=== PATIENT | male | born 1970 | race Caucasian/White ===

== ENCOUNTER 2017-05-07 03:15 | Emergency (ER) | payer MEDICARE, MEDICAID ==
[~2017-05-07] VITALS: Ht 177.8 cm; Wt 133.2 kg
[~2017-05-07 03:15] MED LIST: CLON0.1T20 PO; DILT240C90 PO; GABA-338 PO; HYDR-3972 PO; IBUP-1986 PO; LAMO200T2 PO; PALI234D IM; RIVA15TA PO; RIVA20TA PO; SIMV20TA5 PO
[2017-05-07 03:28] LABS: BASOPHILS % (AUTO) 0.5 % (0-1); EOSINOPHILS # (AUTO) 0.1 X10'3 (0-0.9); EOSINOPHILS % (AUTO) 1.5 % (0-6); HEMATOCRIT 41.7 % (42.0-52.0); HEMOGLOBIN 14.4 g/dl (14.0-17.9); LYMPHOCYTES # (AUTO) 2.9 X10'3 (1.1-4.8); LYMPHOCYTES % (AUTO) 30.2 % (21-51); MEAN CORPUSCULAR HEMOGLOBIN 30.9 PG (27.0-31.0); MEAN CORPUSCULAR HGB CONC 34.6 % (33.0-36.5); MEAN CORPUSCULAR VOLUME 89.5 FL (78-98); MEAN PLATELET VOLUME 8.1 FL (7.4-10.4); MONOCYTES # (AUTO) 0.7 X10'3 (0-0.9); MONOCYTES % (AUTO) 7.4 % (2-12); NEUTROPHILS # (AUTO) 5.7 X10'3 (1.8-7.7); NEUTROPHILS % (AUTO) 60.4 % (42-75); PLATELET COUNT 243 X10'3 (140-440); RED BLOOD COUNT 4.66 X10'6 (4.70-6.10); RED CELL DISTRIBUTION WIDTH 14.8 % (11.5-14.5); WHITE BLOOD COUNT 9.5 X10'3 (4.5-11.0)
[2017-05-07] MEDS ORDERED: albuterol 2.5 MG/3 ML nebule NEB ONE (03:35)
[2017-05-07] MEDS ORDERED: normal saline 1000ML IV soln IVB ONE (03:35)
[2017-05-07 03:44] LABS: ALANINE AMINOTRANSFERASE 35 U/L (12-78); ALBUMIN 3.7 G/DL (3.4-5.0); ALKALINE PHOSPHATASE 50 IU/L (46-116); ANION GAP 12 (8-16); ASPARTATE AMINO TRANSFERASE 15 U/L (10-37); BILIRUBIN,TOTAL 0.3 MG/DL (0.1-1.0); BLOOD UREA NITROGEN 19 MG/DL (7-18); BUN/CREATININE RATIO 16.7 (5.4-32.0); CHLORIDE 104 MMOL/L (99-107); CREATININE 1.14 MG/DL (0.60-1.10); GLUCOSE 154 MG/DL (70-104); POTASSIUM 4.1 MMOL/L (3.5-5.1); SODIUM 140 MMOL/L (135-145); TOTAL CARBON DIOXIDE 23.6 MMOL/L (24-32); TOTAL PROTEIN 7.3 G/DL (6.4-8.2); eGFR 69 ML/MIN
[2017-05-07 03:49] LABS: D-DIMER < 0.19 MG/L FEU (0-0.50); PARTIAL THROMBOPLASTIN TIME 28 SECONDS (22-32); PROTHROMBIN TIME 10.7 SECONDS (9.0-12.0)
[2017-05-07 04:19] LABS: MAGNESIUM 1.9 MG/DL (1.5-2.4); PHOSPHORUS 4.2 MG/DL (2.3-4.5)
[2017-05-07] MEDS ORDERED: iohexol 350MG/ML 100ml bottle IV ONE (04:24)
[2017-05-07 04:39] LABS: CLARITY,URINE CLEAR (Clear); COLOR,URINE YELLOW (Yellow); GLUCOSE, URINE NEGATIVE (Neg); KETONES,URINE NEGATIVE (Neg); LEUKOCYTE ESTERASE ,URINE NEGATIVE (Neg); NITRITES, URINE NEGATIVE (Neg); OCCULT BLOOD,URINE NEGATIVE (Neg); PROTEIN,URINE NEGATIVE (Neg); UROBILINOGEN,URINE 0.2 E.U/dL (0.2-1.0)
[2017-05-07 04:43] LABS: UA COLLECTION TYPE STRAIGHT CATH
[2017-05-07 04:45] LABS: URINE AMPHETAMINE SCREEN NEGATIVE (Neg); URINE BARBITUATE SCREEN NEGATIVE (Neg); URINE BENZODIAZEPINES SCREEN NEGATIVE (Neg); URINE CANNABINOID SCREEN NEGATIVE (Neg); URINE COCAINE SCREEN NEGATIVE (Neg); URINE METHADONE SCREEN NEGATIVE (Neg); URINE OPIATE SCREEN NEGATIVE (Neg); URINE PHENCYCLIDINE SCREEN NEGATIVE (Neg)
[2017-05-07 07:47] VITALS: BP 137/69
== END 2017-05-07 07:48 | disposition home or self-care (01) ==
LOC: ER 03:15
DX: R06.00 Dyspnea, unspecified (principal); I25.10 Atherosclerotic heart disease of native coronary artery without angina pectoris; E78.00 Pure hypercholesterolemia, unspecified; I10 Essential (primary) hypertension; I25.2 Old myocardial infarction; K21.9 Gastro-esophageal reflux disease without esophagitis; E11.9 Type 2 diabetes mellitus without complications; F17.200 Nicotine dependence, unspecified, uncomplicated; G89.29 Other chronic pain; Z86.718 Personal history of other venous thrombosis and embolism; Z90.49 Acquired absence of other specified parts of digestive tract; Z95.1 Presence of aortocoronary bypass graft; Z56.0 Unemployment, unspecified; Z88.8 Allergy status to other drugs, medicaments and biological substances; Z79.899 Other long term (current) drug therapy
CPT/HCPCS: 36415; 71045; 71250; 80053; 80305; 81003; 83735; 83880; 84100; 84484; 85025; 85379; 85610; 85730; 93005; 94640; 94760; 96360; 99285; J7030; Q9967

== ENCOUNTER 2017-05-24 08:09 | Inpatient (IN) | payer MEDICARE, MEDICAID ==
[2017-05-18 15:36] LABS: BASOPHILS # (AUTO) 0.1 X10'3 (0-0.2); BASOPHILS % (AUTO) 0.6 % (0-1); EOSINOPHILS # (AUTO) 0.2 X10'3 (0-0.9); EOSINOPHILS % (AUTO) 2.5 % (0-6); LYMPHOCYTES # (AUTO) 3.6 X10'3 (1.1-4.8); LYMPHOCYTES % (AUTO) 36.6 % (21-51); MEAN CORPUSCULAR HEMOGLOBIN 30.9 PG (27.0-31.0); MEAN CORPUSCULAR HGB CONC 34.7 % (33.0-36.5); MEAN CORPUSCULAR VOLUME 88.9 FL (78-98); MEAN PLATELET VOLUME 8.4 FL (7.4-10.4); MONOCYTES # (AUTO) 0.9 X10'3 (0-0.9); MONOCYTES % (AUTO) 9.2 % (2-12); NEUTROPHILS # (AUTO) 5.1 X10'3 (1.8-7.7); NEUTROPHILS % (AUTO) 51.1 % (42-75); PRE OP HEMATOCRIT 39.7 % (42.0-52.0); PRE OP HEMOGLOBIN 13.8 g/dL (14.0-17.9); PRE OP PLATELET COUNT 240 X10'3 (140-440); RED BLOOD COUNT 4.46 X10'6 (4.70-6.10); RED CELL DISTRIBUTION WIDTH 14.7 % (11.5-14.5)
[2017-05-18 15:54] LABS: ALBUMIN 3.6 G/DL (3.4-5.0); ALBUMIN/GLOBULIN RATIO 0.9 (1.1-1.5); ALKALINE PHOSPHATASE 58 IU/L (46-116); BLOOD UREA NITROGEN 16 MG/DL (7-18); BUN/CREATININE RATIO 13.6 (5.4-32.0); CHLORIDE 103 MMOL/L (99-107); CREATININE 1.18 MG/DL (0.60-1.10); PRE OP ALT 32 U/L (30-65); PRE OP ANION GAP 9 (8-16); PRE OP AST 18 U/L (10-37); PRE OP BILIRUB, TOTAL 0.3 MG/DL (0.0-1.0); PRE OP GLUCOSE 124 MG/DL (70-104); PRE OP POTASSIUM 3.7 MMOL/L (3.4-5.1); PRE OP SODIUM 139 MMOL/L (135-145); TOTAL CARBON DIOXIDE 27.1 MMOL/L (24-32); TOTAL PROTEIN 7.4 G/DL (6.4-8.2); eGFR 67 ML/MIN
[~2017-05-24] VITALS: Ht 177.8 cm; Wt 136.1 kg
[2017-05-24] VITALS (18 sets, daily range): BP systolic 112–136; BP diastolic 64–87
[~2017-05-24 08:09] MED LIST changes: +BUPR-84 PO; -GABA-338 PO; +GABA600T2 PO; +HALO2TAB PO; +IBUP-1984 PO; -IBUP-1986 PO; +LISI-600 PO; +PANT-47 PO; +PRAV40TA3 PO; -RIVA15TA PO; -SIMV20TA5 PO; +TRAZ-146 PO; +ZOLP10TA5 PO; +ceFAZolin inj. 3,000 MG in normal saline 100ml IV soln 100 ML IV ONE; +famotidine 20mg tablet PO ONE; +ringers solution, lacted 1,000 ML IV SCH; +vancomycin inj 1,500 MG in normal saline 300ml IV soln IV ONE
[2017-05-24] MEDS ORDERED: albuterol 2.5 MG/3 ML nebule NEB ONE (09:55)
[2017-05-24] MEDS ORDERED: ketorolac trometh. 30mg/ml inj. ONE (10:10)
[2017-05-24] MEDS ORDERED: LIDOcaine 1% 30ml preserv. free vial ONE (10:16)
[2017-05-24] MEDS ORDERED: BUPIVAcaine 0.5% inj/PF 30 ml vial ONE ×2 (10:16→10:18)
[2017-05-24] MEDS ORDERED: MIDAZolam 5mg/5ml vial ONE (10:21)
[2017-05-24] MEDS ORDERED: fentaNYL /PF 50mcg/ml 5ml ampule ONE (10:21)
[2017-05-24] MEDS ORDERED: rocuronium 10mg/ml inj IV ONE (10:23)
[2017-05-24] MEDS ORDERED: propofol inj 20 ML IV ONE (10:23)
[2017-05-24] MEDS ORDERED: neostigmine methylsulfate 1 MG/ML 10ml vial ONE (11:15)
[2017-05-24] MEDS ORDERED: glycopyrrolate 0.2mg/ml inj ONE (11:15)
[2017-05-24] MEDS ORDERED: sevoflurane 250ml liquid IH ONE (11:15)
[2017-05-24] MEDS ORDERED: labetalol 20mg/4ml (5mg/ml) syringe IV PRN (11:55)
[2017-05-24] MEDS ORDERED: meperidine/PF 50mg/ml syringe IV ONE (11:55)
[2017-05-24] MEDS ORDERED: hydrALAZINE 20mg/ml inj. IV PRN (11:55)
[2017-05-24] MEDS ORDERED: ringers solution, lacted 1,000 ML IV ONE (11:55)
[2017-05-24] MEDS ORDERED: meperidine/PF 50mg/ml syringe IV PRN ×2 (11:55)
[2017-05-24] MEDS ORDERED: morphine 4 MG/ML inj SYRINge IV PRN ×2 (11:55)
[2017-05-24] MEDS ORDERED: ondansetron/PF 4mg/2ml inj IV PRN ×2 (11:55→13:20)
[2017-05-24] MEDS ORDERED: vancomycin 1,000mg inj ONE (12:10)
[2017-05-24] MEDS ORDERED: dexamethasone sod phosphate 4mg/ml inj. ONE (12:28)
[2017-05-24] MEDS ORDERED: ondansetron/PF 4mg/2ml inj ONE (12:28)
[2017-05-24] MEDS ORDERED: bisacodyl 10mg suppository rectal RC PRN (13:20)
[2017-05-24] MEDS ORDERED: oxyCODONE IR 5mg (immed. release) tablet PO PRN ×2 (13:20)
[2017-05-24] MEDS ORDERED: magnesium hydroxide 30ml (MOM) UD suspension PO PRN (13:20)
[2017-05-24] MEDS ORDERED: HYDROmorphone inj. 0.5 MG/0.5 ML DISP.SYRIN IV PRN ×2 (13:20)
[2017-05-24] MEDS ORDERED: diphenhydrAMINE 25mg capsule PO PRN ×2 (13:20)
[2017-05-24] MEDS ORDERED: acetaminophen 325mg tablet PO PRN (13:20)
[2017-05-24] MEDS ORDERED: morphine 2 MG/ML inj. syringe IV PRN (14:30)
[2017-05-24] MEDS ORDERED: HYDROcodone/acetaminophen 10/325mg tab PO PRN ×2 (14:35)
[2017-05-24] MEDS ORDERED: tranexamic acid inj. 1,350 MG in normal saline 100ml IV soln 100 ML IV ONE (16:20)
[2017-05-24] MEDS: potassium cl 20mEq in 1/2 NS 1,000 ML IV SCH ×2 (16:33→21:18)
[2017-05-24] MEDS: acetaminophen 325mg tablet PO SCH ×2 (16:35→20:05)
[2017-05-24] MEDS: cefazolin 1gm/NS 100mL 100 ML IV SCH ×2 (16:36→23:57)
[2017-05-24] MEDS: ketorolac tromethamine 15mg/ml inj. IV SCH ×2 (16:38→20:05)
[2017-05-24] MEDS ORDERED: vancomycin/NS 1 GM ADD-VANTAGE 250 ML IV SCH (20:00)
[2017-05-24] MEDS: cloNIDine 0.1 mg tablet PO SCH (20:04)
[2017-05-24] MEDS: lamoTRIgine 100mg tablet PO SCH (20:04)
[2017-05-24] MEDS: gabapentin 400mg capsule PO SCH (20:04)
[2017-05-24] MEDS: buPROPion SR 150mg tablet PO SCH (20:04)
[2017-05-24] MEDS ORDERED: pravastatin 40mg tablet PO SCH (21:00)
[2017-05-24] MEDS ORDERED: zolpidem 5mg tablet PO SCH (21:00)
[2017-05-24] MEDS ORDERED: sennosides 8.6mg tablet PO SCH (21:00)
[2017-05-24] MEDS ORDERED: traZODone 50mg tablet PO SCH (21:00)
[2017-05-24] MEDS ORDERED: gabapentin 300mg capsule PO SCH (21:00)
[2017-05-24] MEDS ORDERED: haloperidol 1mg tablet PO SCH (21:00)
[2017-05-25] MEDS: ketorolac tromethamine 15mg/ml inj. IV SCH ×2 (01:54→09:22)
[2017-05-25 01:57] VITALS: BP 121/76
[2017-05-25] MEDS: acetaminophen 325mg tablet PO SCH (01:57)
[2017-05-25] MEDS: potassium cl 20mEq in 1/2 NS 1,000 ML IV SCH (05:18)
[2017-05-25 06:23] LABS: BASOPHILS % (AUTO) 0.1 % (0-1); EOSINOPHILS # (AUTO) 0.3 X10'3 (0-0.9); EOSINOPHILS % (AUTO) 1.9 % (0-6); HEMATOCRIT 35.1 % (42.0-52.0); HEMOGLOBIN 12.4 g/dl (14.0-17.9); LYMPHOCYTES # (AUTO) 1.4 X10'3 (1.1-4.8); LYMPHOCYTES % (AUTO) 8.5 % (21-51); MEAN CORPUSCULAR HGB CONC 35.4 % (33.0-36.5); MEAN CORPUSCULAR VOLUME 87.5 FL (78-98); MEAN PLATELET VOLUME 8.1 FL (7.4-10.4); MONOCYTES # (AUTO) 1.1 X10'3 (0-0.9); MONOCYTES % (AUTO) 6.7 % (2-12); NEUTROPHILS # (AUTO) 13.6 X10'3 (1.8-7.7); NEUTROPHILS % (AUTO) 82.8 % (42-75); PLATELET COUNT 234 X10'3 (140-440); RED BLOOD COUNT 4.02 X10'6 (4.70-6.10); RED CELL DISTRIBUTION WIDTH 14.2 % (11.5-14.5); WHITE BLOOD COUNT 16.4 X10'3 (4.5-11.0)
[2017-05-25 06:38] LABS: ANION GAP 8 (8-16); CHLORIDE 105 MMOL/L (99-107); POTASSIUM 4.7 MMOL/L (3.5-5.1); SODIUM 140 MMOL/L (135-145); TOTAL CARBON DIOXIDE 27.1 MMOL/L (24-32)
[2017-05-25] MEDS ORDERED: rivaroxaban 20mg tablet PO SCH (07:30)
[2017-05-25] MEDS ORDERED: pantoprazole 40mg Tablet.DR PO SCH (07:30)
[2017-05-25] MEDS ORDERED: diltiazem CD 120mg capsule (once-daily) PO SCH (08:00)
[2017-05-25] MEDS ORDERED: lisinopril 20mg tablet PO SCH (08:00)
[2017-05-25 08:14] VITALS: BP 122/89
[2017-05-25] MEDS ORDERED: aspirin 325mg tablet PO SCH (08:30)
[2017-05-25] MEDS: cloNIDine 0.1 mg tablet PO SCH (09:26)
[2017-05-25] MEDS: gabapentin 400mg capsule PO SCH (09:26)
[2017-05-25] MEDS: lamoTRIgine 100mg tablet PO SCH (09:26)
[2017-05-25] MEDS: buPROPion SR 150mg tablet PO SCH (09:26)
[2017-05-26] MEDS ORDERED: celeCOXIB 100mg capsule PO SCH (08:00)
[2017-05-26] MEDS ORDERED: acetaminophen 325mg tablet PO PRN (13:20)
== END 2017-05-25 09:45 | disposition home or self-care (01) | DRG 483 ==
LOC: PAS IN 08:09 → EDSTATUS 11:15 → ORTHO 4S 14:53
PROVIDERS: ADMIT Orthopaedic Surgery; ATTEND Orthopaedic Surgery
PROC: 0LS30ZZ Reposition Right Upper Arm Tendon, Open Approach (ICD-10-PCS; 2017-05-24)
PROC: 3E0T3BZ Introduction of Anesthetic Agent into Peripheral Nerves and Plexi, Percutaneous Approach (ICD-10-PCS; 2017-05-24)
PROC: 0RRJ00Z Replacement of Right Shoulder Joint with Reverse Ball and Socket Synthetic Substitute, Open Approach (ICD-10-PCS; principal; 2017-05-24 11:10)
DX: M19.111 Post-traumatic osteoarthritis, right shoulder (principal); F20.9 Schizophrenia, unspecified; I82.509 Chronic embolism and thrombosis of unspecified deep veins of unspecified lower extremity; Z68.41 Body mass index [BMI] 40.0-44.9, adult; D50.0 Iron deficiency anemia secondary to blood loss (chronic); E78.5 Hyperlipidemia, unspecified; K21.9 Gastro-esophageal reflux disease without esophagitis; I10 Essential (primary) hypertension; G47.30 Sleep apnea, unspecified; M75.21 Bicipital tendinitis, right shoulder; M75.41 Impingement syndrome of right shoulder; E66.9 Obesity, unspecified; I25.10 Atherosclerotic heart disease of native coronary artery without angina pectoris; M65.811 Other synovitis and tenosynovitis, right shoulder; F32.9 Major depressive disorder, single episode, unspecified; G89.29 Other chronic pain; M54.9 Dorsalgia, unspecified; M75.121 Complete rotator cuff tear or rupture of right shoulder, not specified as traumatic; F17.210 Nicotine dependence, cigarettes, uncomplicated; Z88.8 Allergy status to other drugs, medicaments and biological substances; Z79.899 Other long term (current) drug therapy; Z79.01 Long term (current) use of anticoagulants; Z86.73 Personal history of transient ischemic attack (TIA), and cerebral infarction without residual deficits
CPT/HCPCS: 36415; 80051; 80053; 85025; 87070; 94640; 94760; 97161; 97530; A4353; A4565; A6255; A7000; J0690; J1100; J1885; J2250; J2270; J2405; J2704; J2710; J3010; J3370; J3490; J7030; J7120

== ENCOUNTER 2017-09-04 15:49 | Emergency (ER) | payer MEDICARE, MEDICAID ==
[~2017-09-04] VITALS: Ht 177.8 cm; Wt 134.1 kg
[~2017-09-04 15:49] MED LIST changes: -ceFAZolin inj. 3,000 MG in normal saline 100ml IV soln 100 ML IV ONE; -famotidine 20mg tablet PO ONE; -ringers solution, lacted 1,000 ML IV SCH; -vancomycin inj 1,500 MG in normal saline 300ml IV soln IV ONE
[2017-09-04 16:03] VITALS: BP 116/48
== END 2017-09-04 17:38 | disposition home or self-care (01) ==
LOC: ER 15:49
DX: S93.402A Sprain of unspecified ligament of left ankle, initial encounter (principal); I25.10 Atherosclerotic heart disease of native coronary artery without angina pectoris; E78.00 Pure hypercholesterolemia, unspecified; I10 Essential (primary) hypertension; I25.2 Old myocardial infarction; K21.9 Gastro-esophageal reflux disease without esophagitis; E11.9 Type 2 diabetes mellitus without complications; G89.29 Other chronic pain; Z87.442 Personal history of urinary calculi; Z86.718 Personal history of other venous thrombosis and embolism; Z90.49 Acquired absence of other specified parts of digestive tract; Z98.890 Other specified postprocedural states; Z56.0 Unemployment, unspecified; Z91.040 Latex allergy status; Z79.899 Other long term (current) drug therapy
CPT/HCPCS: 73610; 99284

== ENCOUNTER 2017-10-31 14:04 | Emergency (ER) | payer MEDICARE, MEDICAID ==
[~2017-10-31] VITALS: Ht 604 cm; Wt 132.0 kg
[~2017-10-31 14:04] MED LIST changes: -TRAZ-146 PO; +TRAZ-219 PO
[2017-10-31 14:24] LABS: BASOPHILS # (AUTO) 0.1 X10'3 (0-0.2); BASOPHILS % (AUTO) 0.9 % (0-1); EOSINOPHILS # (AUTO) 0.1 X10'3 (0-0.9); EOSINOPHILS % (AUTO) 1.3 % (0-6); HEMATOCRIT 37.9 % (42.0-52.0); HEMOGLOBIN 13.2 g/dl (14.0-17.9); LYMPHOCYTES # (AUTO) 3.1 X10'3 (1.1-4.8); LYMPHOCYTES % (AUTO) 29.5 % (21-51); MEAN CORPUSCULAR HEMOGLOBIN 30.7 PG (27.0-31.0); MEAN CORPUSCULAR HGB CONC 34.9 % (33.0-36.5); MEAN CORPUSCULAR VOLUME 88.1 FL (78-98); MEAN PLATELET VOLUME 7.7 FL (7.4-10.4); MONOCYTES # (AUTO) 0.9 X10'3 (0-0.9); MONOCYTES % (AUTO) 8.5 % (2-12); NEUTROPHILS # (AUTO) 6.3 X10'3 (1.8-7.7); NEUTROPHILS % (AUTO) 59.8 % (42-75); PLATELET COUNT 257 X10'3 (140-440); RED CELL DISTRIBUTION WIDTH 14.9 % (11.5-14.5); WHITE BLOOD COUNT 10.6 X10'3 (4.5-11.0)
[2017-10-31 14:33] LABS: INR 1.1 INR; PARTIAL THROMBOPLASTIN TIME 32 SECONDS (22-32); PROTHROMBIN TIME 11.8 SECONDS (9.0-12.0)
[2017-10-31 14:38] LABS: ALANINE AMINOTRANSFERASE 27 U/L (12-78); ALBUMIN 3.5 G/DL (3.4-5.0); ALKALINE PHOSPHATASE 52 IU/L (46-116); ANION GAP 7 (8-16); ASPARTATE AMINO TRANSFERASE 14 U/L (10-37); BILIRUBIN,TOTAL 0.2 MG/DL (0.1-1.0); BLOOD UREA NITROGEN 13 MG/DL (7-18); BUN/CREATININE RATIO 11.3 (5.4-32.0); CALCIUM 9.1 MG/DL (8.5-10.1); CHLORIDE 103 MMOL/L (99-107); CREATININE 1.15 MG/DL (0.60-1.10); GLUCOSE 107 MG/DL (70-104); POTASSIUM 3.9 MMOL/L (3.5-5.1); SODIUM 137 MMOL/L (135-145); TOTAL PROTEIN 6.9 G/DL (6.4-8.2); eGFR 68 ML/MIN
[2017-10-31 15:49] VITALS: BP 114/66
== END 2017-10-31 15:50 | disposition home or self-care (01) ==
LOC: ER 14:04
DX: R07.1 Chest pain on breathing (principal); I25.10 Atherosclerotic heart disease of native coronary artery without angina pectoris; E78.00 Pure hypercholesterolemia, unspecified; I25.2 Old myocardial infarction; I10 Essential (primary) hypertension; K21.9 Gastro-esophageal reflux disease without esophagitis; E11.9 Type 2 diabetes mellitus without complications; G89.29 Other chronic pain; Z86.718 Personal history of other venous thrombosis and embolism; Z87.442 Personal history of urinary calculi; Z90.49 Acquired absence of other specified parts of digestive tract; Z98.890 Other specified postprocedural states; Z95.1 Presence of aortocoronary bypass graft; Z56.0 Unemployment, unspecified; Z91.040 Latex allergy status; Z88.6 Allergy status to analgesic agent; Z79.899 Other long term (current) drug therapy
CPT/HCPCS: 36415; 71045; 80053; 84484; 85025; 85610; 85730; 93005; 99285

== ENCOUNTER 2017-11-10 13:03 | Emergency (ER) | payer MEDICARE, MEDICAID ==
[~2017-11-10] VITALS: Ht 175.3 cm; Wt 131.0 kg
[2017-11-10 13:13] VITALS: BP 112/71
== END 2017-11-10 15:43 | disposition left against medical advice (07) ==
LOC: ER 13:04
DX: S40.869A Insect bite (nonvenomous) of unspecified upper arm, initial encounter (principal); Z53.21 Procedure and treatment not carried out due to patient leaving prior to being seen by health care provider; W57.XXXA Bitten or stung by nonvenomous insect and other nonvenomous arthropods, initial encounter; Y93.89 Activity, other specified; Y92.89 Other specified places as the place of occurrence of the external cause; Y99.9 Unspecified external cause status

== ENCOUNTER 2018-01-28 13:37 | Emergency (ER) | payer MEDICARE, MEDICAID ==
[~2018-01-28] VITALS: Ht 177.8 cm; Wt 129.2 kg
[2018-01-28 14:13] LABS: BASOPHILS # (AUTO) 0.1 X10'3 (0-0.2); BASOPHILS % (AUTO) 0.8 % (0-1); EOSINOPHILS # (AUTO) 0.2 X10'3 (0-0.9); EOSINOPHILS % (AUTO) 2.1 % (0-6); HEMATOCRIT 43.7 % (42.0-52.0); HEMOGLOBIN 14.6 g/dl (14.0-17.9); LYMPHOCYTES # (AUTO) 3.3 X10'3 (1.1-4.8); LYMPHOCYTES % (AUTO) 30.7 % (21-51); MEAN CORPUSCULAR HEMOGLOBIN 29.7 PG (27.0-31.0); MEAN CORPUSCULAR HGB CONC 33.4 % (33.0-36.5); MEAN CORPUSCULAR VOLUME 88.9 FL (78-98); MEAN PLATELET VOLUME 8.1 FL (7.4-10.4); MONOCYTES % (AUTO) 9.3 % (2-12); NEUTROPHILS # (AUTO) 6.1 X10'3 (1.8-7.7); NEUTROPHILS % (AUTO) 57.1 % (42-75); PLATELET COUNT 301 X10'3 (140-440); RED BLOOD COUNT 4.92 X10'6 (4.70-6.10); RED CELL DISTRIBUTION WIDTH 14.5 % (11.5-14.5); WHITE BLOOD COUNT 10.6 X10'3 (4.5-11.0)
[2018-01-28 14:25] LABS: CLARITY,URINE CLEAR (Clear); COLOR,URINE YELLOW (Yellow); GLUCOSE, URINE NEGATIVE (Neg); KETONES,URINE NEGATIVE (Neg); LEUKOCYTE ESTERASE ,URINE NEGATIVE (Neg); NITRITES, URINE NEGATIVE (Neg); OCCULT BLOOD,URINE NEGATIVE (Neg); PH,URINE 6.5 (4.8-8.0); PROTEIN,URINE NEGATIVE (Neg); UROBILINOGEN,URINE 0.2 E.U/dL (0.2-1.0)
[2018-01-28 14:28] LABS: UA COLLECTION TYPE CLN CATCH MIDSTREAM
[2018-01-28] MEDS ORDERED: normal saline 1000ML IV soln IVB ONE (14:30)
[2018-01-28] MEDS ORDERED: HYDROmorphone 1 mg/ml syringe IV ONE (14:30)
[2018-01-28] MEDS ORDERED: ondansetron/PF 4mg/2ml inj IV ONE (14:30)
[2018-01-28 14:33] LABS: ALANINE AMINOTRANSFERASE 29 U/L (12-78); ALBUMIN 3.6 G/DL (3.4-5.0); ALBUMIN/GLOBULIN RATIO 0.9 (1.1-1.5); ALKALINE PHOSPHATASE 64 IU/L (46-116); AMYLASE 62 U/L (25-115); ANION GAP 8 (8-16); ASPARTATE AMINO TRANSFERASE 17 U/L (10-37); BILIRUBIN,TOTAL 0.3 MG/DL (0.1-1.0); BLOOD UREA NITROGEN 12 MG/DL (7-18); CALCIUM 9.6 MG/DL (8.5-10.1); CHLORIDE 101 MMOL/L (99-107); CREATININE 1.09 MG/DL (0.60-1.10); GLUCOSE 121 MG/DL (70-104); LIPASE 193 U/L (73-393); POTASSIUM 3.9 MMOL/L (3.5-5.1); SODIUM 138 MMOL/L (135-145); TOTAL CARBON DIOXIDE 28.7 MMOL/L (24-32); TOTAL PROTEIN 7.7 G/DL (6.4-8.2); eGFR 73 ML/MIN
[2018-01-28 14:43] LABS: PROTHROMBIN TIME 10.5 SECONDS (9.0-12.0)
[2018-01-28] MEDS ORDERED: pantoprazole 40 MG vial IV ONE (14:50)
[2018-01-28 16:19] VITALS: BP 137/90
== END 2018-01-28 16:21 | disposition home or self-care (01) ==
LOC: ER 13:38
DX: R10.84 Generalized abdominal pain (principal); I25.10 Atherosclerotic heart disease of native coronary artery without angina pectoris; E78.00 Pure hypercholesterolemia, unspecified; I10 Essential (primary) hypertension; I25.2 Old myocardial infarction; K21.9 Gastro-esophageal reflux disease without esophagitis; E11.9 Type 2 diabetes mellitus without complications; G89.29 Other chronic pain; F17.200 Nicotine dependence, unspecified, uncomplicated; Z56.0 Unemployment, unspecified; Z86.718 Personal history of other venous thrombosis and embolism; Z90.49 Acquired absence of other specified parts of digestive tract; Z98.890 Other specified postprocedural states; Z91.040 Latex allergy status; Z88.5 Allergy status to narcotic agent; Z79.899 Other long term (current) drug therapy
CPT/HCPCS: 36415; 74176; 80053; 81003; 82150; 83690; 85025; 85610; 96374; 96375; 99285; C9113; J1170; J2405; J7030; 96361

== ENCOUNTER 2018-03-14 15:45 | Emergency (ER) | payer MEDICARE, MEDICAID ==
[~2018-03-14] VITALS: Ht 177.8 cm; Wt 129.2 kg
--- NOTE | 2018-03-14 18:24 | NUR ---
VIOLETA LESLIE REQUESTING ME TO GT THE DOPPLAR AND CHECK PT'S NETTIE PULSES SHE IS UNABLE TO FEEL ANY PULSES.
[2018-03-14] MEDS ORDERED: ketorolac tromethamine 15mg/ml inj. IM ONE (18:35)
--- NOTE | 2018-03-14 18:43 | NUR ---
HANDHELD DOPPLAR USED BY MYSELF AND + PULSES TO LEFT AND RIGHT PT AND DP IDENDIFIED, STRONG AND REGULAR. VIOLETA LESLIE NOTIFIED. PT TO RECEIVE IM TORADOL. AT BEDSIDE. PT WITH STABLE VS.
--- NOTE | 2018-03-14 18:57 | NUR ---
PT AWAITING ARTERIAL US.
--- NOTE | 2018-03-14 19:30 | NUR ---
PT LESLIE TALKING WITH PT ABOUT HER REASONING FOR THE ARTERIAL US TO BLE PT REPORTED HE DID NOT UNDERSTAND WHY HE NEEDED ANOTHER ONE HE HAS ONE 2 WEEKS AGO.
--- NOTE | 2018-03-14 19:36 | NUR ---
VASCULAR TO BE HERE IN 30 MIN FOR ble ARTERIAL US. .
--- NOTE | 2018-03-14 20:08 | NUR ---
vascular calling and will be here in 10 minutes.
[2018-03-14 20:14] VITALS: BP 122/70
--- NOTE | 2018-03-14 20:22 | NUR ---
VASCULAR AT BEDSIDE NOW. REMAINS AT BEDSIDE PTWITH STABLE VS. PAIN NOW 3.5 OUT OF 10 TO BACK OF HIS LEFT CALF.
== END 2018-03-14 21:09 | disposition home or self-care (01) ==
LOC: ER 15:46
DX: I74.5 Embolism and thrombosis of iliac artery (principal); I25.10 Atherosclerotic heart disease of native coronary artery without angina pectoris; E78.00 Pure hypercholesterolemia, unspecified; I10 Essential (primary) hypertension; I25.2 Old myocardial infarction; K21.9 Gastro-esophageal reflux disease without esophagitis; E11.9 Type 2 diabetes mellitus without complications; G89.29 Other chronic pain; Z86.718 Personal history of other venous thrombosis and embolism; Z90.49 Acquired absence of other specified parts of digestive tract; Z98.890 Other specified postprocedural states; Z56.0 Unemployment, unspecified; Z91.040 Latex allergy status; Z88.5 Allergy status to narcotic agent; Z79.899 Other long term (current) drug therapy
CPT/HCPCS: 93922; 93926; 96372; 99284; J1885

== ENCOUNTER 2018-04-04 11:45 | Emergency (ER) | payer MEDICARE, MEDICAID ==
[~2018-04-04] VITALS: Ht 177.8 cm; Wt 129.6 kg
[~2018-04-04 11:45] MED LIST changes: +GABA600T13 PO; -GABA600T2 PO
[2018-04-04 11:51] VITALS: BP 121/92
--- NOTE | 2018-04-04 12:07 | NUR ---
PT SEEN IN TRIAGE BY PROVIDER, NO TRAUMA ALERT NEEDED. WILL BE SEEN IN RAP.
[2018-04-04] MEDS ORDERED: HYDROcodone/acetaminophen 10/325mg tab PO ONE (12:10)
== END 2018-04-04 12:29 | disposition home or self-care (01) ==
LOC: ER 11:45
DX: S20.211A Contusion of right front wall of thorax, initial encounter (principal); I25.10 Atherosclerotic heart disease of native coronary artery without angina pectoris; E78.00 Pure hypercholesterolemia, unspecified; I10 Essential (primary) hypertension; I25.2 Old myocardial infarction; K21.9 Gastro-esophageal reflux disease without esophagitis; E11.9 Type 2 diabetes mellitus without complications; G89.29 Other chronic pain; Z86.718 Personal history of other venous thrombosis and embolism; Z56.0 Unemployment, unspecified; Z90.49 Acquired absence of other specified parts of digestive tract; Z98.890 Other specified postprocedural states; Z91.040 Latex allergy status; Z88.5 Allergy status to narcotic agent; Z79.899 Other long term (current) drug therapy; W18.49XA Other slipping, tripping and stumbling without falling, initial encounter; Y93.89 Activity, other specified; Y92.098 Other place in other non-institutional residence as the place of occurrence of the external cause; Y99.9 Unspecified external cause status
CPT/HCPCS: 99284

== ENCOUNTER 2018-04-13 06:35 | Emergency (ER) | payer MEDICARE, MEDICAID ==
[~2018-04-13] VITALS: Ht 177.8 cm; Wt 127.2 kg
[2018-04-13 07:02] VITALS: BP 124/69
[2018-04-13] MEDS ORDERED: HYDROcodone/acetaminophen 10/325mg tab PO ONE (08:30)
== END 2018-04-13 08:54 | disposition home or self-care (01) ==
LOC: ER 06:35
DX: R07.89 Other chest pain (principal); I25.10 Atherosclerotic heart disease of native coronary artery without angina pectoris; E78.00 Pure hypercholesterolemia, unspecified; I10 Essential (primary) hypertension; I25.2 Old myocardial infarction; K21.9 Gastro-esophageal reflux disease without esophagitis; E11.9 Type 2 diabetes mellitus without complications; G89.29 Other chronic pain; E66.9 Obesity, unspecified; Z86.718 Personal history of other venous thrombosis and embolism; Z98.890 Other specified postprocedural states; Z90.49 Acquired absence of other specified parts of digestive tract; Z56.0 Unemployment, unspecified; Z91.040 Latex allergy status; Z88.5 Allergy status to narcotic agent; Z79.899 Other long term (current) drug therapy
CPT/HCPCS: 71045; 99283; 99284

== ENCOUNTER 2018-05-14 16:01 | Emergency (ER) | payer MEDICARE, MEDICAID ==
[~2018-05-14] VITALS: Ht 177.8 cm; Wt 124.7 kg
[2018-05-14 18:11] VITALS: BP 130/79
== END 2018-05-15 | disposition home or self-care (01) ==
LOC: ER 05-15 02:34
DX: S20.219A Contusion of unspecified front wall of thorax, initial encounter (principal); I10 Essential (primary) hypertension; E78.00 Pure hypercholesterolemia, unspecified; I25.10 Atherosclerotic heart disease of native coronary artery without angina pectoris; K21.9 Gastro-esophageal reflux disease without esophagitis; E11.9 Type 2 diabetes mellitus without complications; G47.30 Sleep apnea, unspecified; G89.29 Other chronic pain; F41.9 Anxiety disorder, unspecified; F17.200 Nicotine dependence, unspecified, uncomplicated; F32.9 Major depressive disorder, single episode, unspecified; F20.9 Schizophrenia, unspecified; Z90.49 Acquired absence of other specified parts of digestive tract; Z56.0 Unemployment, unspecified; Z87.442 Personal history of urinary calculi; Z86.718 Personal history of other venous thrombosis and embolism; Z79.899 Other long term (current) drug therapy; Z88.5 Allergy status to narcotic agent; Z91.040 Latex allergy status; W01.0XXA Fall on same level from slipping, tripping and stumbling without subsequent striking against object, initial encounter; Y93.89 Activity, other specified; Y92.89 Other specified places as the place of occurrence of the external cause; Y99.8 Other external cause status
CPT/HCPCS: 99281

== ENCOUNTER 2018-07-28 04:44 | Emergency (ER) | payer MEDICARE, MEDICAID ==
[~2018-07-28] VITALS: Ht 177.8 cm; Wt 102.3 kg
[2018-07-28] MEDS ORDERED: aspirin 325mg tablet PO ONE (05:25)
[2018-07-28] MEDS ORDERED: predniSONE 20 mg tablet PO ONE (05:25)
[2018-07-28] MEDS ORDERED: ipratropium/albuterol 3ml nebule NEB ONE (05:25)
[2018-07-28 05:47] LABS: BASOPHILS % (AUTO) 0.7 % (0-1); EOSINOPHILS # (AUTO) 0.3 X10'3 (0-0.9); EOSINOPHILS % (AUTO) 3.7 % (0-6); HEMATOCRIT 40.8 % (42.0-52.0); HEMOGLOBIN 13.6 g/dl (14.0-17.9); LYMPHOCYTES # (AUTO) 2.6 X10'3 (1.1-4.8); LYMPHOCYTES % (AUTO) 36.4 % (21-51); MEAN CORPUSCULAR HEMOGLOBIN 29.8 PG (27.0-31.0); MEAN CORPUSCULAR HGB CONC 33.4 g/dL (33.0-36.5); MEAN CORPUSCULAR VOLUME 89.1 FL (78-98); MEAN PLATELET VOLUME 8.7 FL (7.4-10.4); MONOCYTES # (AUTO) 0.7 X10'3 (0-0.9); MONOCYTES % (AUTO) 9.3 % (2-12); NEUTROPHILS # (AUTO) 3.5 X10'3 (1.8-7.7); NEUTROPHILS % (AUTO) 49.9 % (42-75); PARTIAL THROMBOPLASTIN TIME 31 SECONDS (22-32); PLATELET COUNT 246 X10'3 (140-440); RED BLOOD COUNT 4.58 X10'6 (4.70-6.10); RED CELL DISTRIBUTION WIDTH 15.1 % (11.5-14.5)
[2018-07-28 05:51] LABS: ALANINE AMINOTRANSFERASE 13 U/L (12-78); ALBUMIN 3.2 G/DL (3.4-5.0); ALBUMIN/GLOBULIN RATIO 0.9 (1.1-1.5); ALKALINE PHOSPHATASE 63 IU/L (46-116); ANION GAP 8 (8-16); ASPARTATE AMINO TRANSFERASE 6 U/L (10-37); BILIRUBIN,TOTAL 0.3 MG/DL (0.1-1.0); BLOOD UREA NITROGEN 14 MG/DL (7-18); BUN/CREATININE RATIO 16.7 (5.4-32.0); CHLORIDE 108 MMOL/L (99-107); CREATININE 0.84 MG/DL (0.60-1.10); GLUCOSE 136 MG/DL (70-104); SODIUM 142 MMOL/L (135-145); TOTAL CARBON DIOXIDE 25.7 MMOL/L (24-32); TOTAL PROTEIN 6.9 G/DL (6.4-8.2); eGFR > 90 ML/MIN
[2018-07-28 06:00] VITALS: BP 107/64
== END 2018-07-28 06:21 | disposition home or self-care (01) ==
LOC: ER 04:44
DX: R07.9 Chest pain, unspecified (principal); I25.10 Atherosclerotic heart disease of native coronary artery without angina pectoris; E78.00 Pure hypercholesterolemia, unspecified; I10 Essential (primary) hypertension; I25.2 Old myocardial infarction; K21.9 Gastro-esophageal reflux disease without esophagitis; E11.9 Type 2 diabetes mellitus without complications; G89.29 Other chronic pain; Z91.040 Latex allergy status; Z79.899 Other long term (current) drug therapy; Z87.442 Personal history of urinary calculi; Z88.6 Allergy status to analgesic agent; Z86.718 Personal history of other venous thrombosis and embolism; Z90.49 Acquired absence of other specified parts of digestive tract; Z98.890 Other specified postprocedural states; Z56.0 Unemployment, unspecified
CPT/HCPCS: 36415; 71045; 80053; 83880; 84484; 85025; 85610; 85730; 93005; 94640; 94760; 99284; J7512

== ENCOUNTER 2018-08-06 15:42 | Emergency (ER) | payer MEDICARE, MEDICAID ==
[~2018-08-06] VITALS: Ht 177.8 cm; Wt 117.0 kg
[2018-08-06 15:57] VITALS: BP 110/69
[2018-08-06] MEDS ORDERED: ipratropium/albuterol 3ml nebule NEB ONE (16:35)
[2018-08-06] MEDS ORDERED: AMOX-422 PO (17:13)
[2018-08-06] MEDS ORDERED: BENZ-16 PO (17:13)
== END 2018-08-06 17:26 | disposition home or self-care (01) ==
LOC: ER 15:42
DX: J32.1 Chronic frontal sinusitis (principal); I10 Essential (primary) hypertension; I25.10 Atherosclerotic heart disease of native coronary artery without angina pectoris; E78.00 Pure hypercholesterolemia, unspecified; I25.2 Old myocardial infarction; K21.9 Gastro-esophageal reflux disease without esophagitis; E11.9 Type 2 diabetes mellitus without complications; G89.29 Other chronic pain; F17.210 Nicotine dependence, cigarettes, uncomplicated; M54.9 Dorsalgia, unspecified; Z86.718 Personal history of other venous thrombosis and embolism; Z90.49 Acquired absence of other specified parts of digestive tract; Z56.0 Unemployment, unspecified; Z88.8 Allergy status to other drugs, medicaments and biological substances; Z91.040 Latex allergy status
CPT/HCPCS: 71045; 93005; 94640; 94760; 99283

== ENCOUNTER 2018-08-16 09:27 | Emergency (ER) | payer MEDICARE, MEDICAID ==
[~2018-08-16] VITALS: Ht 177.8 cm; Wt 116.0 kg
[~2018-08-16 09:27] MED LIST changes: +BENZ-16 PO
--- NOTE | 2018-08-16 10:06 | NUR ---
attempted iv access x 1 unsucessful, at bedside and verbal to d/c iv access
[2018-08-16 10:11] LABS: BASOPHILS # (AUTO) 0.1 X10'3 (0-0.2); EOSINOPHILS # (AUTO) 0.1 X10'3 (0-0.9); EOSINOPHILS % (AUTO) 1.4 % (0-6); LYMPHOCYTES # (AUTO) 2.3 X10'3 (1.1-4.8)
[2018-08-16 10:12] LABS: BASOPHILS % (AUTO) 0.7 % (0-1); HEMATOCRIT 40.7 % (42.0-52.0); HEMOGLOBIN 13.8 g/dl (14.0-17.9); LYMPHOCYTES % (AUTO) 27.3 % (21-51); MEAN CORPUSCULAR HEMOGLOBIN 30.1 PG (27.0-31.0); MEAN CORPUSCULAR HGB CONC 33.9 g/dL (33.0-36.5); MEAN CORPUSCULAR VOLUME 88.7 FL (78-98); MEAN PLATELET VOLUME 8.1 FL (7.4-10.4); MONOCYTES # (AUTO) 0.9 X10'3 (0-0.9); MONOCYTES % (AUTO) 10.5 % (2-12); NEUTROPHILS % (AUTO) 60.1 % (42-75); PLATELET COUNT 261 X10'3 (140-440); RED BLOOD COUNT 4.59 X10'6 (4.70-6.10); RED CELL DISTRIBUTION WIDTH 15.4 % (11.5-14.5); WHITE BLOOD COUNT 8.4 X10'3 (4.5-11.0)
[2018-08-16] MEDS ORDERED: ketorolac trometh. 30mg/ml inj. IM ONE (10:15)
[2018-08-16] MEDS ORDERED: LIDOcaine Viscous 15ml cup PO ONE (10:30)
[2018-08-16] MEDS ORDERED: mag hydrox/Alum hydrox/simeth 30ml oral suspension PO ONE (10:30)
[2018-08-16 10:34] LABS: ALANINE AMINOTRANSFERASE 23 U/L (12-78); ALBUMIN 3.6 G/DL (3.4-5.0); ALBUMIN/GLOBULIN RATIO 0.9 (1.1-1.5); ALKALINE PHOSPHATASE 63 IU/L (46-116); ANION GAP 7 (8-16); ASPARTATE AMINO TRANSFERASE 13 U/L (10-37); BILIRUBIN,TOTAL 0.4 MG/DL (0.1-1.0); BLOOD UREA NITROGEN 12 MG/DL (7-18); BUN/CREATININE RATIO 12.6 (5.4-32.0); CALCIUM 9.6 MG/DL (8.5-10.1); CHLORIDE 104 MMOL/L (99-107); CREATININE 0.95 MG/DL (0.60-1.10); GLUCOSE 110 MG/DL (70-104); POTASSIUM 3.8 MMOL/L (3.5-5.1); SODIUM 138 MMOL/L (135-145); TOTAL CARBON DIOXIDE 26.7 MMOL/L (24-32); TOTAL PROTEIN 7.5 G/DL (6.4-8.2); eGFR 85 ML/MIN
[2018-08-16 10:42] LABS: MAGNESIUM 1.9 MG/DL (1.5-2.4)
[2018-08-16 11:22] VITALS: BP 123/63
== END 2018-08-16 11:25 | disposition home or self-care (01) ==
LOC: ER 09:27
DX: R07.89 Other chest pain (principal); I25.10 Atherosclerotic heart disease of native coronary artery without angina pectoris; E78.00 Pure hypercholesterolemia, unspecified; I10 Essential (primary) hypertension; I25.2 Old myocardial infarction; K21.9 Gastro-esophageal reflux disease without esophagitis; E11.9 Type 2 diabetes mellitus without complications; G89.29 Other chronic pain; F17.210 Nicotine dependence, cigarettes, uncomplicated; Z98.890 Other specified postprocedural states; Z56.0 Unemployment, unspecified; Z86.718 Personal history of other venous thrombosis and embolism; Z91.040 Latex allergy status; Z88.8 Allergy status to other drugs, medicaments and biological substances; Z79.899 Other long term (current) drug therapy
CPT/HCPCS: 36415; 71045; 80053; 83735; 83880; 84484; 85025; 93005; 96372; 99284; J1885

== ENCOUNTER 2018-08-21 16:36 | Emergency (ER) | payer MEDICARE, MEDICAID ==
[~2018-08-21] VITALS: Ht 177.8 cm; Wt 120.5 kg
[2018-08-21 16:45] VITALS: BP 105/63
[2018-08-21 17:18] LABS: BASOPHILS # (AUTO) 0.1 X10'3 (0-0.2); BASOPHILS % (AUTO) 0.7 % (0-1); EOSINOPHILS # (AUTO) 0.2 X10'3 (0-0.9); EOSINOPHILS % (AUTO) 1.7 % (0-6); HEMATOCRIT 37.7 % (42.0-52.0); HEMOGLOBIN 12.8 g/dl (14.0-17.9); LYMPHOCYTES # (AUTO) 3.2 X10'3 (1.1-4.8); LYMPHOCYTES % (AUTO) 27.8 % (21-51); MEAN CORPUSCULAR HEMOGLOBIN 29.9 PG (27.0-31.0); MEAN CORPUSCULAR HGB CONC 33.9 g/dL (33.0-36.5); MEAN CORPUSCULAR VOLUME 88.1 FL (78-98); MEAN PLATELET VOLUME 8.2 FL (7.4-10.4); MONOCYTES % (AUTO) 8.6 % (2-12); NEUTROPHILS # (AUTO) 7.1 X10'3 (1.8-7.7); NEUTROPHILS % (AUTO) 61.2 % (42-75); PLATELET COUNT 249 X10'3 (140-440); RED BLOOD COUNT 4.28 X10'6 (4.70-6.10); RED CELL DISTRIBUTION WIDTH 15.4 % (11.5-14.5); WHITE BLOOD COUNT 11.6 X10'3 (4.5-11.0)
[2018-08-21 17:34] LABS: ALANINE AMINOTRANSFERASE 28 U/L (12-78); ALBUMIN 3.5 G/DL (3.4-5.0); ALKALINE PHOSPHATASE 62 IU/L (46-116); ANION GAP 2 (8-16); ASPARTATE AMINO TRANSFERASE 15 U/L (10-37); BILIRUBIN,TOTAL 0.2 MG/DL (0.1-1.0); BLOOD UREA NITROGEN 14 MG/DL (7-18); BUN/CREATININE RATIO 13.2 (5.4-32.0); CHLORIDE 106 MMOL/L (99-107); CREATININE 1.06 MG/DL (0.60-1.10); GLUCOSE 127 MG/DL (70-104); POTASSIUM 3.7 MMOL/L (3.5-5.1); SODIUM 136 MMOL/L (135-145); TOTAL CARBON DIOXIDE 28.5 MMOL/L (24-32); TOTAL PROTEIN 7.1 G/DL (6.4-8.2); eGFR 75 ML/MIN
[2018-08-21 17:36] LABS: PARTIAL THROMBOPLASTIN TIME 32 SECONDS (22-32)
--- NOTE | 2018-08-21 23:10 | NUR ---
Called for pt in WR 3 times with no answer. Chart given to CN for further action.
== END 2018-08-21 23:31 | disposition left against medical advice (07) ==
LOC: ER 16:36
DX: R42 Dizziness and giddiness (principal); Z53.21 Procedure and treatment not carried out due to patient leaving prior to being seen by health care provider
CPT/HCPCS: 36415; 71045; 80053; 84484; 85025; 85610; 85730; 93005

== ENCOUNTER 2018-09-25 12:59 | Emergency (ER) | payer MEDICARE, MEDICAID, OTHER ==
[~2018-09-25] VITALS: Ht 177.8 cm; Wt 121.4 kg
[~2018-09-25 12:59] MED LIST changes: -BENZ-16 PO
[2018-09-25 13:42] VITALS: BP 120/75
[2018-09-25] MEDS ORDERED: CYCL-1 PO (15:46)
== END 2018-09-25 16:00 | disposition home or self-care (01) ==
LOC: ER 13:00
DX: M54.2 Cervicalgia (principal); M54.5 Low back pain; G89.29 Other chronic pain; I25.10 Atherosclerotic heart disease of native coronary artery without angina pectoris; E78.00 Pure hypercholesterolemia, unspecified; I10 Essential (primary) hypertension; I25.2 Old myocardial infarction; G47.30 Sleep apnea, unspecified; K21.9 Gastro-esophageal reflux disease without esophagitis; E11.9 Type 2 diabetes mellitus without complications; F41.9 Anxiety disorder, unspecified; F32.9 Major depressive disorder, single episode, unspecified; F20.9 Schizophrenia, unspecified; Z87.442 Personal history of urinary calculi; Z86.718 Personal history of other venous thrombosis and embolism; Z90.49 Acquired absence of other specified parts of digestive tract; Z98.890 Other specified postprocedural states; Z95.1 Presence of aortocoronary bypass graft; Z56.0 Unemployment, unspecified; Z91.040 Latex allergy status; Z88.6 Allergy status to analgesic agent; Z79.899 Other long term (current) drug therapy; V49.49XA Driver injured in collision with other motor vehicles in traffic accident, initial encounter; Y93.89 Activity, other specified; Y92.242 Post office as the place of occurrence of the external cause; Y99.8 Other external cause status
CPT/HCPCS: 99284

== ENCOUNTER 2018-11-30 13:24 | Emergency (ER) | payer MEDICARE, MEDICAID ==
[~2018-11-30] VITALS: Ht 180.3 cm; Wt 118.0 kg
[~2018-11-30 13:24] MED LIST changes: +CYCL-1 PO
[2018-11-30 13:35] VITALS: BP 127/90
[2018-11-30] MEDS ORDERED: ketorolac tromethamine 15mg/ml inj. IM ONE (14:10)
--- NOTE | 2018-11-30 14:23 | NUR ---
called pharmacy to verify the torodol.
== END 2018-11-30 14:58 | disposition home or self-care (01) ==
LOC: ER 13:25
DX: M54.5 Low back pain (principal); M25.552 Pain in left hip; E66.9 Obesity, unspecified; I25.10 Atherosclerotic heart disease of native coronary artery without angina pectoris; E78.00 Pure hypercholesterolemia, unspecified; I10 Essential (primary) hypertension; I25.2 Old myocardial infarction; K21.9 Gastro-esophageal reflux disease without esophagitis; E11.9 Type 2 diabetes mellitus without complications; G89.29 Other chronic pain; Z86.718 Personal history of other venous thrombosis and embolism; Z56.0 Unemployment, unspecified; Z90.49 Acquired absence of other specified parts of digestive tract; Z98.890 Other specified postprocedural states; Z91.040 Latex allergy status; Z88.5 Allergy status to narcotic agent; Z79.899 Other long term (current) drug therapy
CPT/HCPCS: 73502; 96372; 99283; J1885

== ENCOUNTER 2019-01-01 04:59 | Emergency (ER) | payer MEDICARE, MEDICAID ==
[~2019-01-01] VITALS: Ht 177.8 cm; Wt 120.4 kg
[2019-01-01 05:27] LABS: BASOPHILS # (AUTO) 0.1 X10'3 (0-0.2); BASOPHILS % (AUTO) 1.1 % (0-1); EOSINOPHILS # (AUTO) 0.2 X10'3 (0-0.9); EOSINOPHILS % (AUTO) 1.9 % (0-6); HEMATOCRIT 39.9 % (42.0-52.0); HEMOGLOBIN 13.6 g/dl (14.0-17.9); LYMPHOCYTES # (AUTO) 3.3 X10'3 (1.1-4.8); LYMPHOCYTES % (AUTO) 36.5 % (21-51); MEAN CORPUSCULAR HEMOGLOBIN 30.6 PG (27.0-31.0); MEAN CORPUSCULAR HGB CONC 34.1 g/dL (33.0-36.5); MEAN CORPUSCULAR VOLUME 89.5 FL (78-98); MEAN PLATELET VOLUME 8.2 FL (7.4-10.4); MONOCYTES # (AUTO) 0.9 X10'3 (0-0.9); NEUTROPHILS # (AUTO) 4.6 X10'3 (1.8-7.7); NEUTROPHILS % (AUTO) 50.5 % (42-75); PLATELET COUNT 241 X10'3 (140-440); RED BLOOD COUNT 4.45 X10'6 (4.70-6.10); RED CELL DISTRIBUTION WIDTH 14.3 % (11.5-14.5); WHITE BLOOD COUNT 9.1 X10'3 (4.5-11.0)
[2019-01-01 05:48] LABS: PARTIAL THROMBOPLASTIN TIME 27 SECONDS (22-32)
[2019-01-01 06:10] LABS: ALANINE AMINOTRANSFERASE 34 U/L (12-78); ALBUMIN 3.2 G/DL (3.4-5.0); ALBUMIN/GLOBULIN RATIO 0.9 (1.1-1.5); ALKALINE PHOSPHATASE 54 IU/L (46-116); ANION GAP 10 (8-16); ASPARTATE AMINO TRANSFERASE 27 U/L (10-37); BILIRUBIN,TOTAL 0.1 MG/DL (0.1-1.0); BLOOD UREA NITROGEN 10 MG/DL (7-18); BUN/CREATININE RATIO 10.9 (5.4-32.0); CALCIUM 8.9 MG/DL (8.5-10.1); CHLORIDE 107 MMOL/L (99-107); CREATININE 0.92 MG/DL (0.60-1.10); GLUCOSE 140 MG/DL (70-104); POTASSIUM 3.9 MMOL/L (3.5-5.1); SODIUM 141 MMOL/L (135-145); TOTAL CARBON DIOXIDE 24.5 MMOL/L (24-32); TOTAL PROTEIN 6.9 G/DL (6.4-8.2); eGFR 88 ML/MIN
--- NOTE | 2019-01-01 06:25 | NUR ---
Pt. in gurney, high galeano position and in room air. He is resting. No needs at this time.
[2019-01-01 07:01] VITALS: BP 110/66
== END 2019-01-01 07:03 | disposition home or self-care (01) ==
LOC: ER 04:59
DX: R07.89 Other chest pain (principal); I25.10 Atherosclerotic heart disease of native coronary artery without angina pectoris; E78.00 Pure hypercholesterolemia, unspecified; I10 Essential (primary) hypertension; I25.2 Old myocardial infarction; K21.9 Gastro-esophageal reflux disease without esophagitis; E11.9 Type 2 diabetes mellitus without complications; G89.29 Other chronic pain; F41.9 Anxiety disorder, unspecified; F31.9 Bipolar disorder, unspecified; F20.9 Schizophrenia, unspecified; Z87.442 Personal history of urinary calculi; Z90.49 Acquired absence of other specified parts of digestive tract; Z98.890 Other specified postprocedural states; Z86.718 Personal history of other venous thrombosis and embolism; Z95.1 Presence of aortocoronary bypass graft; Z56.0 Unemployment, unspecified; Z91.040 Latex allergy status; Z79.899 Other long term (current) drug therapy
CPT/HCPCS: 36415; 71045; 80053; 84484; 85025; 85610; 85730; 93005; 99284

== ENCOUNTER 2019-01-16 10:50 | Emergency (ER) | payer MEDICARE, MEDICAID ==
[~2019-01-16] VITALS: Ht 177.8 cm; Wt 118.2 kg
[~2019-01-16 10:50] MED LIST changes: +CLON0.1T2 PO; -CLON0.1T20 PO
[2019-01-16 11:24] LABS: BASOPHILS # (AUTO) 0.1 X10'3 (0-0.2); BASOPHILS % (AUTO) 0.6 % (0-1); EOSINOPHILS # (AUTO) 0.1 X10'3 (0-0.9); EOSINOPHILS % (AUTO) 1.3 % (0-6); HEMOGLOBIN 14.3 g/dl (14.0-17.9); LYMPHOCYTES # (AUTO) 3.2 X10'3 (1.1-4.8); LYMPHOCYTES % (AUTO) 35.7 % (21-51); MEAN CORPUSCULAR HEMOGLOBIN 30.5 PG (27.0-31.0); MEAN CORPUSCULAR HGB CONC 34.1 g/dL (33.0-36.5); MEAN CORPUSCULAR VOLUME 89.6 FL (78-98); MEAN PLATELET VOLUME 8.2 FL (7.4-10.4); MONOCYTES # (AUTO) 0.7 X10'3 (0-0.9); MONOCYTES % (AUTO) 7.6 % (2-12); NEUTROPHILS # (AUTO) 4.9 X10'3 (1.8-7.7); NEUTROPHILS % (AUTO) 54.8 % (42-75); PLATELET COUNT 228 X10'3 (140-440); RED BLOOD COUNT 4.69 X10'6 (4.70-6.10); RED CELL DISTRIBUTION WIDTH 14.5 % (11.5-14.5); WHITE BLOOD COUNT 8.9 X10'3 (4.5-11.0)
[2019-01-16 11:38] LABS: PARTIAL THROMBOPLASTIN TIME 34 SECONDS (22-32)
[2019-01-16 11:40] LABS: ALANINE AMINOTRANSFERASE 25 U/L (12-78); ALBUMIN 3.8 G/DL (3.4-5.0); ALBUMIN/GLOBULIN RATIO 0.9 (1.1-1.5); ALKALINE PHOSPHATASE 60 IU/L (46-116); ANION GAP 11 (8-16); ASPARTATE AMINO TRANSFERASE 14 U/L (10-37); BILIRUBIN,TOTAL 0.3 MG/DL (0.1-1.0); BLOOD UREA NITROGEN 15 MG/DL (7-18); BUN/CREATININE RATIO 12.8 (5.4-32.0); CALCIUM 9.1 MG/DL (8.5-10.1); CHLORIDE 105 MMOL/L (99-107); CREATININE 1.17 MG/DL (0.60-1.10); GLUCOSE 111 MG/DL (70-104); POTASSIUM 3.7 MMOL/L (3.5-5.1); SODIUM 140 MMOL/L (135-145); TOTAL PROTEIN 7.9 G/DL (6.4-8.2); eGFR 67 ML/MIN
[2019-01-16 13:14] VITALS: BP 123/69
== END 2019-01-16 13:16 | disposition home or self-care (01) ==
LOC: ER 10:50
DX: R07.9 Chest pain, unspecified (principal); M79.89 Other specified soft tissue disorders; M79.662 Pain in left lower leg; M79.661 Pain in right lower leg; I25.10 Atherosclerotic heart disease of native coronary artery without angina pectoris; E78.00 Pure hypercholesterolemia, unspecified; I10 Essential (primary) hypertension; I25.2 Old myocardial infarction; K21.9 Gastro-esophageal reflux disease without esophagitis; E11.9 Type 2 diabetes mellitus without complications; G89.29 Other chronic pain; G47.30 Sleep apnea, unspecified; F41.9 Anxiety disorder, unspecified; F31.9 Bipolar disorder, unspecified; F20.9 Schizophrenia, unspecified; F17.200 Nicotine dependence, unspecified, uncomplicated; Z91.040 Latex allergy status; Z88.6 Allergy status to analgesic agent; Z79.899 Other long term (current) drug therapy; Z87.442 Personal history of urinary calculi; Z86.718 Personal history of other venous thrombosis and embolism; Z90.49 Acquired absence of other specified parts of digestive tract; Z98.890 Other specified postprocedural states; Z56.0 Unemployment, unspecified; Z95.1 Presence of aortocoronary bypass graft
CPT/HCPCS: 36415; 71045; 80053; 84484; 85025; 85610; 85730; 93005; 99284

== ENCOUNTER 2019-02-14 14:37 | Emergency (ER) | payer MEDICARE, MEDICAID ==
[~2019-02-14] VITALS: Ht 177.8 cm; Wt 115.9 kg
--- NOTE | 2019-02-14 16:13 | NUR ---
DAVID MCDANIEL INFORMED OF PT RECENT STATUS FROM DR GEORGES, ORDERS TO FOLLOW FOR VL ARTERIAL AND ALAN DRISCOLL TO REQUEST RECORDS FROM DR GUZMAN OFFICE OF RECENT STUDIES FINDING COLLAPSED STENTS
--- NOTE | 2019-02-14 17:23 | NUR ---
VASCULAR AT BEDSIDE PER ORDERS NOW
[2019-02-14] MEDS ORDERED: HYDROcodone/acetaminophen 10/325mg tab PO ONE (18:30)
[2019-02-14] MEDS ORDERED: HYDR-3965 PO (18:34)
[2019-02-14 18:52] VITALS: BP 115/75
== END 2019-02-14 18:58 | disposition home or self-care (01) ==
LOC: ER 14:38
DX: I73.9 Peripheral vascular disease, unspecified (principal); I25.10 Atherosclerotic heart disease of native coronary artery without angina pectoris; E78.00 Pure hypercholesterolemia, unspecified; I10 Essential (primary) hypertension; I25.2 Old myocardial infarction; G47.30 Sleep apnea, unspecified; K21.9 Gastro-esophageal reflux disease without esophagitis; E11.9 Type 2 diabetes mellitus without complications; G89.29 Other chronic pain; F41.9 Anxiety disorder, unspecified; F31.9 Bipolar disorder, unspecified; F20.9 Schizophrenia, unspecified; F17.200 Nicotine dependence, unspecified, uncomplicated; F10.99 Alcohol use, unspecified with unspecified alcohol-induced disorder; Z87.442 Personal history of urinary calculi; Z90.49 Acquired absence of other specified parts of digestive tract; Z98.890 Other specified postprocedural states; Z86.718 Personal history of other venous thrombosis and embolism; Z56.0 Unemployment, unspecified; Z91.040 Latex allergy status; Z88.5 Allergy status to narcotic agent; Z79.899 Other long term (current) drug therapy; Y90.9 Presence of alcohol in blood, level not specified
CPT/HCPCS: 93922; 93925; 99284

== ENCOUNTER 2019-02-22 09:06 | Emergency (ER) | payer MEDICARE, MEDICAID ==
[~2019-02-22] VITALS: Ht 177.8 cm; Wt 115.5 kg
[~2019-02-22 09:06] MED LIST changes: +HYDR-3965 PO
--- NOTE | 2019-02-22 10:19 | NUR ---
+1 Right Posterior Tibial Pulse by Doplar, +1 Right Dorsalis Pedis Pulse by Doplar, +2 Left Posterior Tibial Pulse by Doplar, +2 Dorsalis Pedis Pulse by Doplar. Skin color equal bilateral feet, skin warm and equal bilateral feet, capilary refill less than 3 sec. bilateral feet.
[2019-02-22] MEDS ORDERED: diphenhydrAMINE 25mg capsule PO ONE (10:30)
--- NOTE | 2019-02-22 10:30 | NUR ---
PATIENT AMBULATED WELL WITH FFW 150 FEET. PATIENT HAS FFW THAT HE USES AT HOME.
--- NOTE | 2019-02-22 10:37 | NUR ---
patient given benadryl as premedication for his previously scheduled CT scan at [facility]
[2019-02-22 10:38] VITALS: BP 114/87
== END 2019-02-22 10:43 | disposition home or self-care (01) ==
LOC: ER 09:07
DX: R20.2 Paresthesia of skin (principal); M79.605 Pain in left leg; M79.604 Pain in right leg; R53.1 Weakness; R20.0 Anesthesia of skin; I25.10 Atherosclerotic heart disease of native coronary artery without angina pectoris; E78.00 Pure hypercholesterolemia, unspecified; I10 Essential (primary) hypertension; I25.2 Old myocardial infarction; G47.30 Sleep apnea, unspecified; K21.9 Gastro-esophageal reflux disease without esophagitis; E11.9 Type 2 diabetes mellitus without complications; F41.9 Anxiety disorder, unspecified; F31.9 Bipolar disorder, unspecified; F20.9 Schizophrenia, unspecified; Z86.718 Personal history of other venous thrombosis and embolism; Z90.49 Acquired absence of other specified parts of digestive tract; Z98.890 Other specified postprocedural states; Z56.0 Unemployment, unspecified; Z91.040 Latex allergy status; Z88.5 Allergy status to narcotic agent; Z79.890 Hormone replacement therapy
CPT/HCPCS: 99283; Q0163

== ENCOUNTER 2019-02-25 17:47 | Emergency (ER) | payer MEDICARE, MEDICAID ==
[~2019-02-25] VITALS: Ht 177.8 cm; Wt 115.0 kg
[2019-02-25 17:54] VITALS: BP 124/80
[2019-02-25] MEDS ORDERED: traMADol 50MG tablet PO ONE (19:05)
[2019-02-25] MEDS ORDERED: TRAM50TA2 PO (19:07)
== END 2019-02-25 19:21 | disposition home or self-care (01) ==
LOC: ER 17:48
DX: M79.604 Pain in right leg (principal); F17.210 Nicotine dependence, cigarettes, uncomplicated; I25.10 Atherosclerotic heart disease of native coronary artery without angina pectoris; E78.00 Pure hypercholesterolemia, unspecified; I10 Essential (primary) hypertension; I25.2 Old myocardial infarction; G47.30 Sleep apnea, unspecified; K21.9 Gastro-esophageal reflux disease without esophagitis; E11.9 Type 2 diabetes mellitus without complications; G89.29 Other chronic pain; F41.9 Anxiety disorder, unspecified; F31.9 Bipolar disorder, unspecified; F20.9 Schizophrenia, unspecified; F10.99 Alcohol use, unspecified with unspecified alcohol-induced disorder; Z87.442 Personal history of urinary calculi; Z86.718 Personal history of other venous thrombosis and embolism; Z95.1 Presence of aortocoronary bypass graft; Z56.0 Unemployment, unspecified; Z98.890 Other specified postprocedural states; Z91.040 Latex allergy status; Z79.899 Other long term (current) drug therapy; Y90.9 Presence of alcohol in blood, level not specified
CPT/HCPCS: 99283

== ENCOUNTER 2019-03-21 13:47 | Emergency (ER) | payer MEDICARE, MEDICAID ==
[~2019-03-21] VITALS: Ht 177.8 cm; Wt 118.2 kg
[~2019-03-21 13:47] MED LIST changes: -HYDR-3965 PO
[2019-03-21] MEDS ORDERED: iohexol 350MG/ML 100ml bottle IV ONE (14:21)
[2019-03-21] MEDS ORDERED: iohexol 350 MG/ML 50ML vial IV ONE (14:21)
[2019-03-21 14:32] LABS: BASOPHILS # (AUTO) 0.1 X10'3 (0-0.2); BASOPHILS % (AUTO) 0.6 % (0-1); EOSINOPHILS # (AUTO) 0.2 X10'3 (0-0.9); EOSINOPHILS % (AUTO) 1.5 % (0-6); HEMATOCRIT 37.8 % (42.0-52.0); HEMOGLOBIN 13.2 g/dl (14.0-17.9); LYMPHOCYTES % (AUTO) 28.2 % (21-51); MEAN CORPUSCULAR HEMOGLOBIN 30.8 PG (27.0-31.0); MEAN CORPUSCULAR VOLUME 88.1 FL (78-98); MEAN PLATELET VOLUME 7.5 FL (7.4-10.4); MONOCYTES # (AUTO) 1.1 X10'3 (0-0.9); MONOCYTES % (AUTO) 10.1 % (2-12); NEUTROPHILS # (AUTO) 6.4 X10'3 (1.8-7.7); NEUTROPHILS % (AUTO) 59.6 % (42-75); PLATELET COUNT 280 X10'3 (140-440); RED BLOOD COUNT 4.29 X10'6 (4.70-6.10); RED CELL DISTRIBUTION WIDTH 14.6 % (11.5-14.5); WHITE BLOOD COUNT 10.7 X10'3 (4.5-11.0)
[2019-03-21] MEDS ORDERED: morphine 4 MG/ML inj SYRINge IV PRN (14:35)
[2019-03-21] MEDS ORDERED: normal saline 1000ML IV soln IVB ONE (14:35)
[2019-03-21] MEDS ORDERED: dexamethasone sod phosphate 10mg/ml inj IV STA (14:38)
[2019-03-21] MEDS ORDERED: diphenhydrAMINE 50 mg/ml inj IV ONE (14:40)
[2019-03-21 14:51] LABS: PARTIAL THROMBOPLASTIN TIME 35 SECONDS (22-32)
[2019-03-21 14:54] LABS: ALANINE AMINOTRANSFERASE 24 U/L (12-78); ALBUMIN 3.4 G/DL (3.4-5.0); ALBUMIN/GLOBULIN RATIO 0.8 (1.1-1.5); ALKALINE PHOSPHATASE 56 IU/L (46-116); ANION GAP 11 (8-16); ASPARTATE AMINO TRANSFERASE 14 U/L (10-37); BILIRUBIN,TOTAL 0.4 MG/DL (0.1-1.0); BLOOD UREA NITROGEN 12 MG/DL (7-18); CALCIUM 9.1 MG/DL (8.5-10.1); CHLORIDE 101 MMOL/L (99-107); GLUCOSE 103 MG/DL (70-104); POTASSIUM 3.9 MMOL/L (3.5-5.1); SODIUM 136 MMOL/L (135-145); TOTAL CARBON DIOXIDE 24.3 MMOL/L (24-32); TOTAL PROTEIN 7.6 G/DL (6.4-8.2); eGFR 65 ML/MIN
[2019-03-21 15:10] VITALS: BP 104/62
== END 2019-03-21 17:15 | disposition home or self-care (01) ==
LOC: ER 13:48
DX: M79.604 Pain in right leg (principal); R20.0 Anesthesia of skin; I25.10 Atherosclerotic heart disease of native coronary artery without angina pectoris; E78.00 Pure hypercholesterolemia, unspecified; I10 Essential (primary) hypertension; I25.2 Old myocardial infarction; K21.9 Gastro-esophageal reflux disease without esophagitis; G47.30 Sleep apnea, unspecified; E11.9 Type 2 diabetes mellitus without complications; G89.29 Other chronic pain; F31.9 Bipolar disorder, unspecified; F41.9 Anxiety disorder, unspecified; F20.9 Schizophrenia, unspecified; Z90.49 Acquired absence of other specified parts of digestive tract; Z87.442 Personal history of urinary calculi; Z86.718 Personal history of other venous thrombosis and embolism; Z98.890 Other specified postprocedural states; Z56.0 Unemployment, unspecified; Z88.5 Allergy status to narcotic agent; Z91.040 Latex allergy status; Z79.899 Other long term (current) drug therapy
CPT/HCPCS: 36415; 71045; 75635; 80053; 83735; 84484; 85025; 85610; 85730; 93005; 96374; 96375; 99284; J1100; J1200; J2270; J7030; Q9967

== ENCOUNTER 2019-03-24 13:59 | Emergency (ER) | payer MEDICARE, MEDICAID ==
[~2019-03-24] VITALS: Ht 177.8 cm; Wt 114.0 kg
[~2019-03-24 13:59] MED LIST changes: +BUPR-72 PO; -BUPR-84 PO; -TRAZ-219 PO; +TRAZ-256 PO
[2019-03-24 15:10] VITALS: BP 93/74
[2019-03-24] MEDS ORDERED: ondansetron 4mg rapidly disintigrating tab PO ONE (15:25)
[2019-03-24] MEDS ORDERED: morphine 4 MG/ML inj SYRINge IM ONE (15:25)
[2019-03-24] MEDS ORDERED: ONDA4TAB6 PO (16:00)
[2019-03-24] MEDS ORDERED: HYDR-4353 PO (16:00)
[2019-03-28] MEDS ORDERED: LURA40TA3 PO (14:01)
[2019-03-28] MEDS ORDERED: CLOP75TA35 PO (14:05)
[2019-03-28] MEDS ORDERED: ROSU20TA31 PO (14:06)
[2019-03-28] MEDS ORDERED: LOSA100T57 PO (14:07)
[2019-03-28] MEDS ORDERED: BUPR150T27 PO (14:08)
[2019-03-28] MEDS ORDERED: TRAM50TA2 PO (14:14)
[2019-03-28] MEDS ORDERED: LAMO100T PO (14:30)
== END 2019-03-24 16:17 | disposition home or self-care (01) ==
LOC: ER 13:59
DX: M79.604 Pain in right leg (principal); M79.651 Pain in right thigh; I25.10 Atherosclerotic heart disease of native coronary artery without angina pectoris; E78.00 Pure hypercholesterolemia, unspecified; I25.2 Old myocardial infarction; K21.9 Gastro-esophageal reflux disease without esophagitis; E11.9 Type 2 diabetes mellitus without complications; G89.29 Other chronic pain; F17.200 Nicotine dependence, unspecified, uncomplicated; I10 Essential (primary) hypertension; Z56.0 Unemployment, unspecified; Z90.49 Acquired absence of other specified parts of digestive tract; Z98.890 Other specified postprocedural states; Z91.040 Latex allergy status; Z79.899 Other long term (current) drug therapy
CPT/HCPCS: 96372; 99283; J2270

== ENCOUNTER 2019-06-01 14:39 | Emergency (ER) | payer MEDICARE, MEDICAID ==
[~2019-06-01] VITALS: Ht 180.3 cm; Wt 102.0 kg
[~2019-06-01 14:39] MED LIST changes: -BUPR-72 PO; +BUPR150T27 PO; +CLOP75TA35 PO; -CYCL-1 PO; -HALO2TAB PO; -HYDR-3972 PO; -IBUP-1984 PO; +LACT1CAP26 PO; +LAMO100T PO; -LAMO200T2 PO; -LISI-600 PO; +LOSA100T57 PO; +LURA40TA3 PO; +MULT-1179 PO; +NITR0.4T51 SL; +NYSPWD TP; -PANT-47 PO; +POTA10TA36 PO; -PRAV40TA3 PO; +ROSU20TA31 PO; +TRAM50TA2 PO; +folic acid tablet PO; +thiamine tablet PO
[2019-06-01 15:53] VITALS: BP 126/76
--- NOTE | 2019-06-01 16:15 | NUR ---
US AT BEDSIDE
== END 2019-06-01 17:02 | disposition home or self-care (01) ==
LOC: ER 14:39
DX: M79.604 Pain in right leg (principal); I10 Essential (primary) hypertension; E78.00 Pure hypercholesterolemia, unspecified; I25.10 Atherosclerotic heart disease of native coronary artery without angina pectoris; K21.9 Gastro-esophageal reflux disease without esophagitis; E11.9 Type 2 diabetes mellitus without complications; G47.30 Sleep apnea, unspecified; G89.29 Other chronic pain; F41.9 Anxiety disorder, unspecified; F32.9 Major depressive disorder, single episode, unspecified; F20.9 Schizophrenia, unspecified; I25.2 Old myocardial infarction; Z90.49 Acquired absence of other specified parts of digestive tract; Z86.718 Personal history of other venous thrombosis and embolism; Z87.442 Personal history of urinary calculi; Z95.1 Presence of aortocoronary bypass graft
CPT/HCPCS: 93971; 99284

== ENCOUNTER 2019-07-01 12:29 | Inpatient (IN) | payer MEDICARE, MEDICAID ==
[~2019-07-01] VITALS: Ht 177.8 cm; Wt 116.8 kg
[~2019-07-01 12:29] MED LIST changes: -BUPR150T27 PO; -LACT1CAP26 PO; -MULT-1179 PO; -NYSPWD TP; -POTA10TA36 PO; -TRAM50TA2 PO; -folic acid tablet PO; -thiamine tablet PO
[2019-07-01 14:43] LABS: BASOPHILS # (AUTO) 0.1 X10'3 (0-0.2); BASOPHILS % (AUTO) 0.9 % (0-1); EOSINOPHILS # (AUTO) 0.3 X10'3 (0-0.9); EOSINOPHILS % (AUTO) 2.2 % (0-6); HEMATOCRIT 34.5 % (42.0-52.0); HEMOGLOBIN 11.4 g/dl (14.0-17.9); LYMPHOCYTES # (AUTO) 2.4 X10'3 (1.1-4.8); MEAN CORPUSCULAR HEMOGLOBIN 28.2 PG (27.0-31.0); MEAN CORPUSCULAR HGB CONC 32.9 g/dL (33.0-36.5); MEAN CORPUSCULAR VOLUME 85.7 FL (78-98); MEAN PLATELET VOLUME 7.6 FL (7.4-10.4); MONOCYTES # (AUTO) 1.4 X10'3 (0-0.9); MONOCYTES % (AUTO) 10.2 % (2-12); NEUTROPHILS # (AUTO) 9.9 X10'3 (1.8-7.7); NEUTROPHILS % (AUTO) 69.7 % (42-75); PLATELET COUNT 305 X10'3 (140-440); RED BLOOD COUNT 4.02 X10'6 (4.70-6.10); RED CELL DISTRIBUTION WIDTH 16.5 % (11.5-14.5); WHITE BLOOD COUNT 14.1 X10'3 (4.5-11.0)
[2019-07-01 14:57] LABS: ALANINE AMINOTRANSFERASE 44 U/L (12-78); ALBUMIN 2.7 G/DL (3.4-5.0); ALBUMIN/GLOBULIN RATIO 0.6 (1.1-1.5); ALKALINE PHOSPHATASE 58 IU/L (46-116); ANION GAP 8 (8-16); ASPARTATE AMINO TRANSFERASE 26 U/L (10-37); BILIRUBIN,TOTAL 0.3 MG/DL (0.1-1.0); BLOOD UREA NITROGEN 10 MG/DL (7-18); BUN/CREATININE RATIO 10.8 (5.4-32.0); CALCIUM 9.1 MG/DL (8.5-10.1); CHLORIDE 103 MMOL/L (99-107); CREATININE 0.93 MG/DL (0.60-1.10); GLUCOSE 99 MG/DL (70-104); POTASSIUM 3.6 MMOL/L (3.5-5.1); SODIUM 139 MMOL/L (135-145); TOTAL CARBON DIOXIDE 27.6 MMOL/L (24-32); TOTAL PROTEIN 7.2 G/DL (6.4-8.2); eGFR 87 ML/MIN
[2019-07-01] MEDS ORDERED: acetaminophen 325mg tablet PO PRN ×2 (15:15→15:25)
[2019-07-01] MEDS ORDERED: ondansetron/PF 4mg/2ml inj IV PRN ×2 (15:15→15:25)
[2019-07-01] MEDS ORDERED: magnesium Cl slow-release 64mg tablet PO PRN ×2 (15:15→15:25)
[2019-07-01] MEDS ORDERED: temazepam 15mg capsule PO PRN (15:15)
[2019-07-01] MEDS ORDERED: magnesium 2GM in 50ml NS 50 ML IV PRN ×2 (15:20→15:25)
[2019-07-01] MEDS ORDERED: nitroGLYCERIN 0.4mg SUBLingual tab SL PRN (15:20)
[2019-07-01] MEDS ORDERED: prednisone 10mg tablet PO PRN (15:20)
[2019-07-01] MEDS ORDERED: potassium Cl 20 mEq SR tablet PO PRN ×4 (15:20→15:25)
[2019-07-01] MEDS ORDERED: potassium CL 10mEq/100ml bag 100 ML IV PRN ×3 (15:20→15:25)
[2019-07-01] MEDS ORDERED: magnesium 4gm in 100ml NS 100 ML IV PRN ×2 (15:20→15:25)
[2019-07-01] MEDS ORDERED: HYDROcodone/acetaminophen 5mg/325mg tablet PO PRN (15:20)
[2019-07-01] MEDS ORDERED: prednisone 10mg tablet PO ONE ×4 (15:20→21:00)
[2019-07-01] MEDS ORDERED: ipratropium/albuterol 3ml nebule NEB PRN (15:20)
[2019-07-01] MEDS: normal saline 1000ml 1,000 ML IV SCH (15:21)
[2019-07-01] MEDS: buPROPion SR 150mg tablet PO SCH (15:24)
[2019-07-01] MEDS ORDERED: diphenhydrAMINE 50 mg/ml inj IV PRN (15:25)
[2019-07-01] MEDS ORDERED: bisacodyl 10mg suppository rectal RC PRN (15:25)
[2019-07-01] MEDS ORDERED: mag hydrox/Alum hydrox/simeth 30ml oral suspension PO PRN (15:25)
[2019-07-01] MEDS ORDERED: glucagon, human recombinant 1mg kit SUBCUT PRN (15:25)
[2019-07-01] MEDS ORDERED: acetaminophen 650mg rectal suppository RC PRN (15:25)
[2019-07-01] MEDS ORDERED: dextrose ORAL solution 15 GM/59 ML bottle PO PRN ×2 (15:25)
[2019-07-01] MEDS ORDERED: MESSAGE TO PHARMACY PO ONE (15:25)
[2019-07-01] MEDS ORDERED: diphenhydrAMINE 25mg capsule PO PRN (15:25)
[2019-07-01] MEDS ORDERED: magnesium hydroxide 30ml (MOM) UD suspension PO PRN (15:25)
[2019-07-01] MEDS ORDERED: dextrose 50%-water 50ml dispensing syringe IV PRN ×2 (15:25)
[2019-07-01] MEDS ORDERED: iohexol 350MG/ML 100ml bottle IV ONE (15:31)
[2019-07-01] MEDS ORDERED: iohexol 350 MG/ML 50ML vial IV ONE (15:32)
[2019-07-01] MEDS: diltiazem CD 120mg capsule (once-daily) PO SCH (15:54)
[2019-07-01] MEDS: losartan 50mg tablet PO SCH (15:54)
[2019-07-01] MEDS: atorvastatin 20mg tablet PO SCH (15:55)
[2019-07-01] MEDS: rivaroxaban 20mg tablet PO SCH (15:55)
[2019-07-01 15:58] LABS: HEMOGLOBIN A1C 5.5 % (4.5-6.2)
--- NOTE | 2019-07-01 16:30 | NUR ---
Patient in room DOT 350. I have received report from JENISE Muñoz and had the opportunity to ask questions and assume patient care.
[2019-07-01] MEDS: penicillin G potassium inj 3,000,000 UNIT in normal saline 100ml IV soln 100 ML IV SCH ×2 (17:52→20:19)
--- NOTE | 2019-07-01 18:00 | NUR ---
Problems reprioritized. Patient report given, questions answered & plan of care reviewed with JENISE zazueta.
[2019-07-01] MEDS: HYDROcodone/acetaminophen 10/325mg tab PO PRN (19:40)
[2019-07-01 20:00] VITALS: BP 126/75
[2019-07-01] MEDS ORDERED: K and/or MAG REPLACEMENT MC SCH (20:00)
[2019-07-01] MEDS: K and/or MAG REPLACEMENT MC SCH (20:00)
[2019-07-01] MEDS: cloNIDine 0.1 mg tablet PO SCH (20:19)
[2019-07-01] MEDS: gabapentin 300mg capsule PO SCH (20:20)
[2019-07-01] MEDS: lamoTRIgine 100mg tablet PO SCH (20:20)
[2019-07-01] MEDS: lactobacillus rhamnosus 10,000 MMU CELLS/CAPSULE PO SCH (20:20)
[2019-07-01] MEDS: insulin glargine (Lantus) pen - multi-dose SQ SCH (21:00)
[2019-07-01] MEDS: zolpidem 5mg tablet PO SCH (21:00)
[2019-07-01] MEDS: traZODone 50mg tablet PO SCH (21:10)
[2019-07-01] MEDS: nicotine 21mg patch - 24 hr TD SCH (21:10)
[2019-07-01] MEDS: clopidogrel 75mg tablet PO SCH (21:10)
[2019-07-01] MEDS: lurasidone 20mg tablet PO SCH (21:17)
[2019-07-01 23:54] VITALS: BP 138/82
[2019-07-02] MEDS: penicillin G potassium inj 3,000,000 UNIT in normal saline 100ml IV soln 100 ML IV SCH ×6 (00:13→20:12)
[2019-07-02] MEDS: normal saline 1000ml 1,000 ML IV SCH ×3 (01:22→16:05)
[2019-07-02] MEDS ORDERED: prednisone 10mg tablet PO ONE ×2 (03:00→09:00)
[2019-07-02 05:25] LABS: BASOPHILS % (AUTO) 0.3 % (0-1); EOSINOPHILS % (AUTO) 0.1 % (0-6); HEMATOCRIT 36.9 % (42.0-52.0); HEMOGLOBIN 11.9 g/dl (14.0-17.9); LYMPHOCYTES # (AUTO) 1.6 X10'3 (1.1-4.8); LYMPHOCYTES % (AUTO) 12.3 % (21-51); MEAN CORPUSCULAR HEMOGLOBIN 28.1 PG (27.0-31.0); MEAN CORPUSCULAR HGB CONC 32.3 g/dL (33.0-36.5); MEAN CORPUSCULAR VOLUME 86.9 FL (78-98); MEAN PLATELET VOLUME 7.8 FL (7.4-10.4); MONOCYTES # (AUTO) 0.8 X10'3 (0-0.9); MONOCYTES % (AUTO) 6.2 % (2-12); NEUTROPHILS # (AUTO) 10.3 X10'3 (1.8-7.7); NEUTROPHILS % (AUTO) 81.1 % (42-75); PLATELET COUNT 362 X10'3 (140-440); RED BLOOD COUNT 4.25 X10'6 (4.70-6.10); RED CELL DISTRIBUTION WIDTH 17.2 % (11.5-14.5); WHITE BLOOD COUNT 12.7 X10'3 (4.5-11.0)
[2019-07-02 05:54] LABS: ALANINE AMINOTRANSFERASE 45 U/L (12-78); ALBUMIN 2.6 G/DL (3.4-5.0); ALBUMIN/GLOBULIN RATIO 0.6 (1.1-1.5); ALKALINE PHOSPHATASE 63 IU/L (46-116); ANION GAP 8 (8-16); ASPARTATE AMINO TRANSFERASE 25 U/L (10-37); BILIRUBIN,TOTAL 0.2 MG/DL (0.1-1.0); BLOOD UREA NITROGEN 12 MG/DL (7-18); BUN/CREATININE RATIO 11.5 (5.4-32.0); CALCIUM 9.3 MG/DL (8.5-10.1); CHLORIDE 106 MMOL/L (99-107); CREATININE 1.04 MG/DL (0.60-1.10); GLUCOSE 167 MG/DL (70-104); MAGNESIUM 2.2 MG/DL (1.5-2.4); PHOSPHORUS 4.2 MG/DL (2.3-4.5); SODIUM 141 MMOL/L (135-145); TOTAL CARBON DIOXIDE 26.8 MMOL/L (24-32); TOTAL PROTEIN 7.3 G/DL (6.4-8.2); eGFR 76 ML/MIN
--- NOTE | 2019-07-02 06:37 | NUR ---
Problems reprioritized. Patient report given, questions answered & plan of care reviewed with ELENA. Addendum: 07/02/19 at 0638 by Mk Chambers RN Amended: Links added.
--- NOTE | 2019-07-02 06:40 | NUR ---
Patient in room DOT 350. I have received report from JENISE Hudson and had the opportunity to ask questions and assume patient care.
[2019-07-02 07:00] VITALS: BP 125/76
[2019-07-02] MEDS: K and/or MAG REPLACEMENT MC SCH ×2 (08:00→20:00)
[2019-07-02] MEDS ORDERED: diphenhydrAMINE 25mg capsule PO ONE (09:00)
[2019-07-02] MEDS: cloNIDine 0.1 mg tablet PO SCH ×2 (09:17→21:12)
[2019-07-02] MEDS: lactobacillus rhamnosus 10,000 MMU CELLS/CAPSULE PO SCH ×2 (09:17→19:14)
[2019-07-02] MEDS: losartan 50mg tablet PO SCH (09:17)
[2019-07-02] MEDS: diltiazem CD 120mg capsule (once-daily) PO SCH (09:17)
[2019-07-02] MEDS: buPROPion SR 150mg tablet PO SCH (09:18)
[2019-07-02] MEDS: lamoTRIgine 100mg tablet PO SCH ×2 (09:18→19:16)
[2019-07-02] MEDS: atorvastatin 20mg tablet PO SCH (09:18)
[2019-07-02] MEDS: gabapentin 300mg capsule PO SCH ×2 (09:18→19:14)
[2019-07-02] MEDS: nicotine 21mg patch - 24 hr TD SCH (09:19)
[2019-07-02] MEDS: HYDROcodone/acetaminophen 10/325mg tab PO PRN ×2 (09:21→19:14)
[2019-07-02] MEDS ORDERED: iohexol 350MG/ML 100ml bottle IV ONE (11:04)
[2019-07-02] MEDS ORDERED: iohexol 350 MG/ML 50ML vial IV ONE (11:05)
--- NOTE | 2019-07-02 11:21 | NUR ---
Initial: Patient admitted with sepsis per MD note, source unknown, probable COPD, bilateral LE weakness, groin pain. Great appetite, eating 75-100% of carb controlled diet and ate 75-100% last admission from 06/26-06/29 prior to leaving [facility], was able to meet needs. Currently is NPO. Recommend: 1. resume carb controlled diet as medically indicated 2. bowel care as needed 3. weight per rx Addendum: 07/02/19 at [address] Amended: Links added.
[2019-07-02] MEDS: rivaroxaban 20mg tablet PO SCH (12:15)
--- NOTE | 2019-07-02 18:25 | NUR ---
Problems reprioritized. Patient report given, questions answered & plan of care reviewed with Sadaf Talavera RN.
--- NOTE | 2019-07-02 18:30 | NUR ---
Patient in room DOT 350. I have received report from ELENA BURDEN and had the opportunity to ask questions and assume patient care.
[2019-07-02] MEDS: insulin Lispro (HumaLOG) vial - multi-dose SQ SCH (18:47)
[2019-07-02 20:00] VITALS: BP 108/66
[2019-07-02] MEDS: insulin glargine (Lantus) pen - multi-dose SQ SCH (21:00)
[2019-07-02] MEDS: clopidogrel 75mg tablet PO SCH (21:11)
[2019-07-02] MEDS: traZODone 50mg tablet PO SCH (21:11)
[2019-07-02] MEDS: lurasidone 20mg tablet PO SCH (21:12)
[2019-07-02] MEDS: zolpidem 5mg tablet PO SCH (21:13)
[2019-07-03] MEDS: penicillin G potassium inj 3,000,000 UNIT in normal saline 100ml IV soln 100 ML IV SCH ×5 (00:01→16:00)
[2019-07-03 00:15] VITALS: BP 109/67
[2019-07-03] MEDS: normal saline 1000ml 1,000 ML IV SCH (04:04)
[2019-07-03 05:35] LABS: BASOPHILS # (AUTO) 0.1 X10'3 (0-0.2); BASOPHILS % (AUTO) 0.3 % (0-1); EOSINOPHILS % (AUTO) 0.3 % (0-6); HEMATOCRIT 33.6 % (42.0-52.0); HEMOGLOBIN 11.1 g/dl (14.0-17.9); LYMPHOCYTES # (AUTO) 3.4 X10'3 (1.1-4.8); LYMPHOCYTES % (AUTO) 19.1 % (21-51); MEAN CORPUSCULAR HEMOGLOBIN 28.2 PG (27.0-31.0); MEAN CORPUSCULAR HGB CONC 32.9 g/dL (33.0-36.5); MEAN CORPUSCULAR VOLUME 85.8 FL (78-98); MEAN PLATELET VOLUME 7.7 FL (7.4-10.4); MONOCYTES # (AUTO) 1.4 X10'3 (0-0.9); MONOCYTES % (AUTO) 7.7 % (2-12); NEUTROPHILS # (AUTO) 12.9 X10'3 (1.8-7.7); NEUTROPHILS % (AUTO) 72.6 % (42-75); PLATELET COUNT 395 X10'3 (140-440); RED BLOOD COUNT 3.92 X10'6 (4.70-6.10); RED CELL DISTRIBUTION WIDTH 17.1 % (11.5-14.5); WHITE BLOOD COUNT 17.8 X10'3 (4.5-11.0)
[2019-07-03 05:55] LABS: ALANINE AMINOTRANSFERASE 43 U/L (12-78); ALBUMIN 2.3 G/DL (3.4-5.0); ALBUMIN/GLOBULIN RATIO 0.5 (1.1-1.5); ALKALINE PHOSPHATASE 53 IU/L (46-116); ANION GAP 7 (8-16); ASPARTATE AMINO TRANSFERASE 20 U/L (10-37); BILIRUBIN,TOTAL 0.1 MG/DL (0.1-1.0); BLOOD UREA NITROGEN 18 MG/DL (7-18); CHLORIDE 109 MMOL/L (99-107); GLUCOSE 129 MG/DL (70-104); MAGNESIUM 2.2 MG/DL (1.5-2.4); PHOSPHORUS 3.3 MG/DL (2.3-4.5); POTASSIUM 3.9 MMOL/L (3.5-5.1); SODIUM 142 MMOL/L (135-145); TOTAL CARBON DIOXIDE 25.7 MMOL/L (24-32); TOTAL PROTEIN 6.7 G/DL (6.4-8.2); eGFR 90 ML/MIN
--- NOTE | 2019-07-03 06:13 | NUR ---
Problems reprioritized. Patient report given, questions answered & plan of care reviewed with ELENA BURDEN.
--- NOTE | 2019-07-03 06:15 | NUR ---
Patient in room DOT 350. I have received report from Sadaf Talavera RN and had the opportunity to ask questions and assume patient care.
[2019-07-03] MEDS: K and/or MAG REPLACEMENT MC SCH (06:56)
[2019-07-03] MEDS: nicotine 21mg patch - 24 hr TD SCH (07:29)
[2019-07-03] MEDS: buPROPion SR 150mg tablet PO SCH (07:30)
[2019-07-03] MEDS: lactobacillus rhamnosus 10,000 MMU CELLS/CAPSULE PO SCH (07:30)
[2019-07-03] MEDS: cloNIDine 0.1 mg tablet PO SCH (07:30)
[2019-07-03] MEDS: lamoTRIgine 100mg tablet PO SCH (07:30)
[2019-07-03] MEDS: gabapentin 300mg capsule PO SCH (07:30)
[2019-07-03] MEDS: diltiazem CD 120mg capsule (once-daily) PO SCH (07:30)
[2019-07-03] MEDS: atorvastatin 20mg tablet PO SCH (07:30)
[2019-07-03] MEDS: losartan 50mg tablet PO SCH (07:30)
[2019-07-03] MEDS: rivaroxaban 20mg tablet PO SCH (07:30)
[2019-07-03] MEDS: HYDROcodone/acetaminophen 10/325mg tab PO PRN ×2 (07:31→13:32)
[2019-07-03 07:48] VITALS: BP 118/76
--- NOTE | 2019-07-03 09:30 | NUR ---
Patient refused insulin stating that he isn't diabetic and he wants to discuss this with the doctor prior to accepting anymore insulin. Patient education regarding diabetes provided however, patient still refused.
[2019-07-03] MEDS: insulin Lispro (HumaLOG) vial - multi-dose SQ SCH (10:20)
[2019-07-03 11:42] VITALS: BP 106/71
[2019-07-03] MEDS ORDERED: LACT1CAP26 PO (14:44)
--- NOTE | 2019-07-03 16:43 | NUR ---
Patient discharged home via and taken from unit via wheelchair with x1 staff. Patient alert, oriented and in no apparent distress at time of discharge. PIV removed with cannula intact and bleeding well controlled. Midline that was placed today by JENISE Knapp left intact for home IV abx therapy. No bleeding from midline insertion site. Patient was discharged in time to go to [facility] home IV infusion items from [facility], patient stated that his was was going to take him there before going home so that they could both be educated on how to administer the medications. Patient was given discharge instructions and time for questions and answers. Patient stated an understanding of this. Patient was also given a prescription for a probiotic and this was sent to the patient's preferred pharmacy. Patient stated he would follow up as needed and that he would make an appointment with Dr. Tran and said he already had her office number.
--- NOTE | 2019-07-05 09:37 | NUR ---
Case management DC follow up: spoke to pt via telephone: reports feeling "good". awaiting [facility] nurse for assessment/will inquire about when PT will be scheduled. Denies s/s infection to midline insertion site. Denies acute/continuous cp, emergent general pain, SOB, resp distress, NV, dizziness, abd pain, OLSON, blurry vision, syncope episodes, abnormal bruising/bleeding. Verbalizes understanding of s/s that would warrant 9-11/ER visit for evaluation. acknowledges need to follow up w/PCP Marta ARZOLA, but pt states "she would not okay me stopping xarelto so he is hoping to get into [facility]. Pt not interested in education about risk/benefit, following Dr freitas/advice.specialist: Dr Tran/pt will call to schedule. Wraparound Facilitator/Naga "fired" pt per pt/stating received letter, but it did not state why. advised pt to secure a PCP so that he can get referral for perfect binder setter. Verbalizes understanding of new/continued meds & why prescribed; taking Rx as ordered, no ase noted r/t polypharmacy. needs met, questions answered at DC, no further questions at this time.
== END 2019-07-03 16:25 | disposition home health service (06) | DRG 872 ==
LOC: ER 12:29 → ED HOLD 15:21 → EDBEDREQ 16:11 → SUR 3N 16:45
PROVIDERS: ADMIT Family Medicine; ATTEND Family Medicine
PROC: B4201ZZ Computerized Tomography (CT Scan) of Abdominal Aorta using Low Osmolar Contrast (ICD-10-PCS; principal; 2019-07-02)
PROC: B42H1ZZ Computerized Tomography (CT Scan) of Bilateral Lower Extremity Arteries using Low Osmolar Contrast (ICD-10-PCS; 2019-07-02)
DX: A40.9 Streptococcal sepsis, unspecified (principal); E11.51 Type 2 diabetes mellitus with diabetic peripheral angiopathy without gangrene; E66.01 Morbid (severe) obesity due to excess calories; E78.00 Pure hypercholesterolemia, unspecified; E78.5 Hyperlipidemia, unspecified; J44.9 Chronic obstructive pulmonary disease, unspecified; F20.9 Schizophrenia, unspecified; M48.061 Spinal stenosis, lumbar region without neurogenic claudication; I48.0 Paroxysmal atrial fibrillation; F31.9 Bipolar disorder, unspecified; F41.8 Other specified anxiety disorders; F12.90 Cannabis use, unspecified, uncomplicated; G47.30 Sleep apnea, unspecified; K21.9 Gastro-esophageal reflux disease without esophagitis; M54.9 Dorsalgia, unspecified; G89.29 Other chronic pain; I10 Essential (primary) hypertension; F17.200 Nicotine dependence, unspecified, uncomplicated; Z20.828 Contact with and (suspected) exposure to other viral communicable diseases; I25.10 Atherosclerotic heart disease of native coronary artery without angina pectoris; I25.2 Old myocardial infarction; Z68.36 Body mass index [BMI] 36.0-36.9, adult; Z79.01 Long term (current) use of anticoagulants; Z81.8 Family history of other mental and behavioral disorders; Z87.442 Personal history of urinary calculi; Z91.19 Patient's noncompliance with other medical treatment and regimen; Z88.8 Allergy status to other drugs, medicaments and biological substances; Z91.040 Latex allergy status; Z86.718 Personal history of other venous thrombosis and embolism; Z90.49 Acquired absence of other specified parts of digestive tract; Z79.899 Other long term (current) drug therapy; Z71.6 Tobacco abuse counseling
CPT/HCPCS: 36415; 75635; 76937; 80053; 82948; 83036; 83735; 84100; 85025; 87081; 94760; 97116; 97161; 97530; 99285; G0378; J1815; J2540; J7030; J7512; Q0163; Q9967

== ENCOUNTER 2019-07-09 19:41 | Emergency (ER) | payer MEDICARE, MEDICAID ==
[~2019-07-09] VITALS: Ht 177.8 cm; Wt 113.6 kg
[~2019-07-09 19:41] MED LIST changes: +LACT1CAP26 PO
[2019-07-09 19:54] VITALS: BP 149/84
== END 2019-07-09 21:33 | disposition home or self-care (01) ==
LOC: ER 19:42
DX: R22.31 Localized swelling, mass and lump, right upper limb (principal); I25.10 Atherosclerotic heart disease of native coronary artery without angina pectoris; E78.00 Pure hypercholesterolemia, unspecified; I10 Essential (primary) hypertension; I25.2 Old myocardial infarction; K21.9 Gastro-esophageal reflux disease without esophagitis; E11.9 Type 2 diabetes mellitus without complications; G89.29 Other chronic pain; F12.90 Cannabis use, unspecified, uncomplicated; Z56.0 Unemployment, unspecified; Z90.49 Acquired absence of other specified parts of digestive tract; Z98.890 Other specified postprocedural states; Z86.718 Personal history of other venous thrombosis and embolism; Z79.899 Other long term (current) drug therapy; Z91.040 Latex allergy status; Z88.5 Allergy status to narcotic agent; Z91.041 Radiographic dye allergy status
CPT/HCPCS: 99281

== ENCOUNTER 2019-07-11 08:13 | Emergency (ER) | payer MEDICARE, MEDICAID ==
[~2019-07-11] VITALS: Ht 177.8 cm; Wt 113.6 kg
[2019-07-11 08:15] VITALS: BP 133/78
--- NOTE | 2019-07-11 09:18 | NUR ---
picc nurse at bs.
[2019-07-11 09:45] LABS: BASOPHILS # (AUTO) 0.1 X10'3 (0-0.2); BASOPHILS % (AUTO) 1.2 % (0-1); EOSINOPHILS # (AUTO) 0.2 X10'3 (0-0.9); EOSINOPHILS % (AUTO) 1.6 % (0-6); HEMATOCRIT 33.7 % (42.0-52.0); HEMOGLOBIN 11.3 g/dl (14.0-17.9); LYMPHOCYTES # (AUTO) 2.4 X10'3 (1.1-4.8); LYMPHOCYTES % (AUTO) 21.9 % (21-51); MEAN CORPUSCULAR HEMOGLOBIN 28.9 PG (27.0-31.0); MEAN CORPUSCULAR HGB CONC 33.6 g/dL (33.0-36.5); MEAN CORPUSCULAR VOLUME 86.1 FL (78-98); MEAN PLATELET VOLUME 7.5 FL (7.4-10.4); MONOCYTES % (AUTO) 9.4 % (2-12); NEUTROPHILS # (AUTO) 7.1 X10'3 (1.8-7.7); NEUTROPHILS % (AUTO) 65.9 % (42-75); PLATELET COUNT 363 X10'3 (140-440); RED BLOOD COUNT 3.91 X10'6 (4.70-6.10); RED CELL DISTRIBUTION WIDTH 16.8 % (11.5-14.5); WHITE BLOOD COUNT 10.8 X10'3 (4.5-11.0)
--- NOTE | 2019-07-11 09:48 | NUR ---
4F SINGLE LUMEN MIDLINE PLACED TO LEFT BASILIC VEIN X'S 1 ATTEMPT USING ULTRASOUND GUIDANCE WITH TIP ENDING MID AXILLARY. SPOKE WITH DR MARCUM, CBC AND CMP ORDERED AND DRAWN BY Shukri CAMERON PICC RN.
[2019-07-11 09:56] LABS: ALANINE AMINOTRANSFERASE 21 U/L (12-78); ALBUMIN 2.6 G/DL (3.4-5.0); ALBUMIN/GLOBULIN RATIO 0.5 (1.1-1.5); ALKALINE PHOSPHATASE 49 IU/L (46-116); ANION GAP 6 (8-16); ASPARTATE AMINO TRANSFERASE 14 U/L (10-37); BILIRUBIN,TOTAL 0.1 MG/DL (0.1-1.0); BLOOD UREA NITROGEN 14 MG/DL (7-18); CALCIUM 8.9 MG/DL (8.5-10.1); CHLORIDE 109 MMOL/L (99-107); CREATININE 1.08 MG/DL (0.60-1.10); GLUCOSE 108 MG/DL (70-104); SODIUM 142 MMOL/L (135-145); TOTAL CARBON DIOXIDE 27.5 MMOL/L (24-32); TOTAL PROTEIN 7.4 G/DL (6.4-8.2); eGFR 73 ML/MIN
== END 2019-07-11 10:07 | disposition home or self-care (01) ==
LOC: ER 08:14
DX: T82.898A Other specified complication of vascular prosthetic devices, implants and grafts, initial encounter (principal); I25.10 Atherosclerotic heart disease of native coronary artery without angina pectoris; E78.00 Pure hypercholesterolemia, unspecified; I10 Essential (primary) hypertension; I25.2 Old myocardial infarction; G47.30 Sleep apnea, unspecified; K21.9 Gastro-esophageal reflux disease without esophagitis; E11.9 Type 2 diabetes mellitus without complications; G89.29 Other chronic pain; F41.9 Anxiety disorder, unspecified; F31.9 Bipolar disorder, unspecified; F20.9 Schizophrenia, unspecified; F12.90 Cannabis use, unspecified, uncomplicated; Z90.49 Acquired absence of other specified parts of digestive tract; Z98.890 Other specified postprocedural states; Z86.718 Personal history of other venous thrombosis and embolism; Z91.040 Latex allergy status; Z88.5 Allergy status to narcotic agent; Z79.899 Other long term (current) drug therapy; Y84.9 Medical procedure, unspecified as the cause of abnormal reaction of the patient, or of later complication, without mention of misadventure at the time of the procedure; Y92.89 Other specified places as the place of occurrence of the external cause
CPT/HCPCS: 36415; 76937; 80053; 85025; 99285

== ENCOUNTER 2019-09-27 10:11 | Emergency (ER) | payer BC, MEDICAID ==
[~2019-09-27] VITALS: Ht 177.8 cm; Wt 119.5 kg
[2019-09-27] MEDS ORDERED: AMOX-117 PO (12:05)
[2019-09-27 12:24] VITALS: BP 130/88
== END 2019-09-27 12:26 | disposition home or self-care (01) ==
LOC: ER 10:11
DX: H61.21 Impacted cerumen, right ear (principal); J32.1 Chronic frontal sinusitis; I25.10 Atherosclerotic heart disease of native coronary artery without angina pectoris; E78.00 Pure hypercholesterolemia, unspecified; I10 Essential (primary) hypertension; I25.2 Old myocardial infarction; K21.9 Gastro-esophageal reflux disease without esophagitis; E11.9 Type 2 diabetes mellitus without complications; G89.29 Other chronic pain; F12.90 Cannabis use, unspecified, uncomplicated; Z56.0 Unemployment, unspecified; Z90.49 Acquired absence of other specified parts of digestive tract; Z98.890 Other specified postprocedural states; Z86.718 Personal history of other venous thrombosis and embolism; Z91.040 Latex allergy status; Z88.5 Allergy status to narcotic agent; Z79.899 Other long term (current) drug therapy
CPT/HCPCS: 99283

== ENCOUNTER 2019-10-11 12:05 | Emergency (ER) | payer BC, MEDICAID ==
[~2019-10-11] VITALS: Ht 177.8 cm; Wt 123.0 kg
[2019-10-11 12:22] VITALS: BP 134/77
[2019-10-11] MEDS ORDERED: cyclobenzaprine 10mg tablet PO ONE (13:10)
[2019-10-11] MEDS ORDERED: CYCL-1 PO (13:37)
[2019-10-11] MEDS ORDERED: PENI500T2 PO (13:37)
[2019-10-11] MEDS ORDERED: CHLO473M3 PO (13:37)
== END 2019-10-11 13:45 | disposition home or self-care (01) ==
LOC: ER 12:05
DX: R68.84 Jaw pain (principal); R51 Headache; I25.10 Atherosclerotic heart disease of native coronary artery without angina pectoris; E78.00 Pure hypercholesterolemia, unspecified; I10 Essential (primary) hypertension; I25.2 Old myocardial infarction; G47.30 Sleep apnea, unspecified; K21.9 Gastro-esophageal reflux disease without esophagitis; E11.9 Type 2 diabetes mellitus without complications; G89.29 Other chronic pain; F41.9 Anxiety disorder, unspecified; F31.9 Bipolar disorder, unspecified; F20.9 Schizophrenia, unspecified; F12.90 Cannabis use, unspecified, uncomplicated; F17.200 Nicotine dependence, unspecified, uncomplicated; Z86.718 Personal history of other venous thrombosis and embolism; Z90.49 Acquired absence of other specified parts of digestive tract; Z98.890 Other specified postprocedural states; Z72.89 Other problems related to lifestyle; Z56.0 Unemployment, unspecified; Z91.040 Latex allergy status; Z79.01 Long term (current) use of anticoagulants; Z79.899 Other long term (current) drug therapy
CPT/HCPCS: 99283

== ENCOUNTER 2019-11-01 22:23 | Emergency (ER) | payer BC, MEDICAID ==
[~2019-11-01] VITALS: Ht 177.8 cm; Wt 125.0 kg
[~2019-11-01 22:23] MED LIST changes: +CHLO473M3 PO; +CYCL-1 PO
[2019-11-01] MEDS ORDERED: LIDOcaine 5% patch TP STA (23:49)
[2019-11-02 00:13] VITALS: BP 118/75
== END 2019-11-02 00:14 | disposition home or self-care (01) ==
LOC: ER 22:24
DX: M25.561 Pain in right knee (principal); I25.10 Atherosclerotic heart disease of native coronary artery without angina pectoris; E78.00 Pure hypercholesterolemia, unspecified; I10 Essential (primary) hypertension; I25.2 Old myocardial infarction; G47.30 Sleep apnea, unspecified; K21.9 Gastro-esophageal reflux disease without esophagitis; E11.9 Type 2 diabetes mellitus without complications; G89.29 Other chronic pain; F41.9 Anxiety disorder, unspecified; F31.9 Bipolar disorder, unspecified; F20.9 Schizophrenia, unspecified; F12.90 Cannabis use, unspecified, uncomplicated; Z86.718 Personal history of other venous thrombosis and embolism; Z90.49 Acquired absence of other specified parts of digestive tract; Z98.890 Other specified postprocedural states; Z72.89 Other problems related to lifestyle; Z56.0 Unemployment, unspecified; Z88.8 Allergy status to other drugs, medicaments and biological substances; Z79.899 Other long term (current) drug therapy
CPT/HCPCS: 99282; 99283

== ENCOUNTER 2019-11-09 08:00 | Emergency (ER) | payer BC, MEDICAID ==
[~2019-11-09] VITALS: Ht 177.8 cm; Wt 122.7 kg
[2019-11-09] MEDS ORDERED: HYDROcodone/acetaminophen 5mg/325mg tablet PO ONE (09:35)
[2019-11-09 09:49] VITALS: BP 141/92
== END 2019-11-09 09:50 | disposition home or self-care (01) ==
LOC: ER 08:01
DX: M25.561 Pain in right knee (principal); I25.10 Atherosclerotic heart disease of native coronary artery without angina pectoris; E78.00 Pure hypercholesterolemia, unspecified; I10 Essential (primary) hypertension; I25.2 Old myocardial infarction; G47.30 Sleep apnea, unspecified; K21.9 Gastro-esophageal reflux disease without esophagitis; E11.9 Type 2 diabetes mellitus without complications; G89.29 Other chronic pain; F41.9 Anxiety disorder, unspecified; F31.9 Bipolar disorder, unspecified; F20.9 Schizophrenia, unspecified; F12.90 Cannabis use, unspecified, uncomplicated; Z86.718 Personal history of other venous thrombosis and embolism; Z90.49 Acquired absence of other specified parts of digestive tract; Z98.890 Other specified postprocedural states; Z56.0 Unemployment, unspecified; Z72.89 Other problems related to lifestyle; Z91.040 Latex allergy status; Z88.8 Allergy status to other drugs, medicaments and biological substances; Z79.899 Other long term (current) drug therapy; Z79.01 Long term (current) use of anticoagulants
CPT/HCPCS: 73564; 99284

== ENCOUNTER 2019-11-21 09:11 | Emergency (ER) | payer BC, MEDICAID ==
[~2019-11-21] VITALS: Ht 177.8 cm; Wt 125.0 kg
[2019-11-21 10:43] VITALS: BP 139/99
== END 2019-11-21 10:46 | disposition home or self-care (01) ==
LOC: ER 09:12
DX: M79.661 Pain in right lower leg (principal); I25.10 Atherosclerotic heart disease of native coronary artery without angina pectoris; E78.00 Pure hypercholesterolemia, unspecified; I10 Essential (primary) hypertension; I25.2 Old myocardial infarction; K21.9 Gastro-esophageal reflux disease without esophagitis; E11.9 Type 2 diabetes mellitus without complications; G89.29 Other chronic pain; F41.9 Anxiety disorder, unspecified; F31.9 Bipolar disorder, unspecified; F20.9 Schizophrenia, unspecified; F12.90 Cannabis use, unspecified, uncomplicated; Z87.442 Personal history of urinary calculi; Z86.718 Personal history of other venous thrombosis and embolism; Z90.49 Acquired absence of other specified parts of digestive tract; Z98.890 Other specified postprocedural states; Z72.89 Other problems related to lifestyle; Z59.0 Homelessness; Z91.040 Latex allergy status; Z88.8 Allergy status to other drugs, medicaments and biological substances; Z79.899 Other long term (current) drug therapy
CPT/HCPCS: 93971; 99284

== ENCOUNTER → 2020-01-31 | Emergency (ER) | payer BC, MEDICAID ==
[~2020-01-31] VITALS: Ht 175.3 cm; Wt 125.0 kg
[~2020-01-31] MED LIST changes: +CARI1.5C PO; +CARV-50 PO; -CHLO473M3 PO; +CLON0.1T PO; -CLON0.1T2 PO; +CLOP75TA33 PO; -CLOP75TA35 PO; -CYCL-1 PO; -DILT240C90 PO; -LACT1CAP26 PO; -LAMO100T PO; +LAMO200T10 PO; -LOSA100T57 PO; +NITR0.4T48 SL; -NITR0.4T51 SL; -ROSU20TA31 PO; +ZOLP10TA PO; -ZOLP10TA5 PO; +diphenhydrAMINE 50 mg/ml inj IV ONE; +iohexol 350 MG/ML 50ML vial IV ONE; +iohexol 350MG/ML 100ml bottle IV ONE
--- NOTE | 2020-01-31 20:54 | NUR ---
Dr. oLwe walking past, informed him of the pt in the room
[2020-01-31 21:10] LABS: BASOPHILS # (AUTO) 0.1 X10'3 (0-0.2); BASOPHILS % (AUTO) 1.3 % (0-1); EOSINOPHILS # (AUTO) 0.5 X10'3 (0-0.9); EOSINOPHILS % (AUTO) 4.6 % (0-6); HEMATOCRIT 39.1 % (42.0-52.0); HEMOGLOBIN 13.6 g/dl (14.0-17.9); LYMPHOCYTES % (AUTO) 28.2 % (21-51); MEAN CORPUSCULAR HEMOGLOBIN 31.8 PG (27.0-31.0); MEAN CORPUSCULAR HGB CONC 34.8 g/dL (33.0-36.5); MEAN CORPUSCULAR VOLUME 91.3 FL (78-98); MEAN PLATELET VOLUME 7.8 FL (7.4-10.4); MONOCYTES # (AUTO) 1.1 X10'3 (0-0.9); MONOCYTES % (AUTO) 10.5 % (2-12); NEUTROPHILS % (AUTO) 55.4 % (42-75); PLATELET COUNT 372 X10'3 (140-440); RED BLOOD COUNT 4.28 X10'6 (4.70-6.10); RED CELL DISTRIBUTION WIDTH 13.3 % (11.5-14.5); WHITE BLOOD COUNT 10.8 X10'3 (4.5-11.0)
[2020-01-31 21:27] LABS: ALANINE AMINOTRANSFERASE 27 U/L (12-78); ALBUMIN 3.4 G/DL (3.4-5.0); ALBUMIN/GLOBULIN RATIO 0.8 (1.1-1.5); ALKALINE PHOSPHATASE 62 IU/L (46-116); ANION GAP 8 (8-16); ASPARTATE AMINO TRANSFERASE 16 U/L (10-37); BILIRUBIN,TOTAL 0.3 MG/DL (0.1-1.0); BLOOD UREA NITROGEN 13 MG/DL (7-18); BUN/CREATININE RATIO 10.9 (5.4-32.0); CALCIUM 9.3 MG/DL (8.5-10.1); CHLORIDE 104 MMOL/L (99-107); CREATININE 1.19 MG/DL (0.60-1.10); GLUCOSE 123 MG/DL (70-104); SODIUM 143 MMOL/L (135-145); TOTAL CARBON DIOXIDE 30.9 MMOL/L (24-32); TOTAL PROTEIN 7.9 G/DL (6.4-8.2); eGFR 65 ML/MIN
[2020-01-31 21:43] VITALS: BP 127/91
== END | disposition home or self-care (01) ==
LOC: ER 20:33
DX: M96.843 Postprocedural seroma of a musculoskeletal structure following other procedure (principal); M79.605 Pain in left leg; M79.604 Pain in right leg; M79.89 Other specified soft tissue disorders; I25.10 Atherosclerotic heart disease of native coronary artery without angina pectoris; E78.00 Pure hypercholesterolemia, unspecified; I10 Essential (primary) hypertension; I25.2 Old myocardial infarction; K21.9 Gastro-esophageal reflux disease without esophagitis; E11.9 Type 2 diabetes mellitus without complications; G89.29 Other chronic pain; F41.9 Anxiety disorder, unspecified; F31.9 Bipolar disorder, unspecified; F20.9 Schizophrenia, unspecified; F12.90 Cannabis use, unspecified, uncomplicated; Z87.442 Personal history of urinary calculi; Z86.718 Personal history of other venous thrombosis and embolism; Z20.9 Contact with and (suspected) exposure to unspecified communicable disease; Z90.49 Acquired absence of other specified parts of digestive tract; Z98.890 Other specified postprocedural states; Z72.89 Other problems related to lifestyle; Z56.0 Unemployment, unspecified; Z88.5 Allergy status to narcotic agent; Z88.8 Allergy status to other drugs, medicaments and biological substances; Z79.899 Other long term (current) drug therapy
CPT/HCPCS: 36415; 73706; 74175; 80053; 83605; 84145; 85025; 87040; 96374; 99285; J1200; Q9967

== ENCOUNTER 2020-02-04 12:05 | Outpatient (CLI) | payer BC, MEDICAID ==
[~2020-02-04 12:05] MED LIST changes: -diphenhydrAMINE 50 mg/ml inj IV ONE; -iohexol 350 MG/ML 50ML vial IV ONE; -iohexol 350MG/ML 100ml bottle IV ONE
== END 2020-02-04 23:59 | disposition home or self-care (01) ==
LOC: WOUND CARE 12:05
PROVIDERS: ATTEND Nurse Practitioner Family
DX: T81.89XA Other complications of procedures, not elsewhere classified, initial encounter (principal); E11.51 Type 2 diabetes mellitus with diabetic peripheral angiopathy without gangrene; I10 Essential (primary) hypertension; E78.5 Hyperlipidemia, unspecified; I73.9 Peripheral vascular disease, unspecified; G47.30 Sleep apnea, unspecified; I25.10 Atherosclerotic heart disease of native coronary artery without angina pectoris; F12.90 Cannabis use, unspecified, uncomplicated; K21.9 Gastro-esophageal reflux disease without esophagitis; I25.2 Old myocardial infarction; G89.29 Other chronic pain; M79.89 Other specified soft tissue disorders; E78.00 Pure hypercholesterolemia, unspecified; F41.9 Anxiety disorder, unspecified; F20.9 Schizophrenia, unspecified; F17.200 Nicotine dependence, unspecified, uncomplicated; Z95.1 Presence of aortocoronary bypass graft; Z98.890 Other specified postprocedural states; Z86.718 Personal history of other venous thrombosis and embolism; Z87.442 Personal history of urinary calculi; Z90.49 Acquired absence of other specified parts of digestive tract; Z79.899 Other long term (current) drug therapy; Y83.8 Other surgical procedures as the cause of abnormal reaction of the patient, or of later complication, without mention of misadventure at the time of the procedure; Y92.234 Operating room of hospital as the place of occurrence of the external cause
CPT/HCPCS: G0463

== ENCOUNTER 2020-02-06 08:09 | Outpatient (CLI) | payer BC, MEDICAID | END 2020-02-06 23:59 | disposition home or self-care (01) | LOC: WOUND CARE 08:09 | PROVIDERS: ATTEND Nurse Practitioner | DX: T81.89XD Other complications of procedures, not elsewhere classified, subsequent encounter (principal); E11.622 Type 2 diabetes mellitus with other skin ulcer; L98.491 Non-pressure chronic ulcer of skin of other sites limited to breakdown of skin; E11.51 Type 2 diabetes mellitus with diabetic peripheral angiopathy without gangrene; E78.5 Hyperlipidemia, unspecified; I10 Essential (primary) hypertension; I73.9 Peripheral vascular disease, unspecified; G47.30 Sleep apnea, unspecified; I25.10 Atherosclerotic heart disease of native coronary artery without angina pectoris; F12.90 Cannabis use, unspecified, uncomplicated; K21.9 Gastro-esophageal reflux disease without esophagitis; I25.2 Old myocardial infarction; G89.29 Other chronic pain; M79.89 Other specified soft tissue disorders; E78.00 Pure hypercholesterolemia, unspecified; F41.9 Anxiety disorder, unspecified; F20.9 Schizophrenia, unspecified; F17.200 Nicotine dependence, unspecified, uncomplicated; Z95.1 Presence of aortocoronary bypass graft; Z98.890 Other specified postprocedural states; Z86.718 Personal history of other venous thrombosis and embolism; Z87.442 Personal history of urinary calculi; Z90.49 Acquired absence of other specified parts of digestive tract; Z79.899 Other long term (current) drug therapy; Y83.8 Other surgical procedures as the cause of abnormal reaction of the patient, or of later complication, without mention of misadventure at the time of the procedure | CPT/HCPCS: 97605 ==

== ENCOUNTER 2020-02-17 18:13 | Emergency (ER) | payer BC, MEDICAID ==
[~2020-02-17] VITALS: Ht 175.3 cm; Wt 56.8 kg
[~2020-02-17 18:13] MED LIST changes: +HYDR-4353 PO
--- NOTE | 2020-02-17 18:35 | NUR ---
Pt resting in bed, vitals taken
[2020-02-17 19:44] VITALS: BP 128/77
== END 2020-02-17 19:50 | disposition home or self-care (01) ==
LOC: ER 18:18
DX: I97.89 Other postprocedural complications and disorders of the circulatory system, not elsewhere classified (principal); I25.10 Atherosclerotic heart disease of native coronary artery without angina pectoris; I10 Essential (primary) hypertension; E78.00 Pure hypercholesterolemia, unspecified; K21.9 Gastro-esophageal reflux disease without esophagitis; E11.9 Type 2 diabetes mellitus without complications; G89.29 Other chronic pain; Z86.718 Personal history of other venous thrombosis and embolism; Z91.041 Radiographic dye allergy status; Z91.040 Latex allergy status; Z88.6 Allergy status to analgesic agent; Z88.8 Allergy status to other drugs, medicaments and biological substances; Z79.899 Other long term (current) drug therapy; Y83.8 Other surgical procedures as the cause of abnormal reaction of the patient, or of later complication, without mention of misadventure at the time of the procedure; Y82.8 Other medical devices associated with adverse incidents
CPT/HCPCS: 99283

== ENCOUNTER 2020-02-18 11:28 | Outpatient (CLI) | payer BC, MEDICAID ==
[2020-02-18] MEDS ORDERED: LIDOcaine 2% 5ml jelly ONE (12:22)
[2020-02-18 13:00] LABS: BASOPHILS # (AUTO) 0.1 X10'3 (0-0.2); BASOPHILS % (AUTO) 0.8 % (0-1); EOSINOPHILS # (AUTO) 1.1 X10'3 (0-0.9); EOSINOPHILS % (AUTO) 9.7 % (0-6); HEMATOCRIT 27.4 % (42.0-52.0); HEMOGLOBIN 9.4 g/dl (14.0-17.9); LYMPHOCYTES # (AUTO) 2.6 X10'3 (1.1-4.8); LYMPHOCYTES % (AUTO) 23.2 % (21-51); MEAN CORPUSCULAR HEMOGLOBIN 31.5 PG (27.0-31.0); MEAN CORPUSCULAR HGB CONC 34.4 g/dL (33.0-36.5); MEAN CORPUSCULAR VOLUME 91.6 FL (78-98); MEAN PLATELET VOLUME 7.5 FL (7.4-10.4); MONOCYTES # (AUTO) 1.1 X10'3 (0-0.9); MONOCYTES % (AUTO) 9.6 % (2-12); NEUTROPHILS # (AUTO) 6.4 X10'3 (1.8-7.7); NEUTROPHILS % (AUTO) 56.7 % (42-75); PLATELET COUNT 411 X10'3 (140-440); RED BLOOD COUNT 2.99 X10'6 (4.70-6.10); RED CELL DISTRIBUTION WIDTH 14.1 % (11.5-14.5); WHITE BLOOD COUNT 11.2 X10'3 (4.5-11.0)
[2020-02-18 13:15] LABS: ALANINE AMINOTRANSFERASE 26 U/L (12-78); ALBUMIN 3.2 G/DL (3.4-5.0); ALBUMIN/GLOBULIN RATIO 0.8 (1.1-1.5); ALKALINE PHOSPHATASE 68 IU/L (46-116); ANION GAP 10 (8-16); ASPARTATE AMINO TRANSFERASE 17 U/L (10-37); BILIRUBIN,TOTAL 0.3 MG/DL (0.1-1.0); BLOOD UREA NITROGEN 20 MG/DL (7-18); BUN/CREATININE RATIO 9.6 (5.4-32.0); CALCIUM 8.8 MG/DL (8.5-10.1); CHLORIDE 105 MMOL/L (99-107); CREATININE 2.08 MG/DL (0.60-1.10); GLUCOSE 111 MG/DL (70-104); POTASSIUM 4.3 MMOL/L (3.5-5.1); SODIUM 139 MMOL/L (135-145); TOTAL CARBON DIOXIDE 24.5 MMOL/L (24-32); TOTAL PROTEIN 7.4 G/DL (6.4-8.2); VANCOMYCIN,RANDOM 31.6 UG/ML; eGFR 34 ML/MIN
== END 2020-02-18 23:59 | disposition home or self-care (01) ==
LOC: WOUND CARE 11:28
PROVIDERS: ATTEND Nurse Practitioner Family
DX: T81.89XD Other complications of procedures, not elsewhere classified, subsequent encounter (principal); E11.622 Type 2 diabetes mellitus with other skin ulcer; L98.491 Non-pressure chronic ulcer of skin of other sites limited to breakdown of skin; E11.51 Type 2 diabetes mellitus with diabetic peripheral angiopathy without gangrene; E78.5 Hyperlipidemia, unspecified; I10 Essential (primary) hypertension; I73.9 Peripheral vascular disease, unspecified; G47.30 Sleep apnea, unspecified; I25.10 Atherosclerotic heart disease of native coronary artery without angina pectoris; F12.90 Cannabis use, unspecified, uncomplicated; K21.9 Gastro-esophageal reflux disease without esophagitis; I25.2 Old myocardial infarction; G89.29 Other chronic pain; M79.89 Other specified soft tissue disorders; E78.00 Pure hypercholesterolemia, unspecified; F41.9 Anxiety disorder, unspecified; F20.9 Schizophrenia, unspecified; F17.200 Nicotine dependence, unspecified, uncomplicated; Z95.1 Presence of aortocoronary bypass graft; Z98.890 Other specified postprocedural states; Z86.718 Personal history of other venous thrombosis and embolism; Z87.442 Personal history of urinary calculi; Z90.49 Acquired absence of other specified parts of digestive tract; Z79.899 Other long term (current) drug therapy; Y83.8 Other surgical procedures as the cause of abnormal reaction of the patient, or of later complication, without mention of misadventure at the time of the procedure
CPT/HCPCS: 36415; 80053; 80202; 85025; 97597; 97598

== ENCOUNTER 2020-02-19 13:02 | Outpatient (CLI) | payer BC, MEDICAID | END 2020-02-19 23:59 | disposition home or self-care (01) | LOC: WOUND CARE 13:02 | PROVIDERS: ATTEND Nurse Practitioner | DX: T81.89XD Other complications of procedures, not elsewhere classified, subsequent encounter (principal); E11.622 Type 2 diabetes mellitus with other skin ulcer; L98.491 Non-pressure chronic ulcer of skin of other sites limited to breakdown of skin; E11.51 Type 2 diabetes mellitus with diabetic peripheral angiopathy without gangrene; E11.42 Type 2 diabetes mellitus with diabetic polyneuropathy; E78.5 Hyperlipidemia, unspecified; G47.30 Sleep apnea, unspecified; I10 Essential (primary) hypertension; I25.10 Atherosclerotic heart disease of native coronary artery without angina pectoris; K21.9 Gastro-esophageal reflux disease without esophagitis; I25.2 Old myocardial infarction; G89.29 Other chronic pain; M79.89 Other specified soft tissue disorders; E78.00 Pure hypercholesterolemia, unspecified; F12.90 Cannabis use, unspecified, uncomplicated; F20.9 Schizophrenia, unspecified; F41.9 Anxiety disorder, unspecified; F17.210 Nicotine dependence, cigarettes, uncomplicated; Z95.1 Presence of aortocoronary bypass graft; Z98.890 Other specified postprocedural states; Z86.718 Personal history of other venous thrombosis and embolism; Z87.442 Personal history of urinary calculi; Z90.49 Acquired absence of other specified parts of digestive tract; Z79.899 Other long term (current) drug therapy; Z79.02 Long term (current) use of antithrombotics/antiplatelets; Y83.8 Other surgical procedures as the cause of abnormal reaction of the patient, or of later complication, without mention of misadventure at the time of the procedure | CPT/HCPCS: G0463 ==

== ENCOUNTER 2020-02-22 09:55 | Outpatient (CLI) | payer BC, MEDICAID ==
[2020-02-22] MEDS ORDERED: LIDOcaine 2% 5ml jelly ONE (10:43)
== END 2020-02-22 23:59 | disposition home or self-care (01) ==
LOC: WOUND CARE 09:55
PROVIDERS: ATTEND Nurse Practitioner
DX: T81.89XD Other complications of procedures, not elsewhere classified, subsequent encounter (principal); E11.622 Type 2 diabetes mellitus with other skin ulcer; L98.491 Non-pressure chronic ulcer of skin of other sites limited to breakdown of skin; E11.51 Type 2 diabetes mellitus with diabetic peripheral angiopathy without gangrene; E11.42 Type 2 diabetes mellitus with diabetic polyneuropathy; E78.5 Hyperlipidemia, unspecified; G47.30 Sleep apnea, unspecified; I10 Essential (primary) hypertension; I25.10 Atherosclerotic heart disease of native coronary artery without angina pectoris; K21.9 Gastro-esophageal reflux disease without esophagitis; I25.2 Old myocardial infarction; G89.29 Other chronic pain; M79.89 Other specified soft tissue disorders; E78.00 Pure hypercholesterolemia, unspecified; F12.90 Cannabis use, unspecified, uncomplicated; F20.9 Schizophrenia, unspecified; F41.9 Anxiety disorder, unspecified; F17.210 Nicotine dependence, cigarettes, uncomplicated; Z95.1 Presence of aortocoronary bypass graft; Z98.890 Other specified postprocedural states; Z86.718 Personal history of other venous thrombosis and embolism; Z87.442 Personal history of urinary calculi; Z90.49 Acquired absence of other specified parts of digestive tract; Z79.899 Other long term (current) drug therapy; Z79.02 Long term (current) use of antithrombotics/antiplatelets; Y83.8 Other surgical procedures as the cause of abnormal reaction of the patient, or of later complication, without mention of misadventure at the time of the procedure
CPT/HCPCS: 97606

== ENCOUNTER 2020-02-25 08:49 | Outpatient (CLI) | payer BC, MEDICAID ==
[2020-02-25] MEDS ORDERED: LIDOcaine 2% 5ml jelly ONE (09:34)
== END 2020-02-25 23:59 | disposition home or self-care (01) ==
LOC: WOUND CARE 08:49
PROVIDERS: ATTEND Nurse Practitioner Family
DX: T81.89XD Other complications of procedures, not elsewhere classified, subsequent encounter (principal); E11.622 Type 2 diabetes mellitus with other skin ulcer; L98.495 Non-pressure chronic ulcer of skin of other sites with muscle involvement without evidence of necrosis; E11.51 Type 2 diabetes mellitus with diabetic peripheral angiopathy without gangrene; E11.42 Type 2 diabetes mellitus with diabetic polyneuropathy; E78.5 Hyperlipidemia, unspecified; G47.30 Sleep apnea, unspecified; I10 Essential (primary) hypertension; I25.10 Atherosclerotic heart disease of native coronary artery without angina pectoris; K21.9 Gastro-esophageal reflux disease without esophagitis; I25.2 Old myocardial infarction; G89.29 Other chronic pain; M79.89 Other specified soft tissue disorders; E78.00 Pure hypercholesterolemia, unspecified; F12.90 Cannabis use, unspecified, uncomplicated; F20.9 Schizophrenia, unspecified; F41.9 Anxiety disorder, unspecified; F17.210 Nicotine dependence, cigarettes, uncomplicated; Z95.1 Presence of aortocoronary bypass graft; Z98.890 Other specified postprocedural states; Z86.718 Personal history of other venous thrombosis and embolism; Z87.442 Personal history of urinary calculi; Z90.49 Acquired absence of other specified parts of digestive tract; Z79.899 Other long term (current) drug therapy; Z79.02 Long term (current) use of antithrombotics/antiplatelets; Y83.8 Other surgical procedures as the cause of abnormal reaction of the patient, or of later complication, without mention of misadventure at the time of the procedure
CPT/HCPCS: 97597; 97598

== ENCOUNTER 2020-02-27 10:32 | Outpatient (CLI) | payer BC, MEDICAID ==
[2020-02-27] MEDS ORDERED: LIDOcaine 2% 5ml jelly ONE (10:53)
== END 2020-02-27 23:59 | disposition home or self-care (01) ==
LOC: WOUND CARE 10:32 → EDSTATUS 11:40 → WOUND CARE 23:59
PROVIDERS: ATTEND Nurse Practitioner
DX: T81.89XD Other complications of procedures, not elsewhere classified, subsequent encounter (principal); E11.622 Type 2 diabetes mellitus with other skin ulcer; L98.495 Non-pressure chronic ulcer of skin of other sites with muscle involvement without evidence of necrosis; E11.51 Type 2 diabetes mellitus with diabetic peripheral angiopathy without gangrene; E11.42 Type 2 diabetes mellitus with diabetic polyneuropathy; E78.5 Hyperlipidemia, unspecified; G47.30 Sleep apnea, unspecified; I10 Essential (primary) hypertension; I25.10 Atherosclerotic heart disease of native coronary artery without angina pectoris; K21.9 Gastro-esophageal reflux disease without esophagitis; I25.2 Old myocardial infarction; G89.29 Other chronic pain; M79.89 Other specified soft tissue disorders; E78.00 Pure hypercholesterolemia, unspecified; F12.90 Cannabis use, unspecified, uncomplicated; F20.9 Schizophrenia, unspecified; F41.9 Anxiety disorder, unspecified; F32.9 Major depressive disorder, single episode, unspecified; F17.210 Nicotine dependence, cigarettes, uncomplicated; Z95.1 Presence of aortocoronary bypass graft; Z98.890 Other specified postprocedural states; Z86.718 Personal history of other venous thrombosis and embolism; Z87.442 Personal history of urinary calculi; Z90.49 Acquired absence of other specified parts of digestive tract; Z79.899 Other long term (current) drug therapy; Z79.02 Long term (current) use of antithrombotics/antiplatelets; Y83.8 Other surgical procedures as the cause of abnormal reaction of the patient, or of later complication, without mention of misadventure at the time of the procedure
CPT/HCPCS: 97606

== ENCOUNTER 2020-02-29 08:44 | Outpatient (CLI) | payer BC, MEDICAID ==
[2020-02-29] MEDS ORDERED: LIDOcaine 2% 5ml jelly ONE (08:58)
== END 2020-02-29 23:59 | disposition home or self-care (01) ==
LOC: WOUND CARE 08:44
PROVIDERS: ATTEND Nurse Practitioner
DX: T81.89XD Other complications of procedures, not elsewhere classified, subsequent encounter (principal); E11.622 Type 2 diabetes mellitus with other skin ulcer; L98.495 Non-pressure chronic ulcer of skin of other sites with muscle involvement without evidence of necrosis; E11.51 Type 2 diabetes mellitus with diabetic peripheral angiopathy without gangrene; E11.42 Type 2 diabetes mellitus with diabetic polyneuropathy; E78.5 Hyperlipidemia, unspecified; G47.30 Sleep apnea, unspecified; I10 Essential (primary) hypertension; I25.10 Atherosclerotic heart disease of native coronary artery without angina pectoris; K21.9 Gastro-esophageal reflux disease without esophagitis; I25.2 Old myocardial infarction; G89.29 Other chronic pain; M79.89 Other specified soft tissue disorders; E78.00 Pure hypercholesterolemia, unspecified; F12.90 Cannabis use, unspecified, uncomplicated; F20.9 Schizophrenia, unspecified; F41.9 Anxiety disorder, unspecified; F32.9 Major depressive disorder, single episode, unspecified; F17.290 Nicotine dependence, other tobacco product, uncomplicated; Z95.1 Presence of aortocoronary bypass graft; Z86.718 Personal history of other venous thrombosis and embolism; Z98.890 Other specified postprocedural states; Z87.442 Personal history of urinary calculi; Z90.49 Acquired absence of other specified parts of digestive tract; Z79.899 Other long term (current) drug therapy; Z79.02 Long term (current) use of antithrombotics/antiplatelets; Y83.8 Other surgical procedures as the cause of abnormal reaction of the patient, or of later complication, without mention of misadventure at the time of the procedure
CPT/HCPCS: 97606

== ENCOUNTER → 2020-03-03 | Outpatient (CLI) | payer BC, MEDICAID | END | disposition home or self-care (01) | LOC: WOUND CARE 10:36 | PROVIDERS: ATTEND Nurse Practitioner | DX: T81.89XD Other complications of procedures, not elsewhere classified, subsequent encounter (principal); E11.622 Type 2 diabetes mellitus with other skin ulcer; L98.495 Non-pressure chronic ulcer of skin of other sites with muscle involvement without evidence of necrosis; E11.51 Type 2 diabetes mellitus with diabetic peripheral angiopathy without gangrene; E11.42 Type 2 diabetes mellitus with diabetic polyneuropathy; E78.5 Hyperlipidemia, unspecified; G47.30 Sleep apnea, unspecified; I10 Essential (primary) hypertension; I25.10 Atherosclerotic heart disease of native coronary artery without angina pectoris; K21.9 Gastro-esophageal reflux disease without esophagitis; I25.2 Old myocardial infarction; G89.29 Other chronic pain; E78.00 Pure hypercholesterolemia, unspecified; F12.90 Cannabis use, unspecified, uncomplicated; F20.9 Schizophrenia, unspecified; F41.9 Anxiety disorder, unspecified; F32.9 Major depressive disorder, single episode, unspecified; F17.290 Nicotine dependence, other tobacco product, uncomplicated; Z95.1 Presence of aortocoronary bypass graft; Z86.718 Personal history of other venous thrombosis and embolism; Z98.890 Other specified postprocedural states; Z87.442 Personal history of urinary calculi; Z90.49 Acquired absence of other specified parts of digestive tract; Z79.899 Other long term (current) drug therapy; Z79.02 Long term (current) use of antithrombotics/antiplatelets; Y83.8 Other surgical procedures as the cause of abnormal reaction of the patient, or of later complication, without mention of misadventure at the time of the procedure | CPT/HCPCS: 97605; 97606 ==

== ENCOUNTER 2020-03-05 09:35 | Outpatient (CLI) | payer BC, MEDICAID ==
[2020-03-05 10:24] LABS: ALANINE AMINOTRANSFERASE 19 U/L (12-78); ALBUMIN 2.8 G/DL (3.4-5.0); ALBUMIN/GLOBULIN RATIO 0.7 (1.1-1.5); ALKALINE PHOSPHATASE 49 IU/L (46-116); ANION GAP 9 (8-16); ASPARTATE AMINO TRANSFERASE 17 U/L (10-37); BILIRUBIN,TOTAL 0.2 MG/DL (0.1-1.0); BLOOD UREA NITROGEN 13 MG/DL (7-18); BUN/CREATININE RATIO 9.4 (5.4-32.0); CALCIUM 8.7 MG/DL (8.5-10.1); CHLORIDE 107 MMOL/L (99-107); CREATININE 1.38 MG/DL (0.60-1.10); GLUCOSE 95 MG/DL (70-104); SODIUM 142 MMOL/L (135-145); TOTAL CARBON DIOXIDE 25.7 MMOL/L (24-32); TOTAL PROTEIN 7.1 G/DL (6.4-8.2); VANCOMYCIN,RANDOM 2.2 UG/ML; eGFR 55 ML/MIN
[2020-03-05 10:25] LABS: BASOPHILS # (AUTO) 0.1 X10'3 (0-0.2); EOSINOPHILS # (AUTO) 0.6 X10'3 (0-0.9); EOSINOPHILS % (AUTO) 7.7 % (0-6); HEMATOCRIT 29.2 % (42.0-52.0); HEMOGLOBIN 9.9 g/dl (14.0-17.9); LYMPHOCYTES # (AUTO) 1.6 X10'3 (1.1-4.8); LYMPHOCYTES % (AUTO) 19.8 % (21-51); MEAN CORPUSCULAR HEMOGLOBIN 30.2 PG (27.0-31.0); MEAN CORPUSCULAR HGB CONC 33.7 g/dL (33.0-36.5); MEAN CORPUSCULAR VOLUME 89.6 FL (78-98); MEAN PLATELET VOLUME 7.2 FL (7.4-10.4); MONOCYTES % (AUTO) 12.1 % (2-12); NEUTROPHILS # (AUTO) 4.7 X10'3 (1.8-7.7); NEUTROPHILS % (AUTO) 59.4 % (42-75); PLATELET COUNT 414 X10'3 (140-440); RED BLOOD COUNT 3.26 X10'6 (4.70-6.10); RED CELL DISTRIBUTION WIDTH 14.4 % (11.5-14.5); WHITE BLOOD COUNT 7.9 X10'3 (4.5-11.0)
[2020-03-05 10:27] LABS: POTASSIUM 3.9 MMOL/L (3.5-5.1)
== END 2020-03-05 23:59 | disposition home or self-care (01) ==
LOC: WOUND CARE 09:35
PROVIDERS: ATTEND Nurse Practitioner
DX: T81.89XD Other complications of procedures, not elsewhere classified, subsequent encounter (principal); E11.622 Type 2 diabetes mellitus with other skin ulcer; L98.495 Non-pressure chronic ulcer of skin of other sites with muscle involvement without evidence of necrosis; E11.51 Type 2 diabetes mellitus with diabetic peripheral angiopathy without gangrene; E11.42 Type 2 diabetes mellitus with diabetic polyneuropathy; E78.5 Hyperlipidemia, unspecified; G47.30 Sleep apnea, unspecified; I10 Essential (primary) hypertension; I25.10 Atherosclerotic heart disease of native coronary artery without angina pectoris; K21.9 Gastro-esophageal reflux disease without esophagitis; I25.2 Old myocardial infarction; G89.29 Other chronic pain; E78.00 Pure hypercholesterolemia, unspecified; F12.90 Cannabis use, unspecified, uncomplicated; F20.9 Schizophrenia, unspecified; F41.9 Anxiety disorder, unspecified; F32.9 Major depressive disorder, single episode, unspecified; F17.290 Nicotine dependence, other tobacco product, uncomplicated; Z95.1 Presence of aortocoronary bypass graft; Z86.718 Personal history of other venous thrombosis and embolism; Z98.890 Other specified postprocedural states; Z87.442 Personal history of urinary calculi; Z90.49 Acquired absence of other specified parts of digestive tract; Z79.899 Other long term (current) drug therapy; Z79.02 Long term (current) use of antithrombotics/antiplatelets; Y83.8 Other surgical procedures as the cause of abnormal reaction of the patient, or of later complication, without mention of misadventure at the time of the procedure
CPT/HCPCS: 36415; 80053; 80202; 85025; 97605

== ENCOUNTER 2020-03-10 09:07 | Outpatient (CLI) | payer BC, MEDICAID ==
[2020-03-10] MEDS ORDERED: LIDOcaine 2% 5ml jelly ONE (09:49)
== END 2020-03-10 23:59 | disposition home or self-care (01) ==
LOC: WOUND CARE 09:07
PROVIDERS: ATTEND Nurse Practitioner Family
DX: T81.89XD Other complications of procedures, not elsewhere classified, subsequent encounter (principal); E11.622 Type 2 diabetes mellitus with other skin ulcer; L98.495 Non-pressure chronic ulcer of skin of other sites with muscle involvement without evidence of necrosis; L98.492 Non-pressure chronic ulcer of skin of other sites with fat layer exposed; E11.51 Type 2 diabetes mellitus with diabetic peripheral angiopathy without gangrene; E11.42 Type 2 diabetes mellitus with diabetic polyneuropathy; E78.5 Hyperlipidemia, unspecified; G47.30 Sleep apnea, unspecified; I10 Essential (primary) hypertension; I25.10 Atherosclerotic heart disease of native coronary artery without angina pectoris; K21.9 Gastro-esophageal reflux disease without esophagitis; I25.2 Old myocardial infarction; G89.29 Other chronic pain; E78.00 Pure hypercholesterolemia, unspecified; F12.90 Cannabis use, unspecified, uncomplicated; F20.9 Schizophrenia, unspecified; F41.9 Anxiety disorder, unspecified; F32.9 Major depressive disorder, single episode, unspecified; F17.290 Nicotine dependence, other tobacco product, uncomplicated; Z95.1 Presence of aortocoronary bypass graft; Z86.718 Personal history of other venous thrombosis and embolism; Z98.890 Other specified postprocedural states; Z87.442 Personal history of urinary calculi; Z90.49 Acquired absence of other specified parts of digestive tract; Z79.899 Other long term (current) drug therapy; Z79.02 Long term (current) use of antithrombotics/antiplatelets; Y83.8 Other surgical procedures as the cause of abnormal reaction of the patient, or of later complication, without mention of misadventure at the time of the procedure
CPT/HCPCS: 97597; 97598

== ENCOUNTER → 2020-03-12 | Outpatient (CLI) | payer BC, MEDICAID ==
[~2020-03-12] MED LIST changes: +CIPR250T4 PO; +DOXY-224 PO; +LACT1CAP26 PO
== END | disposition home or self-care (01) ==
LOC: WOUND CARE 09:56
PROVIDERS: ATTEND Nurse Practitioner Family
DX: T81.89XD Other complications of procedures, not elsewhere classified, subsequent encounter (principal); E11.622 Type 2 diabetes mellitus with other skin ulcer; L98.492 Non-pressure chronic ulcer of skin of other sites with fat layer exposed; L98.495 Non-pressure chronic ulcer of skin of other sites with muscle involvement without evidence of necrosis; E11.51 Type 2 diabetes mellitus with diabetic peripheral angiopathy without gangrene; E11.42 Type 2 diabetes mellitus with diabetic polyneuropathy; E78.5 Hyperlipidemia, unspecified; G47.30 Sleep apnea, unspecified; E11.22 Type 2 diabetes mellitus with diabetic chronic kidney disease; I12.9 Hypertensive chronic kidney disease with stage 1 through stage 4 chronic kidney disease, or unspecified chronic kidney disease; N18.9 Chronic kidney disease, unspecified; I25.10 Atherosclerotic heart disease of native coronary artery without angina pectoris; K21.9 Gastro-esophageal reflux disease without esophagitis; I25.2 Old myocardial infarction; G89.29 Other chronic pain; E78.00 Pure hypercholesterolemia, unspecified; F12.90 Cannabis use, unspecified, uncomplicated; F20.9 Schizophrenia, unspecified; F41.9 Anxiety disorder, unspecified; F32.9 Major depressive disorder, single episode, unspecified; F17.210 Nicotine dependence, cigarettes, uncomplicated; Z95.1 Presence of aortocoronary bypass graft; Z86.718 Personal history of other venous thrombosis and embolism; Z98.890 Other specified postprocedural states; Z87.442 Personal history of urinary calculi; Z90.49 Acquired absence of other specified parts of digestive tract; Z79.899 Other long term (current) drug therapy; Z79.02 Long term (current) use of antithrombotics/antiplatelets; Z68.39 Body mass index [BMI] 39.0-39.9, adult; Y83.8 Other surgical procedures as the cause of abnormal reaction of the patient, or of later complication, without mention of misadventure at the time of the procedure
CPT/HCPCS: 97606

== ENCOUNTER 2020-03-17 11:51 | Outpatient (CLI) | payer BC, MEDICAID ==
[~2020-03-17 11:51] MED LIST changes: -CIPR250T4 PO; -DOXY-224 PO; -LACT1CAP26 PO
[2020-03-26] MEDS ORDERED: CIPR250T4 PO (11:12)
[2020-03-26] MEDS ORDERED: DOXY-224 PO (11:12)
[2020-03-26] MEDS ORDERED: LACT1CAP26 PO (11:12)
== END 2020-03-17 23:59 | disposition home or self-care (01) ==
LOC: WOUND CARE 11:51
PROVIDERS: ATTEND Nurse Practitioner Family
DX: T81.89XD Other complications of procedures, not elsewhere classified, subsequent encounter (principal); E11.622 Type 2 diabetes mellitus with other skin ulcer; L98.495 Non-pressure chronic ulcer of skin of other sites with muscle involvement without evidence of necrosis; L98.492 Non-pressure chronic ulcer of skin of other sites with fat layer exposed; E11.51 Type 2 diabetes mellitus with diabetic peripheral angiopathy without gangrene; E11.42 Type 2 diabetes mellitus with diabetic polyneuropathy; E78.5 Hyperlipidemia, unspecified; G47.30 Sleep apnea, unspecified; E11.22 Type 2 diabetes mellitus with diabetic chronic kidney disease; I12.9 Hypertensive chronic kidney disease with stage 1 through stage 4 chronic kidney disease, or unspecified chronic kidney disease; N18.9 Chronic kidney disease, unspecified; I25.10 Atherosclerotic heart disease of native coronary artery without angina pectoris; K21.9 Gastro-esophageal reflux disease without esophagitis; I25.2 Old myocardial infarction; G89.29 Other chronic pain; E78.00 Pure hypercholesterolemia, unspecified; F12.90 Cannabis use, unspecified, uncomplicated; F20.9 Schizophrenia, unspecified; F41.9 Anxiety disorder, unspecified; F32.9 Major depressive disorder, single episode, unspecified; F17.210 Nicotine dependence, cigarettes, uncomplicated; Z95.1 Presence of aortocoronary bypass graft; Z86.718 Personal history of other venous thrombosis and embolism; Z98.890 Other specified postprocedural states; Z87.442 Personal history of urinary calculi; Z90.49 Acquired absence of other specified parts of digestive tract; Z79.899 Other long term (current) drug therapy; Z79.02 Long term (current) use of antithrombotics/antiplatelets; Z68.39 Body mass index [BMI] 39.0-39.9, adult; Y83.8 Other surgical procedures as the cause of abnormal reaction of the patient, or of later complication, without mention of misadventure at the time of the procedure
CPT/HCPCS: 97605; 97606

== ENCOUNTER 2020-03-20 09:24 | Outpatient (CLI) | payer BC, MEDICAID ==
[~2020-03-20 09:24] MED LIST changes: -HYDR-4353 PO
[2020-03-20] MEDS ORDERED: LIDOcaine 2% 5ml jelly ONE (09:51)
[2020-03-26] MEDS ORDERED: DOXY-224 PO (11:12)
[2020-03-26] MEDS ORDERED: CIPR250T4 PO (11:12)
[2020-03-26] MEDS ORDERED: LACT1CAP26 PO (11:12)
== END 2020-03-20 23:59 | disposition home or self-care (01) ==
LOC: WOUND CARE 09:24
PROVIDERS: ATTEND Nurse Practitioner
DX: T81.89XD Other complications of procedures, not elsewhere classified, subsequent encounter (principal); E11.622 Type 2 diabetes mellitus with other skin ulcer; L98.495 Non-pressure chronic ulcer of skin of other sites with muscle involvement without evidence of necrosis; L98.492 Non-pressure chronic ulcer of skin of other sites with fat layer exposed; E11.51 Type 2 diabetes mellitus with diabetic peripheral angiopathy without gangrene; E11.42 Type 2 diabetes mellitus with diabetic polyneuropathy; E78.5 Hyperlipidemia, unspecified; I10 Essential (primary) hypertension; I25.10 Atherosclerotic heart disease of native coronary artery without angina pectoris; K21.9 Gastro-esophageal reflux disease without esophagitis; I25.2 Old myocardial infarction; G89.29 Other chronic pain; E78.00 Pure hypercholesterolemia, unspecified; G47.30 Sleep apnea, unspecified; F12.90 Cannabis use, unspecified, uncomplicated; F20.9 Schizophrenia, unspecified; F41.9 Anxiety disorder, unspecified; F32.9 Major depressive disorder, single episode, unspecified; F17.290 Nicotine dependence, other tobacco product, uncomplicated; Z95.1 Presence of aortocoronary bypass graft; Z86.718 Personal history of other venous thrombosis and embolism; Z98.890 Other specified postprocedural states; Z87.442 Personal history of urinary calculi; Z90.49 Acquired absence of other specified parts of digestive tract; Z79.899 Other long term (current) drug therapy; Z79.02 Long term (current) use of antithrombotics/antiplatelets; Y83.8 Other surgical procedures as the cause of abnormal reaction of the patient, or of later complication, without mention of misadventure at the time of the procedure
CPT/HCPCS: 11042; 97597

== ENCOUNTER 2020-05-10 16:54 | Emergency (ER) | payer BC, MEDICAID ==
[~2020-05-10] VITALS: Ht 175.3 cm; Wt 117.8 kg
[~2020-05-10 16:54] MED LIST changes: -CLON0.1T PO; -CLOP75TA33 PO; +DOXY-243 PO; +LINE600T11 PO; -LURA40TA3 PO; -TRAZ-256 PO; -ZOLP10TA PO
--- NOTE | 2020-05-10 19:00 | NUR ---
PATIENT HAD WOUND VAC CHANGED TODAY AT 1500 BY HOME HEALTH NURSE. PATIENT REPORTS THAT LEAK STARTED HALF HOUR LATER WITH BLEEDING. BLOOD CLEANED UP WITH CHLORHEXIDINE WIPES.
--- NOTE | 2020-05-10 19:22 | NUR ---
RIGHT GROIN WOUND VAC IS ALARMING LEAK AND SUCTION IS ONLY 5MMHG ON CONTINUOUS SUCTION. THE PATIENT STATES THAT IT IS SUPPOSED TO BE AT 125 MMHG. PATIENT REPORTS THAT HE ORIGINALLY HAD VASCULAR SURGERY BY DR BURRELL IN JANUARY OF 2020. PATIENT REPORTS THAT DR BENAVIDEZ DID A REVISION SURGERY 2 WEEKS AGO. DISCUSSED PLAN OF CARE WITH BOTH VIOLETA FRANCISCO AND DR PAYAN. PLAN TO ATTEMPT TO REPLACE WOUND VAC DRESSING AND IF UNABLE, TO DO A WET TO DRY DRESSING.
--- NOTE | 2020-05-10 19:29 | NUR ---
PATIENT HAD SOME WOUND VAC SUPPLIES AND I WAS ABLE TO PROVIDE A WOUND VAC CANNISTER. PATIENT HAS ABOUT A 6 CM OPEN AREA HORIZONTAL INCISION THAT IS OPEN AND HAS STOPPED BLEEDING. SURROUNDING INTACT SKIN CLEANED WITH CHLORHEXIDENE AND SLIGHT PRESSURE HELD WITH GAUZE. FOAM, SUCTION PORTION, AND DRAPE APPLIED TO NEW WOUND VAC CANNISTER. SUCTION AT 125 MMHG CONTINUOUS SUCTION. FOAM TAPE APPLIED AT EDGES THAT HAD ROLLED UP FROM THE SKIN FOLDS. AREA OF LOCALIZED SWELLING TO RIGHT INNER THIGH ALONG SCAR: ALMOST POCKETING.
--- NOTE | 2020-05-10 19:36 | NUR ---
VIOLETA FRANCISCO VIEWED GROIN AND WOUND VAC AFTER APPLICATION
[2020-05-10 19:54] VITALS: BP 138/78
== END 2020-05-10 19:51 | disposition home or self-care (01) ==
LOC: ER 16:55
DX: S31.103A Unspecified open wound of abdominal wall, right lower quadrant without penetration into peritoneal cavity, initial encounter (principal); I25.10 Atherosclerotic heart disease of native coronary artery without angina pectoris; E78.00 Pure hypercholesterolemia, unspecified; I10 Essential (primary) hypertension; I25.2 Old myocardial infarction; K21.9 Gastro-esophageal reflux disease without esophagitis; E11.9 Type 2 diabetes mellitus without complications; G89.29 Other chronic pain; F41.9 Anxiety disorder, unspecified; F31.9 Bipolar disorder, unspecified; F20.9 Schizophrenia, unspecified; F12.90 Cannabis use, unspecified, uncomplicated; Z87.442 Personal history of urinary calculi; Z86.718 Personal history of other venous thrombosis and embolism; Z90.49 Acquired absence of other specified parts of digestive tract; Z98.890 Other specified postprocedural states; Z72.89 Other problems related to lifestyle; Z56.0 Unemployment, unspecified; Z88.5 Allergy status to narcotic agent; Z88.8 Allergy status to other drugs, medicaments and biological substances; Z79.2 Long term (current) use of antibiotics; Z79.899 Other long term (current) drug therapy; X58.XXXA Exposure to other specified factors, initial encounter; Y93.89 Activity, other specified; Y92.89 Other specified places as the place of occurrence of the external cause; Y99.8 Other external cause status
CPT/HCPCS: 99284

== ENCOUNTER → 2020-05-12 | Outpatient (CLI) | payer BC, MEDICAID ==
[~2020-05-12] MED LIST changes: +HYDROcodone/acetaminophen 10/325mg tab PO PRN; +LIDOcaine 2% (20mg/ml) 5ml vial ONE; +LIDOcaine 2% 5ml jelly ONE; -LINE600T11 PO; +POTA20TA19 PO; +acetaminophen 325mg tablet PO PRN; +albumin (Human) 5% 250ml 250 ML IV ONE; +diphenhydrAMINE 50 mg/ml inj IV ONE; +docusate sod 100mg capsule PO SCH; +fentaNYL/PF 50MCG/1 ML 2ML syringe ONE; +glycopyrrolate 0.2mg/ml inj ONE; +iohexol 350 MG/ML 50ML vial IV ONE; +iohexol 350MG/ML 100ml bottle IV ONE; +magnesium hydroxide 30ml (MOM) UD suspension PO PRN; +methylPREDNISolone sod succ 125mg/2ml vial IV ONE; +midazolam 1 mg/ML 2ml injection ONE; +morphine 2 MG/ML inj. syringe IV PRN; +normal saline 1000ml 1,000 ML IV SCH; +ondansetron/PF 4mg/2ml inj IV PRN; +ondansetron/PF 4mg/2ml inj ONE; +potassium Cl 20 mEq SR tablet PO PRN; +potassium Cl 40MEQ/1/2NS 520ml 520 ML IV PRN; +potassium Cl 40MEQ/250ML bag 270 ML IV PRN; +propofol inj 20 ML IV ONE; +rocuronium 10mg/ml inj IV ONE; +vancomycin 1,000mg inj ONE
[2020-05-12 10:29] LABS: BASOPHILS # (AUTO) 0.1 X10'3 (0-0.2); BASOPHILS % (AUTO) 0.3 % (0-1); EOSINOPHILS # (AUTO) 0.1 X10'3 (0-0.9); EOSINOPHILS % (AUTO) 0.6 % (0-6); HEMATOCRIT 28.5 % (42.0-52.0); HEMOGLOBIN 9.4 g/dl (14.0-17.9); LYMPHOCYTES # (AUTO) 1.2 X10'3 (1.1-4.8); LYMPHOCYTES % (AUTO) 8.1 % (21-51); MEAN CORPUSCULAR HEMOGLOBIN 26.4 PG (27.0-31.0); MEAN CORPUSCULAR HGB CONC 33.1 g/dL (33.0-36.5); MEAN CORPUSCULAR VOLUME 79.9 FL (78-98); MEAN PLATELET VOLUME 7.4 FL (7.4-10.4); MONOCYTES % (AUTO) 6.5 % (2-12); NEUTROPHILS # (AUTO) 12.9 X10'3 (1.8-7.7); NEUTROPHILS % (AUTO) 84.5 % (42-75); PLATELET COUNT 207 X10'3 (140-440); RED BLOOD COUNT 3.57 X10'6 (4.70-6.10); RED CELL DISTRIBUTION WIDTH 17.8 % (11.5-14.5); WHITE BLOOD COUNT 15.3 X10'3 (4.5-11.0)
[2020-05-12 10:44] LABS: PARTIAL THROMBOPLASTIN TIME 28 SECONDS (22-32)
[2020-05-12 11:03] LABS: ALANINE AMINOTRANSFERASE 18 U/L (12-78); ALBUMIN 2.8 G/DL (3.4-5.0); ALBUMIN/GLOBULIN RATIO 0.7 (1.1-1.5); ALKALINE PHOSPHATASE 49 IU/L (46-116); ANION GAP 11 (8-16); ASPARTATE AMINO TRANSFERASE 11 U/L (10-37); BILIRUBIN,TOTAL 0.2 MG/DL (0.1-1.0); BLOOD UREA NITROGEN 17 MG/DL (7-18); BUN/CREATININE RATIO 15.6 (5.4-32.0); C-REACTIVE PROTEIN 14.61 MG/DL (0.0-0.5); CALCIUM 8.6 MG/DL (8.5-10.1); CHLORIDE 105 MMOL/L (99-107); CREATININE 1.09 MG/DL (0.60-1.10); GLUCOSE 141 MG/DL (70-104); MAGNESIUM 1.9 MG/DL (1.5-2.4); POTASSIUM 4.1 MMOL/L (3.5-5.1); SODIUM 138 MMOL/L (135-145); TOTAL CARBON DIOXIDE 22.4 MMOL/L (24-32); TOTAL PROTEIN 6.9 G/DL (6.4-8.2); eGFR 72 ML/MIN
== END | disposition home or self-care (01) ==
LOC: WOUND CARE 08:06
PROVIDERS: ATTEND Nurse Practitioner
DX: T81.89XD Other complications of procedures, not elsewhere classified, subsequent encounter (principal); E11.622 Type 2 diabetes mellitus with other skin ulcer; L98.491 Non-pressure chronic ulcer of skin of other sites limited to breakdown of skin; E11.51 Type 2 diabetes mellitus with diabetic peripheral angiopathy without gangrene; E11.42 Type 2 diabetes mellitus with diabetic polyneuropathy; E78.5 Hyperlipidemia, unspecified; I10 Essential (primary) hypertension; I25.10 Atherosclerotic heart disease of native coronary artery without angina pectoris; K21.9 Gastro-esophageal reflux disease without esophagitis; I25.2 Old myocardial infarction; G89.29 Other chronic pain; G47.30 Sleep apnea, unspecified; E78.00 Pure hypercholesterolemia, unspecified; E66.9 Obesity, unspecified; R79.1 Abnormal coagulation profile; F12.90 Cannabis use, unspecified, uncomplicated; F20.9 Schizophrenia, unspecified; F41.9 Anxiety disorder, unspecified; F32.9 Major depressive disorder, single episode, unspecified; F17.210 Nicotine dependence, cigarettes, uncomplicated; Z95.1 Presence of aortocoronary bypass graft; Z86.718 Personal history of other venous thrombosis and embolism; Z87.442 Personal history of urinary calculi; Z79.899 Other long term (current) drug therapy; Z68.39 Body mass index [BMI] 39.0-39.9, adult; Z98.890 Other specified postprocedural states; Z79.02 Long term (current) use of antithrombotics/antiplatelets; Z79.2 Long term (current) use of antibiotics
CPT/HCPCS: 36415; 71045; 80053; 83735; 85025; 85610; 85651; 85730; 86140; G0463; J2001; J2250; J2405; J2704; J3010; J3370; J7030; P9045; Q9967; J3490

== ENCOUNTER 2020-05-31 11:15 | Emergency (ER) | payer BC, MEDICAID ==
[~2020-05-31] VITALS: Ht 177.8 cm; Wt 122.7 kg
[~2020-05-31 11:15] MED LIST changes: +CLOP75TA34 PO; -DOXY-243 PO; -HYDROcodone/acetaminophen 10/325mg tab PO PRN; -LIDOcaine 2% (20mg/ml) 5ml vial ONE; -LIDOcaine 2% 5ml jelly ONE; +NICO-687 TD; -POTA20TA19 PO; -acetaminophen 325mg tablet PO PRN; -albumin (Human) 5% 250ml 250 ML IV ONE; -diphenhydrAMINE 50 mg/ml inj IV ONE; -docusate sod 100mg capsule PO SCH; -fentaNYL/PF 50MCG/1 ML 2ML syringe ONE; -glycopyrrolate 0.2mg/ml inj ONE; -iohexol 350 MG/ML 50ML vial IV ONE; -iohexol 350MG/ML 100ml bottle IV ONE; -magnesium hydroxide 30ml (MOM) UD suspension PO PRN; -methylPREDNISolone sod succ 125mg/2ml vial IV ONE; -midazolam 1 mg/ML 2ml injection ONE; -morphine 2 MG/ML inj. syringe IV PRN; -normal saline 1000ml 1,000 ML IV SCH; -ondansetron/PF 4mg/2ml inj IV PRN; -ondansetron/PF 4mg/2ml inj ONE; -potassium Cl 20 mEq SR tablet PO PRN; -potassium Cl 40MEQ/1/2NS 520ml 520 ML IV PRN; -potassium Cl 40MEQ/250ML bag 270 ML IV PRN; -propofol inj 20 ML IV ONE; -rocuronium 10mg/ml inj IV ONE; -vancomycin 1,000mg inj ONE
[2020-05-31] MEDS ORDERED: HYDROmorphone 1 mg/ml syringe IV ONE (12:10)
[2020-05-31] MEDS ORDERED: HYDROmorphone 1 mg/ml syringe IM ONE ×2 (12:45)
--- NOTE | 2020-05-31 15:14 | NUR ---
wet to dry packing completed
[2020-05-31] MEDS ORDERED: OXYC-145 PO (16:21)
[2020-05-31 16:32] VITALS: BP 160/98
--- NOTE | 2020-06-02 08:00 | NUR ---
PICC LINE DRESSING CHANGED USING STERILE TECHNIQUE. SITE IS CLEAN AND DRY, NO REDNESS OR INDURATION OBSERVED. Shukri CAMERON PICC RN
== END 2020-05-31 16:35 | disposition home or self-care (01) ==
LOC: ER 11:18
DX: I70.90 Unspecified atherosclerosis (principal); I73.9 Peripheral vascular disease, unspecified; I25.10 Atherosclerotic heart disease of native coronary artery without angina pectoris; T82.7XXS Infection and inflammatory reaction due to other cardiac and vascular devices, implants and grafts, sequela; E78.00 Pure hypercholesterolemia, unspecified; I10 Essential (primary) hypertension; I25.2 Old myocardial infarction; G47.39 Other sleep apnea; G89.29 Other chronic pain; E11.9 Type 2 diabetes mellitus without complications; K21.9 Gastro-esophageal reflux disease without esophagitis; F12.90 Cannabis use, unspecified, uncomplicated; Z87.442 Personal history of urinary calculi; Z90.49 Acquired absence of other specified parts of digestive tract; Z98.890 Other specified postprocedural states; Z98.61 Coronary angioplasty status; Z56.0 Unemployment, unspecified; Z72.89 Other problems related to lifestyle; Z79.899 Other long term (current) drug therapy; Z91.040 Latex allergy status; Z91.041 Radiographic dye allergy status
CPT/HCPCS: 93922; 93926; 96372; 99285; J1170

== ENCOUNTER 2020-07-22 13:09 | Emergency (ER) | payer BC, MEDICAID ==
[~2020-07-22] VITALS: Ht 177.8 cm; Wt 115.9 kg
[~2020-07-22 13:09] MED LIST changes: +CLOP75TA15 PO; -CLOP75TA34 PO; -NICO-687 TD
[2020-07-22 13:56] LABS: BASOPHILS # (AUTO) 0.1 X10'3 (0-0.2); BASOPHILS % (AUTO) 0.8 % (0-1); EOSINOPHILS # (AUTO) 0.2 X10'3 (0-0.9); EOSINOPHILS % (AUTO) 3.5 % (0-6); HEMATOCRIT 35.7 % (42.0-52.0); HEMOGLOBIN 11.5 g/dl (14.0-17.9); LYMPHOCYTES # (AUTO) 1.8 X10'3 (1.1-4.8); LYMPHOCYTES % (AUTO) 27.6 % (21-51); MEAN CORPUSCULAR HEMOGLOBIN 26.6 PG (27.0-31.0); MEAN CORPUSCULAR HGB CONC 32.1 g/dL (33.0-36.5); MEAN PLATELET VOLUME 7.9 FL (7.4-10.4); MONOCYTES # (AUTO) 0.7 X10'3 (0-0.9); MONOCYTES % (AUTO) 10.5 % (2-12); NEUTROPHILS # (AUTO) 3.8 X10'3 (1.8-7.7); NEUTROPHILS % (AUTO) 57.6 % (42-75); PLATELET COUNT 359 X10'3 (140-440); RED CELL DISTRIBUTION WIDTH 17.5 % (11.5-14.5); WHITE BLOOD COUNT 6.6 X10'3 (4.5-11.0)
[2020-07-22 14:14] LABS: ALANINE AMINOTRANSFERASE 36 U/L (12-78); ALBUMIN 3.3 G/DL (3.4-5.0); ALBUMIN/GLOBULIN RATIO 0.7 (1.1-1.5); ALKALINE PHOSPHATASE 77 IU/L (46-116); ANION GAP 7 (8-16); ASPARTATE AMINO TRANSFERASE 31 U/L (10-37); BILIRUBIN,TOTAL 0.2 MG/DL (0.1-1.0); BLOOD UREA NITROGEN 12 MG/DL (7-18); BUN/CREATININE RATIO 11.5 (5.4-32.0); CALCIUM 9.5 MG/DL (8.5-10.1); CHLORIDE 107 MMOL/L (99-107); CREATININE 1.04 MG/DL (0.60-1.10); GLUCOSE 128 MG/DL (70-104); POTASSIUM 3.6 MMOL/L (3.5-5.1); SODIUM 140 MMOL/L (135-145); TOTAL CARBON DIOXIDE 25.9 MMOL/L (24-32); TOTAL PROTEIN 7.9 G/DL (6.4-8.2); eGFR 76 ML/MIN
--- NOTE | 2020-07-22 15:05 | NUR ---
report given from Eileen BURDEN, assumed care. pt sitting up in bed stating "I'm worried about my head"
[2020-07-22 16:58] VITALS: BP 121/82
== END 2020-07-22 16:59 | disposition home or self-care (01) ==
LOC: ER 13:10
DX: G31.84 Mild cognitive impairment of uncertain or unknown etiology (principal); I10 Essential (primary) hypertension; I25.10 Atherosclerotic heart disease of native coronary artery without angina pectoris; E78.00 Pure hypercholesterolemia, unspecified; I25.2 Old myocardial infarction; G47.30 Sleep apnea, unspecified; K21.9 Gastro-esophageal reflux disease without esophagitis; E11.9 Type 2 diabetes mellitus without complications; F41.9 Anxiety disorder, unspecified; F31.9 Bipolar disorder, unspecified; F20.9 Schizophrenia, unspecified; F12.90 Cannabis use, unspecified, uncomplicated; Z87.442 Personal history of urinary calculi; Z86.718 Personal history of other venous thrombosis and embolism; Z90.49 Acquired absence of other specified parts of digestive tract; Z72.89 Other problems related to lifestyle; Z98.890 Other specified postprocedural states; Z56.0 Unemployment, unspecified; Z91.040 Latex allergy status; Z91.041 Radiographic dye allergy status; Z88.5 Allergy status to narcotic agent; Z79.899 Other long term (current) drug therapy
CPT/HCPCS: 36415; 70450; 71045; 80053; 83880; 84484; 85025; 93005; 99285

== ENCOUNTER 2020-08-01 13:06 | Emergency (ER) | payer BC, MEDICAID ==
[~2020-08-01] VITALS: Ht 175.3 cm; Wt 115.0 kg
[2020-08-01 14:32] LABS: BASOPHILS # (AUTO) 0.1 X10'3 (0-0.2); BASOPHILS % (AUTO) 0.7 % (0-1); EOSINOPHILS # (AUTO) 0.2 X10'3 (0-0.9); EOSINOPHILS % (AUTO) 2.2 % (0-6); HEMATOCRIT 38.2 % (42.0-52.0); HEMOGLOBIN 12.6 g/dl (14.0-17.9); LYMPHOCYTES # (AUTO) 1.9 X10'3 (1.1-4.8); LYMPHOCYTES % (AUTO) 25.3 % (21-51); MEAN CORPUSCULAR HEMOGLOBIN 26.8 PG (27.0-31.0); MEAN CORPUSCULAR HGB CONC 32.8 g/dL (33.0-36.5); MEAN CORPUSCULAR VOLUME 81.6 FL (78-98); MEAN PLATELET VOLUME 8.2 FL (7.4-10.4); MONOCYTES # (AUTO) 0.7 X10'3 (0-0.9); MONOCYTES % (AUTO) 9.2 % (2-12); NEUTROPHILS # (AUTO) 4.6 X10'3 (1.8-7.7); NEUTROPHILS % (AUTO) 62.6 % (42-75); PLATELET COUNT 338 X10'3 (140-440); RED BLOOD COUNT 4.69 X10'6 (4.70-6.10); RED CELL DISTRIBUTION WIDTH 17.6 % (11.5-14.5); WHITE BLOOD COUNT 7.4 X10'3 (4.5-11.0)
[2020-08-01 14:46] LABS: ALANINE AMINOTRANSFERASE 43 U/L (12-78); ALBUMIN 3.6 G/DL (3.4-5.0); ALBUMIN/GLOBULIN RATIO 0.8 (1.1-1.5); ALKALINE PHOSPHATASE 89 IU/L (46-116); ANION GAP 13 (8-16); ASPARTATE AMINO TRANSFERASE 39 U/L (10-37); BILIRUBIN,TOTAL 0.2 MG/DL (0.1-1.0); BLOOD UREA NITROGEN 12 MG/DL (7-18); BUN/CREATININE RATIO 12.2 (5.4-32.0); CALCIUM 9.4 MG/DL (8.5-10.1); CHLORIDE 105 MMOL/L (99-107); CREATININE 0.98 MG/DL (0.60-1.10); GLUCOSE 106 MG/DL (70-104); POTASSIUM 3.8 MMOL/L (3.5-5.1); SODIUM 142 MMOL/L (135-145); TOTAL CARBON DIOXIDE 24.1 MMOL/L (24-32); TOTAL PROTEIN 8.1 G/DL (6.4-8.2); eGFR 81 ML/MIN
[2020-08-01 14:50] LABS: TROPONIN I < 0.04 NG/ML (0.0-0.05)
[2020-08-01] MEDS ORDERED: LIDOcaine 5% patch TP STA (15:52)
[2020-08-01] MEDS ORDERED: CYCL-1 PO (16:15)
[2020-08-01 16:29] VITALS: BP 137/95
== END 2020-08-01 16:30 | disposition home or self-care (01) ==
LOC: ER 13:07
DX: M54.81 Occipital neuralgia (principal); M62.830 Muscle spasm of back; I25.10 Atherosclerotic heart disease of native coronary artery without angina pectoris; E78.00 Pure hypercholesterolemia, unspecified; I10 Essential (primary) hypertension; I25.2 Old myocardial infarction; K21.9 Gastro-esophageal reflux disease without esophagitis; E11.9 Type 2 diabetes mellitus without complications; G89.29 Other chronic pain; F41.9 Anxiety disorder, unspecified; F31.9 Bipolar disorder, unspecified; F20.9 Schizophrenia, unspecified; F12.90 Cannabis use, unspecified, uncomplicated; Z87.442 Personal history of urinary calculi; Z86.718 Personal history of other venous thrombosis and embolism; Z72.89 Other problems related to lifestyle; Z90.49 Acquired absence of other specified parts of digestive tract; Z98.890 Other specified postprocedural states; Z56.0 Unemployment, unspecified; Z88.5 Allergy status to narcotic agent; Z88.8 Allergy status to other drugs, medicaments and biological substances; Z79.899 Other long term (current) drug therapy
CPT/HCPCS: 36415; 80053; 84484; 85025; 93005; 99284

== ENCOUNTER 2020-08-15 01:25 | Emergency (ER) | payer BC, MEDICAID ==
[~2020-08-15] VITALS: Ht 175.3 cm; Wt 115.9 kg
[~2020-08-15 01:25] MED LIST changes: +CYCL-1 PO
[2020-08-15 03:02] VITALS: BP 134/87
== END 2020-08-15 03:03 | disposition home or self-care (01) ==
LOC: ER 01:26
DX: S62.307A Unspecified fracture of fifth metacarpal bone, left hand, initial encounter for closed fracture (principal); I25.10 Atherosclerotic heart disease of native coronary artery without angina pectoris; E78.00 Pure hypercholesterolemia, unspecified; I10 Essential (primary) hypertension; I25.2 Old myocardial infarction; K21.9 Gastro-esophageal reflux disease without esophagitis; E11.9 Type 2 diabetes mellitus without complications; G89.29 Other chronic pain; F41.9 Anxiety disorder, unspecified; F31.9 Bipolar disorder, unspecified; F20.9 Schizophrenia, unspecified; F12.90 Cannabis use, unspecified, uncomplicated; Z87.442 Personal history of urinary calculi; Z86.718 Personal history of other venous thrombosis and embolism; Z90.49 Acquired absence of other specified parts of digestive tract; Z98.890 Other specified postprocedural states; Z72.89 Other problems related to lifestyle; Z56.0 Unemployment, unspecified; Z88.5 Allergy status to narcotic agent; Z88.8 Allergy status to other drugs, medicaments and biological substances; Z79.899 Other long term (current) drug therapy
CPT/HCPCS: 29125; 73130; 99283

== ENCOUNTER 2020-09-22 12:32 | Outpatient (CLI) | payer BC, MEDICAID | END 2020-09-22 23:59 | disposition home or self-care (01) | LOC: RAD 12:32 | PROVIDERS: ATTEND Surgery | DX: R10.2 Pelvic and perineal pain (principal) | CPT/HCPCS: 76881 ==

== ENCOUNTER 2020-10-26 17:46 | Emergency (ER) | payer BC, MEDICAID ==
[~2020-10-26] VITALS: Ht 175.3 cm; Wt 104.5 kg
[~2020-10-26 17:46] MED LIST changes: -CARI1.5C PO; +CARI3CAP PO; +CIPR250T4 PO; -CYCL-1 PO; +LAMO100T65 PO; -LAMO200T10 PO; +TRAZ-256 PO; +ZOLP10TA PO
[2020-10-26] MEDS ORDERED: normal saline 1000ml 1,000 ML IV ONE (18:55)
[2020-10-26 18:57] LABS: CLARITY,URINE CLEAR (Clear); COLOR,URINE YELLOW (Yellow); GLUCOSE, URINE NEGATIVE (Neg); KETONES,URINE NEGATIVE (Neg); LEUKOCYTE ESTERASE ,URINE NEGATIVE (Neg); NITRITES, URINE NEGATIVE (Neg); OCCULT BLOOD,URINE NEGATIVE (Neg); PROTEIN,URINE NEGATIVE (Neg); UROBILINOGEN,URINE 0.2 E.U/dL (0.2-1.0)
[2020-10-26 18:59] LABS: EOSINOPHILS # (AUTO) 0.1 X10'3 (0-0.9); EOSINOPHILS % (AUTO) 0.5 % (0-6); HEMOGLOBIN 7.3 g/dl (14.0-17.9); MONOCYTES # (AUTO) 0.5 X10'3 (0-0.9); MONOCYTES % (AUTO) 4.2 % (2-12); RED CELL DISTRIBUTION WIDTH 17.1 % (11.5-14.5)
[2020-10-26 19:01] LABS: BASOPHILS % (AUTO) 0.1 % (0-1); HEMATOCRIT 22.7 % (42.0-52.0); LYMPHOCYTES # (AUTO) 1.1 X10'3 (1.1-4.8); LYMPHOCYTES % (AUTO) 8.5 % (21-51); MEAN CORPUSCULAR HEMOGLOBIN 28.6 PG (27.0-31.0); MEAN CORPUSCULAR VOLUME 89.4 FL (78-98); MEAN PLATELET VOLUME 7.4 FL (7.4-10.4); NEUTROPHILS # (AUTO) 10.8 X10'3 (1.8-7.7); NEUTROPHILS % (AUTO) 86.7 % (42-75); PLATELET COUNT 322 X10'3 (140-440); RED BLOOD COUNT 2.54 X10'6 (4.70-6.10); WHITE BLOOD COUNT 12.5 X10'3 (4.5-11.0)
[2020-10-26 19:02] LABS: UA COLLECTION TYPE URINAL
[2020-10-26 19:06] LABS: PARTIAL THROMBOPLASTIN TIME 21 SECONDS (22-32)
[2020-10-26 19:09] LABS: ALANINE AMINOTRANSFERASE 46 U/L (12-78); ALBUMIN 2.7 G/DL (3.4-5.0); ALBUMIN/GLOBULIN RATIO 0.9 (1.1-1.5); ALKALINE PHOSPHATASE 55 IU/L (46-116); ANION GAP 11 (8-16); ASPARTATE AMINO TRANSFERASE 17 U/L (10-37); BILIRUBIN,TOTAL 0.2 MG/DL (0.1-1.0); BLOOD UREA NITROGEN 30 MG/DL (7-18); BUN/CREATININE RATIO 27.3 (5.4-32.0); CALCIUM 8.1 MG/DL (8.5-10.1); CHLORIDE 105 MMOL/L (99-107); GLUCOSE 205 MG/DL (70-104); MAGNESIUM 1.9 MG/DL (1.5-2.4); POTASSIUM 4.2 MMOL/L (3.5-5.1); SODIUM 139 MMOL/L (135-145); TOTAL PROTEIN 5.7 G/DL (6.4-8.2); eGFR 71 ML/MIN
[2020-10-26 22:07] LABS: BASOPHILS % (AUTO) 0.1 % (0-1); EOSINOPHILS % (AUTO) 0.3 % (0-6); LYMPHOCYTES # (AUTO) 1.5 X10'3 (1.1-4.8)
[2020-10-26 22:09] LABS: LYMPHOCYTES % (AUTO) 11.9 % (21-51); MEAN CORPUSCULAR HEMOGLOBIN 28.2 PG (27.0-31.0); MEAN CORPUSCULAR HGB CONC 31.7 g/dL (33.0-36.5); MEAN PLATELET VOLUME 7.4 FL (7.4-10.4); MONOCYTES # (AUTO) 0.9 X10'3 (0-0.9); MONOCYTES % (AUTO) 7.6 % (2-12); NEUTROPHILS # (AUTO) 9.9 X10'3 (1.8-7.7); NEUTROPHILS % (AUTO) 80.1 % (42-75); PLATELET COUNT 321 X10'3 (140-440); RED BLOOD COUNT 2.46 X10'6 (4.70-6.10); RED CELL DISTRIBUTION WIDTH 17.6 % (11.5-14.5); WHITE BLOOD COUNT 12.4 X10'3 (4.5-11.0)
[2020-10-26 22:12] LABS: HEMATOCRIT 21.8 % (42.0-52.0); HEMOGLOBIN 6.9 g/dl (14.0-17.9)
[2020-10-26 22:34] VITALS: BP 123/70
== END 2020-10-26 22:39 | disposition home or self-care (01) ==
LOC: ER 17:46
DX: R53.1 Weakness (principal); R42 Dizziness and giddiness; R10.31 Right lower quadrant pain; I25.10 Atherosclerotic heart disease of native coronary artery without angina pectoris; E78.00 Pure hypercholesterolemia, unspecified; I10 Essential (primary) hypertension; I25.2 Old myocardial infarction; K21.9 Gastro-esophageal reflux disease without esophagitis; E11.9 Type 2 diabetes mellitus without complications; Z87.440 Personal history of urinary (tract) infections; G89.29 Other chronic pain; Z86.718 Personal history of other venous thrombosis and embolism; Z90.49 Acquired absence of other specified parts of digestive tract; Z56.0 Unemployment, unspecified; Z91.041 Radiographic dye allergy status; Z88.5 Allergy status to narcotic agent; Z88.8 Allergy status to other drugs, medicaments and biological substances; Z91.048 Other nonmedicinal substance allergy status
CPT/HCPCS: 36415; 71045; 80053; 81003; 83605; 83735; 84145; 85025; 85610; 85730; 87040; 93005; 96360; 99285; J7030

== ENCOUNTER 2020-11-19 13:32 | Emergency (ER) | payer BC, MEDICAID ==
[~2020-11-19] VITALS: Ht 175.3 cm; Wt 122.7 kg
[~2020-11-19 13:32] MED LIST changes: -ZOLP10TA PO
[2020-11-19 13:44] VITALS: BP 121/74
[2020-11-19 14:29] LABS: BASOPHILS # (AUTO) 0.1 X10'3 (0-0.2); HEMATOCRIT 29.8 % (42.0-52.0); HEMOGLOBIN 9.4 g/dl (14.0-17.9); LYMPHOCYTES # (AUTO) 1.7 X10'3 (1.1-4.8); NEUTROPHILS # (AUTO) 6.3 X10'3 (1.8-7.7); RED BLOOD COUNT 3.56 X10'6 (4.70-6.10); WHITE BLOOD COUNT 9.5 X10'3 (4.5-11.0)
[2020-11-19 14:30] LABS: BASOPHILS % (AUTO) 0.7 % (0-1); EOSINOPHILS # (AUTO) 0.3 X10'3 (0-0.9); EOSINOPHILS % (AUTO) 3.5 % (0-6); LYMPHOCYTES % (AUTO) 17.8 % (21-51); MEAN CORPUSCULAR HEMOGLOBIN 26.3 PG (27.0-31.0); MEAN CORPUSCULAR HGB CONC 31.4 g/dL (33.0-36.5); MEAN CORPUSCULAR VOLUME 83.7 FL (78-98); MEAN PLATELET VOLUME 6.7 FL (7.4-10.4); MONOCYTES # (AUTO) 1.1 X10'3 (0-0.9); MONOCYTES % (AUTO) 11.3 % (2-12); NEUTROPHILS % (AUTO) 66.7 % (42-75); PLATELET COUNT 626 X10'3 (140-440); RED CELL DISTRIBUTION WIDTH 17.7 % (11.5-14.5)
[2020-11-19 14:43] LABS: ALANINE AMINOTRANSFERASE 15 U/L (12-78); ALBUMIN 2.8 G/DL (3.4-5.0); ALBUMIN/GLOBULIN RATIO 0.7 (1.1-1.5); ALKALINE PHOSPHATASE 73 IU/L (46-116); ANION GAP 10 (8-16); ASPARTATE AMINO TRANSFERASE 10 U/L (10-37); BILIRUBIN,TOTAL 0.2 MG/DL (0.1-1.0); BLOOD UREA NITROGEN 9 MG/DL (7-18); BUN/CREATININE RATIO 8.9 (5.4-32.0); CALCIUM 8.6 MG/DL (8.5-10.1); CHLORIDE 110 MMOL/L (99-107); CREATININE 1.01 MG/DL (0.60-1.10); GLUCOSE 89 MG/DL (70-104); POTASSIUM 3.9 MMOL/L (3.5-5.1); SODIUM 143 MMOL/L (135-145); TOTAL CARBON DIOXIDE 23.5 MMOL/L (24-32); TOTAL PROTEIN 7.1 G/DL (6.4-8.2); eGFR 79 ML/MIN
[2020-11-20] MEDS ORDERED: LIDOcaine 2% 5ml jelly ONE (08:43)
== END 2020-11-19 15:02 | disposition home or self-care (01) ==
LOC: ER 13:33
DX: R22.41 Localized swelling, mass and lump, right lower limb (principal); I25.10 Atherosclerotic heart disease of native coronary artery without angina pectoris; E78.00 Pure hypercholesterolemia, unspecified; I10 Essential (primary) hypertension; I25.2 Old myocardial infarction; K21.9 Gastro-esophageal reflux disease without esophagitis; E11.9 Type 2 diabetes mellitus without complications; G89.29 Other chronic pain; F12.90 Cannabis use, unspecified, uncomplicated; Z87.442 Personal history of urinary calculi; Z90.49 Acquired absence of other specified parts of digestive tract; Z72.89 Other problems related to lifestyle; Z56.0 Unemployment, unspecified; Z88.5 Allergy status to narcotic agent; Z91.041 Radiographic dye allergy status; Z88.8 Allergy status to other drugs, medicaments and biological substances; Z91.048 Other nonmedicinal substance allergy status; Z79.2 Long term (current) use of antibiotics; Z79.899 Other long term (current) drug therapy
CPT/HCPCS: 36415; 80053; 85025; 93971; 99284

== ENCOUNTER 2021-01-09 07:37 | Inpatient (IN) | payer BC, MEDICAID ==
[~2021-01-09] VITALS: Ht 177.8 cm; Wt 122.7 kg
[2021-01-09 10:00] LABS: BASOPHILS % (AUTO) 0.3 % (0-1); EOSINOPHILS # (AUTO) 0.1 X10'3 (0-0.9); EOSINOPHILS % (AUTO) 0.4 % (0-6); HEMATOCRIT 34.6 % (42.0-52.0); HEMOGLOBIN 11.4 g/dl (14.0-17.9); LYMPHOCYTES # (AUTO) 1.5 X10'3 (1.1-4.8); LYMPHOCYTES % (AUTO) 10.1 % (21-51); MEAN CORPUSCULAR HEMOGLOBIN 25.5 PG (27.0-31.0); MEAN CORPUSCULAR VOLUME 77.1 FL (78-98); MEAN PLATELET VOLUME 8.1 FL (7.4-10.4); MONOCYTES # (AUTO) 1.5 X10'3 (0-0.9); MONOCYTES % (AUTO) 9.8 % (2-12); NEUTROPHILS # (AUTO) 11.9 X10'3 (1.8-7.7); NEUTROPHILS % (AUTO) 79.4 % (42-75); PLATELET COUNT 282 X10'3 (140-440); RED BLOOD COUNT 4.48 X10'6 (4.70-6.10); RED CELL DISTRIBUTION WIDTH 17.9 % (11.5-14.5); WHITE BLOOD COUNT 14.9 X10'3 (4.5-11.0)
[2021-01-09 10:12] LABS: ALANINE AMINOTRANSFERASE 23 U/L (12-78); ALBUMIN/GLOBULIN RATIO 0.7 (1.1-1.5); ALKALINE PHOSPHATASE 54 IU/L (46-116); ANION GAP 8 (8-16); ASPARTATE AMINO TRANSFERASE 13 U/L (10-37); BILIRUBIN,TOTAL 0.4 MG/DL (0.1-1.0); BLOOD UREA NITROGEN 13 MG/DL (7-18); BUN/CREATININE RATIO 12.4 (5.4-32.0); CALCIUM 8.7 MG/DL (8.5-10.1); CHLORIDE 108 MMOL/L (99-107); CREATININE 1.05 MG/DL (0.60-1.10); GLUCOSE 118 MG/DL (70-104); SODIUM 140 MMOL/L (135-145); TOTAL CARBON DIOXIDE 24.1 MMOL/L (24-32); TOTAL PROTEIN 7.3 G/DL (6.4-8.2); eGFR 75 ML/MIN
[2021-01-09] MEDS ORDERED: piperacillin/tazo 3.375gm/50ml 50 ML IV ONE (10:45)
[2021-01-09] MEDS ORDERED: vancomycin/NS 1 GM ADD-VANTAGE 250 ML IV ONE (10:45)
[2021-01-09] MEDS ORDERED: potassium Cl 40MEQ/1/2NS 520ml 520 ML IV PRN ×2 (12:35)
[2021-01-09] MEDS ORDERED: ondansetron/PF 4mg/2ml inj IV PRN (12:35)
[2021-01-09] MEDS ORDERED: potassium Cl 20 mEq SR tablet PO PRN ×2 (12:35)
[2021-01-09] MEDS ORDERED: acetaminophen 325mg tablet PO PRN (12:35)
--- NOTE | 2021-01-09 12:35 | NUR ---
Blood cultures drawn by lab.
[2021-01-09] MEDS: normal saline 1000ml 1,000 ML IV SCH ×2 (12:43→23:25)
[2021-01-09] MEDS ORDERED: CLON0.1T2 PO (12:49)
--- NOTE | 2021-01-09 13:31 | NUR ---
Pt at 90% of lunch.
[2021-01-09] MEDS: K and/or MAG REPLACEMENT MC SCH (14:02)
[2021-01-09] MEDS: VANCOmycin 1250MG/NS 250ml Bag 250 ML IV SCH (14:33)
--- NOTE | 2021-01-09 16:11 | NUR ---
PAGER ID: [phone] MESSAGE: [phone] [id number] RE: [facility] BED 15 WANTS TO TALK TO YOU ABOUT LEAVING THE HOSPITAL.
--- NOTE | 2021-01-09 17:38 | NUR ---
Report received from Lori BURDEN. Patient transfer from the ER, arrived to the unit in a stable condition with a wheelchair at 1738. Patient alert and oriented. Patient was oriented to room, call light within reach, bed in low position, personal item within reach.
--- NOTE | 2021-01-09 18:24 | NUR ---
Problems reprioritized. Patient report given, questions answered & plan of care reviewed with Ayse BURDEN.
[2021-01-09 20:00] VITALS: BP 126/75
[2021-01-09] MEDS ORDERED: vancomycin/NS 1 GM ADD-VANTAGE 250 ML IV SCH (20:00)
[2021-01-10] VITALS (16 sets, daily range): BP systolic 109–160; BP diastolic 55–88
[2021-01-10] MEDS: VANCOmycin 1250MG/NS 250ml Bag 250 ML IV SCH (01:46)
[2021-01-10] MEDS ORDERED: human prothrombin complex-PCC 100 ML IV ONE (06:10)
--- NOTE | 2021-01-10 06:43 | NUR ---
pt started bleeding left groin pressure drsg in place. and chanrged . applied pressure . charge nida glasgow aware . myah spoke to md. and to continue to hiold pressure
[2021-01-10 06:46] LABS: BASOPHILS % (AUTO) 0.3 % (0-1); EOSINOPHILS # (AUTO) 0.1 X10'3 (0-0.9); HEMATOCRIT 32.5 % (42.0-52.0); HEMOGLOBIN 10.5 g/dl (14.0-17.9); LYMPHOCYTES # (AUTO) 1.2 X10'3 (1.1-4.8); LYMPHOCYTES % (AUTO) 10.2 % (21-51); MEAN CORPUSCULAR HEMOGLOBIN 25.2 PG (27.0-31.0); MEAN CORPUSCULAR HGB CONC 32.4 g/dL (33.0-36.5); MEAN PLATELET VOLUME 8.5 FL (7.4-10.4); MONOCYTES # (AUTO) 1.2 X10'3 (0-0.9); NEUTROPHILS # (AUTO) 9.3 X10'3 (1.8-7.7); NEUTROPHILS % (AUTO) 78.5 % (42-75); PLATELET COUNT 256 X10'3 (140-440); RED BLOOD COUNT 4.17 X10'6 (4.70-6.10); RED CELL DISTRIBUTION WIDTH 17.8 % (11.5-14.5); WHITE BLOOD COUNT 11.8 X10'3 (4.5-11.0)
[2021-01-10 07:08] LABS: BLOOD UREA NITROGEN 13 MG/DL (7-18); BUN/CREATININE RATIO 14.9 (5.4-32.0); CHLORIDE 106 MMOL/L (99-107); CHOLESTEROL 186 MG/DL (0-200); CREATININE 0.87 MG/DL (0.60-1.10); GLUCOSE 111 MG/DL (70-104); POTASSIUM 3.7 MMOL/L (3.5-5.1); SODIUM 139 MMOL/L (135-145); eGFR > 90 ML/MIN
[2021-01-10] MEDS ORDERED: HYDROmorphone/PF 0.2 MG/ML SYRINGE IV PRN ×2 (07:10)
[2021-01-10] MEDS ORDERED: hydrALAZINE 20mg/ml inj. IV PRN (07:10)
[2021-01-10] MEDS ORDERED: ondansetron/PF 4mg/2ml inj IV PRN (07:10)
[2021-01-10] MEDS ORDERED: fentaNYL/PF 50MCG/1 ML 2ML syringe IV PRN ×2 (07:10)
[2021-01-10] MEDS ORDERED: ringers solution, lacted 1,000 ML IV SCH (07:10)
[2021-01-10] MEDS ORDERED: labetalol 20mg/4ml (5mg/ml) syringe IV PRN (07:10)
[2021-01-10 07:12] LABS: ALBUMIN 2.6 G/DL (3.4-5.0); ANION GAP 12 (8-16); CALCIUM 8.3 MG/DL (8.5-10.1); CHOL/HDL RATIO 4.9 (0.00-4.99); HDL CHOLESTEROL 38 MG/DL (35-60); LDL CHOLESTEROL 128 MG/DL (50-100); TOTAL CARBON DIOXIDE 20.9 MMOL/L (24-32); TRIGLYCERIDES 66 MG/DL (20-135)
[2021-01-10] MEDS ORDERED: heparin 10,000 units/1 ML INJ ONE (07:31)
[2021-01-10] MEDS: K and/or MAG REPLACEMENT MC SCH ×2 (08:00→20:00)
--- NOTE | 2021-01-10 08:37 | NUR ---
attempted to call recovery for report and there was no answer. Will wait for them to contact me for report.
[2021-01-10] MEDS ORDERED: fentaNYL /PF 50mcg/ml 5ml ampule ONE (08:38)
[2021-01-10] MEDS ORDERED: propofol inj 20 ML IV ONE (08:38)
[2021-01-10] MEDS ORDERED: MIDAZolam 1 MG/ML 5ML VIAL ONE (08:38)
[2021-01-10] MEDS ORDERED: LIDOcaine 2% (20mg/ml) 5ml vial ONE (08:38)
[2021-01-10] MEDS ORDERED: sevoflurane 250ml liquid IH ONE (08:45)
[2021-01-10] MEDS: normal saline 1000ml 1,000 ML IV SCH ×2 (08:45→18:35)
[2021-01-10] MEDS ORDERED: piperacillin/tazobactam inj. 3.375 GM in NS 50ml IV ONE (10:05)
[2021-01-10] MEDS ORDERED: labetalol 20mg/4ml (5mg/ml) syringe IV ONE (10:07)
[2021-01-10] MEDS ORDERED: rocuronium 10mg/ml inj IV ONE ×4 (10:07→13:36)
[2021-01-10] MEDS: vancomycin/NS 1 GM ADD-VANTAGE 250 ML IV SCH ×2 (10:23→16:37)
--- NOTE | 2021-01-10 11:09 | NUR ---
called recovery to give report on pt, called earlier no response.
[2021-01-10] MEDS ORDERED: heparin 1,000unit/ml 10ml vial 10 ML ONE (11:13)
[2021-01-10] MEDS ORDERED: fentaNYL/PF 50MCG/1 ML 2ML syringe ONE ×2 (12:04→12:50)
--- NOTE | 2021-01-10 12:15 | NUR ---
called recover and OR charge to let them know Vanco bags for pt are available to give to pt. Medication was take to ICU 2039 and left on side table. ICU nurse aware of it. Surgical charge Lauren aware.
[2021-01-10] MEDS ORDERED: ondansetron/PF 4mg/2ml inj ONE (12:35)
[2021-01-10] MEDS ORDERED: dexamethasone sod phosphate 4mg/ml inj. ONE (12:35)
[2021-01-10 13:40] LABS: PARTIAL THROMBOPLASTIN TIME 34 SECONDS (22-32)
--- NOTE | 2021-01-10 14:29 | NUR ---
Received from OR via , accompanied by Anesthesiologist DR JACQUES and report given by Anesthesiolgist. AWAKENS TO VOICE. VITALS STABLE. DRESSINGS DI. MARISSA PAIN. WOUND VAC TO LT GROIN SET AT 125. HAILE WITH CLEAR URINE.
--- NOTE | 2021-01-10 15:09 | NUR ---
Report called to receiving nurse. Transferred via BED Belongings . Special Issues communicated to receiving nurse. AWAKE AND ORIENTED. VITALS STABLE. DRESSINGS DI. MARISSA PAIN. TO ICU RM 2039 AT THIS TIME.
[2021-01-10] MEDS ORDERED: traZODone 50mg tablet PO PRN (16:50)
[2021-01-10] MEDS ORDERED: nitroGLYCERIN 0.4mg SUBLingual tab SL PRN (16:50)
[2021-01-10] MEDS: HYDROcodone/acetaminophen 10/325mg tab PO PRN ×2 (16:58→20:19)
[2021-01-10] MEDS: HYDROmorphone inj. 0.5 MG/0.5 ML DISP.SYRIN IV PRN (16:59)
--- NOTE | 2021-01-10 19:09 | NUR ---
Received pt in bed [id number] watching TV, Vital signs stable on the monitor. Wound vac in placed on continuous suction working well. B Left thigh and groin dressing noted. Gregory lower extremities with good pedal pulse.
[2021-01-10] MEDS: gabapentin 300mg capsule PO SCH (20:20)
[2021-01-10] MEDS: cloNIDine 0.1 mg tablet PO SCH (20:21)
[2021-01-10] MEDS: lamoTRIgine 100mg tablet PO SCH (20:26)
[2021-01-10] MEDS: carVEDilol 12.5mg tablet PO SCH (20:26)
[2021-01-11] VITALS (24 sets, daily range): BP systolic 11–128; BP diastolic 51–79
[2021-01-11] MEDS: HYDROcodone/acetaminophen 10/325mg tab PO PRN ×5 (00:04→19:53)
[2021-01-11] MEDS ORDERED: VANCOMYCIN LEVEL IV ONE (01:30)
[2021-01-11 02:58] LABS: BASOPHILS % (AUTO) 0.2 % (0-1); EOSINOPHILS % (AUTO) 0 % (0-6); HEMOGLOBIN 8.7 g/dl (14.0-17.9); LYMPHOCYTES # (AUTO) 0.8 X10'3 (1.1-4.8); LYMPHOCYTES % (AUTO) 5.4 % (21-51); MEAN CORPUSCULAR HEMOGLOBIN 25.3 PG (27.0-31.0); MEAN CORPUSCULAR HGB CONC 32.3 g/dL (33.0-36.5); MEAN CORPUSCULAR VOLUME 78.3 FL (78-98); MEAN PLATELET VOLUME 8.2 FL (7.4-10.4); MONOCYTES # (AUTO) 1.3 X10'3 (0-0.9); MONOCYTES % (AUTO) 9.2 % (2-12); NEUTROPHILS # (AUTO) 12.2 X10'3 (1.8-7.7); NEUTROPHILS % (AUTO) 85.2 % (42-75); PLATELET COUNT 233 X10'3 (140-440); RED BLOOD COUNT 3.45 X10'6 (4.70-6.10); RED CELL DISTRIBUTION WIDTH 17.5 % (11.5-14.5); WHITE BLOOD COUNT 14.3 X10'3 (4.5-11.0)
[2021-01-11 03:08] LABS: ALBUMIN 2.4 G/DL (3.4-5.0); ANION GAP 9 (8-16); BLOOD UREA NITROGEN 9 MG/DL (7-18); BUN/CREATININE RATIO 11.1 (5.4-32.0); CALCIUM 8.1 MG/DL (8.5-10.1); CHLORIDE 105 MMOL/L (99-107); CREATININE 0.81 MG/DL (0.60-1.10); GLUCOSE 130 MG/DL (70-104); POTASSIUM 4.1 MMOL/L (3.5-5.1); SODIUM 139 MMOL/L (135-145); TOTAL CARBON DIOXIDE 24.8 MMOL/L (24-32); VANCOMYCIN,TROUGH 9.1 UG/ML (6.0-14.0); eGFR > 90 ML/MIN
[2021-01-11] MEDS: vancomycin/NS 1 GM ADD-VANTAGE 250 ML IV SCH (03:31)
[2021-01-11] MEDS: normal saline 1000ml 1,000 ML IV SCH ×2 (04:35→10:46)
--- NOTE | 2021-01-11 06:00 | NUR ---
Pt asleep , no signs of discomfort noted. IV fluid infusing well via right IJ CVP line. Abdominal and left thigh surgical wounds dressing with dried drainage. Wound vac to left groin working well, dressing intact; small amount of serosanguineous fluid noted
[2021-01-11] MEDS: K and/or MAG REPLACEMENT MC SCH ×2 (08:00→19:07)
[2021-01-11] MEDS: carVEDilol 12.5mg tablet PO SCH ×2 (08:23→19:52)
[2021-01-11] MEDS: lamoTRIgine 100mg tablet PO SCH ×2 (08:23→19:54)
[2021-01-11] MEDS: cloNIDine 0.1 mg tablet PO SCH ×2 (08:23→19:52)
[2021-01-11] MEDS: CARIPRAZINE 1.5 MG CAPSULE PO SCH (08:24)
[2021-01-11] MEDS: rivaroxaban 20mg tablet PO SCH (08:24)
[2021-01-11] MEDS: gabapentin 300mg capsule PO SCH ×2 (08:24→19:52)
[2021-01-11] MEDS: HYDROmorphone inj. 0.5 MG/0.5 ML DISP.SYRIN IV PRN ×3 (08:27→17:48)
[2021-01-11] MEDS: VANCOmycin 1250MG/NS 250ml Bag 250 ML IV SCH ×2 (12:03→19:50)
[2021-01-11] MEDS: ciprofloxacin 250mg tablet PO SCH (20:54)
[2021-01-11] MEDS: clopidogrel 75mg tablet PO SCH (20:54)
[2021-01-12] VITALS (12 sets, daily range): BP systolic 95–119; BP diastolic 52–81
[2021-01-12] MEDS: HYDROmorphone inj. 0.5 MG/0.5 ML DISP.SYRIN IV PRN ×4 (02:42→21:20)
[2021-01-12] MEDS: VANCOmycin 1250MG/NS 250ml Bag 250 ML IV SCH ×3 (02:50→23:25)
[2021-01-12 03:19] LABS: BASOPHILS # (AUTO) 0.1 X10'3 (0-0.2); BASOPHILS % (AUTO) 0.6 % (0-1); EOSINOPHILS # (AUTO) 0.2 X10'3 (0-0.9); EOSINOPHILS % (AUTO) 2.4 % (0-6); HEMATOCRIT 23.4 % (42.0-52.0); HEMOGLOBIN 7.6 g/dl (14.0-17.9); LYMPHOCYTES # (AUTO) 1.3 X10'3 (1.1-4.8); LYMPHOCYTES % (AUTO) 14.2 % (21-51); MEAN CORPUSCULAR HEMOGLOBIN 25.5 PG (27.0-31.0); MEAN CORPUSCULAR HGB CONC 32.7 g/dL (33.0-36.5); MONOCYTES # (AUTO) 1.2 X10'3 (0-0.9); MONOCYTES % (AUTO) 12.7 % (2-12); NEUTROPHILS # (AUTO) 6.6 X10'3 (1.8-7.7); NEUTROPHILS % (AUTO) 70.1 % (42-75); PLATELET COUNT 230 X10'3 (140-440); RED CELL DISTRIBUTION WIDTH 17.3 % (11.5-14.5); WHITE BLOOD COUNT 9.4 X10'3 (4.5-11.0)
[2021-01-12 03:34] LABS: ALBUMIN 2.1 G/DL (3.4-5.0); ANION GAP 7 (8-16); BLOOD UREA NITROGEN 10 MG/DL (7-18); BUN/CREATININE RATIO 10.9 (5.4-32.0); CALCIUM 7.8 MG/DL (8.5-10.1); CHLORIDE 104 MMOL/L (99-107); CREATININE 0.92 MG/DL (0.60-1.10); GLUCOSE 109 MG/DL (70-104); POTASSIUM 3.7 MMOL/L (3.5-5.1); SODIUM 139 MMOL/L (135-145); TOTAL CARBON DIOXIDE 27.6 MMOL/L (24-32); eGFR 87 ML/MIN
[2021-01-12] MEDS: HYDROcodone/acetaminophen 10/325mg tab PO PRN ×3 (05:34→17:59)
[2021-01-12] MEDS: normal saline 1000ml 1,000 ML IV SCH (06:36)
[2021-01-12] MEDS: lamoTRIgine 100mg tablet PO SCH ×2 (07:58→20:29)
[2021-01-12] MEDS: gabapentin 300mg capsule PO SCH ×2 (07:58→20:29)
[2021-01-12] MEDS: carVEDilol 12.5mg tablet PO SCH ×2 (07:58→20:00)
[2021-01-12] MEDS: cloNIDine 0.1 mg tablet PO SCH ×2 (07:59→20:00)
[2021-01-12] MEDS: rivaroxaban 20mg tablet PO SCH (07:59)
[2021-01-12] MEDS: CARIPRAZINE 1.5 MG CAPSULE PO SCH (07:59)
[2021-01-12] MEDS: K and/or MAG REPLACEMENT MC SCH ×2 (08:00→18:48)
[2021-01-12] MEDS ORDERED: VANCOMYCIN LEVEL IV ONE (10:30)
[2021-01-12] MEDS: ciprofloxacin 250mg tablet PO SCH ×2 (12:11→21:19)
[2021-01-12] MEDS ORDERED: silver nitrate applicator stick TP ONE (14:10)
[2021-01-12] MEDS: lactobacillus rhamnosus 10,000 MMU CELLS/CAPSULE PO SCH (20:29)
[2021-01-12] MEDS: clopidogrel 75mg tablet PO SCH (20:29)
[2021-01-13] VITALS: BP 130/67
[2021-01-13] MEDS: HYDROcodone/acetaminophen 10/325mg tab PO PRN ×3 (02:04→14:31)
[2021-01-13] MEDS: normal saline 1000ml 1,000 ML IV SCH (02:36)
[2021-01-13] MEDS: HYDROmorphone inj. 0.5 MG/0.5 ML DISP.SYRIN IV PRN (05:29)
--- NOTE | 2021-01-13 06:19 | NUR ---
Problems reprioritized. Patient report given, questions answered & plan of care reviewed with JENISE Scott .
[2021-01-13 08:00] VITALS: BP 130/78
[2021-01-13] MEDS: K and/or MAG REPLACEMENT MC SCH ×2 (08:00→20:00)
[2021-01-13] MEDS: lamoTRIgine 100mg tablet PO SCH ×2 (08:02→21:04)
[2021-01-13] MEDS: VANCOmycin 1250MG/NS 250ml Bag 250 ML IV SCH ×2 (08:02→14:35)
[2021-01-13] MEDS: carVEDilol 12.5mg tablet PO SCH ×2 (08:03→20:00)
[2021-01-13] MEDS: lactobacillus rhamnosus 10,000 MMU CELLS/CAPSULE PO SCH ×2 (08:03→21:03)
[2021-01-13] MEDS: gabapentin 300mg capsule PO SCH ×2 (08:03→21:01)
[2021-01-13] MEDS: cloNIDine 0.1 mg tablet PO SCH ×2 (08:03→20:00)
[2021-01-13 08:43] LABS: BASOPHILS # (AUTO) 0.1 X10'3 (0-0.2); BASOPHILS % (AUTO) 0.5 % (0-1); EOSINOPHILS # (AUTO) 0.4 X10'3 (0-0.9); EOSINOPHILS % (AUTO) 3.6 % (0-6); HEMATOCRIT 25.3 % (42.0-52.0); HEMOGLOBIN 8.2 g/dl (14.0-17.9); LYMPHOCYTES % (AUTO) 10.6 % (21-51); MEAN CORPUSCULAR HEMOGLOBIN 25.4 PG (27.0-31.0); MEAN CORPUSCULAR HGB CONC 32.2 g/dL (33.0-36.5); MEAN CORPUSCULAR VOLUME 78.9 FL (78-98); MEAN PLATELET VOLUME 7.8 FL (7.4-10.4); MONOCYTES # (AUTO) 1.1 X10'3 (0-0.9); MONOCYTES % (AUTO) 11.3 % (2-12); NEUTROPHILS # (AUTO) 7.2 X10'3 (1.8-7.7); PLATELET COUNT 290 X10'3 (140-440); RED BLOOD COUNT 3.21 X10'6 (4.70-6.10); RED CELL DISTRIBUTION WIDTH 17.8 % (11.5-14.5); WHITE BLOOD COUNT 9.7 X10'3 (4.5-11.0)
[2021-01-13 08:49] LABS: ALBUMIN 2.2 G/DL (3.4-5.0); ANION GAP 8 (8-16); BLOOD UREA NITROGEN 7 MG/DL (7-18); BUN/CREATININE RATIO 7.2 (5.4-32.0); CALCIUM 8.5 MG/DL (8.5-10.1); CHLORIDE 103 MMOL/L (99-107); CREATININE 0.97 MG/DL (0.60-1.10); GLUCOSE 121 MG/DL (70-104); POTASSIUM 3.5 MMOL/L (3.5-5.1); SODIUM 139 MMOL/L (135-145); eGFR 82 ML/MIN
[2021-01-13 09:54] LABS: ANISOCYTOSIS 1+; MICROCYTOSIS 1+; PLATELET ESTIMATE NORMAL
[2021-01-13] MEDS: CARIPRAZINE 1.5 MG CAPSULE PO SCH (10:33)
[2021-01-13] MEDS: ciprofloxacin 250mg tablet PO SCH (10:34)
[2021-01-13 11:36] VITALS: BP 115/64
--- NOTE | 2021-01-13 11:43 | NUR ---
paged PICC nurse for line . pending response
--- NOTE | 2021-01-13 13:54 | NUR ---
Initial: Pt admit for left groin postoperative infection. Per MD note pt s/p exploration and excision of the infected graft, left iliopopliteal bypass, debridement of the common femoral artery, excision of the external iliac artery and wound VAC placement 01/10. Pt on a heart healthy diet and eating well with 100% PO intake. D/w dietary to send double protein TID for satiety and increased protein needs. LBM 01/13. Will continue to follow and monitor need for further nutrition intervention. Recommendations: 1) Continue heart healthy diet; advance to regular with MD approval 2) Double eggs WB, double meat BIDLD 3) Bowel care per rx 4) Weekly scaled weights Addendum: 01/13/21 at [address] Amended: Links added.
--- NOTE | 2021-01-13 16:42 | NUR ---
Per PICC RN she won't be able to get to patient today and will come do it in the morning. Per Yu she spoke to Dr Nicholas
--- NOTE | 2021-01-13 18:00 | NUR ---
Problems reprioritized. Patient report given, questions answered & plan of care reviewed with Stephanie BURDEN.
--- NOTE | 2021-01-13 18:56 | NUR ---
Patient in room DOT 352. I have received report from Sonia BURDEN and had the opportunity to ask questions and assume patient care.
[2021-01-13 20:00] VITALS: BP 116/66
[2021-01-13] MEDS: clopidogrel 75mg tablet PO SCH (21:04)
[2021-01-13] MEDS: rivaroxaban 20mg tablet PO SCH (21:04)
[2021-01-14] VITALS: BP 116/74
[2021-01-14] MEDS: VANCOmycin 1250MG/NS 250ml Bag 250 ML IV SCH ×4 (00:55→22:11)
[2021-01-14] MEDS: ciprofloxacin 250mg tablet PO SCH ×3 (00:55→22:13)
[2021-01-14] MEDS: normal saline 1000ml 1,000 ML IV SCH ×2 (00:57→14:55)
[2021-01-14] MEDS: HYDROcodone/acetaminophen 10/325mg tab PO PRN ×2 (01:03→09:05)
[2021-01-14 05:32] LABS: BASOPHILS % (AUTO) 0.4 % (0-1); EOSINOPHILS # (AUTO) 0.3 X10'3 (0-0.9); EOSINOPHILS % (AUTO) 4.2 % (0-6); HEMOGLOBIN 7.6 g/dl (14.0-17.9); LYMPHOCYTES # (AUTO) 1.3 X10'3 (1.1-4.8); LYMPHOCYTES % (AUTO) 16.2 % (21-51); MEAN CORPUSCULAR HEMOGLOBIN 25.6 PG (27.0-31.0); MEAN CORPUSCULAR HGB CONC 33.1 g/dL (33.0-36.5); MEAN CORPUSCULAR VOLUME 77.3 FL (78-98); MEAN PLATELET VOLUME 7.6 FL (7.4-10.4); MONOCYTES # (AUTO) 0.8 X10'3 (0-0.9); MONOCYTES % (AUTO) 10.4 % (2-12); NEUTROPHILS # (AUTO) 5.6 X10'3 (1.8-7.7); NEUTROPHILS % (AUTO) 68.8 % (42-75); PLATELET COUNT 322 X10'3 (140-440); RED BLOOD COUNT 2.97 X10'6 (4.70-6.10); RED CELL DISTRIBUTION WIDTH 17.3 % (11.5-14.5); WHITE BLOOD COUNT 8.1 X10'3 (4.5-11.0)
[2021-01-14 05:39] LABS: ALBUMIN 1.9 G/DL (3.4-5.0); ANION GAP 9 (8-16); BLOOD UREA NITROGEN 8 MG/DL (7-18); BUN/CREATININE RATIO 8.6 (5.4-32.0); CALCIUM 8.7 MG/DL (8.5-10.1); CHLORIDE 108 MMOL/L (99-107); CREATININE 0.93 MG/DL (0.60-1.10); GLUCOSE 120 MG/DL (70-104); POTASSIUM 3.3 MMOL/L (3.5-5.1); SODIUM 144 MMOL/L (135-145); TOTAL CARBON DIOXIDE 27.4 MMOL/L (24-32); eGFR 86 ML/MIN
--- NOTE | 2021-01-14 06:21 | NUR ---
Patient in room DOT 352. I have received report from JENISE Brown and had the opportunity to ask questions and assume patient care.
--- NOTE | 2021-01-14 06:21 | NUR ---
Problems reprioritized. Patient report given, questions answered & plan of care reviewed with Rissa BURDEN.
[2021-01-14 07:00] VITALS: BP 107/72
[2021-01-14] MEDS: K and/or MAG REPLACEMENT MC SCH ×3 (08:00→19:29)
[2021-01-14] MEDS: gabapentin 300mg capsule PO SCH ×2 (09:06→19:24)
[2021-01-14] MEDS: lamoTRIgine 100mg tablet PO SCH ×2 (09:07→19:26)
[2021-01-14] MEDS: lactobacillus rhamnosus 10,000 MMU CELLS/CAPSULE PO SCH ×2 (09:07→19:25)
[2021-01-14] MEDS: carVEDilol 12.5mg tablet PO SCH ×2 (09:07→19:29)
[2021-01-14] MEDS: CARIPRAZINE 1.5 MG CAPSULE PO SCH (09:07)
[2021-01-14] MEDS: cloNIDine 0.1 mg tablet PO SCH ×2 (09:08→19:29)
[2021-01-14] MEDS ORDERED: magnesium Cl slow-release 64mg tablet PO PRN (10:35)
[2021-01-14] MEDS ORDERED: magnesium 4gm in 100ml NS 100 ML IV PRN (10:35)
[2021-01-14] MEDS ORDERED: potassium Cl 20 mEq SR tablet PO PRN (10:35)
[2021-01-14] MEDS ORDERED: potassium Cl 40MEQ/1/2NS 520ml 520 ML IV PRN (10:35)
[2021-01-14] MEDS: potassium Cl 20 mEq SR tablet PO PRN ×3 (10:50→19:26)
--- NOTE | 2021-01-14 11:04 | NUR ---
Patient up and ambulating with PT.
[2021-01-14] MEDS: HYDROmorphone inj. 0.5 MG/0.5 ML DISP.SYRIN IV PRN (11:29)
[2021-01-14 11:44] VITALS: BP 119/73
--- NOTE | 2021-01-14 13:06 | NUR ---
PICC RN at bedside for PICC placement.
--- NOTE | 2021-01-14 18:30 | NUR ---
Patient in room DOT 352. I have received report from Rissa BURDEN and had the opportunity to ask questions and assume patient care.
[2021-01-14] MEDS: rivaroxaban 20mg tablet PO SCH (18:39)
--- NOTE | 2021-01-14 18:46 | NUR ---
Problems reprioritized. Patient report given, questions answered & plan of care reviewed with JENISE Brown.
[2021-01-14] MEDS: clopidogrel 75mg tablet PO SCH (19:25)
[2021-01-14 20:00] VITALS: BP 121/79
[2021-01-15 00:08] VITALS: BP 120/70
[2021-01-15] MEDS: normal saline 1000ml 1,000 ML IV SCH (00:32)
[2021-01-15 06:02] LABS: POTASSIUM 3.8 MMOL/L (3.5-5.1)
--- NOTE | 2021-01-15 06:29 | NUR ---
Problems reprioritized. Patient report given, questions answered & plan of care reviewed with Elissa BURDEN.
[2021-01-15 07:30] VITALS: BP 117/69
[2021-01-15] MEDS: gabapentin 300mg capsule PO SCH ×2 (07:41→20:49)
[2021-01-15] MEDS: lamoTRIgine 100mg tablet PO SCH ×2 (07:43→20:49)
[2021-01-15] MEDS: lactobacillus rhamnosus 10,000 MMU CELLS/CAPSULE PO SCH ×2 (07:43→20:49)
[2021-01-15] MEDS: carVEDilol 12.5mg tablet PO SCH ×2 (07:43→20:49)
[2021-01-15] MEDS: cloNIDine 0.1 mg tablet PO SCH ×2 (07:43→20:49)
[2021-01-15] MEDS: VANCOmycin 1250MG/NS 250ml Bag 250 ML IV SCH ×3 (07:46→22:34)
[2021-01-15] MEDS: CARIPRAZINE 1.5 MG CAPSULE PO SCH (08:00)
[2021-01-15] MEDS: K and/or MAG REPLACEMENT MC SCH ×4 (08:00→20:00)
[2021-01-15 08:10] LABS: ALANINE AMINOTRANSFERASE 21 U/L (12-78); ALBUMIN 2.1 G/DL (3.4-5.0); ALBUMIN/GLOBULIN RATIO 0.5 (1.1-1.5); ALKALINE PHOSPHATASE 48 IU/L (46-116); ANION GAP 8 (8-16); ASPARTATE AMINO TRANSFERASE 20 U/L (10-37); BILIRUBIN,TOTAL 0.1 MG/DL (0.1-1.0); BLOOD UREA NITROGEN 16 MG/DL (7-18); BUN/CREATININE RATIO 17.2 (5.4-32.0); CALCIUM 8.7 MG/DL (8.5-10.1); CHLORIDE 105 MMOL/L (99-107); CREATININE 0.93 MG/DL (0.60-1.10); GLUCOSE 121 MG/DL (70-104); SODIUM 139 MMOL/L (135-145); TOTAL CARBON DIOXIDE 26.1 MMOL/L (24-32); TOTAL PROTEIN 6.3 G/DL (6.4-8.2); eGFR 86 ML/MIN
[2021-01-15] MEDS: ciprofloxacin 250mg tablet PO SCH ×2 (09:42→22:32)
[2021-01-15] MEDS: HYDROmorphone inj. 0.5 MG/0.5 ML DISP.SYRIN IV PRN (09:44)
[2021-01-15 11:15] LABS: BASOPHILS # (AUTO) 0.1 X10'3 (0-0.2); BASOPHILS % (AUTO) 0.6 % (0-1); EOSINOPHILS # (AUTO) 0.4 X10'3 (0-0.9); EOSINOPHILS % (AUTO) 4.6 % (0-6); HEMATOCRIT 23.4 % (42.0-52.0); HEMOGLOBIN 7.9 g/dl (14.0-17.9); LYMPHOCYTES # (AUTO) 1.2 X10'3 (1.1-4.8); LYMPHOCYTES % (AUTO) 13.3 % (21-51); MEAN CORPUSCULAR HGB CONC 33.6 g/dL (33.0-36.5); MEAN CORPUSCULAR VOLUME 77.5 FL (78-98); MEAN PLATELET VOLUME 7.6 FL (7.4-10.4); MONOCYTES # (AUTO) 0.8 X10'3 (0-0.9); MONOCYTES % (AUTO) 9.1 % (2-12); NEUTROPHILS # (AUTO) 6.7 X10'3 (1.8-7.7); NEUTROPHILS % (AUTO) 72.4 % (42-75); PLATELET COUNT 416 X10'3 (140-440); RED BLOOD COUNT 3.03 X10'6 (4.70-6.10); WHITE BLOOD COUNT 9.3 X10'3 (4.5-11.0)
[2021-01-15 12:30] VITALS: BP 116/71
--- NOTE | 2021-01-15 14:49 | NUR ---
Page sent to Case Management... 352 Andrea Grayson : .Dr Lowe would like this patient to have home health when he dc's home. thank you! Addendum: 01/15/21 at 1459 by Elissa Valle RN Spoke with CM. She stated they will need to have a physical address for this patient to open back up with Home Health. The patient and his gave me the address of [address] in [place], [place]. Called CM back and gave them this information.
[2021-01-15] MEDS: HYDROcodone/acetaminophen 10/325mg tab PO PRN ×2 (15:35→22:37)
[2021-01-15] MEDS: rivaroxaban 20mg tablet PO SCH (17:01)
--- NOTE | 2021-01-15 18:15 | NUR ---
Patient in room DOT 352. I have received report from JENISE Bowers and had the opportunity to ask questions and assume patient care.
--- NOTE | 2021-01-15 18:23 | NUR ---
Problems reprioritized. Patient report given, questions answered & plan of care reviewed with JENISE Armstrong.
[2021-01-15 20:00] VITALS: BP 112/58
[2021-01-15] MEDS: clopidogrel 75mg tablet PO SCH (20:49)
[2021-01-16] VITALS: BP 101/55
[2021-01-16] MEDS: HYDROcodone/acetaminophen 10/325mg tab PO PRN ×2 (05:14→17:30)
--- NOTE | 2021-01-16 06:20 | NUR ---
Problems reprioritized. Patient report given, questions answered & plan of care reviewed with JENISE Bowers.
[2021-01-16 06:21] LABS: BASOPHILS # (AUTO) 0.1 X10'3 (0-0.2); BASOPHILS % (AUTO) 0.9 % (0-1); EOSINOPHILS # (AUTO) 0.4 X10'3 (0-0.9); HEMATOCRIT 22.3 % (42.0-52.0); HEMOGLOBIN 7.5 g/dl (14.0-17.9); LYMPHOCYTES # (AUTO) 1.2 X10'3 (1.1-4.8); LYMPHOCYTES % (AUTO) 15.9 % (21-51); MEAN CORPUSCULAR HGB CONC 33.7 g/dL (33.0-36.5); MEAN CORPUSCULAR VOLUME 77.1 FL (78-98); MEAN PLATELET VOLUME 7.4 FL (7.4-10.4); MONOCYTES # (AUTO) 0.7 X10'3 (0-0.9); MONOCYTES % (AUTO) 9.9 % (2-12); NEUTROPHILS % (AUTO) 68.3 % (42-75); PLATELET COUNT 430 X10'3 (140-440); RED BLOOD COUNT 2.89 X10'6 (4.70-6.10); RED CELL DISTRIBUTION WIDTH 17.8 % (11.5-14.5); WHITE BLOOD COUNT 7.3 X10'3 (4.5-11.0)
[2021-01-16 06:29] LABS: ALANINE AMINOTRANSFERASE 31 U/L (12-78); ALBUMIN/GLOBULIN RATIO 0.5 (1.1-1.5); ALKALINE PHOSPHATASE 50 IU/L (46-116); ANION GAP 10 (8-16); ASPARTATE AMINO TRANSFERASE 24 U/L (10-37); BILIRUBIN,TOTAL 0.2 MG/DL (0.1-1.0); BLOOD UREA NITROGEN 17 MG/DL (7-18); BUN/CREATININE RATIO 12.1 (5.4-32.0); CALCIUM 8.4 MG/DL (8.5-10.1); CHLORIDE 106 MMOL/L (99-107); GLUCOSE 176 MG/DL (70-104); MAGNESIUM 2.1 MG/DL (1.5-2.4); POTASSIUM 3.7 MMOL/L (3.5-5.1); SODIUM 142 MMOL/L (135-145); TOTAL CARBON DIOXIDE 26.5 MMOL/L (24-32); TOTAL PROTEIN 6.3 G/DL (6.4-8.2); eGFR 54 ML/MIN
--- NOTE | 2021-01-16 06:38 | NUR ---
Patient in room DOT 352. I have received report from Patti BURDEN and had the opportunity to ask questions and assume patient care.
[2021-01-16 07:00] VITALS: BP 118/68
[2021-01-16] MEDS: K and/or MAG REPLACEMENT MC SCH ×4 (07:16→20:00)
[2021-01-16] MEDS: VANCOmycin 1250MG/NS 250ml Bag 250 ML IV SCH (07:21)
[2021-01-16] MEDS: cloNIDine 0.1 mg tablet PO SCH ×2 (07:30→19:57)
[2021-01-16] MEDS: carVEDilol 12.5mg tablet PO SCH ×2 (07:30→20:02)
[2021-01-16] MEDS: lactobacillus rhamnosus 10,000 MMU CELLS/CAPSULE PO SCH ×2 (07:31→19:57)
[2021-01-16] MEDS: lamoTRIgine 100mg tablet PO SCH ×2 (07:32→19:56)
[2021-01-16] MEDS: CARIPRAZINE 1.5 MG CAPSULE PO SCH (07:33)
[2021-01-16] MEDS: gabapentin 300mg capsule PO SCH ×2 (07:40→20:01)
[2021-01-16] MEDS: HYDROmorphone inj. 0.5 MG/0.5 ML DISP.SYRIN IV PRN ×2 (08:37→20:03)
[2021-01-16] MEDS: ciprofloxacin 250mg tablet PO SCH ×2 (09:41→22:06)
[2021-01-16] MEDS ORDERED: VANCOMYCIN LEVEL IV ONE ×2 (10:30→14:30)
[2021-01-16 11:00] VITALS: BP 112/60
--- NOTE | 2021-01-16 11:29 | NUR ---
PAGER ID: [phone] MESSAGE: 352 Andrea Grayson: KENDAL..critical vanco trough [phone]. Pharmacist aware and has made adjustments. thanks! [phone]
[2021-01-16] MEDS: rivaroxaban 20mg tablet PO SCH (17:23)
--- NOTE | 2021-01-16 17:54 | NUR ---
Student documentation: I have reviewed and agree with all interventions, assessments performed and documented by SN Michael. Student Medication Administration: For this medication-pass time frame, all medication were reviewed, dispensed, administered and documented per hospital policy by SN Michael.
[2021-01-16 18:00] VITALS: BP 117/70
--- NOTE | 2021-01-16 18:00 | NUR ---
Patient in room DOT 352. I have received report from JENISE Walter and had the opportunity to ask questions and assume patient care.
--- NOTE | 2021-01-16 18:18 | NUR ---
Problems reprioritized. Patient report given, questions answered & plan of care reviewed with Arturo BURDEN.
--- NOTE | 2021-01-16 18:31 | NUR ---
Patient in room DOT 352. I have received report from VINCENZO Rodriguez student, and JENISE Walter and had the opportunity to ask questions and assume patient care. at bedside,
--- NOTE | 2021-01-16 19:24 | NUR ---
Gerard from [facility] called to see if the wound vac had been delivered. He said that CM should have brought one up earlier today. He told me that he will call [facility] the AM to make sure that they have one to deliver.
[2021-01-16] MEDS: clopidogrel 75mg tablet PO SCH (20:01)
[2021-01-16] MEDS: normal saline 1000ml 1,000 ML IV SCH (20:06)
[2021-01-16] MEDS: vancomycin/NS 1 GM ADD-VANTAGE 250 ML X 1 DOSE IV SCH (20:08)
[2021-01-17] VITALS: BP 86/49
[2021-01-17] MEDS: HYDROcodone/acetaminophen 10/325mg tab PO PRN ×2 (02:45→09:31)
[2021-01-17] MEDS: vancomycin/NS 1 GM ADD-VANTAGE 250 ML X 1 DOSE IV SCH ×2 (02:50→11:32)
[2021-01-17 06:01] LABS: ALANINE AMINOTRANSFERASE 32 U/L (12-78); ALBUMIN 2.4 G/DL (3.4-5.0); ALBUMIN/GLOBULIN RATIO 0.5 (1.1-1.5); ALKALINE PHOSPHATASE 54 IU/L (46-116); ANION GAP 10 (8-16); ASPARTATE AMINO TRANSFERASE 21 U/L (10-37); BILIRUBIN,TOTAL 0.2 MG/DL (0.1-1.0); BLOOD UREA NITROGEN 21 MG/DL (7-18); BUN/CREATININE RATIO 17.9 (5.4-32.0); CALCIUM 8.6 MG/DL (8.5-10.1); CHLORIDE 104 MMOL/L (99-107); CREATININE 1.17 MG/DL (0.60-1.10); GLUCOSE 131 MG/DL (70-104); MAGNESIUM 2.3 MG/DL (1.5-2.4); POTASSIUM 4.3 MMOL/L (3.5-5.1); SODIUM 140 MMOL/L (135-145); TOTAL CARBON DIOXIDE 26.3 MMOL/L (24-32); TOTAL PROTEIN 7.1 G/DL (6.4-8.2); eGFR 66 ML/MIN
[2021-01-17 06:02] LABS: BASOPHILS # (AUTO) 0.1 X10'3 (0-0.2); BASOPHILS % (AUTO) 0.9 % (0-1); EOSINOPHILS # (AUTO) 0.5 X10'3 (0-0.9); EOSINOPHILS % (AUTO) 5.3 % (0-6); HEMATOCRIT 24.9 % (42.0-52.0); HEMOGLOBIN 8.2 g/dl (14.0-17.9); LYMPHOCYTES # (AUTO) 1.7 X10'3 (1.1-4.8); LYMPHOCYTES % (AUTO) 17.5 % (21-51); MEAN CORPUSCULAR HEMOGLOBIN 25.3 PG (27.0-31.0); MEAN CORPUSCULAR HGB CONC 32.9 g/dL (33.0-36.5); MEAN CORPUSCULAR VOLUME 76.9 FL (78-98); MEAN PLATELET VOLUME 7.3 FL (7.4-10.4); MONOCYTES % (AUTO) 10.4 % (2-12); NEUTROPHILS # (AUTO) 6.4 X10'3 (1.8-7.7); NEUTROPHILS % (AUTO) 65.9 % (42-75); PLATELET COUNT 503 X10'3 (140-440); RED BLOOD COUNT 3.23 X10'6 (4.70-6.10); WHITE BLOOD COUNT 9.7 X10'3 (4.5-11.0)
--- NOTE | 2021-01-17 06:32 | NUR ---
Problems reprioritized. Patient report given, questions answered & plan of care reviewed with JENISE Pryor.
--- NOTE | 2021-01-17 06:41 | NUR ---
Patient in room DOT 352. I have received report from JENISE Morris and had the opportunity to ask questions and assume patient care.
[2021-01-17 07:00] VITALS: BP 108/58
[2021-01-17 07:20] LABS: ANISOCYTOSIS 1+; MICROCYTOSIS 1+; PLATELET ESTIMATE INCREASED; TOTAL CELLS COUNTED 100
[2021-01-17 07:21] LABS: POIKILOCYTOSIS FEW; POLYCHROMASIA FEW
[2021-01-17] MEDS: lamoTRIgine 100mg tablet PO SCH (09:31)
[2021-01-17] MEDS: lactobacillus rhamnosus 10,000 MMU CELLS/CAPSULE PO SCH (09:31)
[2021-01-17] MEDS: CARIPRAZINE 1.5 MG CAPSULE PO SCH (09:31)
[2021-01-17] MEDS: cloNIDine 0.1 mg tablet PO SCH (09:32)
[2021-01-17] MEDS: carVEDilol 12.5mg tablet PO SCH (09:32)
[2021-01-17] MEDS: gabapentin 300mg capsule PO SCH (09:34)
[2021-01-17] MEDS ORDERED: paliperidone palmitate inj 234 MG/1.5 ML SYRINGE IM SCH (10:00)
[2021-01-17] MEDS ORDERED: OXYC-145 PO (11:04)
[2021-01-17] MEDS ORDERED: CIPR750T4 PO (11:04)
[2021-01-17] MEDS: ciprofloxacin 250mg tablet PO SCH (11:31)
[2021-01-17] MEDS ORDERED: HYDR-3972 PO (11:55)
[2021-01-17 12:00] VITALS: BP 113/68
--- NOTE | 2021-01-17 14:05 | NUR ---
Pt discharged to home with all belongings, in private vehicle, accompanied by . Discharge instructions and medications reviewed. Pt provided with triplicate for pain medication and instructed to take it to pharmacy of choice to fill. Pt to follow up with [facility] to continue IV vanco therapy. Phone number provided with instructions to call and speak with station installer RN to set up infusions. Pt also instructed to call [facility] wound care clinic on Tuesday to set up outpatient wound care. Pt provided with home wound vac, this RN witnessed pt changed from hospital wound vac to home wound vac with proficiency. Pt stated understanding and willingness to comply with all discharge instructions. Pt escorted to front lobby via wheelchair by student RN.
[2021-01-17] MEDS ORDERED: VANCOMYCIN LEVEL IV ONE (18:30)
== END 2021-01-17 14:05 | disposition home or self-care (01) | DRG 907 ==
LOC: ER 07:37 → ED HOLD 12:35 → EDBEDREQ 16:59 → SUR 3N 17:32 → ICU 2S 01-10 12:00 → SUR 3N 01-12 10:10
PROVIDERS: ADMIT Internal Medicine; ATTEND Internal Medicine
PROC: 04BL0ZZ Excision of Left Femoral Artery, Open Approach (ICD-10-PCS; 2021-01-10)
PROC: 04B Lower Arteries, Excision (ICD-10-PCS; 2021-01-10)
PROC: 03HY32Z Insertion of Monitoring Device into Upper Artery, Percutaneous Approach (ICD-10-PCS; 2021-01-10)
PROC: 05HY33Z Insertion of Infusion Device into Upper Vein, Percutaneous Approach (ICD-10-PCS; 2021-01-10)
PROC: B54MZZA Ultrasonography of Right Upper Extremity Veins, Guidance (ICD-10-PCS; 2021-01-10)
PROC: 041 Lower Arteries, Bypass (ICD-10-PCS; principal; 2021-01-10 08:45)
PROC: 02HV33Z Insertion of Infusion Device into Superior Vena Cava, Percutaneous Approach (ICD-10-PCS; 2021-01-14)
PROC: B548ZZA Ultrasonography of Superior Vena Cava, Guidance (ICD-10-PCS; 2021-01-14)
DX: T85.79XA Infection and inflammatory reaction due to other internal prosthetic devices, implants and grafts, initial encounter (principal); A41.9 Sepsis, unspecified organism; D68.59 Other primary thrombophilia; I10 Essential (primary) hypertension; B95.62 Methicillin resistant Staphylococcus aureus infection as the cause of diseases classified elsewhere; E11.51 Type 2 diabetes mellitus with diabetic peripheral angiopathy without gangrene; E78.00 Pure hypercholesterolemia, unspecified; E78.5 Hyperlipidemia, unspecified; F12.90 Cannabis use, unspecified, uncomplicated; F41.9 Anxiety disorder, unspecified; G47.30 Sleep apnea, unspecified; G89.29 Other chronic pain; K21.9 Gastro-esophageal reflux disease without esophagitis; M54.9 Dorsalgia, unspecified; J44.9 Chronic obstructive pulmonary disease, unspecified; Z20.822 Contact with and (suspected) exposure to COVID-19; F17.210 Nicotine dependence, cigarettes, uncomplicated; F20.9 Schizophrenia, unspecified; E66.9 Obesity, unspecified; F31.9 Bipolar disorder, unspecified; Y83.2 Surgical operation with anastomosis, bypass or graft as the cause of abnormal reaction of the patient, or of later complication, without mention of misadventure at the time of the procedure; I25.10 Atherosclerotic heart disease of native coronary artery without angina pectoris; I25.2 Old myocardial infarction; Z79.01 Long term (current) use of anticoagulants; Z86.718 Personal history of other venous thrombosis and embolism; Z87.442 Personal history of urinary calculi; Z90.49 Acquired absence of other specified parts of digestive tract; Z91.19 Patient's noncompliance with other medical treatment and regimen; Z88.8 Allergy status to other drugs, medicaments and biological substances; Z56.0 Unemployment, unspecified; Z71.6 Tobacco abuse counseling; Z68.38 Body mass index [BMI] 38.0-38.9, adult; Y92.89 Other specified places as the place of occurrence of the external cause
CPT/HCPCS: 36415; 36573; 71045; 74176; 76010; 80048; 80053; 80061; 80202; 82948; 83605; 83735; 85007; 85008; 85025; 85610; 85730; 86885; 86900; 86901; 86920; 87040; 87070; 87075; 87077; 87102; 87186; 87635; 88304; 93005; 97110; 97116; 97161; 97530; 99285; A4618; A6258; A6449; A6455; A6550; A7000; C1758; C1768; C9132; G0378; J1100; J1170; J1644; J2001; J2250; J2405; J2543; J2704; J3010; J3370; J3490; J7030; J7040; J7120

== ENCOUNTER 2021-01-28 14:43 | Emergency (ER) | payer BC, MEDICAID ==
[~2021-01-28] VITALS: Ht 175.3 cm; Wt 120.5 kg
[~2021-01-28 14:43] MED LIST changes: -CIPR250T4 PO; +CIPR750T4 PO; +CLON0.1T2 PO; +HYDR-3972 PO
[2021-01-28 14:52] VITALS: BP 103/74
== END 2021-01-28 23:55 | disposition left against medical advice (07) ==
LOC: ER 14:44
DX: M79.605 Pain in left leg (principal); M79.604 Pain in right leg; R20.0 Anesthesia of skin; I25.10 Atherosclerotic heart disease of native coronary artery without angina pectoris; E78.00 Pure hypercholesterolemia, unspecified; I10 Essential (primary) hypertension; I25.2 Old myocardial infarction; K21.9 Gastro-esophageal reflux disease without esophagitis; E11.9 Type 2 diabetes mellitus without complications; G89.29 Other chronic pain; F41.9 Anxiety disorder, unspecified; F31.9 Bipolar disorder, unspecified; F20.9 Schizophrenia, unspecified; F12.90 Cannabis use, unspecified, uncomplicated; Z87.442 Personal history of urinary calculi; Z86.718 Personal history of other venous thrombosis and embolism; Z90.49 Acquired absence of other specified parts of digestive tract; Z98.890 Other specified postprocedural states; Z56.0 Unemployment, unspecified; Z72.89 Other problems related to lifestyle; Z88.8 Allergy status to other drugs, medicaments and biological substances; Z88.5 Allergy status to narcotic agent; Z79.2 Long term (current) use of antibiotics; Z79.899 Other long term (current) drug therapy
CPT/HCPCS: 93925; 99284

== ENCOUNTER 2021-01-31 20:14 | Emergency (ER) | payer BC, MEDICAID ==
[~2021-01-31] VITALS: Ht 175.3 cm; Wt 122.7 kg
[2021-01-31 23:58] VITALS: BP 138/83
[2021-02-01 00:05] LABS: PARTIAL THROMBOPLASTIN TIME 27 SECONDS (22-32)
[2021-02-01 00:07] LABS: ALANINE AMINOTRANSFERASE 22 U/L (12-78); ALBUMIN 2.8 G/DL (3.4-5.0); ALBUMIN/GLOBULIN RATIO 0.6 (1.1-1.5); ALKALINE PHOSPHATASE 56 IU/L (46-116); ANION GAP 10 (8-16); ASPARTATE AMINO TRANSFERASE 15 U/L (10-37); BILIRUBIN,TOTAL 0.2 MG/DL (0.1-1.0); BLOOD UREA NITROGEN 17 MG/DL (7-18); BUN/CREATININE RATIO 15.9 (5.4-32.0); CHLORIDE 108 MMOL/L (99-107); CREATININE 1.07 MG/DL (0.60-1.10); GLUCOSE 127 MG/DL (70-104); POTASSIUM 3.6 MMOL/L (3.5-5.1); SODIUM 145 MMOL/L (135-145); TOTAL CARBON DIOXIDE 27.5 MMOL/L (24-32); TOTAL PROTEIN 7.2 G/DL (6.4-8.2); eGFR 73 ML/MIN
[2021-02-01 00:09] LABS: BILIRUBIN,DIRECT < 0.1 MG/DL (0-0.3); LACTATE DEHYDROGENASE 128 U/L (85-227); LIPASE 94 U/L (73-393)
[2021-02-01 00:15] LABS: BASOPHILS # (AUTO) 0.1 X10'3 (0-0.2); BASOPHILS % (AUTO) 0.9 % (0-1); EOSINOPHILS # (AUTO) 0.8 X10'3 (0-0.9); EOSINOPHILS % (AUTO) 12.7 % (0-6); HEMATOCRIT 28.3 % (42.0-52.0); HEMOGLOBIN 9.3 g/dl (14.0-17.9); LYMPHOCYTES # (AUTO) 1.4 X10'3 (1.1-4.8); LYMPHOCYTES % (AUTO) 21.4 % (21-51); MEAN CORPUSCULAR HEMOGLOBIN 25.5 PG (27.0-31.0); MEAN CORPUSCULAR HGB CONC 32.8 g/dL (33.0-36.5); MEAN CORPUSCULAR VOLUME 77.8 FL (78-98); MEAN PLATELET VOLUME 7.6 FL (7.4-10.4); MONOCYTES # (AUTO) 0.7 X10'3 (0-0.9); MONOCYTES % (AUTO) 11.3 % (2-12); NEUTROPHILS # (AUTO) 3.5 X10'3 (1.8-7.7); NEUTROPHILS % (AUTO) 53.7 % (42-75); PLATELET COUNT 393 X10'3 (140-440); RED BLOOD COUNT 3.64 X10'6 (4.70-6.10); RED CELL DISTRIBUTION WIDTH 19.8 % (11.5-14.5); WHITE BLOOD COUNT 6.5 X10'3 (4.5-11.0)
[2021-02-01 00:54] LABS: ANISOCYTOSIS 2+; MICROCYTOSIS 1+; PLATELET ESTIMATE NORMAL
== END 2021-02-01 04:20 | disposition home or self-care (01) ==
LOC: ER 20:14
DX: M25.562 Pain in left knee (principal); M79.662 Pain in left lower leg; R26.89 Other abnormalities of gait and mobility; E78.00 Pure hypercholesterolemia, unspecified; I10 Essential (primary) hypertension; I25.2 Old myocardial infarction; K21.9 Gastro-esophageal reflux disease without esophagitis; G89.29 Other chronic pain; G47.30 Sleep apnea, unspecified; E11.9 Type 2 diabetes mellitus without complications; F12.90 Cannabis use, unspecified, uncomplicated; Z87.442 Personal history of urinary calculi; Z90.49 Acquired absence of other specified parts of digestive tract; Z98.890 Other specified postprocedural states; Z72.89 Other problems related to lifestyle; Z56.0 Unemployment, unspecified; Z79.2 Long term (current) use of antibiotics; Z79.899 Other long term (current) drug therapy; Z91.041 Radiographic dye allergy status; Z88.5 Allergy status to narcotic agent; Z88.8 Allergy status to other drugs, medicaments and biological substances; Z91.048 Other nonmedicinal substance allergy status
CPT/HCPCS: 36415; 73560; 80048; 80076; 83615; 83690; 85008; 85025; 85610; 85730; 93971; 99285

== ENCOUNTER 2021-04-28 03:34 | Emergency (ER) | payer BC, MEDICAID ==
[~2021-04-28] VITALS: Ht 177.8 cm; Wt 119.5 kg
[2021-04-28 06:08] LABS: BASOPHILS # (AUTO) 0.1 X10'3 (0-0.2); EOSINOPHILS # (AUTO) 0.2 X10'3 (0-0.9); EOSINOPHILS % (AUTO) 3.1 % (0-6); HEMATOCRIT 33.6 % (42.0-52.0); HEMOGLOBIN 10.9 g/dl (14.0-17.9); LYMPHOCYTES # (AUTO) 1.9 X10'3 (1.1-4.8); LYMPHOCYTES % (AUTO) 27.4 % (21-51); MEAN CORPUSCULAR HEMOGLOBIN 26.9 PG (27.0-31.0); MEAN CORPUSCULAR HGB CONC 32.5 g/dL (33.0-36.5); MEAN CORPUSCULAR VOLUME 82.7 FL (78-98); MEAN PLATELET VOLUME 8.3 FL (7.4-10.4); MONOCYTES # (AUTO) 0.7 X10'3 (0-0.9); MONOCYTES % (AUTO) 10.4 % (2-12); NEUTROPHILS # (AUTO) 4.1 X10'3 (1.8-7.7); NEUTROPHILS % (AUTO) 58.1 % (42-75); PLATELET COUNT 263 X10'3 (140-440); RED BLOOD COUNT 4.06 X10'6 (4.70-6.10); RED CELL DISTRIBUTION WIDTH 19.9 % (11.5-14.5); WHITE BLOOD COUNT 7.1 X10'3 (4.5-11.0)
[2021-04-28 06:16] LABS: ALANINE AMINOTRANSFERASE 23 U/L (12-78); ALBUMIN 3.1 G/DL (3.4-5.0); ALBUMIN/GLOBULIN RATIO 0.8 (1.1-1.5); ANION GAP 7 (8-16); ASPARTATE AMINO TRANSFERASE 14 U/L (10-37); BLOOD UREA NITROGEN 17 MG/DL (7-18); BUN/CREATININE RATIO 18.3 (5.4-32.0); CALCIUM 9.1 MG/DL (8.5-10.1); CHLORIDE 108 MMOL/L (99-107); CREATININE 0.93 MG/DL (0.60-1.10); ETHANOL < 0.010 GM/DL (0.0-0.010); GLUCOSE 139 MG/DL (70-104); SODIUM 138 MMOL/L (135-145); TOTAL CARBON DIOXIDE 23.5 MMOL/L (24-32); eGFR 86 ML/MIN
[2021-04-28 06:17] LABS: APTT 33 SECONDS (22-32)
--- NOTE | 2021-04-28 07:47 | NUR ---
transportation planning technician at bedside.
[2021-04-28] MEDS ORDERED: ketorolac tromethamine 15mg/ml inj. IV ONE (10:10)
[2021-04-28 10:11] VITALS: BP 138/88
--- NOTE | 2021-04-28 10:17 | NUR ---
TO CT AT THIS TIME VIA WHEELCHAIR. SONIA TOOK OFF GOWN AND STATED "I AM GOING HOME AFTER THE CT SCAN SO I DON'T NEED IT".
--- NOTE | 2021-04-28 12:03 | NUR ---
patient handed urinal for UA. Pat requested water to drink, verbalized understanding of providing urine sample.
[2021-04-28 13:10] LABS: ANISOCYTOSIS 2+; LARGE PLATELETS FEW; MICROCYTOSIS FEW; PLATELET ESTIMATE NORMAL; POLYCHROMASIA FEW
[2021-04-28 13:17] LABS: COLOR,URINE YELLOW (Yellow); GLUCOSE, URINE NEGATIVE (Neg); KETONES,URINE NEGATIVE (Neg); LEUKOCYTE ESTERASE ,URINE NEGATIVE (Neg); NITRITES, URINE NEGATIVE (Neg); OCCULT BLOOD,URINE NEGATIVE (Neg); PH,URINE 5.5 (4.8-8.0); PROTEIN,URINE NEGATIVE (Neg); UROBILINOGEN,URINE 0.2 E.U/dL (0.2-1.0)
[2021-04-28 13:20] LABS: UA COLLECTION TYPE STRAIGHT CATH
[2021-04-28 13:22] LABS: CLARITY,URINE SLIGHTLY CLOUDY (Clear)
[2021-04-28 13:23] LABS: BACTERIA,URINE NONE SEEN /HPF (Neg); MUCUS STRANDS MANY /LPF (Neg); RBC,URINE NONE SEEN /HPF (0-2); SQUAMOUS EPITHELIAL CELL,UR NONE SEEN /LPF (FEW); URINE AMPHETAMINE SCREEN NEGATIVE (Neg); URINE BARBITUATE SCREEN NEGATIVE (Neg); URINE BENZODIAZEPINES SCREEN NEGATIVE (Neg); URINE CANNABINOID SCREEN NEGATIVE (Neg); URINE COCAINE SCREEN NEGATIVE (Neg); URINE METHADONE SCREEN NEGATIVE (Neg); URINE OPIATE SCREEN POSITIVE (Neg); URINE PHENCYCLIDINE SCREEN NEGATIVE (Neg); WBC,URINE 0-4 /HPF (0-4)
== END 2021-04-28 14:00 | disposition home or self-care (01) ==
LOC: ER 03:34
DX: G89.29 Other chronic pain (principal); M79.652 Pain in left thigh; M79.651 Pain in right thigh; R20.0 Anesthesia of skin; I25.10 Atherosclerotic heart disease of native coronary artery without angina pectoris; E78.00 Pure hypercholesterolemia, unspecified; I25.2 Old myocardial infarction; E11.43 Type 2 diabetes mellitus with diabetic autonomic (poly)neuropathy; J44.9 Chronic obstructive pulmonary disease, unspecified; G47.30 Sleep apnea, unspecified; K21.9 Gastro-esophageal reflux disease without esophagitis; F12.90 Cannabis use, unspecified, uncomplicated; Z72.89 Other problems related to lifestyle; Z56.0 Unemployment, unspecified; Z87.442 Personal history of urinary calculi; Z86.718 Personal history of other venous thrombosis and embolism; Z90.49 Acquired absence of other specified parts of digestive tract; Z95.5 Presence of coronary angioplasty implant and graft; Z91.041 Radiographic dye allergy status; Z91.048 Other nonmedicinal substance allergy status; Z88.5 Allergy status to narcotic agent; Z79.2 Long term (current) use of antibiotics; Z79.899 Other long term (current) drug therapy
CPT/HCPCS: 36415; 72192; 80053; 80305; 80320; 81001; 85008; 85025; 85610; 85730; 93925; 93970; 96374; 99284; J1885

== ENCOUNTER 2021-05-10 05:06 | Emergency (ER) | payer BC, MEDICAID ==
[~2021-05-10] VITALS: Ht 175.3 cm; Wt 119.7 kg
[2021-05-10] MEDS ORDERED: LORazepam 2 mg/ml vial IV ONE (07:15)
[2021-05-10] MEDS ORDERED: ketorolac trometh. 30mg/ml inj. IV ONE (07:15)
[2021-05-10 08:23] LABS: BASOPHILS # (AUTO) 0.1 X10'3 (0-0.2); BASOPHILS % (AUTO) 0.9 % (0-1); EOSINOPHILS # (AUTO) 0.2 X10'3 (0-0.9); EOSINOPHILS % (AUTO) 2.7 % (0-6); HEMATOCRIT 37.1 % (42.0-52.0); HEMOGLOBIN 12.2 g/dl (14.0-17.9); LYMPHOCYTES # (AUTO) 1.5 X10'3 (1.1-4.8); LYMPHOCYTES % (AUTO) 26.5 % (21-51); MEAN CORPUSCULAR HEMOGLOBIN 27.5 PG (27.0-31.0); MEAN CORPUSCULAR VOLUME 83.3 FL (78-98); MEAN PLATELET VOLUME 8.3 FL (7.4-10.4); MONOCYTES # (AUTO) 0.8 X10'3 (0-0.9); MONOCYTES % (AUTO) 13.1 % (2-12); NEUTROPHILS # (AUTO) 3.3 X10'3 (1.8-7.7); NEUTROPHILS % (AUTO) 56.8 % (42-75); PLATELET COUNT 278 X10'3 (140-440); RED BLOOD COUNT 4.45 X10'6 (4.70-6.10); RED CELL DISTRIBUTION WIDTH 19.8 % (11.5-14.5); WHITE BLOOD COUNT 5.8 X10'3 (4.5-11.0)
[2021-05-10 08:30] LABS: ALANINE AMINOTRANSFERASE 28 U/L (12-78); ALBUMIN 3.4 G/DL (3.4-5.0); ALBUMIN/GLOBULIN RATIO 0.9 (1.1-1.5); ALKALINE PHOSPHATASE 61 IU/L (46-116); ANION GAP 10 (8-16); ASPARTATE AMINO TRANSFERASE 22 U/L (10-37); BILIRUBIN,TOTAL 0.1 MG/DL (0.1-1.0); BLOOD UREA NITROGEN 15 MG/DL (7-18); BUN/CREATININE RATIO 14.9 (5.4-32.0); CALCIUM 8.7 MG/DL (8.5-10.1); CHLORIDE 107 MMOL/L (99-107); CREATININE 1.01 MG/DL (0.60-1.10); GLUCOSE 115 MG/DL (70-104); POTASSIUM 4.3 MMOL/L (3.5-5.1); SODIUM 141 MMOL/L (135-145); TOTAL CARBON DIOXIDE 23.7 MMOL/L (24-32); TOTAL PROTEIN 7.4 G/DL (6.4-8.2); eGFR 79 ML/MIN
[2021-05-10 08:48] LABS: ANISOCYTOSIS 2+; PLATELET ESTIMATE NORMAL
[2021-05-10 11:00] VITALS: BP 156/93
[2021-05-10] MEDS ORDERED: MELO7.5T12 PO ×2 (12:24→12:53)
== END 2021-05-10 13:06 | disposition home or self-care (01) ==
LOC: ER 05:06
DX: M19.019 Primary osteoarthritis, unspecified shoulder (principal); Z20.822 Contact with and (suspected) exposure to COVID-19; F41.9 Anxiety disorder, unspecified; I25.10 Atherosclerotic heart disease of native coronary artery without angina pectoris; E78.00 Pure hypercholesterolemia, unspecified; I10 Essential (primary) hypertension; I25.2 Old myocardial infarction; J44.9 Chronic obstructive pulmonary disease, unspecified; K21.9 Gastro-esophageal reflux disease without esophagitis; E11.9 Type 2 diabetes mellitus without complications; G89.29 Other chronic pain; F32.A Depression, unspecified; F12.90 Cannabis use, unspecified, uncomplicated; Z87.442 Personal history of urinary calculi; Z86.718 Personal history of other venous thrombosis and embolism; Z20.9 Contact with and (suspected) exposure to unspecified communicable disease; Z90.49 Acquired absence of other specified parts of digestive tract; Z98.890 Other specified postprocedural states; Z95.1 Presence of aortocoronary bypass graft; Z72.89 Other problems related to lifestyle; Z56.0 Unemployment, unspecified; Z88.8 Allergy status to other drugs, medicaments and biological substances; Z88.5 Allergy status to narcotic agent; Z79.2 Long term (current) use of antibiotics; Z79.899 Other long term (current) drug therapy
CPT/HCPCS: 36415; 71045; 80053; 84484; 85008; 85025; 93005; 96374; 96375; 99285; C9803; J1885; J2060

== ENCOUNTER 2021-06-18 13:16 | Emergency (ER) | payer BC, MEDICAID ==
[~2021-06-18] VITALS: Ht 175.3 cm; Wt 122.7 kg
[~2021-06-18 13:16] MED LIST changes: +MELO7.5T12 PO
[2021-06-18 14:51] VITALS: BP 122/83
[2021-06-18 16:12] LABS: BASOPHILS # (AUTO) 0.1 X10'3 (0-0.2); BASOPHILS % (AUTO) 0.9 % (0-1); EOSINOPHILS # (AUTO) 0.2 X10'3 (0-0.9); EOSINOPHILS % (AUTO) 3.3 % (0-6); HEMATOCRIT 31.5 % (42.0-52.0); HEMOGLOBIN 10.1 g/dl (14.0-17.9); LYMPHOCYTES # (AUTO) 1.5 X10'3 (1.1-4.8); LYMPHOCYTES % (AUTO) 22.6 % (21-51); MEAN CORPUSCULAR HEMOGLOBIN 26.1 PG (27.0-31.0); MEAN CORPUSCULAR VOLUME 81.4 FL (78-98); MEAN PLATELET VOLUME 7.3 FL (7.4-10.4); MONOCYTES # (AUTO) 0.8 X10'3 (0-0.9); MONOCYTES % (AUTO) 12.7 % (2-12); NEUTROPHILS % (AUTO) 60.5 % (42-75); PLATELET COUNT 306 X10'3 (140-440); RED BLOOD COUNT 3.87 X10'6 (4.70-6.10); RED CELL DISTRIBUTION WIDTH 18.1 % (11.5-14.5); WHITE BLOOD COUNT 6.7 X10'3 (4.5-11.0)
[2021-06-18 16:27] LABS: ALANINE AMINOTRANSFERASE 29 U/L (12-78); ALBUMIN 3.5 G/DL (3.4-5.0); ALBUMIN/GLOBULIN RATIO 0.9 (1.1-1.5); ALKALINE PHOSPHATASE 63 IU/L (46-116); ANION GAP 10 (8-16); ASPARTATE AMINO TRANSFERASE 19 U/L (10-37); BILIRUBIN,TOTAL 0.2 MG/DL (0.1-1.0); BLOOD UREA NITROGEN 13 MG/DL (7-18); BUN/CREATININE RATIO 14.8 (5.4-32.0); CALCIUM 8.8 MG/DL (8.5-10.1); CHLORIDE 108 MMOL/L (99-107); CREATININE 0.88 MG/DL (0.60-1.10); GLUCOSE 101 MG/DL (70-104); POTASSIUM 4.1 MMOL/L (3.5-5.1); SODIUM 142 MMOL/L (135-145); TOTAL CARBON DIOXIDE 24.3 MMOL/L (24-32); TOTAL PROTEIN 7.5 G/DL (6.4-8.2); eGFR > 90 ML/MIN
[2021-06-18 16:49] LABS: CREATINE KINASE 76 U/L (39-308)
== END 2021-06-18 17:28 | disposition home or self-care (01) ==
LOC: ER 13:17
DX: M79.604 Pain in right leg (principal); M79.605 Pain in left leg; R20.0 Anesthesia of skin; M79.651 Pain in right thigh; M79.652 Pain in left thigh; R20.2 Paresthesia of skin; I25.10 Atherosclerotic heart disease of native coronary artery without angina pectoris; E78.00 Pure hypercholesterolemia, unspecified; I10 Essential (primary) hypertension; I25.2 Old myocardial infarction; J44.9 Chronic obstructive pulmonary disease, unspecified; G47.30 Sleep apnea, unspecified; K21.9 Gastro-esophageal reflux disease without esophagitis; E11.9 Type 2 diabetes mellitus without complications; G89.29 Other chronic pain; Z86.718 Personal history of other venous thrombosis and embolism; Z87.442 Personal history of urinary calculi; Z86.69 Personal history of other diseases of the nervous system and sense organs; Z87.19 Personal history of other diseases of the digestive system; Z56.0 Unemployment, unspecified; Z91.014 Allergy to mammalian meats; Z91.018 Allergy to other foods; Z88.5 Allergy status to narcotic agent; Z79.899 Other long term (current) drug therapy
CPT/HCPCS: 36415; 80053; 82550; 82553; 83605; 85025; 93922; 93925; 99284

== ENCOUNTER 2021-06-24 11:49 | Emergency (ER) | payer BC, MEDICAID ==
[~2021-06-24] VITALS: Ht 175.3 cm; Wt 122.7 kg
--- NOTE | 2021-06-24 11:51 | NUR ---
Pt is awake and alert. Very talkative. Speech is slurred. Face is symetrical, equal strength in B UE and B LE. Moans when touched or moved. +moist cough.
[2021-06-24 12:21] LABS: BASOPHILS # (AUTO) 0.1 X10'3 (0-0.2); EOSINOPHILS # (AUTO) 0.1 X10'3 (0-0.9); EOSINOPHILS % (AUTO) 2.1 % (0-6); HEMATOCRIT 31.3 % (42.0-52.0); HEMOGLOBIN 9.9 g/dl (14.0-17.9); LYMPHOCYTES # (AUTO) 1.7 X10'3 (1.1-4.8); LYMPHOCYTES % (AUTO) 24.6 % (21-51); MEAN CORPUSCULAR HEMOGLOBIN 25.6 PG (27.0-31.0); MEAN CORPUSCULAR HGB CONC 31.6 g/dL (33.0-36.5); MEAN CORPUSCULAR VOLUME 81.2 FL (78-98); MEAN PLATELET VOLUME 7.5 FL (7.4-10.4); MONOCYTES # (AUTO) 0.9 X10'3 (0-0.9); MONOCYTES % (AUTO) 13.1 % (2-12); NEUTROPHILS # (AUTO) 4.1 X10'3 (1.8-7.7); NEUTROPHILS % (AUTO) 59.2 % (42-75); PLATELET COUNT 324 X10'3 (140-440); RED BLOOD COUNT 3.85 X10'6 (4.70-6.10); RED CELL DISTRIBUTION WIDTH 17.5 % (11.5-14.5); WHITE BLOOD COUNT 6.9 X10'3 (4.5-11.0)
--- NOTE | 2021-06-24 12:23 | NUR ---
To CT via [facility].
--- NOTE | 2021-06-24 12:30 | NUR ---
Back from CT.
[2021-06-24 12:38] LABS: ALANINE AMINOTRANSFERASE 23 U/L (12-78); ALBUMIN 3.5 G/DL (3.4-5.0); ALBUMIN/GLOBULIN RATIO 0.9 (1.1-1.5); ALKALINE PHOSPHATASE 69 IU/L (46-116); ANION GAP 9 (8-16); ASPARTATE AMINO TRANSFERASE 18 U/L (10-37); BILIRUBIN,TOTAL 0.2 MG/DL (0.1-1.0); BLOOD UREA NITROGEN 14 MG/DL (7-18); BUN/CREATININE RATIO 10.5 (5.4-32.0); CALCIUM 8.8 MG/DL (8.5-10.1); CHLORIDE 108 MMOL/L (99-107); CREATININE 1.33 MG/DL (0.60-1.10); GLUCOSE 119 MG/DL (70-104); POTASSIUM 4.3 MMOL/L (3.5-5.1); SODIUM 141 MMOL/L (135-145); TOTAL CARBON DIOXIDE 24.4 MMOL/L (24-32); TOTAL PROTEIN 7.5 G/DL (6.4-8.2); eGFR 57 ML/MIN
[2021-06-24 12:48] LABS: CLARITY,URINE CLEAR (Clear); GLUCOSE, URINE NEGATIVE (Neg); KETONES,URINE NEGATIVE (Neg); LEUKOCYTE ESTERASE ,URINE NEGATIVE (Neg); NITRITES, URINE NEGATIVE (Neg); OCCULT BLOOD,URINE NEGATIVE (Neg); PROTEIN,URINE NEGATIVE (Neg); UROBILINOGEN,URINE 0.2 E.U/dL (0.2-1.0)
[2021-06-24 12:49] LABS: COLOR,URINE STRAW (Yellow); UA COLLECTION TYPE NON-SPECIFIED
[2021-06-24 12:52] LABS: URINE AMPHETAMINE SCREEN NEGATIVE (Neg); URINE BARBITUATE SCREEN NEGATIVE (Neg); URINE BENZODIAZEPINES SCREEN NEGATIVE (Neg); URINE CANNABINOID SCREEN NEGATIVE (Neg); URINE COCAINE SCREEN NEGATIVE (Neg); URINE METHADONE SCREEN NEGATIVE (Neg); URINE OPIATE SCREEN NEGATIVE (Neg); URINE PHENCYCLIDINE SCREEN NEGATIVE (Neg)
--- NOTE | 2021-06-24 13:30 | NUR ---
Tele Neuro consult in progress.
[2021-06-24] MEDS ORDERED: CHOL100017 PO (14:06)
[2021-06-24] MEDS ORDERED: BUPR-317 PO (14:06)
--- NOTE | 2021-06-24 15:05 | NUR ---
To MRI via wheelchair. Transported by [facility].
[2021-06-24] MEDS ORDERED: paliperidone palmitate inj 234 MG/1.5 ML SYRINGE IM SCH (15:15)
[2021-06-24] MEDS ORDERED: potassium CL 10mEq/100ml bag 100 ML IV PRN (15:20)
[2021-06-24] MEDS ORDERED: ondansetron/PF 4mg/2ml inj IV PRN (15:20)
[2021-06-24] MEDS ORDERED: magnesium Cl slow-release 64mg tablet PO PRN (15:20)
[2021-06-24] MEDS ORDERED: bisacodyl 10mg suppository rectal RC PRN (15:20)
[2021-06-24] MEDS ORDERED: magnesium hydroxide 30ml (MOM) UD suspension PO PRN (15:20)
[2021-06-24] MEDS ORDERED: acetaminophen 650mg rectal suppository RC PRN (15:20)
[2021-06-24] MEDS ORDERED: magnesium 2GM in 50ml NS 50 ML IV PRN (15:20)
[2021-06-24] MEDS ORDERED: normal saline 1000ml 1,000 ML IV SCH (15:20)
[2021-06-24] MEDS ORDERED: acetaminophen 325mg tablet PO PRN ×2 (15:20)
[2021-06-24] MEDS ORDERED: mag hydrox/Alum hydrox/simeth 30ml oral suspension PO PRN (15:20)
[2021-06-24] MEDS ORDERED: diphenhydrAMINE 25mg capsule PO PRN (15:20)
[2021-06-24] MEDS ORDERED: potassium Cl 20 mEq SR tablet PO PRN ×2 (15:20)
[2021-06-24] MEDS ORDERED: magnesium 4gm in 100ml NS 100 ML IV PRN (15:20)
[2021-06-24 15:57] LABS: CHOL/HDL RATIO 4.5 (0.00-4.99); CHOLESTEROL 200 MG/DL (0-200); HDL CHOLESTEROL 44 MG/DL (35-60); LDL CHOLESTEROL 139 MG/DL (50-100); TRIGLYCERIDES 109 MG/DL (20-135)
[2021-06-24 16:06] LABS: HEMOGLOBIN A1C 5.9 % (4.5-6.2)
[2021-06-24] MEDS ORDERED: rivaroxaban 20mg tablet PO SCH (18:00)
--- NOTE | 2021-06-24 18:26 | NUR ---
Spoke with Dr. Fields. Dr. Fields will write the discharge orders.
[2021-06-24] MEDS ORDERED: ketorolac trometh. 30mg/ml inj. IV ONE (19:20)
[2021-06-24 19:28] VITALS: BP 143/81
[2021-06-24] MEDS ORDERED: cloNIDine 0.1 mg tablet PO SCH (20:00)
[2021-06-24] MEDS ORDERED: gabapentin 300mg capsule PO SCH (20:00)
[2021-06-24] MEDS ORDERED: K and/or MAG REPLACEMENT MC SCH (20:00)
[2021-06-24] MEDS ORDERED: docusate sod 100mg capsule PO SCH (20:00)
[2021-06-24] MEDS ORDERED: clopidogrel 75mg tablet PO SCH (21:00)
[2021-06-25] MEDS ORDERED: cholecalciferol (vitamin D3) 1,000 unit (25mcg) tablet PO SCH (08:00)
[2021-06-25] MEDS ORDERED: CARIPRAZINE 1.5 MG CAPSULE PO SCH (08:00)
[2021-06-25] MEDS ORDERED: buproprion 150mg XL (24-hour) tablet PO SCH (08:00)
[2021-07-22] MEDS ORDERED: paliperidone palmitate inj 234 MG/1.5 ML SYRINGE IM SCH (15:35)
== END 2021-06-24 19:30 | disposition home or self-care (01) ==
LOC: ER 11:50 → UNDOADMIN 15:25 → ED HOLD 15:25 → ER 19:30
DX: F48.8 Other specified nonpsychotic mental disorders (principal); Z20.822 Contact with and (suspected) exposure to COVID-19; G91.9 Hydrocephalus, unspecified; I25.10 Atherosclerotic heart disease of native coronary artery without angina pectoris; E78.00 Pure hypercholesterolemia, unspecified; I50.9 Heart failure, unspecified; I10 Essential (primary) hypertension; I25.2 Old myocardial infarction; J44.9 Chronic obstructive pulmonary disease, unspecified; K21.9 Gastro-esophageal reflux disease without esophagitis; E11.9 Type 2 diabetes mellitus without complications; G89.29 Other chronic pain; F41.9 Anxiety disorder, unspecified; F31.9 Bipolar disorder, unspecified; F20.9 Schizophrenia, unspecified; F12.90 Cannabis use, unspecified, uncomplicated; Z87.442 Personal history of urinary calculi; Z86.718 Personal history of other venous thrombosis and embolism; Z72.89 Other problems related to lifestyle; Z88.8 Allergy status to other drugs, medicaments and biological substances; Z88.5 Allergy status to narcotic agent; Z79.899 Other long term (current) drug therapy
CPT/HCPCS: 36415; 70450; 70551; 71045; 80053; 80061; 80305; 81003; 83036; 84484; 85025; 85651; 87635; 93005; 93306; 96361; 96374; 99285; C9803; J1885; J7030

== ENCOUNTER 2021-07-03 10:00 | Emergency (ER) | payer BC, MEDICAID ==
[~2021-07-03] VITALS: Ht 175.3 cm; Wt 124.1 kg
[~2021-07-03 10:00] MED LIST changes: +BUPR-317 PO; +CHOL100017 PO
--- NOTE | 2021-07-03 10:56 | NUR ---
Pt states H/A is getting worse. Feels "weird" all over- especially extremities. Unable to explain further.
[2021-07-03 11:03] LABS: BASOPHILS # (AUTO) 0.1 X10'3 (0-0.2); BASOPHILS % (AUTO) 0.9 % (0-1); EOSINOPHILS # (AUTO) 0.2 X10'3 (0-0.9); HEMATOCRIT 30.9 % (42.0-52.0); HEMOGLOBIN 9.9 g/dl (14.0-17.9); LYMPHOCYTES # (AUTO) 1.5 X10'3 (1.1-4.8); LYMPHOCYTES % (AUTO) 25.8 % (21-51); MEAN CORPUSCULAR HEMOGLOBIN 25.7 PG (27.0-31.0); MEAN CORPUSCULAR HGB CONC 32.1 g/dL (33.0-36.5); MEAN CORPUSCULAR VOLUME 80.2 FL (78-98); MEAN PLATELET VOLUME 7.9 FL (7.4-10.4); MONOCYTES # (AUTO) 0.7 X10'3 (0-0.9); MONOCYTES % (AUTO) 12.1 % (2-12); NEUTROPHILS # (AUTO) 3.3 X10'3 (1.8-7.7); NEUTROPHILS % (AUTO) 58.2 % (42-75); PLATELET COUNT 330 X10'3 (140-440); RED BLOOD COUNT 3.85 X10'6 (4.70-6.10); RED CELL DISTRIBUTION WIDTH 17.7 % (11.5-14.5); WHITE BLOOD COUNT 5.7 X10'3 (4.5-11.0)
[2021-07-03 11:21] LABS: ALANINE AMINOTRANSFERASE 21 U/L (12-78); ALBUMIN 3.3 G/DL (3.4-5.0); ALBUMIN/GLOBULIN RATIO 0.8 (1.1-1.5); ALKALINE PHOSPHATASE 61 IU/L (46-116); ANION GAP 7 (8-16); ASPARTATE AMINO TRANSFERASE 17 U/L (10-37); BILIRUBIN,TOTAL 0.1 MG/DL (0.1-1.0); BLOOD UREA NITROGEN 13 MG/DL (7-18); BUN/CREATININE RATIO 11.7 (5.4-32.0); CALCIUM 8.6 MG/DL (8.5-10.1); CHLORIDE 105 MMOL/L (99-107); CREATININE 1.11 MG/DL (0.60-1.10); GLUCOSE 160 MG/DL (70-104); POTASSIUM 4.1 MMOL/L (3.5-5.1); SODIUM 139 MMOL/L (135-145); TOTAL CARBON DIOXIDE 26.9 MMOL/L (24-32); TOTAL PROTEIN 7.2 G/DL (6.4-8.2); eGFR 70 ML/MIN
--- NOTE | 2021-07-03 11:33 | NUR ---
VIOLETA states pt is cleared for d/c. Pt calling his to see if she can take him home, otherwise he will let us know if he needs a cab
[2021-07-03 11:45] VITALS: BP 138/84
== END 2021-07-03 11:50 | disposition home or self-care (01) ==
LOC: ER 10:02
DX: G91.9 Hydrocephalus, unspecified (principal); R26.9 Unspecified abnormalities of gait and mobility; R20.0 Anesthesia of skin; R51.9 Headache, unspecified; I25.10 Atherosclerotic heart disease of native coronary artery without angina pectoris; E78.00 Pure hypercholesterolemia, unspecified; I10 Essential (primary) hypertension; I25.2 Old myocardial infarction; J44.9 Chronic obstructive pulmonary disease, unspecified; K21.9 Gastro-esophageal reflux disease without esophagitis; E11.9 Type 2 diabetes mellitus without complications; G89.29 Other chronic pain; F41.9 Anxiety disorder, unspecified; F31.9 Bipolar disorder, unspecified; F20.9 Schizophrenia, unspecified; F12.90 Cannabis use, unspecified, uncomplicated; Z87.442 Personal history of urinary calculi; Z86.718 Personal history of other venous thrombosis and embolism; Z90.49 Acquired absence of other specified parts of digestive tract; Z98.890 Other specified postprocedural states; Z72.89 Other problems related to lifestyle; Z56.0 Unemployment, unspecified; Z88.8 Allergy status to other drugs, medicaments and biological substances; Z88.5 Allergy status to narcotic agent; Z79.899 Other long term (current) drug therapy
CPT/HCPCS: 36415; 71045; 80053; 85025; 99284

== ENCOUNTER 2021-07-29 20:45 | Emergency (ER) | payer BC, MEDICAID ==
[~2021-07-29] VITALS: Ht 175.3 cm; Wt 122.7 kg
[~2021-07-29 20:45] MED LIST changes: -CARV-50 PO; -CIPR750T4 PO; -HYDR-3972 PO; -LAMO100T65 PO; -MELO7.5T12 PO; -NITR0.4T48 SL; -TRAZ-256 PO
[2021-07-29 20:51] VITALS: BP 188/112
[2021-07-29 21:27] LABS: BASOPHILS # (AUTO) 0.1 X10'3 (0-0.2); BASOPHILS % (AUTO) 0.6 % (0-1); EOSINOPHILS # (AUTO) 0.1 X10'3 (0-0.9); EOSINOPHILS % (AUTO) 0.7 % (0-6); HEMOGLOBIN 11.5 g/dl (14.0-17.9); LYMPHOCYTES # (AUTO) 1.4 X10'3 (1.1-4.8); LYMPHOCYTES % (AUTO) 16.1 % (21-51); MEAN CORPUSCULAR HEMOGLOBIN 23.9 PG (27.0-31.0); MEAN CORPUSCULAR HGB CONC 31.9 g/dL (33.0-36.5); MEAN PLATELET VOLUME 7.9 FL (7.4-10.4); MONOCYTES # (AUTO) 0.7 X10'3 (0-0.9); MONOCYTES % (AUTO) 8.1 % (2-12); NEUTROPHILS # (AUTO) 6.6 X10'3 (1.8-7.7); NEUTROPHILS % (AUTO) 74.5 % (42-75); PLATELET COUNT 248 X10'3 (140-440); RED CELL DISTRIBUTION WIDTH 17.9 % (11.5-14.5); WHITE BLOOD COUNT 8.8 X10'3 (4.5-11.0)
[2021-07-29 21:37] LABS: ALANINE AMINOTRANSFERASE 39 U/L (12-78); ALBUMIN 3.5 G/DL (3.4-5.0); ALBUMIN/GLOBULIN RATIO 0.8 (1.1-1.5); ALKALINE PHOSPHATASE 61 IU/L (46-116); ANION GAP 9 (8-16); ASPARTATE AMINO TRANSFERASE 20 U/L (10-37); BILIRUBIN,TOTAL 0.2 MG/DL (0.1-1.0); BLOOD UREA NITROGEN 20 MG/DL (7-18); CALCIUM 9.3 MG/DL (8.5-10.1); CHLORIDE 101 MMOL/L (99-107); CREATININE 1.67 MG/DL (0.60-1.10); GLUCOSE 203 MG/DL (70-104); POTASSIUM 3.7 MMOL/L (3.5-5.1); SODIUM 135 MMOL/L (135-145); TOTAL CARBON DIOXIDE 25.3 MMOL/L (24-32); TOTAL PROTEIN 7.7 G/DL (6.4-8.2); eGFR 44 ML/MIN
== END 2021-07-29 22:55 | disposition left against medical advice (07) ==
LOC: ER 20:46
DX: M79.605 Pain in left leg (principal); Z53.21 Procedure and treatment not carried out due to patient leaving prior to being seen by health care provider
CPT/HCPCS: 36415; 80053; 83880; 84484; 85025

== ENCOUNTER 2021-07-29 23:32 | Emergency (ER) | payer BC, MEDICAID ==
[~2021-07-29] VITALS: Ht 182.9 cm; Wt 111.3 kg
[2021-07-29 23:41] VITALS: BP 141/86
== END 2021-07-30 04:30 | disposition left against medical advice (07) ==
LOC: ER 23:33
DX: M79.662 Pain in left lower leg (principal); Z53.21 Procedure and treatment not carried out due to patient leaving prior to being seen by health care provider

== ENCOUNTER 2021-12-13 06:06 | Emergency (ER) | payer BC, MEDICAID ==
[~2021-12-13] VITALS: Ht 177.8 cm; Wt 115.0 kg
--- NOTE | 2021-12-13 06:43 | NUR ---
CONSIDERING PT MED AND SX HX WAS GOING TO DO EKG ,BUT PER MD[DR PAYAN] NOT NEEDED AT THIS TIME.
[2021-12-13 06:50] VITALS: BP 154/88
== END 2021-12-13 07:13 | disposition home or self-care (01) ==
LOC: ER 06:06
DX: M79.602 Pain in left arm (principal); E78.00 Pure hypercholesterolemia, unspecified; I10 Essential (primary) hypertension; J44.9 Chronic obstructive pulmonary disease, unspecified; K21.9 Gastro-esophageal reflux disease without esophagitis; G89.29 Other chronic pain; M54.50 Low back pain, unspecified; F31.9 Bipolar disorder, unspecified; F17.200 Nicotine dependence, unspecified, uncomplicated; Z91.041 Radiographic dye allergy status; Z88.5 Allergy status to narcotic agent; Z91.09 Other allergy status, other than to drugs and biological substances; Z90.49 Acquired absence of other specified parts of digestive tract; Z56.0 Unemployment, unspecified
CPT/HCPCS: 99281

== ENCOUNTER 2022-01-02 13:41 | Emergency (ER) | payer BC, MEDICAID ==
[~2022-01-02] VITALS: Ht 175.3 cm; Wt 113.6 kg
[2022-01-02 14:36] VITALS: BP 149/68
== END 2022-01-02 19:13 | disposition left against medical advice (07) ==
LOC: ER 13:42
DX: R10.31 Right lower quadrant pain (principal); R50.9 Fever, unspecified; I25.10 Atherosclerotic heart disease of native coronary artery without angina pectoris; E78.00 Pure hypercholesterolemia, unspecified; I10 Essential (primary) hypertension; I25.2 Old myocardial infarction; J44.9 Chronic obstructive pulmonary disease, unspecified; K21.9 Gastro-esophageal reflux disease without esophagitis; Z87.442 Personal history of urinary calculi; E11.9 Type 2 diabetes mellitus without complications; G89.29 Other chronic pain; F41.9 Anxiety disorder, unspecified; F31.9 Bipolar disorder, unspecified; F20.9 Schizophrenia, unspecified; F12.90 Cannabis use, unspecified, uncomplicated; Z86.718 Personal history of other venous thrombosis and embolism; Z90.49 Acquired absence of other specified parts of digestive tract; Z98.890 Other specified postprocedural states; Z72.89 Other problems related to lifestyle; Z56.0 Unemployment, unspecified; Z88.5 Allergy status to narcotic agent; Z88.8 Allergy status to other drugs, medicaments and biological substances; Z79.899 Other long term (current) drug therapy
CPT/HCPCS: 99281

== ENCOUNTER 2022-05-01 13:46 | Emergency (ER) | payer BC, MEDICAID ==
[~2022-05-01] VITALS: Ht 175.3 cm; Wt 115.0 kg
[2022-05-01] MEDS ORDERED: HYDROmorphone 1 mg/ml syringe IV ONE (18:45)
[2022-05-01] MEDS ORDERED: ketorolac trometh. 30mg/ml inj. IM ONE ×2 (18:45→19:20)
[2022-05-01] MEDS ORDERED: vancomycin/NS 1 GM ADD-VANTAGE 250 ML IV ONE (19:15)
[2022-05-01] MEDS ORDERED: cefTAZidime inj 2 GM in normal saline 100ml IV soln 100 ML IV SCH (20:00)
[2022-05-01] MEDS ORDERED: HYDROmorphone 1 mg/ml syringe IM ONE (21:00)
[2022-05-01] MEDS ORDERED: heparin sodium, porcine/PF 100unit/ml 5ML syringe IV STA (21:48)
[2022-05-01 21:54] VITALS: BP 115/69
== END 2022-05-01 22:05 | disposition home or self-care (01) ==
LOC: ER 13:47
DX: T84.84XA Pain due to internal orthopedic prosthetic devices, implants and grafts, initial encounter (principal); M79.662 Pain in left lower leg; M79.661 Pain in right lower leg; R20.0 Anesthesia of skin; I25.10 Atherosclerotic heart disease of native coronary artery without angina pectoris; E78.00 Pure hypercholesterolemia, unspecified; I10 Essential (primary) hypertension; I25.2 Old myocardial infarction; J44.9 Chronic obstructive pulmonary disease, unspecified; K21.9 Gastro-esophageal reflux disease without esophagitis; E11.9 Type 2 diabetes mellitus without complications; G89.29 Other chronic pain; F41.9 Anxiety disorder, unspecified; F31.9 Bipolar disorder, unspecified; F20.9 Schizophrenia, unspecified; F12.90 Cannabis use, unspecified, uncomplicated; Z87.442 Personal history of urinary calculi; Z86.718 Personal history of other venous thrombosis and embolism; Z90.49 Acquired absence of other specified parts of digestive tract; Z98.890 Other specified postprocedural states; Z72.89 Other problems related to lifestyle; Z56.0 Unemployment, unspecified; Z79.899 Other long term (current) drug therapy
CPT/HCPCS: 93922; 93925; 96365; 96366; 96372; 96375; 99285; J0713; J1170; J1642; J1885; J3370; J3490

== ENCOUNTER 2022-06-01 22:53 | Emergency (ER) | payer BC, MEDICAID ==
[~2022-06-01] VITALS: Ht 175.3 cm; Wt 125.0 kg
[2022-06-01 23:03] VITALS: BP 137/93
[2022-06-02] MEDS ORDERED: HYDROcodone/acetaminophen 10/325mg tab PO ONE (02:55)
[2022-06-02 03:35] LABS: BASOPHILS # (AUTO) 0.1 X10'3 (0-0.2); EOSINOPHILS # (AUTO) 0.4 X10'3 (0-0.9); EOSINOPHILS % (AUTO) 4.3 % (0-6); HEMATOCRIT 35.5 % (42.0-52.0); HEMOGLOBIN 11.6 g/dl (14.0-17.9); LYMPHOCYTES # (AUTO) 1.4 X10'3 (1.1-4.8); LYMPHOCYTES % (AUTO) 16.6 % (21-51); MEAN CORPUSCULAR HEMOGLOBIN 27.9 PG (27.0-31.0); MEAN CORPUSCULAR HGB CONC 32.7 g/dL (33.0-36.5); MEAN CORPUSCULAR VOLUME 85.2 FL (78-98); MEAN PLATELET VOLUME 7.5 FL (7.4-10.4); MONOCYTES % (AUTO) 12.2 % (2-12); NEUTROPHILS # (AUTO) 5.6 X10'3 (1.8-7.7); NEUTROPHILS % (AUTO) 65.9 % (42-75); PLATELET COUNT 371 X10'3 (140-440); RED BLOOD COUNT 4.17 X10'6 (4.70-6.10); RED CELL DISTRIBUTION WIDTH 16.4 % (11.5-14.5); WHITE BLOOD COUNT 8.5 X10'3 (4.5-11.0)
[2022-06-02 03:50] LABS: ALANINE AMINOTRANSFERASE 13 U/L (12-78); ALBUMIN 3.3 G/DL (3.4-5.0); ALBUMIN/GLOBULIN RATIO 0.7 (1.1-1.5); ALKALINE PHOSPHATASE 59 IU/L (46-116); ANION GAP 9 (8-16); ASPARTATE AMINO TRANSFERASE 16 U/L (10-37); BILIRUBIN,TOTAL 0.2 MG/DL (0.1-1.0); BLOOD UREA NITROGEN 9 MG/DL (7-18); BUN/CREATININE RATIO 10.1 (10.0-20.0); CALCIUM 9.1 MG/DL (8.5-10.1); CHLORIDE 106 MMOL/L (99-107); CREATININE 0.89 MG/DL (0.60-1.10); GLUCOSE 133 MG/DL (70-104); POTASSIUM 3.7 MMOL/L (3.5-5.1); SODIUM 140 MMOL/L (135-145); TOTAL CARBON DIOXIDE 24.7 MMOL/L (24-32); TOTAL PROTEIN 8.1 G/DL (6.4-8.2); eGFR 90 ML/MIN
[2022-06-02 06:13] LABS: D-DIMER 2.72 MG/L FEU (0-0.50)
== END 2022-06-02 06:26 | disposition home or self-care (01) ==
LOC: ER 22:55
DX: M79.605 Pain in left leg (principal); I10 Essential (primary) hypertension; E78.00 Pure hypercholesterolemia, unspecified; J44.9 Chronic obstructive pulmonary disease, unspecified; K21.9 Gastro-esophageal reflux disease without esophagitis; E11.9 Type 2 diabetes mellitus without complications; F31.9 Bipolar disorder, unspecified; F17.200 Nicotine dependence, unspecified, uncomplicated; Z91.041 Radiographic dye allergy status; Z91.09 Other allergy status, other than to drugs and biological substances; Z88.5 Allergy status to narcotic agent; Z56.0 Unemployment, unspecified
CPT/HCPCS: 36415; 80053; 83605; 85025; 85379; 85610; 93926; 93971; 93978; 99284

== ENCOUNTER 2022-06-21 23:01 | Inpatient (IN) | payer BC, MEDICAID ==
[~2022-06-21] VITALS: Ht 175.3 cm; Wt 115.9 kg
[2022-06-22 03:14] LABS: BASOPHILS % (AUTO) 0.4 % (0-1); EOSINOPHILS # (AUTO) 0.2 X10'3 (0-0.9); EOSINOPHILS % (AUTO) 1.5 % (0-6); HEMATOCRIT 31.1 % (42.0-52.0); HEMOGLOBIN 10.2 g/dl (14.0-17.9); LYMPHOCYTES # (AUTO) 1.2 X10'3 (1.1-4.8); LYMPHOCYTES % (AUTO) 11.5 % (21-51); MEAN CORPUSCULAR HEMOGLOBIN 26.5 PG (27.0-31.0); MEAN CORPUSCULAR HGB CONC 32.9 g/dL (33.0-36.5); MEAN CORPUSCULAR VOLUME 80.6 FL (78-98); MEAN PLATELET VOLUME 6.8 FL (7.4-10.4); MONOCYTES % (AUTO) 9.7 % (2-12); NEUTROPHILS # (AUTO) 7.9 X10'3 (1.8-7.7); NEUTROPHILS % (AUTO) 76.9 % (42-75); PLATELET COUNT 467 X10'3 (140-440); RED BLOOD COUNT 3.86 X10'6 (4.70-6.10); RED CELL DISTRIBUTION WIDTH 16.4 % (11.5-14.5); WHITE BLOOD COUNT 10.3 X10'3 (4.5-11.0)
[2022-06-22 03:35] LABS: ALANINE AMINOTRANSFERASE 20 U/L (12-78); ALBUMIN 3.1 G/DL (3.4-5.0); ALBUMIN/GLOBULIN RATIO 0.6 (1.1-1.5); ALKALINE PHOSPHATASE 48 IU/L (46-116); ANION GAP 11 (8-16); ASPARTATE AMINO TRANSFERASE 17 U/L (10-37); BILIRUBIN,TOTAL 0.3 MG/DL (0.1-1.0); BLOOD UREA NITROGEN 9 MG/DL (7-18); BUN/CREATININE RATIO 8.7 (10.0-20.0); CALCIUM 9.3 MG/DL (8.5-10.1); CHLORIDE 102 MMOL/L (99-107); CREATININE 1.03 MG/DL (0.60-1.10); GLUCOSE 123 MG/DL (70-104); POTASSIUM 3.4 MMOL/L (3.5-5.1); SODIUM 137 MMOL/L (135-145); TOTAL CARBON DIOXIDE 24.1 MMOL/L (24-32); TOTAL PROTEIN 8.2 G/DL (6.4-8.2); eGFR 76 ML/MIN
[2022-06-22] MEDS ORDERED: HYDROcodone/acetaminophen 5mg/325mg tablet PO ONE (12:50)
[2022-06-22] MEDS ORDERED: piperacillin/tazo 3.375gm/50ml 50 ML IV SCH (15:45)
[2022-06-22] MEDS ORDERED: HYDROcodone/acetaminophen 10/325mg tab PO ONE (15:45)
[2022-06-22] MEDS ORDERED: PALI234D IM (16:27)
[2022-06-22] MEDS ORDERED: LITH300C PO (16:27)
[2022-06-22] MEDS ORDERED: FAMO20TA8 PO (16:27)
[2022-06-22] MEDS ORDERED: CLOP75TA34 PO (16:27)
[2022-06-22] MEDS ORDERED: RIVA2.5T PO (16:27)
[2022-06-22] MEDS ORDERED: CYCL-1 PO (16:27)
[2022-06-22] MEDS ORDERED: CARV3.122 PO (16:27)
[2022-06-22] MEDS ORDERED: CARI3CAP PO (16:27)
[2022-06-22] MEDS ORDERED: LAMO100T PO (16:27)
[2022-06-22] MEDS ORDERED: LIDO700A47 TOP (16:28)
[2022-06-22] MEDS ORDERED: piperacillin/tazo 3.375gm/50ml 50 ML IV ONE (17:10)
[2022-06-22] MEDS ORDERED: paliperidone palmitate inj 234 MG/1.5 ML SYRINGE IM SCH (17:40)
[2022-06-22] MEDS ORDERED: famotidine 20mg tablet PO PRN (17:40)
[2022-06-22] MEDS ORDERED: LIDOcaine 5% patch TP PRN (17:40)
[2022-06-22] MEDS ORDERED: vancomycin inj 1,000 MG in normal saline 250ml IV soln 250 ML IV ONE (17:45)
[2022-06-22] MEDS ORDERED: ondansetron/PF 4mg/2ml inj IV PRN (17:50)
[2022-06-22] MEDS ORDERED: ipratropium/albuterol 3ml nebule NEB PRN (17:50)
[2022-06-22] MEDS ORDERED: potassium Cl 40MEQ/1/2NS 520ml 520 ML IV PRN (17:50)
[2022-06-22] MEDS ORDERED: HYDROcodone/acetaminophen 5mg/325mg tablet PO PRN (17:50)
[2022-06-22] MEDS ORDERED: potassium Cl 20 mEq SR tablet PO PRN ×2 (17:50)
[2022-06-22] MEDS ORDERED: albuterol 2.5 MG/3 ML nebule NEB PRN (17:50)
[2022-06-22] MEDS ORDERED: mag hydrox/Alum hydrox/simeth 30ml oral suspension PO PRN (17:50)
[2022-06-22] MEDS ORDERED: magnesium hydroxide 30ml (MOM) UD suspension PO PRN (17:50)
[2022-06-22] MEDS ORDERED: magnesium 4gm in 100ml NS 100 ML IV PRN (17:50)
[2022-06-22] MEDS ORDERED: acetaminophen 325mg tablet PO PRN ×2 (17:50)
[2022-06-22] MEDS ORDERED: VANCOmycin 1250MG/NS 250ml Bag 250 ML IV SCH (17:55)
[2022-06-22] MEDS: HYDROcodone/acetaminophen 10/325mg tab PO PRN (18:57)
[2022-06-22] MEDS ORDERED: diphenhydrAMINE 25mg capsule PO ONE (20:00)
[2022-06-22] MEDS: docusate sod 100mg capsule PO SCH (20:00)
[2022-06-22] MEDS: K and/or MAG REPLACEMENT MC SCH (20:00)
[2022-06-22] MEDS: cyclobenzaprine 10mg tablet PO SCH (20:13)
[2022-06-22] MEDS: lamoTRIgine 100mg tablet PO SCH (21:41)
[2022-06-22] MEDS: lithium carbonate 150mg capsule PO SCH (21:42)
[2022-06-23] MEDS: cefepime 2g/NS 100ml ADVANTAGE 100 ML IV SCH ×3 (00:28→16:00)
[2022-06-23] MEDS: HYDROcodone/acetaminophen 10/325mg tab PO PRN ×3 (00:28→18:27)
[2022-06-23 03:15] LABS: BASOPHILS # (AUTO) 0.1 X10'3 (0-0.2); BASOPHILS % (AUTO) 0.7 % (0-1); EOSINOPHILS # (AUTO) 0.3 X10'3 (0-0.9); HEMOGLOBIN 8.9 g/dl (14.0-17.9); LYMPHOCYTES # (AUTO) 1.2 X10'3 (1.1-4.8); LYMPHOCYTES % (AUTO) 15.8 % (21-51); MEAN CORPUSCULAR HEMOGLOBIN 26.6 PG (27.0-31.0); MEAN CORPUSCULAR HGB CONC 32.9 g/dL (33.0-36.5); MEAN CORPUSCULAR VOLUME 80.8 FL (78-98); MEAN PLATELET VOLUME 6.9 FL (7.4-10.4); MONOCYTES # (AUTO) 0.8 X10'3 (0-0.9); MONOCYTES % (AUTO) 11.6 % (2-12); NEUTROPHILS % (AUTO) 67.9 % (42-75); PLATELET COUNT 399 X10'3 (140-440); RED BLOOD COUNT 3.34 X10'6 (4.70-6.10); RED CELL DISTRIBUTION WIDTH 16.6 % (11.5-14.5); WHITE BLOOD COUNT 7.3 X10'3 (4.5-11.0)
[2022-06-23 03:29] LABS: ALANINE AMINOTRANSFERASE 17 U/L (12-78); ALBUMIN 2.6 G/DL (3.4-5.0); ALBUMIN/GLOBULIN RATIO 0.6 (1.1-1.5); ALKALINE PHOSPHATASE 48 IU/L (46-116); ANION GAP 8 (8-16); ASPARTATE AMINO TRANSFERASE 12 U/L (10-37); BILIRUBIN,TOTAL 0.3 MG/DL (0.1-1.0); BLOOD UREA NITROGEN 10 MG/DL (7-18); BUN/CREATININE RATIO 11.8 (10.0-20.0); CALCIUM 8.9 MG/DL (8.5-10.1); CHLORIDE 107 MMOL/L (99-107); CREATININE 0.85 MG/DL (0.60-1.10); GLUCOSE 98 MG/DL (70-104); MAGNESIUM 2.1 MG/DL (1.5-2.4); POTASSIUM 3.9 MMOL/L (3.5-5.1); SODIUM 139 MMOL/L (135-145); TOTAL CARBON DIOXIDE 23.9 MMOL/L (24-32); TOTAL PROTEIN 7.1 G/DL (6.4-8.2); eGFR > 90 ML/MIN
[2022-06-23] MEDS ORDERED: VANCOmycin 1250MG/NS 250ml Bag 250 ML IV SCH (05:15)
[2022-06-23] MEDS ORDERED: nicotine 21mg patch - 24 hr TD SCH (08:00)
[2022-06-23] MEDS ORDERED: CARIPRAZINE 1.5 MG CAPSULE PO SCH (08:00)
[2022-06-23] MEDS ORDERED: clopidogrel 75mg tablet PO SCH (08:00)
--- NOTE | 2022-06-23 08:40 | NUR ---
Dressing in groin found to be saturated with blood, dressing changed, area cleaned. No active bleeding present. New dressing placed.
[2022-06-23] MEDS: lamoTRIgine 100mg tablet PO SCH (08:57)
[2022-06-23] MEDS: lithium carbonate 150mg capsule PO SCH (08:59)
[2022-06-23] MEDS: docusate sod 100mg capsule PO SCH ×2 (09:01→21:49)
[2022-06-23] MEDS: cyclobenzaprine 10mg tablet PO SCH ×2 (09:01→21:49)
[2022-06-23] MEDS: vancomycin/NS 1 GM ADD-VANTAGE 250 ML IV SCH ×2 (09:08→15:30)
--- NOTE | 2022-06-23 09:30 | NUR ---
DR KING IN TO ASSESS PATIENT AT THIS TIME.
[2022-06-23] MEDS: K and/or MAG REPLACEMENT MC SCH (09:39)
[2022-06-23] MEDS: carVEDilol 3.125mg tablet PO SCH ×2 (10:25→21:50)
[2022-06-23] MEDS: HYDROmorphone 1 mg/ml syringe IV PRN ×2 (13:55→21:44)
--- NOTE | 2022-06-23 14:55 | NUR ---
Dr Durán at bedside to obtain consent for PICC line at this time. Patient verbalized understanding of risks and benefits of PICC line insertion. Page sent to PICC nurse.
--- NOTE | 2022-06-23 15:55 | NUR ---
Report received from Radha RN; Pt resting comfortably in bed; VSS; NAD noted; Pt refusing scheduled Vancomycin administration until PICC team arrives for PICC line placement; PICC team recently paged and aware of need; Pt has patent IV established, but states it conde sometimes; Line flushed with saline; No complications noted to site; Bed in lowest position; Call light within reach; All necessary monitoring equipment in place and functioning; Pt provided with sandwich per request and in accordance with ordered diet; Pt tolerating PO intake well; Urinal at bedside and pt able to use independently; No further needs voiced at this time
[2022-06-23 20:50] VITALS: BP 111/68
--- NOTE | 2022-06-23 21:46 | NUR ---
Spoke with Gwen from [facility] at this time and pt update provided; Gwen verbalizes understanding and acceptance of pt transfer status
--- NOTE | 2022-06-23 22:24 | NUR ---
Pt transported via Reach unit 80 at this time
[2022-06-24] MEDS ORDERED: VANCOMYCIN LEVEL IV ONE (06:30)
== END 2022-06-23 23:30 | disposition critical access hospital (66) | DRG 863 ==
LOC: ER 23:04 → ED HOLD 06-22 17:53 → UNDOADMIN 06-22 18:47
PROVIDERS: ADMIT Family Medicine; ATTEND Family Medicine
DX: T81.40XA Infection following a procedure, unspecified, initial encounter (principal); L76.22 Postprocedural hemorrhage of skin and subcutaneous tissue following other procedure; D64.9 Anemia, unspecified; E11.51 Type 2 diabetes mellitus with diabetic peripheral angiopathy without gangrene; E78.00 Pure hypercholesterolemia, unspecified; E87.6 Hypokalemia; F17.210 Nicotine dependence, cigarettes, uncomplicated; Z96.611 Presence of right artificial shoulder joint; Z96.641 Presence of right artificial hip joint; F41.9 Anxiety disorder, unspecified; G47.30 Sleep apnea, unspecified; G89.29 Other chronic pain; Y83.8 Other surgical procedures as the cause of abnormal reaction of the patient, or of later complication, without mention of misadventure at the time of the procedure; M54.9 Dorsalgia, unspecified; F20.9 Schizophrenia, unspecified; F31.9 Bipolar disorder, unspecified; I10 Essential (primary) hypertension; I25.10 Atherosclerotic heart disease of native coronary artery without angina pectoris; J44.9 Chronic obstructive pulmonary disease, unspecified; K21.9 Gastro-esophageal reflux disease without esophagitis; Z79.01 Long term (current) use of anticoagulants; I25.2 Old myocardial infarction; Z81.8 Family history of other mental and behavioral disorders; Z87.442 Personal history of urinary calculi; Z56.0 Unemployment, unspecified; Z88.8 Allergy status to other drugs, medicaments and biological substances; Z86.718 Personal history of other venous thrombosis and embolism; Z90.49 Acquired absence of other specified parts of digestive tract; Y92.89 Other specified places as the place of occurrence of the external cause; Z79.899 Other long term (current) drug therapy; Z71.6 Tobacco abuse counseling
CPT/HCPCS: 36415; 73700; 74176; 80053; 83605; 83735; 84145; 85025; 87040; 87070; 87075; 87077; 87186; 93926; 93971; 94760; 96365; 96372; 99285; A6253; A6258; A6449; G0378; J0692; J1170; J2426; J2543; J3370; Q0163

== ENCOUNTER 2022-07-19 12:00 | Inpatient (IN) | payer BC, MEDICAID ==
[~2022-07-19] VITALS: Ht 175.3 cm; Wt 92.1 kg
[~2022-07-19 12:00] MED LIST changes: -BUPR-317 PO; +CARV3.122 PO; -CHOL100017 PO; -CLON0.1T2 PO; -CLOP75TA15 PO; +CLOP75TA34 PO; +CYCL-1 PO; +FAMO20TA8 PO; -GABA600T13 PO; +LAMO100T PO; +LIDO700A47 TOP; +LITH300C PO; +RIVA2.5T PO; -RIVA20TA PO
--- NOTE | 2022-07-19 17:31 | NUR ---
pt arrived from [place], at 1731. received report from susan burden at [facility]. pt arrived via ambulance, vss a/ox3 pt not in system yet and hospitalist has been notified of patients arrival. dinner tray served to patient. patient pain level is 7/10. awaiting orders from . reported off to Prisca BURDEN noc shift
--- NOTE | 2022-07-19 18:00 | NUR ---
Patient in room PCU 3012C. I have received report from Khalida BURDEN and had the opportunity to ask questions and assume patient care.
--- NOTE | 2022-07-19 19:04 | NUR ---
notified wocn team of patients pending arrival at 1400 this afternoon. nicki in wound care stated since the wound vac would not be on during patients transport that a wet to moist dressing must be placed as you cannot restart the wound vac if it has been off for more than 4 hours. pt has new severe urinary retention and [facility] reported that a mccabe trial was perfromed 3x with no success. pt will need a urology consult. he has a coude tip. picc line placed at [facility] and will place an order for confirmation of placement when md places orders.
[2022-07-19] MEDS ORDERED: acetaminophen 325mg tablet PO PRN (20:00)
[2022-07-19] MEDS ORDERED: magnesium 4gm in 100ml NS 100 ML IV PRN (20:00)
[2022-07-19] MEDS: K and/or MAG REPLACEMENT MC SCH (20:00)
[2022-07-19] MEDS ORDERED: potassium Cl 20 mEq SR tablet PO PRN (20:00)
[2022-07-19] MEDS ORDERED: ondansetron/PF 4mg/2ml inj IV PRN (20:00)
[2022-07-19] MEDS: normal saline 1000ml 1,000 ML IV SCH (20:00)
[2022-07-19] MEDS ORDERED: potassium Cl 40MEQ/1/2NS 520ml 520 ML IV PRN (20:00)
[2022-07-19] MEDS ORDERED: magnesium Cl slow-release 64mg tablet PO PRN (20:00)
[2022-07-19] MEDS ORDERED: magnesium 2GM in 50ml NS 50 ML IV PRN (20:00)
[2022-07-19] MEDS ORDERED: HYDROmorphone inj. 0.5 MG/0.5 ML DISP.SYRIN IV PRN (20:05)
[2022-07-19 23:00] VITALS: BP 132/80
--- NOTE | 2022-07-20 01:20 | NUR ---
patient came to our floor around 1745pm. notified dr gao, dr menezes and dr dobbins of patients arrival. I did speak with patients . stated patient has been confused since day 2 of being at [facility]. stated some antibotics do interfer with patients bipolar disorder. states she has his phone, wallet, jewelry with her. I went over patients medication list with . I advised dr Gao I went over med list with . per day nurse and charge nurse I took sponge out of wound since facility did not tx patient with wound vac. I put wet to dry dressing and covered with abd. I did take pictures of buttocks. wound wet to dry dressing, and left knee.
[2022-07-20 03:30] VITALS: BP 158/97
--- NOTE | 2022-07-20 06:21 | NUR ---
Problems reprioritized. Patient report given, questions answered & plan of care reviewed with Khalida RN.
[2022-07-20 06:30] VITALS: BP 130/79
[2022-07-20] MEDS ORDERED: famotidine 20mg tablet PO PRN (06:30)
[2022-07-20] MEDS ORDERED: LIDOcaine 5% patch TP PRN (06:30)
[2022-07-20 06:58] LABS: BASOPHILS # (AUTO) 0.1 X10'3 (0-0.2); BASOPHILS % (AUTO) 0.7 % (0-1); EOSINOPHILS # (AUTO) 0.4 X10'3 (0-0.9); EOSINOPHILS % (AUTO) 2.8 % (0-6); HEMATOCRIT 27.8 % (42.0-52.0); HEMOGLOBIN 9.1 g/dl (14.0-17.9); LYMPHOCYTES # (AUTO) 1.3 X10'3 (1.1-4.8); LYMPHOCYTES % (AUTO) 8.8 % (21-51); MEAN CORPUSCULAR HEMOGLOBIN 26.4 PG (27.0-31.0); MEAN CORPUSCULAR HGB CONC 32.5 g/dL (33.0-36.5); MEAN CORPUSCULAR VOLUME 81.2 FL (78-98); MEAN PLATELET VOLUME 7.1 FL (7.4-10.4); MONOCYTES # (AUTO) 1.1 X10'3 (0-0.9); MONOCYTES % (AUTO) 7.4 % (2-12); NEUTROPHILS # (AUTO) 11.5 X10'3 (1.8-7.7); NEUTROPHILS % (AUTO) 80.3 % (42-75); PLATELET COUNT 628 X10'3 (140-440); RED BLOOD COUNT 3.43 X10'6 (4.70-6.10); RED CELL DISTRIBUTION WIDTH 19.8 % (11.5-14.5); WHITE BLOOD COUNT 14.4 X10'3 (4.5-11.0)
[2022-07-20] MEDS ORDERED: vancomycin/NS 1 GM ADD-VANTAGE 250 ML X 1 DOSE IV ONE (07:10)
[2022-07-20 07:44] LABS: ANISOCYTOSIS 2+; PLATELET ESTIMATE INCREASED
[2022-07-20 07:45] LABS: HYPOCHROMASIA 1+
[2022-07-20 07:46] LABS: POLYCHROMASIA FEW; SCHISTOCYTES FEW
[2022-07-20] MEDS ORDERED: clopidogrel 75mg tablet PO SCH (08:00)
[2022-07-20] MEDS ORDERED: non-formulary drug (Rivaroxaban (Xarelto) 1 TAB) PO SCH (08:00)
[2022-07-20 08:05] LABS: ALANINE AMINOTRANSFERASE 46 U/L (12-78); ALBUMIN 2.2 G/DL (3.4-5.0); ALBUMIN/GLOBULIN RATIO 0.4 (1.1-1.5); ALKALINE PHOSPHATASE 71 IU/L (46-116); ANION GAP 14 (8-16); ASPARTATE AMINO TRANSFERASE 34 U/L (10-37); BILIRUBIN,DIRECT 0.1 MG/DL (0-0.3); BILIRUBIN,TOTAL 0.3 MG/DL (0.1-1.0); BLOOD UREA NITROGEN 10 MG/DL (7-18); BUN/CREATININE RATIO 14.3 (10.0-20.0); CALCIUM 10.1 MG/DL (8.5-10.1); CHLORIDE 98 MMOL/L (99-107); GLUCOSE 150 MG/DL (70-104); POTASSIUM 3.6 MMOL/L (3.5-5.1); SODIUM 135 MMOL/L (135-145); TOTAL CARBON DIOXIDE 23.3 MMOL/L (24-32); TOTAL PROTEIN 8.2 G/DL (6.4-8.2); eGFR > 90 ML/MIN
[2022-07-20] MEDS: piperacillin/tazo 3.375gm/50ml 50 ML IV SCH ×2 (08:54→16:35)
[2022-07-20] MEDS: K and/or MAG REPLACEMENT MC SCH ×2 (08:54→20:00)
[2022-07-20] MEDS: lithium carbonate 150mg capsule PO SCH ×2 (08:56→20:56)
[2022-07-20] MEDS: nystatin 15 GM powder TP SCH ×2 (08:56→20:57)
[2022-07-20] MEDS: carVEDilol 3.125mg tablet PO SCH ×2 (08:57→17:30)
[2022-07-20] MEDS: cyclobenzaprine 10mg tablet PO SCH ×2 (08:57→20:55)
[2022-07-20] MEDS: lamoTRIgine 100mg tablet PO SCH ×2 (08:57→20:56)
[2022-07-20] MEDS: HYDROmorphone inj. 0.5 MG/0.5 ML DISP.SYRIN IV PRN ×3 (08:59→20:57)
[2022-07-20] MEDS: HYDROmorphone/PF 0.2 MG/ML SYRINGE IV PRN (11:19)
[2022-07-20 12:00] VITALS: BP 127/82
[2022-07-20 12:22] LABS: ABG BASE EXCESS -0.6 mmol/L (-2.0-2.0); ABG HCO3 22.7 mmol/L (22.0-26.0); ABG OXYGEN SATURATION 95.4 % (94-97); ABG PCO2 (T) 31.9 mmHg (35.0-48.0); ABG PO2 (T) 79.6 mmHg (75.0-100.0); FCOHb 0.3 % (0.0-3.9); FLOW 0 L/min; FMetHb 0.2 % (0.0-1.5); FO2Hb 94.9 % (94-97); PATIENT TEMPERATURE 36.7; TOTAL HEMOGLOBIN 9.5 G/dl (14.0-17.9)
[2022-07-20] MEDS: CARIPRAZINE 1.5 MG CAPSULE PO SCH (13:21)
--- NOTE | 2022-07-20 13:34 | NUR ---
PRESSURE ULCER EDUCATION: DEFINITION: A pressure ulcer is an area of skin that breaks down when you stay in one position too long. The constant pressure against the skin reduces the blood flow to that area and the affected tissue dies. CAUSES: "Being bedridden or in a wheelchair "Fragile skin "Having a chronic condition, such as diabetes or vascular disease "Inability to move certain parts of your body without assistance "Older age "Incontinence of urine or stool SYMPTOMS: "A reddened area that DOES NOT turn white when pressed on - this can be the beginning of a pressure ulcer "A blister, deep sore or a crater - these can be advanced pressure ulcers FIRST AID: "Relieve the pressure on this area "Keep the area clean and dry "Call your primary doctor if you see any of the above symptoms "DO NOT massage the area "DO NOT use a donut shaped or ring shaped pillow- these actually interfere with the blood flow and cause complications PREVENTION: "Check for pressure ulcers everyday "Change position at least every two hours to relieve pressure "Use items that help relieve pressure- pillows, sheepskin, foam padding, and powders. "Keep skin clean and dry "Eat healthy well balanced meals "Exercise daily IF YOU SEE ANY OF THESE SYMPTOMS WHILE IN THE HOSPITAL - TELL YOUR NURSE IMMEDIATELY. IF YOU SEE ANY OF THESE SYMPTOMS WHILE AT HOME OR HAVE ANY QUESTIONS OR CONCERNS ABOUT PRESSURE ULCERS - CALL YOUR PRIMARY DOCTOR IMMEDIATELY. Addendum: 07/20/22 at 1334 by Paris Chen RN Amended: Links added.
--- NOTE | 2022-07-20 14:15 | NUR ---
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 Per WOC note pt also with an MASD to gluteal sulcus with some small partial thickness open areas and a surgical wound to right groin. Pt currently on a heart healthy diet, pending documentation of PO intake. No documented BM though pt just admitted. Will continue to follow closely and monitor need for nutrition intervention pending trends in PO intake. Recommendations: 1) Continue heart healthy diet 2) Monitor need for ONS/additional protein 3) Routine bowel care 4) Scaled weight this admit; subsequent weekly scaled weights Addendum: 07/20/22 at [address] Amended: Links added.
--- NOTE | 2022-07-20 15:43 | NUR ---
SENT PAGER ID: [phone] MESSAGE: ROOM 3012C - ORDERED A LITHIUM LEVEL JUST TO MAKE SURE THE CONFUSION ISNT STEMMING FROM A HIGH LEVEL, LAB SAYS IT SHOULD RESULT LATE AFTERNOON OR EVENING IT GOES TO [facility] FOR PROCESSING - SHAKIRA Mandujano [id number] ANOTHER PAGE: AGER ID: [phone] MESSAGE: ROOM 3012C- LIZET JUST RECEIVED A VERBAL RESULT FROM LAB ON LITHIUM LEVEL, SUBTHERAPEUTIC AT 0.40 WITH THE RANGE BEING 0.60-1.2. NO NEED TO RESPOND. CAT SCAN JUST COMPLETED AND SHOULD BE RESULTED IN THE NEXT 30 MINUTES - SHAKIRA Mandujano [id number]
[2022-07-20 16:30] VITALS: BP 129/80
[2022-07-20] MEDS: vancomycin/NS 1 GM ADD-VANTAGE 250 ML IV SCH (16:35)
[2022-07-20] MEDS ORDERED: tPA-cathflo 2 MG/2 ml IV flush IVF ONE (17:45)
[2022-07-20 18:00] VITALS: BP 121/81
[2022-07-20] MEDS ORDERED: enoxaparin 40mg/0.4ml syringe SUBCUT SCH (20:00)
[2022-07-20 22:00] VITALS: BP 136/85
[2022-07-20 22:08] LABS: COLOR,URINE YELLOW (Yellow); GLUCOSE, URINE NEGATIVE (Neg); KETONES,URINE NEGATIVE (Neg); LEUKOCYTE ESTERASE ,URINE NEGATIVE (Neg); NITRITES, URINE NEGATIVE (Neg); OCCULT BLOOD,URINE TRACE-INTACT (Neg); PH,URINE 6.5 (4.8-8.0); PROTEIN,URINE 30 mg/dl (Neg); UROBILINOGEN,URINE 0.2 E.U/dL (0.2-1.0)
[2022-07-20 22:13] LABS: CLARITY,URINE SLIGHTLY CLOUDY (Clear); UA COLLECTION TYPE FOLEY CATH
[2022-07-20 22:15] LABS: BACTERIA,URINE FEW /HPF (Neg); MUCUS STRANDS FEW /LPF (Neg); SQUAMOUS EPITHELIAL CELL,UR FEW /LPF (FEW); WBC,URINE 0-4 /HPF (0-4)
[2022-07-20 22:16] LABS: AMORPHOUS PHOSPHATES 2+
--- NOTE | 2022-07-20 23:08 | NUR ---
spoke with at bedside. I was able to do TPN for picc which worked. sent UA from m[facility]abe, I clamped mccabe. gave pain medications.
[2022-07-21] VITALS (33 sets, daily range): BP systolic 87–162; BP diastolic 61–113
[2022-07-21 00:09] LABS: BASOPHILS # (AUTO) 0.1 X10'3 (0-0.2); EOSINOPHILS # (AUTO) 0.4 X10'3 (0-0.9); HEMOGLOBIN 8.2 g/dl (14.0-17.9); MEAN PLATELET VOLUME 7.2 FL (7.4-10.4); WHITE BLOOD COUNT 16.3 X10'3 (4.5-11.0)
[2022-07-21 00:10] LABS: BASOPHILS % (AUTO) 0.6 % (0-1); EOSINOPHILS % (AUTO) 2.5 % (0-6); HEMATOCRIT 24.5 % (42.0-52.0); LYMPHOCYTES # (AUTO) 1.7 X10'3 (1.1-4.8); LYMPHOCYTES % (AUTO) 10.4 % (21-51); MEAN CORPUSCULAR HEMOGLOBIN 26.7 PG (27.0-31.0); MEAN CORPUSCULAR HGB CONC 33.4 g/dL (33.0-36.5); MEAN CORPUSCULAR VOLUME 80.1 FL (78-98); MONOCYTES # (AUTO) 1.2 X10'3 (0-0.9); MONOCYTES % (AUTO) 7.5 % (2-12); NEUTROPHILS # (AUTO) 12.8 X10'3 (1.8-7.7); PLATELET COUNT 650 X10'3 (140-440); RED BLOOD COUNT 3.05 X10'6 (4.70-6.10)
[2022-07-21] MEDS ORDERED: tranexamic acid inj. 1,000 MG in normal saline 100ml IV soln 90 ML IV ONE (00:35)
[2022-07-21] MEDS ORDERED: ringers solution, lacted 1,000 ML IV ONE (00:35)
[2022-07-21] MEDS ORDERED: KCentra-PCC 500 unit/20mL vial 0 ML IV ONE (00:40)
[2022-07-21 00:41] LABS: BASOPHILS # (AUTO) 0.1 X10'3 (0-0.2); BASOPHILS % (AUTO) 0.4 % (0-1); EOSINOPHILS # (AUTO) 0.4 X10'3 (0-0.9); HEMOGLOBIN 7.7 g/dl (14.0-17.9); MONOCYTES # (AUTO) 1.3 X10'3 (0-0.9)
[2022-07-21 00:43] LABS: EOSINOPHILS % (AUTO) 1.9 % (0-6); HEMATOCRIT 23.4 % (42.0-52.0); LYMPHOCYTES # (AUTO) 1.5 X10'3 (1.1-4.8); LYMPHOCYTES % (AUTO) 7.9 % (21-51); MEAN CORPUSCULAR HEMOGLOBIN 26.3 PG (27.0-31.0); MEAN CORPUSCULAR HGB CONC 32.9 g/dL (33.0-36.5); MEAN CORPUSCULAR VOLUME 79.9 FL (78-98); MEAN PLATELET VOLUME 7.1 FL (7.4-10.4); MONOCYTES % (AUTO) 6.7 % (2-12); NEUTROPHILS # (AUTO) 15.7 X10'3 (1.8-7.7); NEUTROPHILS % (AUTO) 83.1 % (42-75); PLATELET COUNT 674 X10'3 (140-440); RED BLOOD COUNT 2.93 X10'6 (4.70-6.10); WHITE BLOOD COUNT 18.9 X10'3 (4.5-11.0)
[2022-07-21 00:50] LABS: ALBUMIN 2.2 G/DL (3.4-5.0); ANION GAP 10 (8-16); BLOOD UREA NITROGEN 11 MG/DL (7-18); BUN/CREATININE RATIO 13.8 (10.0-20.0); CHLORIDE 96 MMOL/L (99-107); GLUCOSE 170 MG/DL (70-104); POTASSIUM 3.6 MMOL/L (3.5-5.1); SODIUM 133 MMOL/L (135-145); TOTAL CARBON DIOXIDE 26.7 MMOL/L (24-32); eGFR > 90 ML/MIN
[2022-07-21 00:53] LABS: APTT 28 SECONDS (22-32)
[2022-07-21] MEDS ORDERED: HUM PROTHROMBIN CPLX IV ONE ×2 (01:30→02:30)
[2022-07-21] MEDS ORDERED: [UNRECOGNIZED DRUG - OTHER] IV ONE ×2 (01:30→02:30)
[2022-07-21] MEDS ORDERED: KCentra-PCC 500 unit/20mL vial 100 ML IV ONE (02:20)
[2022-07-21] MEDS ORDERED: NORepinephrine 8mg/ 250ml NS 250 ML IV SCH (02:40)
[2022-07-21] MEDS ORDERED: NORepinephrine 8mg/ 250ml NS 250 ML IV ONE (02:43)
--- NOTE | 2022-07-21 02:52 | NUR ---
patient started having bloody, clotty stools. started around 2200. vitals then where 136/85. no temp. cleaned patient up and changed dressing. patient had another larger bloody, clotty stools. did a stat cbc hgb came back 8.2. patient ended up having at least 4 good size bloody, clotty stools. dr ordered protonix drip, tranexamic acid and k centra to help with the bleeding. patient was transferred to ICU bed 2042. I spoke with and got consent to give patient blood transfusion. nursing supervisor public message service came to bedside as well as the md.
--- NOTE | 2022-07-21 02:55 | NUR ---
Pt arrived to room 2043b, placed on ICU monitors, transferred for hospital bed. Dr. Tee assessed pt via telemed bot. PRBCs transfusing as MD ordered and pt tolerating them well. All medications infusing through PICC line, a PIV was attempted but unsuccessful. Lantigua catheter draining yellow urine to gravity secured to leg.
[2022-07-21] MEDS: pantoprazole 40MG/NS 100ML BAG 100 ML IV SCH ×6 (03:28→23:57)
[2022-07-21] MEDS: vancomycin/NS 1 GM ADD-VANTAGE 250 ML IV SCH ×6 (03:34→23:57)
[2022-07-21] MEDS: normal saline 1000ml 1,000 ML IV SCH ×3 (03:35→23:56)
[2022-07-21] MEDS: piperacillin/tazo 3.375gm/50ml 50 ML IV SCH ×4 (03:35→23:57)
[2022-07-21] MEDS: HYDROmorphone/PF 0.2 MG/ML SYRINGE IV PRN ×3 (03:43→21:36)
--- NOTE | 2022-07-21 06:34 | NUR ---
Problems reprioritized. Patient report given, questions answered & plan of care reviewed with Duarte BURDEN.
[2022-07-21] MEDS ORDERED: VANCOMYCIN LEVEL IV ONE (07:30)
[2022-07-21] MEDS: carVEDilol 3.125mg tablet PO SCH ×2 (07:57→17:18)
[2022-07-21] MEDS: lamoTRIgine 100mg tablet PO SCH ×2 (07:57→20:56)
[2022-07-21] MEDS: cyclobenzaprine 10mg tablet PO SCH ×2 (07:57→20:56)
[2022-07-21] MEDS: nystatin 15 GM powder TP SCH ×2 (07:57→20:57)
[2022-07-21 07:58] LABS: ALANINE AMINOTRANSFERASE 53 U/L (12-78); ALBUMIN 1.9 G/DL (3.4-5.0); ALBUMIN/GLOBULIN RATIO 0.4 (1.1-1.5); ALKALINE PHOSPHATASE 63 IU/L (46-116); ANION GAP 11 (8-16); ASPARTATE AMINO TRANSFERASE 42 U/L (10-37); BILIRUBIN,TOTAL 1.6 MG/DL (0.1-1.0); BLOOD UREA NITROGEN 16 MG/DL (7-18); BUN/CREATININE RATIO 18.2 (10.0-20.0); CALCIUM 9.2 MG/DL (8.5-10.1); CHLORIDE 103 MMOL/L (99-107); CREATININE 0.88 MG/DL (0.60-1.10); GLUCOSE 104 MG/DL (70-104); MAGNESIUM 1.8 MG/DL (1.5-2.4); PHOSPHORUS 3.6 MG/DL (2.3-4.5); POTASSIUM 3.9 MMOL/L (3.5-5.1); SODIUM 138 MMOL/L (135-145); TOTAL CARBON DIOXIDE 23.6 MMOL/L (24-32); TOTAL PROTEIN 6.5 G/DL (6.4-8.2); eGFR > 90 ML/MIN
[2022-07-21] MEDS: K and/or MAG REPLACEMENT MC SCH ×2 (08:00→18:36)
[2022-07-21] MEDS: lithium carbonate 150mg capsule PO SCH ×2 (08:02→20:57)
[2022-07-21] MEDS: CARIPRAZINE 1.5 MG CAPSULE PO SCH (08:02)
[2022-07-21 08:15] LABS: VANCOMYCIN,TROUGH 26.2 UG/ML (6.0-14.0)
[2022-07-21 08:16] LABS: BASOPHILS # (AUTO) 0.1 X10'3 (0-0.2); BASOPHILS % (AUTO) 0.4 % (0-1); EOSINOPHILS % (AUTO) 0 % (0-6); HEMATOCRIT 34.1 % (42.0-52.0); HEMOGLOBIN 11.5 g/dl (14.0-17.9); LYMPHOCYTES # (AUTO) 1.1 X10'3 (1.1-4.8); LYMPHOCYTES % (AUTO) 4.9 % (21-51); MEAN CORPUSCULAR HEMOGLOBIN 28.2 PG (27.0-31.0); MEAN CORPUSCULAR HGB CONC 33.8 g/dL (33.0-36.5); MEAN CORPUSCULAR VOLUME 83.4 FL (78-98); MEAN PLATELET VOLUME 7.3 FL (7.4-10.4); MONOCYTES # (AUTO) 1.4 X10'3 (0-0.9); MONOCYTES % (AUTO) 6.3 % (2-12); NEUTROPHILS # (AUTO) 20.2 X10'3 (1.8-7.7); NEUTROPHILS % (AUTO) 88.4 % (42-75); PLATELET COUNT 433 X10'3 (140-440); RED BLOOD COUNT 4.08 X10'6 (4.70-6.10); RED CELL DISTRIBUTION WIDTH 16.9 % (11.5-14.5); WHITE BLOOD COUNT 22.8 X10'3 (4.5-11.0)
--- NOTE | 2022-07-21 08:30 | NUR ---
Difficulty finding peripheral pulses on right extremity. Dr. De Leon notified. Per Noc shift nurse, patient's right foot appears "less" mottled than prior. Foot is warm. Eola placed around foot to attempt Doppler pulses. MD also aware that patient no longer has anticoagulation. MD to assess need for GI diagnostics vs restarting on anticoagulation. Stool appears less tarry/bloody. Vital signs remain stable compared to last night. Addendum: 07/21/22 at 1000 by Duarte Christianson RN Left distal lower extremity; NOT "Right extremity"
[2022-07-21] MEDS: HYDROmorphone inj. 0.5 MG/0.5 ML DISP.SYRIN IV PRN (09:24)
--- NOTE | 2022-07-21 12:33 | NUR ---
WOUND VAC EDUCATION PROVIDED BY WOUND CARE 1. Patient instructed to call the Wound Center or their Home Health Agency immediately if: * They notice a change in the color or amount of the fluid in the canister. * Their wound looks more red than usual or has a foul smell. * The skin around their wound looks reddened or irritated. * The dressing feels loose or appears to be loose. * They experience any increase or changes in their pain. * The alarm will not turn off. 2. Patient instructed that they should not be disconnected from suction for more than 2 hours at a time. * If they are not able to get the suction back on, they need to remove the dressing and take all of the foam out of the wound. * Then moisten sterile gauze with normal saline and place on/in the wound. * Change the dressing once a day until arrangements have been made to replace the wound vac dressing. 3. Patient instructed to turn the wound vac machine OFF and call 911 or go to the ED immediately if their canister fills rapidly with blood. 4. If any of these occur while in the hospital tell a nurse immediately. Addendum: 07/21/22 at 1233 by Briana Ford RN Amended: Links added.
[2022-07-21 13:51] LABS: HEMATOCRIT 32.5 % (42.0-52.0); MEAN CORPUSCULAR HGB CONC 33.9 g/dL (33.0-36.5); MEAN CORPUSCULAR VOLUME 82.5 FL (78-98); MEAN PLATELET VOLUME 7.1 FL (7.4-10.4); PLATELET COUNT 430 X10'3 (140-440); RED BLOOD COUNT 3.95 X10'6 (4.70-6.10); RED CELL DISTRIBUTION WIDTH 16.8 % (11.5-14.5); WHITE BLOOD COUNT 19.4 X10'3 (4.5-11.0)
[2022-07-21] MEDS ORDERED: PEG 3350/Na sulf,bicarb,Cl/KCl oral sol 4 liter bottle PO ONE (15:00)
--- NOTE | 2022-07-21 18:30 | NUR ---
Problems reprioritized. Patient report given, questions answered & plan of care reviewed with Mac RN.
[2022-07-21 19:53] LABS: HEMATOCRIT 30.3 % (42.0-52.0); HEMOGLOBIN 10.3 g/dl (14.0-17.9); MEAN CORPUSCULAR HEMOGLOBIN 28.1 PG (27.0-31.0); MEAN CORPUSCULAR VOLUME 82.8 FL (78-98); MEAN PLATELET VOLUME 7.2 FL (7.4-10.4); PLATELET COUNT 451 X10'3 (140-440); RED BLOOD COUNT 3.66 X10'6 (4.70-6.10); RED CELL DISTRIBUTION WIDTH 16.8 % (11.5-14.5); WHITE BLOOD COUNT 18.3 X10'3 (4.5-11.0)
--- NOTE | 2022-07-21 21:20 | NUR ---
MD Communication -Tele MD at bedside via monitor. Pt answering questions appropriately. OK to continue bowel prep with pt passing blood and clots per MD.
[2022-07-22] VITALS (29 sets, daily range): BP systolic 104–156; BP diastolic 52–99
[2022-07-22] MEDS: HYDROmorphone inj. 0.5 MG/0.5 ML DISP.SYRIN IV PRN ×4 (01:33→21:37)
--- NOTE | 2022-07-22 01:45 | NUR ---
Pt drank most of the bowel prep before refusing to "drink anymore diarrhea juice." Stool is clear of feces, and is bloody with clots.
[2022-07-22 02:39] LABS: BASOPHILS % (AUTO) 0.3 % (0-1); EOSINOPHILS # (AUTO) 0.2 X10'3 (0-0.9); EOSINOPHILS % (AUTO) 1.3 % (0-6); HEMATOCRIT 26.9 % (42.0-52.0); HEMOGLOBIN 9.3 g/dl (14.0-17.9); LYMPHOCYTES # (AUTO) 1.2 X10'3 (1.1-4.8); LYMPHOCYTES % (AUTO) 7.7 % (21-51); MEAN CORPUSCULAR HEMOGLOBIN 28.5 PG (27.0-31.0); MEAN CORPUSCULAR HGB CONC 34.7 g/dL (33.0-36.5); MEAN CORPUSCULAR VOLUME 82.3 FL (78-98); MEAN PLATELET VOLUME 6.9 FL (7.4-10.4); MONOCYTES # (AUTO) 1.4 X10'3 (0-0.9); MONOCYTES % (AUTO) 9.1 % (2-12); NEUTROPHILS # (AUTO) 12.4 X10'3 (1.8-7.7); NEUTROPHILS % (AUTO) 81.6 % (42-75); PLATELET COUNT 428 X10'3 (140-440); RED BLOOD COUNT 3.27 X10'6 (4.70-6.10); RED CELL DISTRIBUTION WIDTH 16.9 % (11.5-14.5); WHITE BLOOD COUNT 15.2 X10'3 (4.5-11.0)
[2022-07-22 02:49] LABS: ALBUMIN 1.9 G/DL (3.4-5.0); ANION GAP 7 (8-16); BLOOD UREA NITROGEN 8 MG/DL (7-18); BUN/CREATININE RATIO 9.5 (10.0-20.0); CALCIUM 8.7 MG/DL (8.5-10.1); CHLORIDE 107 MMOL/L (99-107); CREATININE 0.84 MG/DL (0.60-1.10); GLUCOSE 136 MG/DL (70-104); MAGNESIUM 1.7 MG/DL (1.5-2.4); POTASSIUM 3.1 MMOL/L (3.5-5.1); SODIUM 139 MMOL/L (135-145); TOTAL CARBON DIOXIDE 24.8 MMOL/L (24-32); eGFR > 90 ML/MIN
[2022-07-22] MEDS: potassium Cl 20 mEq SR tablet PO PRN ×3 (05:18→17:56)
[2022-07-22] MEDS: pantoprazole 40MG/NS 100ML BAG 100 ML IV SCH ×3 (05:18→16:00)
[2022-07-22] MEDS: lithium carbonate 150mg capsule PO SCH ×2 (07:19→21:36)
[2022-07-22] MEDS: carVEDilol 3.125mg tablet PO SCH ×2 (07:20→17:56)
[2022-07-22] MEDS: CARIPRAZINE 1.5 MG CAPSULE PO SCH (07:20)
[2022-07-22] MEDS: piperacillin/tazo 3.375gm/50ml 50 ML IV SCH ×2 (07:20→16:23)
[2022-07-22] MEDS: cyclobenzaprine 10mg tablet PO SCH ×2 (07:20→21:36)
[2022-07-22] MEDS: lamoTRIgine 100mg tablet PO SCH ×2 (07:20→21:36)
[2022-07-22] MEDS: nystatin 15 GM powder TP SCH (07:21)
[2022-07-22] MEDS ORDERED: VANCOMYCIN LEVEL IV ONE (07:30)
[2022-07-22] MEDS: K and/or MAG REPLACEMENT MC SCH ×2 (08:00→20:00)
[2022-07-22] MEDS: vancomycin/NS 1 GM ADD-VANTAGE 250 ML IV SCH (08:22)
[2022-07-22 08:40] LABS: HEMATOCRIT 25.4 % (42.0-52.0); HEMOGLOBIN 8.5 g/dl (14.0-17.9); MEAN CORPUSCULAR HEMOGLOBIN 27.9 PG (27.0-31.0); MEAN CORPUSCULAR HGB CONC 33.5 g/dL (33.0-36.5); MEAN CORPUSCULAR VOLUME 83.3 FL (78-98); MEAN PLATELET VOLUME 7.2 FL (7.4-10.4); PLATELET COUNT 415 X10'3 (140-440); RED BLOOD COUNT 3.05 X10'6 (4.70-6.10); WHITE BLOOD COUNT 15.4 X10'3 (4.5-11.0)
[2022-07-22] MEDS: normal saline 1000ml 1,000 ML IV SCH (10:46)
[2022-07-22] MEDS ORDERED: MIDAZolam 1 MG/ML 5ML VIAL ONE (12:06)
[2022-07-22] MEDS ORDERED: fentaNYL/PF 50MCG/1 ML 2ML syringe ONE (12:06)
[2022-07-22] MEDS ORDERED: LIDOcaine Viscous 15ml cup ONE (12:07)
--- NOTE | 2022-07-22 12:34 | NUR ---
Patient to GI lab with GI RN
[2022-07-22] MEDS: VANCOmycin 1250MG/NS 250ml Bag 250 ML IV SCH (16:24)
[2022-07-22 16:33] LABS: HEMATOCRIT 23.4 % (42.0-52.0); HEMOGLOBIN 7.6 g/dl (14.0-17.9); MEAN CORPUSCULAR HEMOGLOBIN 27.1 PG (27.0-31.0); MEAN CORPUSCULAR HGB CONC 32.4 g/dL (33.0-36.5); MEAN CORPUSCULAR VOLUME 83.9 FL (78-98); MEAN PLATELET VOLUME 6.8 FL (7.4-10.4); PLATELET COUNT 415 X10'3 (140-440); RED BLOOD COUNT 2.79 X10'6 (4.70-6.10); RED CELL DISTRIBUTION WIDTH 17.1 % (11.5-14.5); WHITE BLOOD COUNT 14.8 X10'3 (4.5-11.0)
--- NOTE | 2022-07-22 18:30 | NUR ---
Patient in room ICU 2042. I have received report from Duarte BURDEN and had the opportunity to ask questions and assume patient care.
--- NOTE | 2022-07-22 18:59 | NUR ---
Patient pulled Left PICC line out. Dr. De Leon notified. Restraints ordered as patient continues to pull at lines.
[2022-07-22 22:55] LABS: HEMOGLOBIN 7.1 g/dl (14.0-17.9); MEAN CORPUSCULAR HEMOGLOBIN 27.4 PG (27.0-31.0); MEAN CORPUSCULAR HGB CONC 32.7 g/dL (33.0-36.5); MEAN CORPUSCULAR VOLUME 83.8 FL (78-98); MEAN PLATELET VOLUME 6.7 FL (7.4-10.4); PLATELET COUNT 396 X10'3 (140-440); RED BLOOD COUNT 2.59 X10'6 (4.70-6.10)
[2022-07-22 23:05] LABS: HEMATOCRIT 21.7 % (42.0-52.0)
[2022-07-23] VITALS (18 sets, daily range): BP systolic 120–170; BP diastolic 68–95
[2022-07-23] MEDS: pantoprazole 40MG/NS 100ML BAG 100 ML IV SCH ×6 (00:15→20:37)
[2022-07-23] MEDS: nystatin 15 GM powder TP SCH ×3 (00:16→20:37)
[2022-07-23] MEDS: normal saline 1000ml 1,000 ML IV SCH ×3 (00:50→20:47)
[2022-07-23] MEDS: VANCOmycin 1250MG/NS 250ml Bag 250 ML IV SCH ×3 (00:50→16:43)
[2022-07-23] MEDS: piperacillin/tazo 3.375gm/50ml 50 ML IV SCH ×3 (00:51→17:20)
[2022-07-23] MEDS: HYDROmorphone inj. 0.5 MG/0.5 ML DISP.SYRIN IV PRN ×3 (01:48→20:38)
[2022-07-23] MEDS: HYDROmorphone/PF 0.2 MG/ML SYRINGE IV PRN (04:15)
--- NOTE | 2022-07-23 06:15 | NUR ---
Problems reprioritized. Patient report given, questions answered & plan of care reviewed with Malvin BURDEN.
[2022-07-23 06:23] LABS: ALBUMIN 1.7 G/DL (3.4-5.0); ANION GAP 7 (8-16); BLOOD UREA NITROGEN 3 MG/DL (7-18); BUN/CREATININE RATIO 4.5 (10.0-20.0); CALCIUM 8.8 MG/DL (8.5-10.1); CHLORIDE 105 MMOL/L (99-107); CREATININE 0.66 MG/DL (0.60-1.10); GLUCOSE 119 MG/DL (70-104); MAGNESIUM 1.9 MG/DL (1.5-2.4); SODIUM 138 MMOL/L (135-145); TOTAL CARBON DIOXIDE 25.9 MMOL/L (24-32); eGFR > 90 ML/MIN
[2022-07-23 06:24] LABS: BASOPHILS # (AUTO) 0.1 X10'3 (0-0.2); BASOPHILS % (AUTO) 0.5 % (0-1); EOSINOPHILS # (AUTO) 0.3 X10'3 (0-0.9); EOSINOPHILS % (AUTO) 2.6 % (0-6); HEMOGLOBIN 7.4 g/dl (14.0-17.9); LYMPHOCYTES % (AUTO) 8.4 % (21-51); MEAN CORPUSCULAR HEMOGLOBIN 28.1 PG (27.0-31.0); MEAN CORPUSCULAR HGB CONC 33.7 g/dL (33.0-36.5); MEAN CORPUSCULAR VOLUME 83.5 FL (78-98); MEAN PLATELET VOLUME 6.8 FL (7.4-10.4); MONOCYTES # (AUTO) 0.7 X10'3 (0-0.9); MONOCYTES % (AUTO) 5.6 % (2-12); NEUTROPHILS # (AUTO) 10.2 X10'3 (1.8-7.7); NEUTROPHILS % (AUTO) 82.9 % (42-75); PLATELET COUNT 406 X10'3 (140-440); RED BLOOD COUNT 2.63 X10'6 (4.70-6.10); RED CELL DISTRIBUTION WIDTH 16.8 % (11.5-14.5); WHITE BLOOD COUNT 12.3 X10'3 (4.5-11.0)
[2022-07-23 06:25] LABS: POTASSIUM 2.9 MMOL/L (3.5-5.1)
[2022-07-23 06:32] LABS: HEMATOCRIT 21.9 % (42.0-52.0)
[2022-07-23] MEDS ORDERED: magnesium 2GM in 50ml NS 50 ML IV PRN (06:35)
[2022-07-23] MEDS ORDERED: potassium Cl 40MEQ/1/2NS 520ml 520 ML IV PRN (06:35)
[2022-07-23] MEDS ORDERED: potassium Cl 40MEQ/1/2NS 520ml 520 ML IV ONE ×2 (06:50→10:50)
[2022-07-23] MEDS: carVEDilol 3.125mg tablet PO SCH ×2 (07:59→17:23)
[2022-07-23] MEDS: lithium carbonate 150mg capsule PO SCH ×2 (07:59→20:40)
[2022-07-23] MEDS: lamoTRIgine 100mg tablet PO SCH ×2 (07:59→20:38)
[2022-07-23] MEDS: cyclobenzaprine 10mg tablet PO SCH ×2 (08:00→20:38)
[2022-07-23] MEDS: CARIPRAZINE 1.5 MG CAPSULE PO SCH (08:00)
--- NOTE | 2022-07-23 10:37 | NUR ---
Reassessment: Per EMR pt transferred to ICU for GIB. Pt had GoLytely prep and is s/p upper and lower endoscopy. LBM 07/22. Pt now on a clear liquid diet and documented with 75% PO intake of breakfast this morning. Pt will be unable to meet estimated nutrient needs on this diet. Per MD note pt initially declined LLE amputation however is now agreeable. Recommend advancing to heart healthy diet as medically indicated and implementing ONS to assist with meeting estimated nutrient needs and wound healing needs. Will continue to follow closely and make recommendations as appropriate. Recommendations: 1) Advance to heart healthy diet as medically indicated 2) Monitor need for ONS/additional protein 3) Bowel care per physician 4) Weekly scaled weights Addendum: 07/23/22 at [address] Amended: Links added.
[2022-07-23] MEDS: K and/or MAG REPLACEMENT MC SCH ×2 (15:00→19:19)
[2022-07-23] MEDS ORDERED: VANCOMYCIN LEVEL IV ONE (15:30)
[2022-07-23] MEDS: potassium Cl 20 mEq SR tablet PO PRN (15:53)
[2022-07-23 16:25] LABS: HEMATOCRIT 22.5 % (42.0-52.0); HEMOGLOBIN 7.4 g/dl (14.0-17.9); MEAN CORPUSCULAR HEMOGLOBIN 27.6 PG (27.0-31.0); MEAN CORPUSCULAR HGB CONC 32.9 g/dL (33.0-36.5); MEAN CORPUSCULAR VOLUME 84.1 FL (78-98); MEAN PLATELET VOLUME 6.8 FL (7.4-10.4); PLATELET COUNT 427 X10'3 (140-440); RED BLOOD COUNT 2.68 X10'6 (4.70-6.10); RED CELL DISTRIBUTION WIDTH 17.6 % (11.5-14.5); WHITE BLOOD COUNT 14.3 X10'3 (4.5-11.0)
--- NOTE | 2022-07-23 18:36 | NUR ---
Problems reprioritized. Patient report given, questions answered & plan of care reviewed with Prudence.
--- NOTE | 2022-07-23 19:13 | NUR ---
Patient in room ORTHO 4006. I have received report from KATHERINE BURDEN and had the opportunity to ask questions and assume patient care.
[2022-07-24] VITALS (13 sets, daily range): BP systolic 103–170; BP diastolic 72–98
[2022-07-24] MEDS: VANCOmycin 1250MG/NS 250ml Bag 250 ML IV SCH ×3 (00:49→16:22)
[2022-07-24] MEDS: piperacillin/tazo 3.375gm/50ml 50 ML IV SCH ×3 (00:49→18:23)
[2022-07-24] MEDS: potassium Cl 20 mEq SR tablet PO PRN ×3 (00:50→20:15)
[2022-07-24] MEDS: pantoprazole 40MG/NS 100ML BAG 100 ML IV SCH ×5 (00:50→21:46)
[2022-07-24] MEDS: HYDROmorphone inj. 0.5 MG/0.5 ML DISP.SYRIN IV PRN ×3 (02:57→20:15)
--- NOTE | 2022-07-24 06:22 | NUR ---
Problems reprioritized. Patient report given, questions answered & plan of care reviewed with VICTORINO BURDEN.
[2022-07-24 07:06] LABS: BASOPHILS # (AUTO) 0.1 X10'3 (0-0.2); BASOPHILS % (AUTO) 0.5 % (0-1); EOSINOPHILS # (AUTO) 0.3 X10'3 (0-0.9); EOSINOPHILS % (AUTO) 2.9 % (0-6); MEAN CORPUSCULAR HEMOGLOBIN 27.6 PG (27.0-31.0); MEAN CORPUSCULAR HGB CONC 32.6 g/dL (33.0-36.5); MEAN CORPUSCULAR VOLUME 84.7 FL (78-98); MEAN PLATELET VOLUME 6.9 FL (7.4-10.4); MONOCYTES # (AUTO) 0.8 X10'3 (0-0.9); NEUTROPHILS # (AUTO) 9.3 X10'3 (1.8-7.7); NEUTROPHILS % (AUTO) 80.6 % (42-75); PLATELET COUNT 365 X10'3 (140-440); RED BLOOD COUNT 2.33 X10'6 (4.70-6.10); RED CELL DISTRIBUTION WIDTH 17.4 % (11.5-14.5); WHITE BLOOD COUNT 11.5 X10'3 (4.5-11.0)
[2022-07-24 07:09] LABS: HEMOGLOBIN 6.4 g/dl (14.0-17.9)
[2022-07-24 07:10] LABS: HEMATOCRIT 19.7 % (42.0-52.0)
[2022-07-24 07:14] LABS: ALBUMIN 1.7 G/DL (3.4-5.0); ANION GAP 9 (8-16); BLOOD UREA NITROGEN 2 MG/DL (7-18); CALCIUM 8.1 MG/DL (8.5-10.1); CHLORIDE 108 MMOL/L (99-107); CREATININE 0.66 MG/DL (0.60-1.10); GLUCOSE 98 MG/DL (70-104); SODIUM 141 MMOL/L (135-145); TOTAL CARBON DIOXIDE 24.2 MMOL/L (24-32); eGFR > 90 ML/MIN
[2022-07-24 07:17] LABS: POTASSIUM 2.9 MMOL/L (3.5-5.1)
[2022-07-24] MEDS: cyclobenzaprine 10mg tablet PO SCH ×2 (07:50→20:14)
[2022-07-24] MEDS: carVEDilol 3.125mg tablet PO SCH ×2 (07:50→17:57)
[2022-07-24] MEDS: lamoTRIgine 100mg tablet PO SCH ×2 (07:51→20:14)
[2022-07-24] MEDS: CARIPRAZINE 1.5 MG CAPSULE PO SCH (07:53)
[2022-07-24] MEDS: HYDROcodone/acetaminophen 10/325mg tab PO PRN ×3 (07:53→22:28)
[2022-07-24] MEDS: nystatin 15 GM powder TP SCH ×2 (07:54→20:22)
[2022-07-24] MEDS: K and/or MAG REPLACEMENT MC SCH ×2 (07:57→20:07)
[2022-07-24] MEDS: normal saline 1000ml 1,000 ML IV SCH ×2 (09:26→12:41)
[2022-07-24] MEDS: lithium carbonate 150mg capsule PO SCH ×2 (09:54→20:15)
--- NOTE | 2022-07-24 18:56 | NUR ---
Patient in room ORTHO 4006. I have received report from VICTORINO BURDEN and had the opportunity to ask questions and assume patient care.
[2022-07-24 21:49] LABS: HEMATOCRIT 27.3 % (42.0-52.0); HEMOGLOBIN 8.8 g/dl (14.0-17.9); MEAN CORPUSCULAR HEMOGLOBIN 27.1 PG (27.0-31.0); MEAN CORPUSCULAR VOLUME 84.6 FL (78-98); MEAN PLATELET VOLUME 6.8 FL (7.4-10.4); PLATELET COUNT 393 X10'3 (140-440); RED BLOOD COUNT 3.23 X10'6 (4.70-6.10); RED CELL DISTRIBUTION WIDTH 16.5 % (11.5-14.5); WHITE BLOOD COUNT 12.1 X10'3 (4.5-11.0)
[2022-07-25] MEDS: piperacillin/tazo 3.375gm/50ml 50 ML IV SCH (00:08)
[2022-07-25] MEDS: VANCOmycin 1250MG/NS 250ml Bag 250 ML IV SCH ×3 (00:09→16:46)
[2022-07-25] MEDS: pantoprazole 40MG/NS 100ML BAG 100 ML IV SCH ×5 (01:50→21:35)
[2022-07-25] MEDS: potassium Cl 20 mEq SR tablet PO PRN (01:51)
[2022-07-25] MEDS ORDERED: diazepam inj 5 MG/ML inj. IV PRN (02:15)
[2022-07-25] MEDS: normal saline 1000ml 1,000 ML IV SCH ×2 (04:03→17:18)
[2022-07-25] MEDS: HYDROmorphone inj. 0.5 MG/0.5 ML DISP.SYRIN IV PRN (05:49)
[2022-07-25 06:00] VITALS: BP 119/78
--- NOTE | 2022-07-25 06:33 | NUR ---
Problems reprioritized. Patient report given, questions answered & plan of care reviewed with SAMANTA BURDEN.
--- NOTE | 2022-07-25 06:39 | NUR ---
Patient in room ORTHO 4006. I have received report from claritza gardner and had the opportunity to ask questions and assume patient care.
[2022-07-25 07:29] LABS: ALBUMIN 1.9 G/DL (3.4-5.0); ANION GAP 9 (8-16); BLOOD UREA NITROGEN 2 MG/DL (7-18); BUN/CREATININE RATIO 2.8 (10.0-20.0); CALCIUM 9.3 MG/DL (8.5-10.1); CHLORIDE 104 MMOL/L (99-107); CREATININE 0.71 MG/DL (0.60-1.10); GLUCOSE 98 MG/DL (70-104); POTASSIUM 3.9 MMOL/L (3.5-5.1); SODIUM 138 MMOL/L (135-145); TOTAL CARBON DIOXIDE 25.2 MMOL/L (24-32); eGFR > 90 ML/MIN
[2022-07-25] MEDS: K and/or MAG REPLACEMENT MC SCH ×2 (08:00→19:45)
[2022-07-25] MEDS: CARIPRAZINE 1.5 MG CAPSULE PO SCH (08:25)
[2022-07-25] MEDS: HYDROcodone/acetaminophen 10/325mg tab PO PRN ×3 (08:26→21:40)
[2022-07-25] MEDS: cyclobenzaprine 10mg tablet PO SCH ×2 (08:26→21:41)
[2022-07-25] MEDS: lithium carbonate 150mg capsule PO SCH ×2 (08:26→21:42)
[2022-07-25] MEDS: carVEDilol 3.125mg tablet PO SCH ×2 (08:26→16:46)
[2022-07-25] MEDS: lamoTRIgine 100mg tablet PO SCH ×2 (08:31→21:42)
[2022-07-25 10:00] VITALS: BP 126/76
[2022-07-25] MEDS: nystatin 15 GM powder TP SCH ×2 (13:32→21:43)
--- NOTE | 2022-07-25 13:53 | NUR ---
spoke with pts , she agreed to do a surgery consult to get a surgeons opinion about what should be done with husbands leg. she was concerned about his confusion and thought a consult would be a great place to start. i will notify dr menezes of this so one of the surgeons can be notified for consult.
--- NOTE | 2022-07-25 14:01 | NUR ---
Page Sent PAGER ID: [phone] MESSAGE: [id number] parris, talked with in regard to pts leg. we talked about having a surgical consult to get the drs opinion about her husbands leg, she would like this before she makes any definite answer to have surgery or not. thanks diego
--- NOTE | 2022-07-25 17:32 | NUR ---
pt unable to get up from bed and bed wont do a weight
[2022-07-25 18:00] VITALS: BP 110/85
--- NOTE | 2022-07-25 18:55 | NUR ---
Patient in room ORTHO 4006. I have received report from Mine BURDEN and had the opportunity to ask questions and assume patient care.
--- NOTE | 2022-07-25 18:57 | NUR ---
Problems reprioritized. Patient report given, questions answered & plan of care reviewed with román gardner.
--- NOTE | 2022-07-25 19:18 | NUR ---
Patients upset as she found out today that he has a wound to his coccyx area. I explained that was there when he was admitted to us from [place], and that a picture was taken on admit. Told her that todays picture shows much improvement (which she wanted to see) and and is being treated daily per wound care orders. Patients wanted to know if it was a pressure wound. 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 Patients wants to be informed of any new changes in her husbands treatment here. Addendum: 07/25/22 at 2300 by Domonique Alejandro RN Moisture associated skin damage.
[2022-07-25 22:00] VITALS: BP 129/86
[2022-07-26] MEDS: VANCOmycin 1250MG/NS 250ml Bag 250 ML IV SCH ×3 (00:19→16:40)
[2022-07-26] MEDS: pantoprazole 40MG/NS 100ML BAG 100 ML IV SCH ×5 (01:01→22:23)
[2022-07-26] MEDS: HYDROmorphone inj. 0.5 MG/0.5 ML DISP.SYRIN IV PRN ×2 (01:01→11:59)
[2022-07-26 06:00] VITALS: BP 161/93
[2022-07-26 06:11] LABS: BASOPHILS % (AUTO) 0.4 % (0-1); EOSINOPHILS # (AUTO) 0.5 X10'3 (0-0.9); EOSINOPHILS % (AUTO) 3.7 % (0-6); HEMATOCRIT 27.8 % (42.0-52.0); HEMOGLOBIN 9.1 g/dl (14.0-17.9); LYMPHOCYTES % (AUTO) 7.2 % (21-51); MEAN CORPUSCULAR HEMOGLOBIN 27.8 PG (27.0-31.0); MEAN CORPUSCULAR HGB CONC 32.7 g/dL (33.0-36.5); MEAN CORPUSCULAR VOLUME 84.9 FL (78-98); MONOCYTES # (AUTO) 0.9 X10'3 (0-0.9); MONOCYTES % (AUTO) 7.1 % (2-12); NEUTROPHILS # (AUTO) 10.8 X10'3 (1.8-7.7); NEUTROPHILS % (AUTO) 81.6 % (42-75); PLATELET COUNT 411 X10'3 (140-440); RED BLOOD COUNT 3.28 X10'6 (4.70-6.10); WHITE BLOOD COUNT 13.2 X10'3 (4.5-11.0)
[2022-07-26 06:28] LABS: ALANINE AMINOTRANSFERASE 54 U/L (12-78); ALBUMIN 1.9 G/DL (3.4-5.0); ALBUMIN/GLOBULIN RATIO 0.4 (1.1-1.5); ALKALINE PHOSPHATASE 65 IU/L (46-116); ANION GAP 8 (8-16); ASPARTATE AMINO TRANSFERASE 63 U/L (10-37); BILIRUBIN,TOTAL 0.4 MG/DL (0.1-1.0); BLOOD UREA NITROGEN 3 MG/DL (7-18); BUN/CREATININE RATIO 4.8 (10.0-20.0); CALCIUM 9.1 MG/DL (8.5-10.1); CHLORIDE 103 MMOL/L (99-107); CREATININE 0.62 MG/DL (0.60-1.10); GLUCOSE 113 MG/DL (70-104); SODIUM 138 MMOL/L (135-145); TOTAL CARBON DIOXIDE 26.7 MMOL/L (24-32); TOTAL PROTEIN 6.7 G/DL (6.4-8.2); eGFR > 90 ML/MIN
[2022-07-26 06:31] LABS: POTASSIUM 2.9 MMOL/L (3.5-5.1)
--- NOTE | 2022-07-26 06:54 | NUR ---
Lab called critical Potassium of 2.9 this AM. Replacement protocol is in place. made aware of.
--- NOTE | 2022-07-26 07:00 | NUR ---
Patient in room ORTHO 4006. I have received report from román gardner and had the opportunity to ask questions and assume patient care.
--- NOTE | 2022-07-26 07:19 | NUR ---
Problems reprioritized. Patient report given, questions answered & plan of care reviewed with Mine BURDEN.
[2022-07-26] MEDS: K and/or MAG REPLACEMENT MC SCH ×2 (08:00→22:25)
[2022-07-26] MEDS: lithium carbonate 150mg capsule PO SCH ×2 (08:01→22:24)
[2022-07-26] MEDS: carVEDilol 3.125mg tablet PO SCH ×2 (08:01→16:40)
[2022-07-26] MEDS: cyclobenzaprine 10mg tablet PO SCH ×2 (08:01→22:24)
[2022-07-26] MEDS: CARIPRAZINE 1.5 MG CAPSULE PO SCH (08:01)
[2022-07-26] MEDS: lamoTRIgine 100mg tablet PO SCH ×2 (08:02→22:24)
[2022-07-26] MEDS: HYDROcodone/acetaminophen 10/325mg tab PO PRN (08:02)
[2022-07-26] MEDS: nystatin 15 GM powder TP SCH ×2 (08:16→22:25)
[2022-07-26] MEDS: normal saline 1000ml 1,000 ML IV SCH ×2 (08:16→20:16)
[2022-07-26] MEDS: potassium Cl 20 mEq SR tablet PO PRN ×3 (08:39→22:25)
[2022-07-26] MEDS ORDERED: bisacodyl 10mg suppository rectal RC PRN (08:45)
[2022-07-26] MEDS ORDERED: magnesium hydroxide 30ml (MOM) UD suspension PO PRN (08:45)
[2022-07-26 10:00] VITALS: BP 123/79
--- NOTE | 2022-07-26 11:55 | NUR ---
F/u 07/26: Pt remains on clear liquids since 07/21 though actually NPO until 07/23 WB PO 100% 5 of 7 subsequent meals. Initial marginal intake first 3 heart healthy meals now NPO vs clear liquids continues to not meet needs this admit 7 days. Pt now w/ confusion in RUE restraint per EMR; slightly improved today would benefit from soft to chew foods once diet advances no concern for swallow ability per RN. Given poor nutrition status past 7 days and mild weakness pt meets minimum non-severe malnutrition criteria; MD notified. RD d/w RN regarding diet advancement if MD agreeable; now advanced to regular diet WL today per EMR. Given malnutrition status and wound healing needs RD recommends Ensure Enlive TIDWM; MD paged regarding verification needs in EMR. LBM 07/22 likely influenced by intake hx s/p GIB w/ PRN bowel regimen available. Will continue to follow. Recommendations: 1) Continue regular diet given malnutrition status and poor intake hx 2) Ensure Enlive TIDWM; pending physician verification in EMR 3) Bowel care per physician 4) Weekly scaled weights Addendum: 07/26/22 at [address] Amended: Links added. Addendum: 07/26/22 at [address] Recommendations: 1) Continue regular diet given malnutrition status and poor intake hx; soft to chew foods for ease of PO; encourage PO 2) Ensure Enlive TIDWM; pending physician verification in EMR 3) Bowel care per physician 4) Weekly scaled weights
--- NOTE | 2022-07-26 11:57 | NUR ---
per dr menezes it is fine for pt to have Dilaudid even with in being confused at times due to the nature of his wounds.
[2022-07-26] MEDS: lactose-reduced food (Ensure Enlive) - 237ml bottle PO SCH ×2 (13:00→18:00)
--- NOTE | 2022-07-26 13:09 | NUR ---
PRESSURE ULCER EDUCATION: DEFINITION: A pressure ulcer is an area of skin that breaks down when you stay in one position too long. The constant pressure against the skin reduces the blood flow to that area and the affected tissue dies. CAUSES: "Being bedridden or in a wheelchair "Fragile skin "Having a chronic condition, such as diabetes or vascular disease "Inability to move certain parts of your body without assistance "Older age "Incontinence of urine or stool SYMPTOMS: "A reddened area that DOES NOT turn white when pressed on - this can be the beginning of a pressure ulcer "A blister, deep sore or a crater - these can be advanced pressure ulcers FIRST AID: "Relieve the pressure on this area "Keep the area clean and dry "Call your primary doctor if you see any of the above symptoms "DO NOT massage the area "DO NOT use a donut shaped or ring shaped pillow- these actually interfere with the blood flow and cause complications PREVENTION: "Check for pressure ulcers everyday "Change position at least every two hours to relieve pressure "Use items that help relieve pressure- pillows, sheepskin, foam padding, and powders. "Keep skin clean and dry "Eat healthy well balanced meals "Exercise daily IF YOU SEE ANY OF THESE SYMPTOMS WHILE IN THE HOSPITAL - TELL YOUR NURSE IMMEDIATELY. IF YOU SEE ANY OF THESE SYMPTOMS WHILE AT HOME OR HAVE ANY QUESTIONS OR CONCERNS ABOUT PRESSURE ULCERS - CALL YOUR PRIMARY DOCTOR IMMEDIATELY. Addendum: 07/26/22 at 1310 by Shadia Dumas LVN Amended: Links added.
[2022-07-26 18:00] VITALS: BP 129/89
--- NOTE | 2022-07-26 18:13 | NUR ---
unable to weigh pt due to him not being able to get out of bed and bed does not have working weight. wound care has ordered a new bed and it should have a weight in it. charge nurse aware
--- NOTE | 2022-07-26 18:50 | NUR ---
Patient in room ORTHO 4006. I have received report from Mine BURDEN and had the opportunity to ask questions and assume patient care.
--- NOTE | 2022-07-26 19:27 | NUR ---
Problems reprioritized. Patient report given, questions answered & plan of care reviewed with román gardner.
[2022-07-26 22:00] VITALS: BP 102/68
[2022-07-27] MEDS: pantoprazole 40MG/NS 100ML BAG 100 ML IV SCH ×6 (00:22→22:20)
[2022-07-27] MEDS: VANCOmycin 1250MG/NS 250ml Bag 250 ML IV SCH ×3 (00:27→16:26)
[2022-07-27] MEDS: normal saline 1000ml 1,000 ML IV SCH ×2 (01:39→19:48)
[2022-07-27 06:00] VITALS: BP 130/73
--- NOTE | 2022-07-27 06:25 | NUR ---
Problems reprioritized. Patient report given, questions answered & plan of care reviewed with Mine BURDEN.
--- NOTE | 2022-07-27 06:27 | NUR ---
Patient in room ORTHO 4006. I have received report from román gardner and had the opportunity to ask questions and assume patient care.
[2022-07-27 06:43] LABS: BASOPHILS % (AUTO) 0.4 % (0-1); EOSINOPHILS # (AUTO) 0.5 X10'3 (0-0.9); EOSINOPHILS % (AUTO) 4.6 % (0-6); HEMATOCRIT 25.7 % (42.0-52.0); HEMOGLOBIN 8.6 g/dl (14.0-17.9); LYMPHOCYTES # (AUTO) 0.9 X10'3 (1.1-4.8); LYMPHOCYTES % (AUTO) 8.7 % (21-51); MEAN CORPUSCULAR HEMOGLOBIN 28.4 PG (27.0-31.0); MEAN CORPUSCULAR HGB CONC 33.6 g/dL (33.0-36.5); MEAN CORPUSCULAR VOLUME 84.6 FL (78-98); MEAN PLATELET VOLUME 6.8 FL (7.4-10.4); MONOCYTES # (AUTO) 0.9 X10'3 (0-0.9); MONOCYTES % (AUTO) 8.5 % (2-12); NEUTROPHILS # (AUTO) 8.5 X10'3 (1.8-7.7); NEUTROPHILS % (AUTO) 77.8 % (42-75); PLATELET COUNT 417 X10'3 (140-440); RED BLOOD COUNT 3.04 X10'6 (4.70-6.10); RED CELL DISTRIBUTION WIDTH 16.5 % (11.5-14.5)
[2022-07-27 06:45] LABS: ALANINE AMINOTRANSFERASE 43 U/L (12-78); ALBUMIN 1.7 G/DL (3.4-5.0); ALBUMIN/GLOBULIN RATIO 0.4 (1.1-1.5); ALKALINE PHOSPHATASE 58 IU/L (46-116); ANION GAP 12 (8-16); ASPARTATE AMINO TRANSFERASE 57 U/L (10-37); BILIRUBIN,TOTAL 0.3 MG/DL (0.1-1.0); BLOOD UREA NITROGEN 4 MG/DL (7-18); BUN/CREATININE RATIO 7.3 (10.0-20.0); CALCIUM 8.3 MG/DL (8.5-10.1); CHLORIDE 107 MMOL/L (99-107); CREATININE 0.55 MG/DL (0.60-1.10); GLUCOSE 96 MG/DL (70-104); POTASSIUM 3.3 MMOL/L (3.5-5.1); SODIUM 141 MMOL/L (135-145); TOTAL CARBON DIOXIDE 22.3 MMOL/L (24-32); TOTAL PROTEIN 6.1 G/DL (6.4-8.2); eGFR > 90 ML/MIN
[2022-07-27] MEDS: K and/or MAG REPLACEMENT MC SCH ×2 (08:00→20:00)
[2022-07-27] MEDS: nystatin 15 GM powder TP SCH (08:00)
[2022-07-27] MEDS: lamoTRIgine 100mg tablet PO SCH ×2 (09:11→22:19)
[2022-07-27] MEDS: CARIPRAZINE 1.5 MG CAPSULE PO SCH (09:11)
[2022-07-27] MEDS: cyclobenzaprine 10mg tablet PO SCH ×2 (09:11→22:19)
[2022-07-27] MEDS: lithium carbonate 150mg capsule PO SCH ×2 (09:11→22:19)
[2022-07-27] MEDS: potassium Cl 20 mEq SR tablet PO PRN ×3 (09:12→22:20)
[2022-07-27] MEDS: carVEDilol 3.125mg tablet PO SCH ×2 (09:12→16:31)
[2022-07-27 10:00] VITALS: BP 113/82
--- NOTE | 2022-07-27 10:00 | NUR ---
per hospitalist, i asked if was aware that pt had consented on his own for surgery, he stated " that dr wu would be talking to the both of them tomorrow before surgery". i made charge nurse aware of this.
[2022-07-27] MEDS: HYDROcodone/acetaminophen 10/325mg tab PO PRN (10:38)
[2022-07-27 16:35] VITALS: BP 121/86
--- NOTE | 2022-07-27 17:00 | NUR ---
at bedside with surgeon, surgeon asked patient questions about his left leg, patient said that he has 'hardware' in his left leg and surgeon said due to the 'hardware in the leg that it would be a very difficult surgery' Surgeon told the patient that he is concerned about modeling of foot and absence of pulse on the left foot/leg. patient told md 'what about taking my leg above the knee' Surgeon told patient that 'taking the leg above the knee would be an easier surgery due to not having hardware above the knee. Surgeon asked patient 'what do you think about me taking you to surgery tomorrow and taking your leg off above the knee' Patient replied 'yes, I am ok with you taking my leg tomorrow' Surgeon said 'ok, make him NPO at midnight'
[2022-07-27 18:00] VITALS: BP 126/84
[2022-07-27] MEDS: lactose-reduced food (Ensure Enlive) - 237ml bottle PO SCH (18:00)
--- NOTE | 2022-07-27 18:00 | NUR ---
attempted to call pts she did not answer, will let the night nurse know to follow up on updating on pt
--- NOTE | 2022-07-27 18:49 | NUR ---
Problems reprioritized. Patient report given, questions answered & plan of care reviewed with román gardner.
--- NOTE | 2022-07-27 18:50 | NUR ---
Patient in room ORTHO 4006. I have received report from Mine BURDEN and had the opportunity to ask questions and assume patient care.
[2022-07-27 22:00] VITALS: BP 131/87
[2022-07-28] VITALS (12 sets, daily range): BP systolic 126–161; BP diastolic 67–92
[2022-07-28] MEDS: VANCOmycin 1250MG/NS 250ml Bag 250 ML IV SCH ×4 (00:25→23:45)
[2022-07-28] MEDS: nystatin 15 GM powder TP SCH ×3 (00:25→20:07)
[2022-07-28] MEDS: HYDROcodone/acetaminophen 10/325mg tab PO PRN ×3 (00:32→20:20)
[2022-07-28] MEDS: pantoprazole 40MG/NS 100ML BAG 100 ML IV SCH ×5 (01:55→20:16)
[2022-07-28] MEDS: normal saline 1000ml 1,000 ML IV SCH ×2 (04:26→18:15)
[2022-07-28 05:52] LABS: BASOPHILS % (AUTO) 0.4 % (0-1); EOSINOPHILS # (AUTO) 0.7 X10'3 (0-0.9); EOSINOPHILS % (AUTO) 6.5 % (0-6); HEMATOCRIT 27.1 % (42.0-52.0); HEMOGLOBIN 8.7 g/dl (14.0-17.9); LYMPHOCYTES % (AUTO) 9.4 % (21-51); MEAN CORPUSCULAR VOLUME 84.6 FL (78-98); MEAN PLATELET VOLUME 7.1 FL (7.4-10.4); MONOCYTES # (AUTO) 1.1 X10'3 (0-0.9); MONOCYTES % (AUTO) 9.7 % (2-12); NEUTROPHILS # (AUTO) 8.2 X10'3 (1.8-7.7); PLATELET COUNT 464 X10'3 (140-440); RED CELL DISTRIBUTION WIDTH 17.1 % (11.5-14.5)
[2022-07-28 06:03] LABS: ALANINE AMINOTRANSFERASE 57 U/L (12-78); ALBUMIN 1.9 G/DL (3.4-5.0); ALBUMIN/GLOBULIN RATIO 0.4 (1.1-1.5); ALKALINE PHOSPHATASE 63 IU/L (46-116); ANION GAP 9 (8-16); ASPARTATE AMINO TRANSFERASE 74 U/L (10-37); BILIRUBIN,TOTAL 0.3 MG/DL (0.1-1.0); BLOOD UREA NITROGEN 5 MG/DL (7-18); BUN/CREATININE RATIO 7.4 (10.0-20.0); CALCIUM 9.1 MG/DL (8.5-10.1); CHLORIDE 105 MMOL/L (99-107); CREATININE 0.68 MG/DL (0.60-1.10); GLUCOSE 108 MG/DL (70-104); POTASSIUM 3.4 MMOL/L (3.5-5.1); SODIUM 140 MMOL/L (135-145); TOTAL CARBON DIOXIDE 26.4 MMOL/L (24-32); TOTAL PROTEIN 6.4 G/DL (6.4-8.2); eGFR > 90 ML/MIN
--- NOTE | 2022-07-28 07:02 | NUR ---
Problems reprioritized. Patient report given, questions answered & plan of care reviewed with Alise BURDEN.
[2022-07-28] MEDS: cyclobenzaprine 10mg tablet PO SCH ×2 (08:00→20:06)
[2022-07-28] MEDS: K and/or MAG REPLACEMENT MC SCH ×2 (08:00→20:00)
[2022-07-28] MEDS: lactose-reduced food (Ensure Enlive) - 237ml bottle PO SCH ×3 (08:00→18:00)
[2022-07-28] MEDS: carVEDilol 3.125mg tablet PO SCH ×2 (08:04→18:10)
[2022-07-28] MEDS: HYDROmorphone inj. 0.5 MG/0.5 ML DISP.SYRIN IV PRN ×2 (08:04→23:52)
[2022-07-28] MEDS: CARIPRAZINE 1.5 MG CAPSULE PO SCH (09:26)
[2022-07-28] MEDS: lamoTRIgine 100mg tablet PO SCH ×2 (09:26→20:06)
[2022-07-28] MEDS: potassium Cl 20 mEq SR tablet PO PRN ×2 (09:26→20:06)
[2022-07-28] MEDS: lithium carbonate 150mg capsule PO SCH ×2 (09:26→20:07)
--- NOTE | 2022-07-28 09:34 | NUR ---
WOUND VAC EDUCATION PROVIDED BY WOUND CARE 1. Patient instructed to call the Wound Center or their Home Health Agency immediately if: * They notice a change in the color or amount of the fluid in the canister. * Their wound looks more red than usual or has a foul smell. * The skin around their wound looks reddened or irritated. * The dressing feels loose or appears to be loose. * They experience any increase or changes in their pain. * The alarm will not turn off. 2. Patient instructed that they should not be disconnected from suction for more than 2 hours at a time. * If they are not able to get the suction back on, they need to remove the dressing and take all of the foam out of the wound. * Then moisten sterile gauze with normal saline and place on/in the wound. * Change the dressing once a day until arrangements have been made to replace the wound vac dressing. 3. Patient instructed to turn the wound vac machine OFF and call 911 or go to the ED immediately if their canister fills rapidly with blood. 4. If any of these occur while in the hospital tell a nurse immediately. Addendum: 07/28/22 at 0934 by Shadia Dumas LVN Amended: Links added.
--- NOTE | 2022-07-28 11:00 | NUR ---
Pt. to recovery with OR staff. OR aware AM medications given per permission of anesthesiologist. Made aware of low k level of 3.4. Pt. type and screen also and pt. has no blood band on. Recovery aware and will draw stat lab. Report given on ptEdu Jacobs to amputate left leg.
[2022-07-28] MEDS ORDERED: ondansetron/PF 4mg/2ml inj ONE (11:32)
[2022-07-28] MEDS ORDERED: dexamethasone sod phosphate 10mg/ml inj ONE (11:32)
[2022-07-28] MEDS ORDERED: neostigmine methylsulfate 1 MG/ML 10ml vial ONE (11:32)
[2022-07-28] MEDS ORDERED: glycopyrrolate 0.2mg/ml inj ONE (11:32)
[2022-07-28] MEDS ORDERED: sevoflurane 250ml liquid IH ONE (11:32)
[2022-07-28] MEDS ORDERED: midazolam 1 mg/ML 2ml injection ONE (11:48)
[2022-07-28] MEDS ORDERED: fentaNYL /PF 50mcg/ml 5ml ampule ONE (11:49)
[2022-07-28] MEDS ORDERED: propofol inj 20 ML IV ONE (12:08)
[2022-07-28] MEDS ORDERED: LIDOcaine 1%/PF 5ML 10 MG/ML VIAL ONE (12:08)
[2022-07-28] MEDS ORDERED: rocuronium 10mg/ml inj IV ONE (12:08)
[2022-07-28] MEDS ORDERED: ROPIVAcaine 0.5% (5mg/ml) 30ml vial ONE (13:14)
[2022-07-28] MEDS ORDERED: proCHLORperazine 10 MG/2 ml inj IV PRN (13:15)
[2022-07-28] MEDS ORDERED: ondansetron/PF 4mg/2ml inj IV PRN (13:15)
[2022-07-28] MEDS ORDERED: meperidine/PF 25mg/ml syringe IV PRN ×3 (13:15)
[2022-07-28] MEDS ORDERED: bacitracin 15gm ointment TP ONE ×2 (13:20→13:59)
--- NOTE | 2022-07-28 13:54 | NUR ---
Received from OR via BED, accompanied by Anesthesiologist and report given by BRYANNA Anesthesiologist. PATIENT STILL UNCONSCIOUS WITH ORAL AIRWAY, NO S/S OF PAIN, V/S WNL, LEFT UPPER ARM PICC LINE NOTED C/D/I, LEFT STUMP DRESSING C/D/I. RIGHT STUMP CONNECTED TO WOUNDVAC C/D/I. HAILE CATHETER DRAINING CLEAR YELLOW URINE OUTPUT. Addendum: 07/28/22 at 1421 by Ho Oneill RN Amended: Links added.
--- NOTE | 2022-07-28 14:54 | NUR ---
PATIENT HAS MET ALL CRITERIA FOR TRANSFER TO ORTHO FLOOR. VSS. DRESSINGS INTACT. BED LOW, CALL LIGHT PRESENT AND 2 RAILS UP. RN PRESENT TO ACCEPT CARE OF PATIENT AND REPORT HAS BEEN CALLED. ALL QUESTIONS ANSWERED TO ACCEPTING RN. Addendum: 07/28/22 at 1501 by Ho Oneill RN Amended: Links added.
--- NOTE | 2022-07-28 16:00 | NUR ---
Pt. refusing to have post op VS taken. Keeps taking blood pressure cuff off and throwing it on the ground. Educated.
--- NOTE | 2022-07-28 18:00 | NUR ---
Patient in room ORTHO 4006. I have received report from JENISE Carrero and had the opportunity to ask questions and assume patient care.
--- NOTE | 2022-07-28 18:52 | NUR ---
Gave report to Angela BURDEN.
--- NOTE | 2022-07-28 22:30 | NUR ---
Spoke with Dr Betts re: Pt SOB with min exertion. Fine crackles through-out. IV dc'd per Brenda at 2119. Gregory pedal edema noted 2-3+ right foot 1+ left. Breathing is labored, sats stable. "O" for cxr, and 20mg of Lasix. Pt comfortable when at rest and undisturbed.
[2022-07-29] MEDS: pantoprazole 40MG/NS 100ML BAG 100 ML IV SCH ×5 (01:05→21:25)
[2022-07-29] MEDS: HYDROcodone/acetaminophen 10/325mg tab PO PRN ×2 (05:36→16:37)
[2022-07-29 05:51] LABS: BASOPHILS % (AUTO) 0.1 % (0-1); EOSINOPHILS % (AUTO) 0.2 % (0-6); HEMATOCRIT 27.4 % (42.0-52.0); HEMOGLOBIN 9.1 g/dl (14.0-17.9); LYMPHOCYTES # (AUTO) 1.2 X10'3 (1.1-4.8); LYMPHOCYTES % (AUTO) 8.3 % (21-51); MEAN CORPUSCULAR HEMOGLOBIN 27.8 PG (27.0-31.0); MEAN CORPUSCULAR HGB CONC 33.1 g/dL (33.0-36.5); MEAN CORPUSCULAR VOLUME 83.8 FL (78-98); MEAN PLATELET VOLUME 6.9 FL (7.4-10.4); MONOCYTES # (AUTO) 1.1 X10'3 (0-0.9); MONOCYTES % (AUTO) 7.9 % (2-12); NEUTROPHILS # (AUTO) 11.9 X10'3 (1.8-7.7); NEUTROPHILS % (AUTO) 83.5 % (42-75); PLATELET COUNT 507 X10'3 (140-440); RED BLOOD COUNT 3.27 X10'6 (4.70-6.10); RED CELL DISTRIBUTION WIDTH 16.9 % (11.5-14.5); WHITE BLOOD COUNT 14.2 X10'3 (4.5-11.0)
[2022-07-29 06:29] LABS: ALANINE AMINOTRANSFERASE 78 U/L (12-78); ALBUMIN 2.1 G/DL (3.4-5.0); ALBUMIN/GLOBULIN RATIO 0.4 (1.1-1.5); ALKALINE PHOSPHATASE 70 IU/L (46-116); ANION GAP 10 (8-16); ASPARTATE AMINO TRANSFERASE 86 U/L (10-37); BILIRUBIN,TOTAL 0.4 MG/DL (0.1-1.0); BLOOD UREA NITROGEN 7 MG/DL (7-18); BUN/CREATININE RATIO 10.8 (10.0-20.0); CALCIUM 9.2 MG/DL (8.5-10.1); CHLORIDE 103 MMOL/L (99-107); CREATININE 0.65 MG/DL (0.60-1.10); GLUCOSE 107 MG/DL (70-104); POTASSIUM 3.6 MMOL/L (3.5-5.1); SODIUM 138 MMOL/L (135-145); TOTAL CARBON DIOXIDE 25.2 MMOL/L (24-32); eGFR > 90 ML/MIN
--- NOTE | 2022-07-29 06:31 | NUR ---
Problems reprioritized. Patient report given, questions answered & plan of care reviewed with JENISE Carrero.
[2022-07-29 06:53] VITALS: BP 156/81
[2022-07-29] MEDS: K and/or MAG REPLACEMENT MC SCH ×2 (08:00→19:31)
[2022-07-29] MEDS: lamoTRIgine 100mg tablet PO SCH ×2 (08:14→20:05)
[2022-07-29] MEDS: normal saline 1000ml 1,000 ML IV SCH ×3 (08:14→23:43)
[2022-07-29] MEDS: CARIPRAZINE 1.5 MG CAPSULE PO SCH (08:15)
[2022-07-29] MEDS: lactose-reduced food (Ensure Enlive) - 237ml bottle PO SCH ×3 (08:15→18:02)
[2022-07-29] MEDS: lithium carbonate 150mg capsule PO SCH ×2 (08:15→20:05)
[2022-07-29] MEDS: cyclobenzaprine 10mg tablet PO SCH ×2 (08:16→20:05)
[2022-07-29] MEDS: carVEDilol 3.125mg tablet PO SCH ×2 (08:16→16:37)
[2022-07-29] MEDS: HYDROmorphone inj. 0.5 MG/0.5 ML DISP.SYRIN IV PRN (08:17)
[2022-07-29] MEDS: VANCOmycin 1250MG/NS 250ml Bag 250 ML IV SCH ×3 (08:17→23:39)
[2022-07-29] MEDS: nystatin 15 GM powder TP SCH ×2 (08:53→20:06)
--- NOTE | 2022-07-29 13:24 | NUR ---
Reassessment: Per EMR pt POD #1 s/p left AKA, estimated nutrient needs have been adjusted accordingly. Overall PO intake is poor, documented with mostly 25% PO intake however up to 50% at breakfast this morning. Pt now receiving an Ensure Enlive TID, documented with 100% PO intake of first ONS. IF pt continues with 100% PO intake of ONS TID this will meet 67% estimated energy needs and 80% estimated protein needs and pt will only need to average 25% PO intake of meals to meet 100% estimated energy and protein needs. Per EMR LBM 07/28. No further nutrition intervention implemented at this time. Will continue to follow closely. Recommendations: 1) Continue regular diet given malnutrition status and poor intake hx; soft to chew foods for ease of PO; encourage PO 2) Ensure Enlive TIDWM; monitor need for additional ONS/protein 3) Routine and PRN bowel care 4) Weekly scaled weights Addendum: 07/29/22 at [address] Amended: Links added.
--- NOTE | 2022-07-29 14:57 | NUR ---
WOC note. Wound team alerted that this pleasantly confused patient pulled suction tube off NPWT. I had been in his room about an hour prior because the drape had a leak, which primary nurse fixed without issue. At that time good suction was noted at 125mmHg. The patient then pulled NPWT suction tube off of his dressing. the suction tube was replaced with a good seal noted at 125mmHg. Alarms on and audible. Plan to change vac tomorrow per MD orders. I wrapped his leg with kerlix and reinforced suction tubing, also attempted to run in down the bed away from his hands. Reported off to primary nurse.
[2022-07-29 18:00] VITALS: BP 179/92
--- NOTE | 2022-07-29 18:31 | NUR ---
Patient in room ORTHO 4006. I have received report from JENISE Carrero and had the opportunity to ask questions and assume patient care.
[2022-07-29] MEDS: HYDROmorphone/PF 0.2 MG/ML SYRINGE IV PRN (20:05)
[2022-07-29 22:00] VITALS: BP 173/73
[2022-07-29 23:47] VITALS: BP 165/86
[2022-07-30] MEDS: pantoprazole 40MG/NS 100ML BAG 100 ML IV SCH ×2 (02:08→07:05)
[2022-07-30 06:00] VITALS: BP 146/89
--- NOTE | 2022-07-30 06:13 | NUR ---
Problems reprioritized. Patient report given, questions answered & plan of care reviewed with JENISE Nazario.
[2022-07-30] MEDS: carVEDilol 3.125mg tablet PO SCH ×2 (07:05→17:06)
[2022-07-30 07:06] VITALS: BP 139/87
[2022-07-30] MEDS ORDERED: VANCOMYCIN LEVEL IV ONE (07:30)
[2022-07-30] MEDS: K and/or MAG REPLACEMENT MC SCH ×2 (08:00→19:12)
[2022-07-30] MEDS: lactose-reduced food (Ensure Enlive) - 237ml bottle PO SCH ×3 (08:00→18:53)
[2022-07-30] MEDS: HYDROmorphone inj. 0.5 MG/0.5 ML DISP.SYRIN IV PRN (09:11)
[2022-07-30] MEDS: lamoTRIgine 100mg tablet PO SCH ×2 (09:31→19:54)
[2022-07-30] MEDS: cyclobenzaprine 10mg tablet PO SCH ×2 (09:31→19:54)
[2022-07-30] MEDS: CARIPRAZINE 1.5 MG CAPSULE PO SCH (09:31)
[2022-07-30] MEDS: nystatin 15 GM powder TP SCH ×2 (09:32→19:54)
[2022-07-30] MEDS: lithium carbonate 150mg capsule PO SCH ×2 (09:32→19:54)
[2022-07-30] MEDS: VANCOmycin 1250MG/NS 250ml Bag 250 ML IV SCH ×3 (09:32→23:58)
[2022-07-30 09:52] LABS: BASOPHILS # (AUTO) 0.1 X10'3 (0-0.2); BASOPHILS % (AUTO) 0.4 % (0-1); EOSINOPHILS # (AUTO) 0.1 X10'3 (0-0.9); EOSINOPHILS % (AUTO) 0.9 % (0-6); HEMATOCRIT 28.4 % (42.0-52.0); HEMOGLOBIN 9.2 g/dl (14.0-17.9); LYMPHOCYTES # (AUTO) 0.8 X10'3 (1.1-4.8); LYMPHOCYTES % (AUTO) 5.6 % (21-51); MEAN CORPUSCULAR HEMOGLOBIN 27.3 PG (27.0-31.0); MEAN CORPUSCULAR HGB CONC 32.5 g/dL (33.0-36.5); MEAN CORPUSCULAR VOLUME 83.9 FL (78-98); MEAN PLATELET VOLUME 6.9 FL (7.4-10.4); MONOCYTES # (AUTO) 1.3 X10'3 (0-0.9); MONOCYTES % (AUTO) 8.6 % (2-12); NEUTROPHILS # (AUTO) 12.5 X10'3 (1.8-7.7); NEUTROPHILS % (AUTO) 84.5 % (42-75); PLATELET COUNT 514 X10'3 (140-440); RED BLOOD COUNT 3.38 X10'6 (4.70-6.10); RED CELL DISTRIBUTION WIDTH 16.7 % (11.5-14.5); WHITE BLOOD COUNT 14.8 X10'3 (4.5-11.0)
[2022-07-30 09:57] LABS: ALANINE AMINOTRANSFERASE 106 U/L (12-78); ALBUMIN 1.9 G/DL (3.4-5.0); ALBUMIN/GLOBULIN RATIO 0.4 (1.1-1.5); ALKALINE PHOSPHATASE 80 IU/L (46-116); ANION GAP 8 (8-16); ASPARTATE AMINO TRANSFERASE 82 U/L (10-37); BILIRUBIN,TOTAL 0.3 MG/DL (0.1-1.0); BLOOD UREA NITROGEN 10 MG/DL (7-18); BUN/CREATININE RATIO 12.8 (10.0-20.0); CALCIUM 8.9 MG/DL (8.5-10.1); CHLORIDE 105 MMOL/L (99-107); CREATININE 0.78 MG/DL (0.60-1.10); GLUCOSE 160 MG/DL (70-104); SODIUM 139 MMOL/L (135-145); TOTAL CARBON DIOXIDE 26.2 MMOL/L (24-32); TOTAL PROTEIN 6.8 G/DL (6.4-8.2); VANCOMYCIN,TROUGH 15.8 UG/ML (6.0-14.0); eGFR > 90 ML/MIN
[2022-07-30 10:00] VITALS: BP 133/80
[2022-07-30 10:10] LABS: POTASSIUM 2.9 MMOL/L (3.5-5.1)
--- NOTE | 2022-07-30 10:15 | NUR ---
RN paged Rusu to notify K+ 2.9, will replace per orders
[2022-07-30] MEDS: potassium Cl 20 mEq SR tablet PO PRN ×3 (11:43→22:43)
--- NOTE | 2022-07-30 14:40 | NUR ---
WOUND VAC EDUCATION PROVIDED BY WOUND CARE 1. Patient instructed to call the Wound Center or their Home Health Agency immediately if: * They notice a change in the color or amount of the fluid in the canister. * Their wound looks more red than usual or has a foul smell. * The skin around their wound looks reddened or irritated. * The dressing feels loose or appears to be loose. * They experience any increase or changes in their pain. * The alarm will not turn off. 2. Patient instructed that they should not be disconnected from suction for more than 2 hours at a time. * If they are not able to get the suction back on, they need to remove the dressing and take all of the foam out of the wound. * Then moisten sterile gauze with normal saline and place on/in the wound. * Change the dressing once a day until arrangements have been made to replace the wound vac dressing. 3. Patient instructed to turn the wound vac machine OFF and call 911 or go to the ED immediately if their canister fills rapidly with blood. 4. If any of these occur while in the hospital tell a nurse immediately. Addendum: 07/30/22 at 1440 by Shadia Dumas LVN Amended: Links added.
[2022-07-30 18:00] VITALS: BP 136/70
--- NOTE | 2022-07-30 18:23 | NUR ---
Problems reprioritized. Patient report given, questions answered & plan of care reviewed with Prudence RN.
--- NOTE | 2022-07-30 18:49 | NUR ---
Patient in room ORTHO 4006. I have received report from CLINT BURDEN and had the opportunity to ask questions and assume patient care.
[2022-07-30] MEDS: HYDROmorphone/PF 0.2 MG/ML SYRINGE IV PRN (19:54)
[2022-07-30] MEDS: normal saline 1000ml 1,000 ML IV SCH (19:55)
[2022-07-30 22:00] VITALS: BP 148/86
[2022-07-30] MEDS: HYDROcodone/acetaminophen 10/325mg tab PO PRN (22:42)
[2022-07-31] MEDS: HYDROmorphone inj. 0.5 MG/0.5 ML DISP.SYRIN IV PRN ×3 (03:16→19:41)
[2022-07-31 05:41] LABS: ALANINE AMINOTRANSFERASE 114 U/L (12-78); ALBUMIN 1.9 G/DL (3.4-5.0); ALBUMIN/GLOBULIN RATIO 0.4 (1.1-1.5); ALKALINE PHOSPHATASE 88 IU/L (46-116); ANION GAP 7 (8-16); ASPARTATE AMINO TRANSFERASE 92 U/L (10-37); BILIRUBIN,TOTAL 0.4 MG/DL (0.1-1.0); BLOOD UREA NITROGEN 9 MG/DL (7-18); BUN/CREATININE RATIO 14.5 (10.0-20.0); CALCIUM 9.4 MG/DL (8.5-10.1); CHLORIDE 105 MMOL/L (99-107); CREATININE 0.62 MG/DL (0.60-1.10); GLUCOSE 146 MG/DL (70-104); POTASSIUM 3.9 MMOL/L (3.5-5.1); SODIUM 137 MMOL/L (135-145); TOTAL CARBON DIOXIDE 25.1 MMOL/L (24-32); TOTAL PROTEIN 6.9 G/DL (6.4-8.2); eGFR > 90 ML/MIN
[2022-07-31 06:06] LABS: BASOPHILS # (AUTO) 0.1 X10'3 (0-0.2); BASOPHILS % (AUTO) 0.4 % (0-1); EOSINOPHILS # (AUTO) 0.3 X10'3 (0-0.9); EOSINOPHILS % (AUTO) 1.7 % (0-6); HEMATOCRIT 27.4 % (42.0-52.0); HEMOGLOBIN 8.9 g/dl (14.0-17.9); LYMPHOCYTES # (AUTO) 1.2 X10'3 (1.1-4.8); LYMPHOCYTES % (AUTO) 6.5 % (21-51); MEAN CORPUSCULAR HEMOGLOBIN 27.2 PG (27.0-31.0); MEAN CORPUSCULAR HGB CONC 32.5 g/dL (33.0-36.5); MEAN CORPUSCULAR VOLUME 83.6 FL (78-98); MEAN PLATELET VOLUME 7.1 FL (7.4-10.4); MONOCYTES # (AUTO) 1.2 X10'3 (0-0.9); MONOCYTES % (AUTO) 6.5 % (2-12); NEUTROPHILS # (AUTO) 15.1 X10'3 (1.8-7.7); NEUTROPHILS % (AUTO) 84.9 % (42-75); PLATELET COUNT 479 X10'3 (140-440); RED BLOOD COUNT 3.28 X10'6 (4.70-6.10); RED CELL DISTRIBUTION WIDTH 16.9 % (11.5-14.5); WHITE BLOOD COUNT 17.8 X10'3 (4.5-11.0)
[2022-07-31] MEDS: normal saline 1000ml 1,000 ML IV SCH ×2 (06:24→17:40)
--- NOTE | 2022-07-31 06:24 | NUR ---
Problems reprioritized. Patient report given, questions answered & plan of care reviewed with DIDIER BURDEN.
[2022-07-31 06:30] VITALS: BP 150/87
--- NOTE | 2022-07-31 06:30 | NUR ---
Patient in room ORTHO 4006. I have received report from Leatha and had the opportunity to ask questions and assume patient care.
[2022-07-31] MEDS: carVEDilol 3.125mg tablet PO SCH ×2 (07:57→17:40)
[2022-07-31] MEDS: VANCOmycin 1250MG/NS 250ml Bag 250 ML IV SCH ×2 (07:57→16:24)
[2022-07-31] MEDS: lactose-reduced food (Ensure Enlive) - 237ml bottle PO SCH ×3 (07:58→17:44)
[2022-07-31] MEDS: lamoTRIgine 100mg tablet PO SCH ×2 (07:58→19:41)
[2022-07-31] MEDS: cyclobenzaprine 10mg tablet PO SCH ×2 (07:58→19:41)
[2022-07-31] MEDS: lithium carbonate 150mg capsule PO SCH ×2 (07:58→19:41)
[2022-07-31] MEDS: K and/or MAG REPLACEMENT MC SCH ×2 (08:00→20:21)
[2022-07-31] MEDS: CARIPRAZINE 1.5 MG CAPSULE PO SCH (08:02)
[2022-07-31] MEDS: nystatin 15 GM powder TP SCH ×2 (08:02→19:44)
[2022-07-31 10:00] VITALS: BP 151/88
[2022-07-31 18:00] VITALS: BP 139/91
--- NOTE | 2022-07-31 18:08 | NUR ---
Problems reprioritized. Patient report given, questions answered & plan of care reviewed with Prudence.
--- NOTE | 2022-07-31 18:51 | NUR ---
Patient in room ORTHO 4006. I have received report from DIDIER BURDEN and had the opportunity to ask questions and assume patient care.
[2022-07-31 22:00] VITALS: BP 149/87
[2022-08-01] MEDS: VANCOmycin 1250MG/NS 250ml Bag 250 ML IV SCH ×3 (00:05→16:33)
[2022-08-01 05:03] LABS: BASOPHILS # (AUTO) 0.1 X10'3 (0-0.2); BASOPHILS % (AUTO) 0.3 % (0-1); EOSINOPHILS # (AUTO) 0.6 X10'3 (0-0.9); EOSINOPHILS % (AUTO) 3.6 % (0-6); HEMATOCRIT 26.9 % (42.0-52.0); HEMOGLOBIN 8.9 g/dl (14.0-17.9); LYMPHOCYTES # (AUTO) 1.1 X10'3 (1.1-4.8); MEAN CORPUSCULAR HEMOGLOBIN 27.5 PG (27.0-31.0); MEAN CORPUSCULAR VOLUME 83.3 FL (78-98); MEAN PLATELET VOLUME 6.8 FL (7.4-10.4); MONOCYTES # (AUTO) 1.2 X10'3 (0-0.9); MONOCYTES % (AUTO) 7.6 % (2-12); NEUTROPHILS # (AUTO) 12.7 X10'3 (1.8-7.7); NEUTROPHILS % (AUTO) 81.5 % (42-75); PLATELET COUNT 524 X10'3 (140-440); RED BLOOD COUNT 3.23 X10'6 (4.70-6.10); RED CELL DISTRIBUTION WIDTH 17.4 % (11.5-14.5); WHITE BLOOD COUNT 15.6 X10'3 (4.5-11.0)
[2022-08-01 05:32] LABS: ALANINE AMINOTRANSFERASE 151 U/L (12-78); ALBUMIN/GLOBULIN RATIO 0.4 (1.1-1.5); ALKALINE PHOSPHATASE 114 IU/L (46-116); ANION GAP 9 (8-16); ASPARTATE AMINO TRANSFERASE 114 U/L (10-37); BILIRUBIN,TOTAL 0.3 MG/DL (0.1-1.0); BLOOD UREA NITROGEN 9 MG/DL (7-18); BUN/CREATININE RATIO 12.9 (10.0-20.0); CALCIUM 9.4 MG/DL (8.5-10.1); CHLORIDE 103 MMOL/L (99-107); GLUCOSE 121 MG/DL (70-104); POTASSIUM 3.4 MMOL/L (3.5-5.1); SODIUM 138 MMOL/L (135-145); TOTAL CARBON DIOXIDE 26.2 MMOL/L (24-32); eGFR > 90 ML/MIN
[2022-08-01] MEDS: normal saline 1000ml 1,000 ML IV SCH ×2 (05:42→17:25)
[2022-08-01 06:00] VITALS: BP 166/91
--- NOTE | 2022-08-01 06:09 | NUR ---
Problems reprioritized. Patient report given, questions answered & plan of care reviewed with DIDIER BURDEN.
--- NOTE | 2022-08-01 06:47 | NUR ---
Patient in room ORTHO 4006. I have received report from Leatha and had the opportunity to ask questions and assume patient care.
[2022-08-01] MEDS: lactose-reduced food (Ensure Enlive) - 237ml bottle PO SCH ×3 (07:37→17:35)
[2022-08-01] MEDS: K and/or MAG REPLACEMENT MC SCH ×2 (07:37→20:00)
[2022-08-01] MEDS: carVEDilol 3.125mg tablet PO SCH ×2 (07:50→17:38)
[2022-08-01] MEDS: lithium carbonate 150mg capsule PO SCH ×2 (07:51→20:20)
[2022-08-01] MEDS: cyclobenzaprine 10mg tablet PO SCH ×2 (07:51→20:20)
[2022-08-01] MEDS: lamoTRIgine 100mg tablet PO SCH ×2 (07:51→20:19)
[2022-08-01] MEDS: nystatin 15 GM powder TP SCH ×2 (07:52→20:21)
[2022-08-01] MEDS: CARIPRAZINE 1.5 MG CAPSULE PO SCH (07:52)
[2022-08-01] MEDS: HYDROmorphone inj. 0.5 MG/0.5 ML DISP.SYRIN IV PRN ×2 (09:14→17:38)
[2022-08-01 10:00] VITALS: BP 136/85
--- NOTE | 2022-08-01 11:19 | NUR ---
Reassessment: PO intake fluctuates with meal intake noticeably decreased since 07/31, possibly r/t confusion as pt more confused that day per physician notes. Pt documented with average 30% PO intake of meals since 07/30 and average 75% PO intake of Ensure Enlive TID. Combined PO intake of meals and ONS meets 96% estimated energy needs and 100% estimated protein needs. IF pt continues to average 75% PO intake of ONS he will only need to average 33% PO intake of meals to meet 100% estimated energy and protein needs. LBM 07/30, with PRN bowel care available. No further nutrition intervention implemented at this time. Will continue to follow closely. Recommendations: 1) Continue regular diet given malnutrition status and poor intake hx; soft to chew foods for ease of PO; encourage PO 2) Ensure Enlive TIDWM; monitor need for additional ONS/protein 3) Routine and PRN bowel care 4) Weekly scaled weights Addendum: 08/01/22 at [address] Amended: Links added.
[2022-08-01] MEDS: potassium Cl 20 mEq SR tablet PO PRN ×2 (14:59→20:20)
[2022-08-01 18:00] VITALS: BP 142/86
--- NOTE | 2022-08-01 18:22 | NUR ---
Problems reprioritized. Patient report given, questions answered & plan of care reviewed with Ines Corey
--- NOTE | 2022-08-01 18:25 | NUR ---
Patient in room ORTHO 4006. I have received report from JENISE Bucio and had the opportunity to ask questions and assume patient care. Patient sitting up in bed, in no obvious distress. His words a slurred and I cannot understand him.
[2022-08-01 22:00] VITALS: BP 140/88
[2022-08-02] MEDS: VANCOmycin 1250MG/NS 250ml Bag 250 ML IV SCH ×3 (00:20→16:22)
[2022-08-02] MEDS: normal saline 1000ml 1,000 ML IV SCH ×2 (00:22→16:22)
[2022-08-02 06:00] VITALS: BP 142/83
[2022-08-02] MEDS ORDERED: paliperidone palmitate inj 234 MG/1.5 ML SYRINGE IM SCH (06:30)
--- NOTE | 2022-08-02 06:34 | NUR ---
Problems reprioritized. Patient report given, questions answered & plan of care reviewed with JENISE Bucio.
--- NOTE | 2022-08-02 06:42 | NUR ---
Patient in room ORTHO 4017. I have received report from Ines Corey and had the opportunity to ask questions and assume patient care.
[2022-08-02] MEDS: K and/or MAG REPLACEMENT MC SCH ×2 (08:00→20:00)
[2022-08-02] MEDS: lactose-reduced food (Ensure Enlive) - 237ml bottle PO SCH ×3 (08:06→17:36)
[2022-08-02] MEDS: cyclobenzaprine 10mg tablet PO SCH ×2 (08:06→20:08)
[2022-08-02] MEDS: lamoTRIgine 100mg tablet PO SCH ×2 (08:08→20:07)
[2022-08-02] MEDS: CARIPRAZINE 1.5 MG CAPSULE PO SCH (08:09)
[2022-08-02] MEDS: lithium carbonate 150mg capsule PO SCH ×2 (08:09→20:08)
[2022-08-02] MEDS: nystatin 15 GM powder TP SCH ×2 (08:09→20:29)
[2022-08-02] MEDS: carVEDilol 3.125mg tablet PO SCH ×2 (08:10→20:08)
[2022-08-02 09:07] LABS: BASOPHILS % (AUTO) 0.2 % (0-1); EOSINOPHILS # (AUTO) 0.3 X10'3 (0-0.9); EOSINOPHILS % (AUTO) 2.1 % (0-6); HEMATOCRIT 27.1 % (42.0-52.0); HEMOGLOBIN 8.8 g/dl (14.0-17.9); LYMPHOCYTES % (AUTO) 6.5 % (21-51); MEAN CORPUSCULAR HGB CONC 32.5 g/dL (33.0-36.5); MEAN CORPUSCULAR VOLUME 83.2 FL (78-98); MONOCYTES % (AUTO) 6.3 % (2-12); NEUTROPHILS # (AUTO) 13.1 X10'3 (1.8-7.7); NEUTROPHILS % (AUTO) 84.9 % (42-75); PLATELET COUNT 561 X10'3 (140-440); RED BLOOD COUNT 3.25 X10'6 (4.70-6.10); RED CELL DISTRIBUTION WIDTH 17.5 % (11.5-14.5); WHITE BLOOD COUNT 15.5 X10'3 (4.5-11.0)
[2022-08-02 09:24] LABS: ALANINE AMINOTRANSFERASE 194 U/L (12-78); ALBUMIN 1.9 G/DL (3.4-5.0); ALBUMIN/GLOBULIN RATIO 0.4 (1.1-1.5); ALKALINE PHOSPHATASE 135 IU/L (46-116); ANION GAP 10 (8-16); ASPARTATE AMINO TRANSFERASE 190 U/L (10-37); BILIRUBIN,TOTAL 0.5 MG/DL (0.1-1.0); BLOOD UREA NITROGEN 10 MG/DL (7-18); BUN/CREATININE RATIO 12.5 (10.0-20.0); CALCIUM 9.2 MG/DL (8.5-10.1); CHLORIDE 106 MMOL/L (99-107); GLUCOSE 156 MG/DL (70-104); POTASSIUM 3.4 MMOL/L (3.5-5.1); SODIUM 141 MMOL/L (135-145); TOTAL CARBON DIOXIDE 25.3 MMOL/L (24-32); TOTAL PROTEIN 7.1 G/DL (6.4-8.2); eGFR > 90 ML/MIN
[2022-08-02] MEDS: HYDROmorphone inj. 0.5 MG/0.5 ML DISP.SYRIN IV PRN (09:37)
[2022-08-02 10:00] VITALS: BP 136/82
--- NOTE | 2022-08-02 10:40 | NUR ---
Spoke with patient's Carola, provided status update. She expressed that she does not wish to have patient discharge to [place] and prefers patient does not go further than [place].
[2022-08-02 13:47] LABS: CLARITY,URINE CLEAR (Clear); COLOR,URINE YELLOW (Yellow); GLUCOSE, URINE NEGATIVE (Neg); KETONES,URINE NEGATIVE (Neg); LEUKOCYTE ESTERASE ,URINE NEGATIVE (Neg); NITRITES, URINE NEGATIVE (Neg); OCCULT BLOOD,URINE SMALL (Neg); PROTEIN,URINE TRACE mg/dl (Neg)
[2022-08-02 13:56] LABS: UA COLLECTION TYPE FOLEY CATH
[2022-08-02 14:08] LABS: BACTERIA,URINE NONE SEEN /HPF (Neg); SQUAMOUS EPITHELIAL CELL,UR NONE SEEN /LPF (FEW); WBC,URINE 0-4 /HPF (0-4)
--- NOTE | 2022-08-02 18:28 | NUR ---
Problems reprioritized. Patient report given, questions answered & plan of care reviewed with
[2022-08-02 18:30] VITALS: BP 138/79
[2022-08-02 22:00] VITALS: BP 133/88
[2022-08-03] MEDS: VANCOmycin 1250MG/NS 250ml Bag 250 ML IV SCH ×3 (00:36→15:23)
[2022-08-03] MEDS: normal saline 1000ml 1,000 ML IV SCH ×3 (04:46→22:48)
[2022-08-03 06:00] VITALS: BP 136/93
--- NOTE | 2022-08-03 06:05 | NUR ---
received report from tiago, rn
[2022-08-03 07:07] LABS: BASOPHILS # (AUTO) 0.1 X10'3 (0-0.2); BASOPHILS % (AUTO) 0.4 % (0-1); EOSINOPHILS # (AUTO) 0.4 X10'3 (0-0.9); EOSINOPHILS % (AUTO) 3.3 % (0-6); HEMATOCRIT 25.9 % (42.0-52.0); HEMOGLOBIN 8.4 g/dl (14.0-17.9); MEAN CORPUSCULAR HEMOGLOBIN 26.7 PG (27.0-31.0); MEAN CORPUSCULAR HGB CONC 32.4 g/dL (33.0-36.5); MEAN CORPUSCULAR VOLUME 82.4 FL (78-98); MEAN PLATELET VOLUME 6.9 FL (7.4-10.4); MONOCYTES # (AUTO) 1.1 X10'3 (0-0.9); MONOCYTES % (AUTO) 7.8 % (2-12); NEUTROPHILS # (AUTO) 11.1 X10'3 (1.8-7.7); NEUTROPHILS % (AUTO) 81.5 % (42-75); PLATELET COUNT 489 X10'3 (140-440); RED BLOOD COUNT 3.14 X10'6 (4.70-6.10); RED CELL DISTRIBUTION WIDTH 17.8 % (11.5-14.5); WHITE BLOOD COUNT 13.7 X10'3 (4.5-11.0)
[2022-08-03] MEDS: carVEDilol 3.125mg tablet PO SCH ×2 (07:20→17:04)
[2022-08-03] MEDS: lamoTRIgine 100mg tablet PO SCH ×2 (07:21→20:34)
[2022-08-03] MEDS: lithium carbonate 150mg capsule PO SCH ×2 (07:21→20:34)
[2022-08-03] MEDS: cyclobenzaprine 10mg tablet PO SCH ×2 (07:21→20:34)
[2022-08-03] MEDS: nystatin 15 GM powder TP SCH ×2 (07:22→20:42)
[2022-08-03] MEDS: CARIPRAZINE 1.5 MG CAPSULE PO SCH (07:22)
[2022-08-03] MEDS: lactose-reduced food (Ensure Enlive) - 237ml bottle PO SCH ×3 (07:36→18:03)
[2022-08-03 07:42] LABS: ALANINE AMINOTRANSFERASE 154 U/L (12-78); ALBUMIN 1.7 G/DL (3.4-5.0); ALBUMIN/GLOBULIN RATIO 0.3 (1.1-1.5); ALKALINE PHOSPHATASE 124 IU/L (46-116); ANION GAP 11 (8-16); ASPARTATE AMINO TRANSFERASE 98 U/L (10-37); BILIRUBIN,TOTAL 0.5 MG/DL (0.1-1.0); BLOOD UREA NITROGEN 10 MG/DL (7-18); BUN/CREATININE RATIO 14.9 (10.0-20.0); CALCIUM 9.3 MG/DL (8.5-10.1); CHLORIDE 108 MMOL/L (99-107); CREATININE 0.67 MG/DL (0.60-1.10); GLUCOSE 105 MG/DL (70-104); POTASSIUM 3.3 MMOL/L (3.5-5.1); SODIUM 143 MMOL/L (135-145); TOTAL CARBON DIOXIDE 24.5 MMOL/L (24-32); TOTAL PROTEIN 6.8 G/DL (6.4-8.2); eGFR > 90 ML/MIN
[2022-08-03] MEDS: K and/or MAG REPLACEMENT MC SCH ×2 (08:00→20:00)
--- NOTE | 2022-08-03 09:50 | NUR ---
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 The Primary nurse was on the way in the room to render alana care and reposition. The pt. was greeted and intent explained. He responds in unintelligible speech with a nod, clarification with verbal response of lokeshah. Alana care rendered, coccyx wound care performed and pt. repositioned. The R AKA NPWT dressing is intact and adherent with the machine functioning as expected. The eschar of the R anterior residual limb remains intact and dry, care provided and AKA rewrapped with gauze roll. The pt. was left in the care of the primary nurse.
[2022-08-03 11:00] VITALS: BP 146/89
[2022-08-03] MEDS: potassium Cl 20 mEq SR tablet PO PRN ×2 (13:01→22:47)
[2022-08-03] MEDS: piperacillin/tazo 4.5gm/100ml 100 ML IV SCH (15:23)
[2022-08-03 18:00] VITALS: BP 171/77
--- NOTE | 2022-08-03 18:10 | NUR ---
gave report to dajuan longo rn
[2022-08-03] MEDS: HYDROmorphone inj. 0.5 MG/0.5 ML DISP.SYRIN IV PRN (20:35)
[2022-08-03 22:00] VITALS: BP 158/71
[2022-08-04] MEDS: VANCOmycin 1250MG/NS 250ml Bag 250 ML IV SCH ×3 (00:42→16:42)
[2022-08-04] MEDS: piperacillin/tazo 4.5gm/100ml 100 ML IV SCH ×3 (00:46→16:42)
--- NOTE | 2022-08-04 06:22 | NUR ---
Problems reprioritized. Patient report given, questions answered & plan of care reviewed with JENISE Bowers.
[2022-08-04 06:50] LABS: BASOPHILS # (AUTO) 0.1 X10'3 (0-0.2); BASOPHILS % (AUTO) 0.4 % (0-1); EOSINOPHILS # (AUTO) 0.5 X10'3 (0-0.9); EOSINOPHILS % (AUTO) 3.6 % (0-6); HEMATOCRIT 27.1 % (42.0-52.0); HEMOGLOBIN 8.6 g/dl (14.0-17.9); LYMPHOCYTES % (AUTO) 7.5 % (21-51); MEAN CORPUSCULAR HEMOGLOBIN 26.6 PG (27.0-31.0); MEAN CORPUSCULAR HGB CONC 31.7 g/dL (33.0-36.5); MEAN CORPUSCULAR VOLUME 83.8 FL (78-98); MEAN PLATELET VOLUME 7.4 FL (7.4-10.4); MONOCYTES # (AUTO) 1.1 X10'3 (0-0.9); NEUTROPHILS # (AUTO) 10.6 X10'3 (1.8-7.7); NEUTROPHILS % (AUTO) 80.5 % (42-75); PLATELET COUNT 514 X10'3 (140-440); RED BLOOD COUNT 3.24 X10'6 (4.70-6.10); RED CELL DISTRIBUTION WIDTH 17.5 % (11.5-14.5); WHITE BLOOD COUNT 13.1 X10'3 (4.5-11.0)
[2022-08-04 07:00] VITALS: BP 145/106
[2022-08-04 07:06] LABS: ALANINE AMINOTRANSFERASE 126 U/L (12-78); ALBUMIN 1.8 G/DL (3.4-5.0); ALBUMIN/GLOBULIN RATIO 0.4 (1.1-1.5); ALKALINE PHOSPHATASE 120 IU/L (46-116); ANION GAP 11 (8-16); ASPARTATE AMINO TRANSFERASE 64 U/L (10-37); BILIRUBIN,TOTAL 0.3 MG/DL (0.1-1.0); BLOOD UREA NITROGEN 9 MG/DL (7-18); BUN/CREATININE RATIO 11.8 (10.0-20.0); CALCIUM 9.3 MG/DL (8.5-10.1); CHLORIDE 109 MMOL/L (99-107); CREATININE 0.76 MG/DL (0.60-1.10); GLUCOSE 105 MG/DL (70-104); POTASSIUM 3.3 MMOL/L (3.5-5.1); SODIUM 146 MMOL/L (135-145); TOTAL CARBON DIOXIDE 26.5 MMOL/L (24-32); TOTAL PROTEIN 6.9 G/DL (6.4-8.2); eGFR > 90 ML/MIN
[2022-08-04] MEDS: CARIPRAZINE 1.5 MG CAPSULE PO SCH (07:35)
[2022-08-04] MEDS: carVEDilol 3.125mg tablet PO SCH ×2 (07:36→16:43)
[2022-08-04] MEDS: cyclobenzaprine 10mg tablet PO SCH ×2 (07:36→19:58)
[2022-08-04] MEDS: lamoTRIgine 100mg tablet PO SCH ×2 (07:36→19:56)
[2022-08-04] MEDS: lithium carbonate 150mg capsule PO SCH ×2 (07:36→19:57)
[2022-08-04] MEDS: lactose-reduced food (Ensure Enlive) - 237ml bottle PO SCH ×3 (07:37→17:50)
[2022-08-04] MEDS: potassium Cl 20 mEq SR tablet PO PRN ×3 (07:39→19:58)
[2022-08-04] MEDS: nystatin 15 GM powder TP SCH ×2 (07:52→19:58)
[2022-08-04] MEDS: K and/or MAG REPLACEMENT MC SCH ×2 (07:52→20:00)
[2022-08-04] MEDS: HYDROmorphone inj. 0.5 MG/0.5 ML DISP.SYRIN IV PRN (10:57)
[2022-08-04 12:00] VITALS: BP 136/67
--- NOTE | 2022-08-04 15:06 | NUR ---
OSTOMY FACTS: Almost everyone has know of, or met, businessmen, entertainers, athletes, and people from all walks of life who have an ostomy. Ostomates (a person that has an ostomy) can ski, ride horses, bowl, and get healthy exercise in countless ways. Your usual activities of daily living can be resumed as soon as you are able. Gradually you will be able to wear the clothes worn before surgery. With modern pouches, nothing is noticeable under your clothing. It may be difficult at first to believe that an intimate relationship can be possible when one's body has been disfigured by surgery. This is not true. Love, fortunately, is not easily destroyed when it is based on genuine appreciation of a person as a thinking, feeling, reacting human being. AN OSTOMY IS NOT AN IMPAIRMENT!! DEFINITIONS: 1.OSTOMY: An opening that is created by a surgical procedure. The opening is called a "stoma". 2.STOMA: A surgical opening in the abdomen (belly) where intestine is brought through the abdominal wall and connected at the skin level. A stoma is shiny, wet and at first is dark purple but eventually turns pink, similar to the inside lining of your mouth. 3.COLON: A portion of the large bowel. 4.COLOSTOMY: A fecal diversion with an opening, (stoma) created anywhere along the colon. Making a connection between the colon and the abdominal wall. 5.ILLEOSTOMY: A fecal diversion with an opening, (stoma) created in the small intestine. Making a connection between the small intestine and the abdominal wall. 6.UROSTOMY: A urinary diversion with the ureters connected to a segment of the small bowel and one end is brought out and connected to the abdominal wall, creating a stoma. SHAPES and SIZES: "The stoma is usually round or oval. "It is anywhere from a dime to half dollar in size. "A stoma reaches its permanent size 6-8 weeks after surgery. PRODUCTS: 1.POUCH or APPLIANCE: An external device to contain stool or urine output and protect the skin around the stoma. It can be a one piece pouch or two pieces (a pouch and a wafer). 2.BARRIER: Substance that is used to protect the skin around the stoma from drainage and adhesive. 3.SKIN PREP or SEALANT: Product applied to the skin to reduce injury from moisture, drainage, or repeated pouch removal. Available in spray or wipes. 4.CLOSURE or CLAMP: A device used to close the bottom of a drainable pouch. 5.BRIDGE or DANAE: A piece of plastic placed under a loop of bowel on the skins surface, to secure the bowel in place while the skin heals. POUCH CHANGE PROCEEDURE: 1.Assemble all the supplies "1 or 2 piece appliance "Ostomy paste (if needed) "Ostomy powder (if needed) "Skin prep wipes ( not recommended with coloplast products) "Moist wash cloth or cotton balls 2.Remove plastic center and paper backing from pouch. If pouch or wafer is not precut, use the sizing guide, or plastic backing from pouch to make a pattern. Do this by placing the paper over the stoma and trace it, or draw a pattern. Cut the wafer to fit and set it aside. 3.Remove old pouch by lifting up on tape while pressing skin down away from the tape. If there is a clip on your pouch, remove it and save it. 4.Clean skin or stoma with moistened wash cloth or cotton balls. Place a clean cotton ball over stoma hole to catch any drainage. Let skin dry. 5.For grooves or uneven areas in the skin- apply ostomy paste and sprinkle with ostomy powder, then gently shape the past so the area around the stoma is smooth and as flat as possible. Wipe off or blow away excess. Blot powder with skin prep wipe (DO NOT wipe powder). Let dry until no longer sticky. 6.For irritated or reddened skin- sprinkle ostomy powder on red or irritated area. Wipe off or blow away excess. Blot powder with skin prep wipe (DO NOT wipe powder). Let dry until no longer sticky. 7.Apply skin prep wipe to skin to which the pouch and tape will adhere. Let dry until no longer sticky. 8.If you have a one piece appliance- apply pouch so it is centered around the stoma. No skin should be exposed to stool. All skin should be covered by paste or pouch. 9.If you have a two piece appliance- Apply the wafer as described above, then snap or stick pouch onto wafer. Check to make sure wafer and pouch are securely connected. 10.Place clip on bottom of pouch. 11.Empty pouch when 1/3 full. OSTOMY SKIN CARE: "Good health care and nutrition are essential for healthy skin. "Usually a correct pouch size will prevent skin breakdown. "Use warm water and soap for skin cleansing. "Do not use creams or oil based products on skin around the stoma. This will prevent the appliance from sticking. "Use skin prep around the stoma. IT CAN TAKE 24 HOURS TO SEVERAL DAYS FOR SKIN TO HEAL. IF IT IS NOT RESOLVING, OR GETTING WORSE, CALL YOUR PRIMARY CARE DOCTOR. Addendum: 08/04/22 at 1507 by Shadia Dumas LVN Amended: Links added. Addendum: 08/04/22 at 1512 by Shadia Dumas LVN Please disregard Ostomy teaching, WRONG PATIENT Jose Miguel Dumas LVN [facility]
[2022-08-04] MEDS: normal saline 1000ml 1,000 ML IV SCH (16:43)
[2022-08-04 18:00] VITALS: BP 158/57
--- NOTE | 2022-08-04 18:00 | NUR ---
Patient in room ORTHO 4017. I have received report from Saba BURDEN and had the opportunity to ask questions and assume patient care.
--- NOTE | 2022-08-04 18:12 | NUR ---
Problems reprioritized. Patient report given, questions answered & plan of care reviewed with JENISE Armstrong.
[2022-08-04 22:00] VITALS: BP 161/92
[2022-08-05] MEDS: VANCOmycin 1250MG/NS 250ml Bag 250 ML IV SCH (00:03)
[2022-08-05] MEDS: piperacillin/tazo 4.5gm/100ml 100 ML IV SCH ×2 (00:04→08:46)
[2022-08-05] MEDS: potassium Cl 20 mEq SR tablet PO PRN (02:24)
[2022-08-05] MEDS: normal saline 1000ml 1,000 ML IV SCH (03:50)
--- NOTE | 2022-08-05 06:31 | NUR ---
Patient in room ORTHO 4017. I have received report from JENISE Armstrong and had the opportunity to ask questions and assume patient care.
[2022-08-05 06:32] VITALS: BP 149/85
[2022-08-05] MEDS ORDERED: VANCOMYCIN LEVEL IV ONE (07:30)
[2022-08-05] MEDS: K and/or MAG REPLACEMENT MC SCH (08:00)
[2022-08-05 08:16] LABS: BASOPHILS # (AUTO) 0.1 X10'3 (0-0.2); BASOPHILS % (AUTO) 0.5 % (0-1); EOSINOPHILS # (AUTO) 0.7 X10'3 (0-0.9); EOSINOPHILS % (AUTO) 4.8 % (0-6); HEMATOCRIT 27.3 % (42.0-52.0); HEMOGLOBIN 8.8 g/dl (14.0-17.9); LYMPHOCYTES # (AUTO) 1.1 X10'3 (1.1-4.8); LYMPHOCYTES % (AUTO) 7.6 % (21-51); MEAN CORPUSCULAR HEMOGLOBIN 26.9 PG (27.0-31.0); MEAN CORPUSCULAR HGB CONC 32.1 g/dL (33.0-36.5); MEAN CORPUSCULAR VOLUME 83.7 FL (78-98); MEAN PLATELET VOLUME 7.1 FL (7.4-10.4); MONOCYTES # (AUTO) 0.9 X10'3 (0-0.9); MONOCYTES % (AUTO) 6.4 % (2-12); NEUTROPHILS # (AUTO) 11.6 X10'3 (1.8-7.7); NEUTROPHILS % (AUTO) 80.7 % (42-75); PLATELET COUNT 537 X10'3 (140-440); RED BLOOD COUNT 3.26 X10'6 (4.70-6.10); RED CELL DISTRIBUTION WIDTH 17.9 % (11.5-14.5); WHITE BLOOD COUNT 14.4 X10'3 (4.5-11.0)
[2022-08-05 08:24] LABS: ALANINE AMINOTRANSFERASE 107 U/L (12-78); ALBUMIN 1.9 G/DL (3.4-5.0); ALBUMIN/GLOBULIN RATIO 0.4 (1.1-1.5); ALKALINE PHOSPHATASE 112 IU/L (46-116); ANION GAP 6 (8-16); ASPARTATE AMINO TRANSFERASE 56 U/L (10-37); BILIRUBIN,TOTAL 0.2 MG/DL (0.1-1.0); BLOOD UREA NITROGEN 7 MG/DL (7-18); CALCIUM 9.5 MG/DL (8.5-10.1); CHLORIDE 108 MMOL/L (99-107); GLUCOSE 101 MG/DL (70-104); POTASSIUM 3.9 MMOL/L (3.5-5.1); SODIUM 140 MMOL/L (135-145); TOTAL PROTEIN 7.3 G/DL (6.4-8.2); eGFR > 90 ML/MIN
[2022-08-05 08:36] LABS: VANCOMYCIN,TROUGH 24.2 UG/ML (6.0-14.0)
[2022-08-05] MEDS: cyclobenzaprine 10mg tablet PO SCH (08:50)
[2022-08-05] MEDS: CARIPRAZINE 1.5 MG CAPSULE PO SCH (08:50)
[2022-08-05] MEDS: lactose-reduced food (Ensure Enlive) - 237ml bottle PO SCH (08:51)
[2022-08-05] MEDS: lithium carbonate 150mg capsule PO SCH (08:51)
[2022-08-05] MEDS: carVEDilol 3.125mg tablet PO SCH (08:51)
[2022-08-05] MEDS: nystatin 15 GM powder TP SCH (08:51)
[2022-08-05] MEDS: lamoTRIgine 100mg tablet PO SCH (08:53)
[2022-08-05] MEDS ORDERED: vancomycin/NS 1 GM ADD-VANTAGE 250 ML IV SCH (09:45)
[2022-08-05] MEDS: HYDROcodone/acetaminophen 10/325mg tab PO PRN (10:28)
--- NOTE | 2022-08-05 10:45 | NUR ---
Patient was discharged at 1030 going to [facility] for [facility]. Patient went with his wound vac and PICC line. Report was called to receiving facility. COVID test was performed and it came back negative. Patient is stable and appropriate for discharge.
== END 2022-08-05 10:35 | DRG 907 ==
LOC: PCU 3S 12:00 → UNDOADMIN 12:00 → PCU 3S 20:05 → ICU 2S 07-21 02:10 → ORTHO 4S 07-23 14:52
PROVIDERS: ADMIT Internal Medicine; ATTEND Internal Medicine
PROC: 30233N1 Transfusion of Nonautologous Red Blood Cells into Peripheral Vein, Percutaneous Approach (ICD-10-PCS; 2022-07-21)
PROC: 0DB78ZX Excision of Stomach, Pylorus, Via Natural or Artificial Opening Endoscopic, Diagnostic (ICD-10-PCS; 2022-07-22)
PROC: 0DBN8ZZ Excision of Sigmoid Colon, Via Natural or Artificial Opening Endoscopic (ICD-10-PCS; 2022-07-22)
PROC: 0W3P8ZZ Control Bleeding in Gastrointestinal Tract, Via Natural or Artificial Opening Endoscopic (ICD-10-PCS; 2022-07-22)
PROC: 02HV33Z Insertion of Infusion Device into Superior Vena Cava, Percutaneous Approach (ICD-10-PCS; 2022-07-23)
PROC: B548ZZA Ultrasonography of Superior Vena Cava, Guidance (ICD-10-PCS; 2022-07-23)
PROC: 3E0T3BZ Introduction of Anesthetic Agent into Peripheral Nerves and Plexi, Percutaneous Approach (ICD-10-PCS; 2022-07-28)
PROC: 3E0T33Z Introduction of Anti-inflammatory into Peripheral Nerves and Plexi, Percutaneous Approach (ICD-10-PCS; 2022-07-28)
PROC: 0Y6D0Z3 Detachment at Left Upper Leg, Low, Open Approach (ICD-10-PCS; principal; 2022-07-28 11:32)
DX: T85.79XA Infection and inflammatory reaction due to other internal prosthetic devices, implants and grafts, initial encounter (principal); G93.41 Metabolic encephalopathy; R57.8 Other shock; D62 Acute posthemorrhagic anemia; D68.59 Other primary thrombophilia; R47.01 Aphasia; K92.1 Melena; K62.6 Ulcer of anus and rectum; Z20.822 Contact with and (suspected) exposure to COVID-19; E11.51 Type 2 diabetes mellitus with diabetic peripheral angiopathy without gangrene; F17.210 Nicotine dependence, cigarettes, uncomplicated; E78.5 Hyperlipidemia, unspecified; E87.6 Hypokalemia; E66.9 Obesity, unspecified; F32.9 Major depressive disorder, single episode, unspecified; R00.0 Tachycardia, unspecified; F20.9 Schizophrenia, unspecified; R74.01 Elevation of levels of liver transaminase levels; K20.90 Esophagitis, unspecified without bleeding; K29.70 Gastritis, unspecified, without bleeding; Y83.2 Surgical operation with anastomosis, bypass or graft as the cause of abnormal reaction of the patient, or of later complication, without mention of misadventure at the time of the procedure; I10 Essential (primary) hypertension; I25.10 Atherosclerotic heart disease of native coronary artery without angina pectoris; I99.8 Other disorder of circulatory system; K64.8 Other hemorrhoids; D12.5 Benign neoplasm of sigmoid colon; Z79.01 Long term (current) use of anticoagulants; Z79.02 Long term (current) use of antithrombotics/antiplatelets; Z79.84 Long term (current) use of oral hypoglycemic drugs; Z81.8 Family history of other mental and behavioral disorders; Z88.8 Allergy status to other drugs, medicaments and biological substances; Z88.5 Allergy status to narcotic agent; Z79.899 Other long term (current) drug therapy; Z68.30 Body mass index [BMI] 30.0-30.9, adult; Z89.611 Acquired absence of right leg above knee; Y92.89 Other specified places as the place of occurrence of the external cause
CPT/HCPCS: 36415; 36430; 36569; 36600; 43239; 45385; 70450; 71045; 76942; 80048; 80053; 80076; 80202; 81001; 82140; 82803; 82948; 83605; 83735; 84100; 84132; 84145; 84443; 85008; 85018; 85025; 85027; 85610; 85730; 86885; 86900; 86901; 86920; 87040; 87081; 87811; 88305; 88307; 88311; 88342; 93005; 93922; 93926; 97110; 97161; 97530; 97535; 99152; 99153; 99285; A4618; A4620; A4649; A5200; A6154; A6212; A6213; A6222; A6223; A6250; A6253; A6258; A6260; A6446; A6449; A6550; A7000; C1889; C9113; G0378; J1100; J1170; J1650; J2250; J2405; J2426; J2543; J2704; J2710; J2795; J2997; J3010; J3360; J3370; J3480; J3490; J7030; J7040; J7120; J7168; P9016